=== PATIENT | male | born 1945 | race Caucasian/White ===

== ENCOUNTER → 2018-03-16 07:22 | Outpatient (CLI) | payer OTHER, MEDICAID, SELFPAY ==
--- NOTE | 2018-03-16 07:39 | PCM.CR.ITP ---
General Information - General Information Admitting Diagnosis: CABG - Education/Goals Barriers to Learning: None Individual Counseling: Initial Assessment: Nicotine/Smoking, Abnormal Cholesterol Levels Cardiac Rehabilitation Goals: 1. Maintain the individual as the primary focus of care. 2. To improve the patient's quality of life. 3. Identification of cardiac risk factors and provide cardiac risk factor management. 4. Enhance the psychosocial status of the patient. 5. Reconditioning enough to allow the patient to resume customary activities. 6. Control symptoms of cardiac disease Scale for measuring improvement of personal goals: Enter appropriate number in Comments. 2 = Unchanged. 3 = Slightly Better. 4 = Moderate Improvement. 5 = Met my Goal Personal Goals: Initial Assessment: Quit smoking (participate in smoking cessation, Improve management of stress and emotions, Improve energy level, Participate in home exercise program, Get back to work, or to resume activities faster, Improve knowledge of cardiac disease, Improve muscle strength and endurance, Improve diet and eating habits (eat healthier), Control risk factors (learn risk factor modification), Other goal: - Improve social standards in professions. Exercise - Initial Assessment - Visit Date of Eval: 03/16/18 - Stages of Change Stages of Change:: Action - Exercise Prescription Mode:: Treadmill, Biodyne, Rower, Airdyne, NuStep - Intervention Home Exercise/Activity Goal:: Moderate Exercise 30 min/day x 5 days/wk - Education Goals:: Warm-up, RPE MARIA C Scale, S/S, Safe Exercise, Self-Monitoring - Exercise Program Goals Exercise Program Goals: Aerobic Activity >30 min Nutrition - Initial Assessment - Program Goals Nutrition Program Goals: LDL <70. Total Cholesterol <200. HDL >45. Triglycerides <150. HgbA1C <7%. BMI <25 - Visit Date of Assessment:: 03/16/18 - Stages of Change Stages of Change:: Action - Lipids Total Cholesterol (mg/dL) Goal = less than 200 mg/dL: 163 HDL Cholesterol (mg/dL) Goal = less than 45 mg/dL: 40 LDL Cholesterol (mg/dL) Goal = less than 70 mg/dL: 111 Triglycerides (mg/dL) Goal = less than 150 mg/dL: 61 Lipid Medication: yes - Diabetes Diabetes:: No - Weight Management Height: 1.91 m Weight:: 72.575 kg - Intervention Referral to dietitian:: No Referral to Diabetic Clinic:: No Will attend diet classes:: Yes - Education Gave educational materials for:: Healthy eating Tobacco - Initial Assessment - Program Goals Tobacco Program Goals: Complete smoking cessation. Attend education classes. Improve Knowledge Test score - Stage of Change Stages of Change:: Action - Learning Barriers Learning Barriers: Ready to Learn Total Score:: 12 - Family Support Do you have family support?: Yes - friend - Tobacco Use Tobacco Use: Cigarettes - states I don't inhale anymore - Intervention Smoking Cessation Referral:: Yes Individual Education/Counseling:: Yes Education Schedule Given:: Yes - Education Gave educational material for:: Tobacco triggers, Coronary artery disease, Risk factors, Sexuality, Medical compliance, Cardiac A&P, Angina signs & symptoms Psychosocial - Initial Assess - Target Goals Target Goals: Assess presence or absence of depression. Using a valid screening tool, maximizes coping skills. Positive support system - Stages of Change Stages of Change:: Action - Psychosocial Test Tool Used:: HANDS Depression Questionnaire Self-Efficacy Score:: 9 - Intervention PS - Interventions: Yes Attend Stress Management Classes, Yes Uses Stress Management Skills, No Referral to Mental Health, No Referral to [facility] Case Management, No Referral to Physician - Education Gave educational materials for:: Coping techniques, Signs & symptoms of depression, Stress management, Relaxation techniques - Patient/Program Goal Preventative Medication(s):: Aspirin, JOSE ELIAS inhibitor, Clopidogrel, Beta ian, Statin/lipid - Assistive Devices Assistive Devices:: None Fall Risk Assessed:: Yes Patient Health Questionnaire Initial Assessment 1. Little interest or pleasure in doing things: Not at all 2. Feeling down, depressed, or hopeless: Not at all 3. Trouble falling or staying asleep, or sleeping too much: Not at all 4. Feeling tired or having little energy: Not at all 5. Poor appetite or overeating: Not at all 6. Feeling bad about yourself -- or that you are a failure or have let yourself or your family down: Not at all 7. Trouble concentrating on things, such as reading the newspaper or watching television: Not at all 8. Moving or speaking so slowly that other people could have noticed. Or the opposite - being so fidgety or restless that you have been moving around a lot more than usual: Not at all 9. Thoughts that you would be better off , or of hurting yourself in some way: Not at all How difficult have these problems made it for you to do your work, take care of things at home, or get along with other people?: Somewhat difficult Total Score: 0 KYM-Q SV Test - Statements CAD is a disease of the arteries in the heart: True Examples of risk factors for heart disease: True Angina is chest pain or discomfort: I Don't Know The benefits of resistance training include: True Eating more meat and dairy products: True Anti-platelet medications such as aspirin are important: True The only effective way to manage stress: True An exercise warm-up slowly increases heart rate: True Prepared, processed foods usually have high sodium: True Depression is common after a heart attack: True The statin medications lower cholesterol: True To control blood pressure, lower the amount of sodium: True If someone gets chest discomfort during walking: True Transfats are partially hydrogenated vegetable oils: True Sleep apnea that is not treated increases the risk: True To control cholesterol, one should become a vegetarian: True Someone knows if he/she is exercising at the right level: True Diabetes cannot be prevented with exercise & health eating: True Stress is a large risk for heart attack: True A diet that can help lower blood pressure is rich in: True - Total Score Total Correct Responses: 12 Self-Efficacy Initial Assessment We would like to know how confident you are in doing certain activities. Please select your confidence level for:: Select your confidence level for the following using the scale 1-10 where 1 is not at all confident and 10 is totally confident. Your score is the average of all 6 responses. Fatigue: How confident are you that you can keep the fatigue caused by your disease from interfering with the things you want to do? Select Number: 9 Physical Discomfort or Pain: How confident are you that you can keep the physical discomfort or pain of your disease from interfering with the things you want to do? Select Number: 10 Emotional Distress: How confident are you that you can keep the emotional distress caused by your disease from interfering with the things you want to do? Select Number: 9 Other Symptoms or Health Problems: How confident are you that you can keep other symptoms or health problems from interfering with the things you want to do? Select Number: 9 Different Tasks and Activities: How confident are you that you can do the different tasks and activities needed to manage your health condition so as to reduce your need to see a doctor? Select Number: 9 Medication: How confident are you that you can do things other than just taking medication to reduce how much your illness affects your everyday life? Select Number: 9 Total Score:: 9 Nutrition Survey - Nutrition Survey Instructions Scoring Instructions: Scoring is as follows: Yes = 1 points. No = 0 point. Patient score that is >/=12 is considered to be at potential nutritional risk and could benefit from a referral to a registered dietitian. - Nutrition Survey Initial Have you lost >10 lbs over the past 2 months without trying?: No Are you following a special diet at home for diabetes, low fat, or low salt?: Yes Are you interested in meeting with a dietitian for help understanding your diet?: Yes Do you eat less than 3 meals a day?: Yes Do you eat fatty meats ([place], sausage, ribs, etc), fried foods, desserts, large amounts of salad dressings, margarine, butter, or cheese most days?: No Do you have food allergies? [Enter types in comment field]: No Do you eat in restaurants more than 3 times a week?: No Do you season food with salt, seasoning salt, or garlic salt?: No Do you used canned, boxed, frozen meals, or soups, seasoning packets?: Yes Total Score:: 4
--- NOTE | 2018-03-16 07:39 | PCM.CR.HP2 ---
CR - History & Physical - General Arrival date:: 03/16/18 Arrival time:: 07:40 Date of Referral:: 03/16/18 Date of CR Evaluation:: 03/16/18 Referring Physician: Dr. 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 Interventions with present event:: Intubation, CABG, DEBBIE Were there any complications?: Respiratory failure - Medications Home Medications: Ambulatory Orders Medication Instructions Recorded Acetaminophen [Arthritis Pain 650 mg PO Q6H PRN PRN 03/16/18 Relief] Amiodarone HCl [Cordarone] 200 mg PO DAILY 03/16/18 Aspirin E.C. [Ecotrin] 81 mg PO DAILY@0800 03/16/18 Atorvastatin Calcium [Lipitor] 10 mg PO QHS 03/16/18 Budesonide/Formoterol 160/4.5 2 puff INHALATION BID 03/16/18 [Symbicort 160/4.5 Mcg Inhaler (SP)] Carvedilol [Coreg] 3.125 mg PO BID 03/16/18 Docusate Sodium [Stool Softener] 100 mg PO DAILY 03/16/18 Esomeprazole Mag Trihydrate 40 mg PO DAILY 03/16/18 [Nexium] Ferrous Sulfate [Iron] 325 mg PO TIDCM 03/16/18 Folic Acid 1 mg PO DAILY@0800 03/16/18 Losartan Potassium [Cozaar] 25 mg PO DAILY 03/16/18 Multivitamin [Multiple Vitamins] 1 each PO DAILY 03/16/18 Spironolactone [Aldactone] 25 mg PO DAILY 03/16/18 Thiamine HCl [B-1] 100 mg PO DAILY 03/16/18 Tiotropium [place] [Spiriva] 18 mcg IH DAILY 03/16/18 - Allergies Allergies/Adverse Reactions: Allergies No Known Allergies Allergy (Verified 03/16/18 07:42) - Sleep Disorder Evaluation Hx of Sleep Apnea: No Do you snore loudly (louder than talking or can be heard through closed doors)?: Yes Do you often feel tired/ fatigued/ sleepy during daytime?: Yes Has anyone observed you stop breathing during sleep?: No History of Hypertension (for STOP score): No STOP Results: Positive Advanced Directives - Advanced Directives Power of Design Project Manager: Yes Living Will: Yes Advance Directives Information Provided: Yes Advance Directives on File: No DNR Order?:: No - MOLST See MOLST form: No Past Medical History - Past Medical Illness Medical History: Past Medical History (Last Updated 03/16/18 @ 08:30 by Tejas Griffith RN) COPD (chronic obstructive pulmonary disease) J44.9 Ischemic cardiomyopathy I25.5 - Past Surgical History Surgical History: no surgical history Social History - Smoking History Smoking Status: Current every day smoker Years Smokin - since a teenager Packs Smoked per Day: 1 - States I don't inhale now Hx Tobacco Use: Yes Hx Smoking Exposure: Yes - Alcohol Use Alcohol Usage: Yes - some table wine occas on weekends - Substance Abuse Hx Substance Use: No - Occupation Occupation (List type of work in comments):: Unemployed - states I would like to play piano - Hobbies, Recreation, Social Activities Hobbies: Other - piano playing, plays Recreational Activities: I am able to engage in all my recreational activities Social Environment - Status Marital Status: Single - Current Living Arrangements Living Environment:: Alone - Children How many children do you have?: 0 Do any of your children live nearby?: No - Safety Do you feel safe in your surroundings?: Yes - Assistance Do you need any assistance at home?: no Review of Systems - Review of Systems Hints: Right click = Denies (Slash). Left click = Reports ([place]) Review of Present Symptoms: Reports: Shortness of Breath with Exertion, Operative Discomfort - Occas strains chest incision area., Dizziness/Lightheadedness - not much, Fatigue, Appetite - Normal, Appetite - Special Diet - Cardiac, Sleep - Normal. Denies: Shortness of Breath at Rest, PVD, Angina, Wound Healing, Heart Arrhythmia/Irregularities, Sexual Changes - Pain Is Patient Pain Free?: Yes Risk Factor Assessment - Vital Signs Respiratory Rate: 20 Pulse Ox: 98 - Pulse Pulse Rate: 74 Pulse Rhythm: Regular - Hypertension Blood Pressure Sitting - Right Arm: 120/68 Blood Pressure Sitting - Left Arm: 128/70 - Blood Cholesterol/Lipids Total Cholesterol (mg/dL) Goal = less than 200 mg/dL: 163 HDL Cholesterol (mg/dL) Goal = less than 40 mg/dL: 40 LDL Cholesterol (mg/dL) Goal = less than 70 mg/dL: 111 Triglycerides (mg/dL) Goal = less than 150 mg/dL: 61 - Obesity Height: 1.91 m Weight:: 72.575 kg Weight in Pounds: 160.0 lbs Weight Source: Standing Scale Body Mass Index (BMI): 20.0 Nutritional Referral for Obesity: No - Physical Inactivity Physical Inactivity: Reg Exercise 30 min/day - Risk Stratification Risk Guidelines: Lowest Risk: Risk Factor for Dyslipidemia, Risk Factor for Diabetes, Risk Factor for Obesity, Risk Factor for Hypertension, Risk Factor for Sedentary Lifestyle, Risk Factor for Depression, Highest Risk: Risk Factor for Smoking - For Smoking Smoking Risk Guidelines: Smoking Low Risk: None or quit greater than 6 months ago. Smoking Moderate Risk: Smoker or quit 6 months or less ago. Smoking High Risk: Smoker - For Dyslipidemia Dyslipidemia Risk Guidelines: Low Risk: Moderate Risk: High Risk: 15-25% fat 25.1-29% fat >/= 30% fat. <7% sat fat 7-9% sat fat >9% sat fat. <150 mg chol 150-299 mg chol >/= 300 mg chol. LDL <100 LDL 100-129 LDL >/= 130. Chol/HDL ratio <5.0 Chol/HDL ratio 5.0-6.0 Chol/HDL ratio >6.0. Triglycerides <100 Triglycerides 100-149 Triglycerides >/= 150 - For Diabetes Mellitus Diabetes Risk Guidelines: Diabetes Low Risk: HgA1c <6.5% and/or FBG <120. Diabetes Moderate Risk: HgA1c 6.6-7.9% and/or FBG 120-180. Diabetes High Risk: HgA1c >/= 8% and/or FBG >180 - For Obesity/Overweight Obesity/Overweight Risk Guidelines: Obesity Low Risk: BMI <25.0. Obesity Moderate Risk: BMI 25-29.9. Obesity High Risk: BMI >/= 30.0 - For Hypertension Hypertension Risk Guidelines: Hypertension Low Risk: Systolic <120 and Diastolic <80. Hypertension Moderate Risk: Systolic 120-139 and Diastolic 80-89. Hypertension High Risk: Systolic >/= 140 and Diastolic >/= 90 - For Sedentary Lifestyle Sedentary Lifestyle Risk Guidelines: Sedentary Lifestyle Low Risk: >/= 1,500 kcal/week. Sedentary Lifestyle Moderate Risk: 700-1,499 kcal/week. Sedentary Lifestyle High Risk: < 700 kcal/week - For Depression Depression Risk Guidelines: Depression Low Risk: Not clinically depressed. Depression Moderate Risk: Mildly depressed. Depression High Risk: Clinically depressed Motivation - Motivation to Participate On a scale of 1 to 10, how prepared are you to commit to attending program?: 10 What do you see as barriers to successfully being able to complete the program?: no What do you see as the benefits of succesfully completing the program? In other words, what do you hope to get out of participating in the program?: none Are there issues you are dealing with that will interfere with completing the program?: no Do you have a spouse or signficant other, family or friends who will help support you to complete the program?: yes
--- NOTE | 2018-03-16 07:52 | CR.HP_ITS ---
CR - History & Physical - General Arrival date:: 03/16/18 Arrival time:: 07:40 Date of Referral:: 03/16/18 Date of CR Evaluation:: 03/16/18 Referring Physician: Dr. 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 Interventions with present event:: Intubation, CABG, DEBBIE Were there any complications?: Respiratory failure - Medications Home Medications: Ambulatory Orders Medication Instructions Recorded Acetaminophen [Arthritis Pain 650 mg PO Q6H PRN PRN 03/16/18 Relief] Amiodarone HCl [Cordarone] 200 mg PO DAILY 03/16/18 Aspirin E.C. [Ecotrin] 81 mg PO DAILY@0800 03/16/18 Atorvastatin Calcium [Lipitor] 10 mg PO QHS 03/16/18 Budesonide/Formoterol 160/4.5 2 puff INHALATION BID 03/16/18 [Symbicort 160/4.5 Mcg Inhaler (SP)] Carvedilol [Coreg] 3.125 mg PO BID 03/16/18 Docusate Sodium [Stool Softener] 100 mg PO DAILY 03/16/18 Esomeprazole Mag Trihydrate 40 mg PO DAILY 03/16/18 [Nexium] Ferrous Sulfate [Iron] 325 mg PO TIDCM 03/16/18 Folic Acid 1 mg PO DAILY@0800 03/16/18 Losartan Potassium [Cozaar] 25 mg PO DAILY 03/16/18 Multivitamin [Multiple Vitamins] 1 each PO DAILY 03/16/18 Spironolactone [Aldactone] 25 mg PO DAILY 03/16/18 Thiamine HCl [B-1] 100 mg PO DAILY 03/16/18 Tiotropium [place] [Spiriva] 18 mcg IH DAILY 03/16/18 - Allergies Allergies/Adverse Reactions: Allergies No Known Allergies Allergy (Verified 03/16/18 07:42) - Sleep Disorder Evaluation Hx of Sleep Apnea: No Do you snore loudly (louder than talking or can be heard through closed doors)? : Yes Do you often feel tired/ fatigued/ sleepy during daytime?: Yes Has anyone observed you stop breathing during sleep?: No History of Hypertension (for STOP score): No STOP Results: Positive Advanced Directives - Advanced Directives Power of Buffing Machine Operator: Yes Living Will: Yes Advance Directives Information Provided: Yes Advance Directives on File: No DNR Order?:: No - MOLST See MOLST form: No Past Medical History - Past Medical Illness Medical History: Past Medical History (Last Updated 03/16/18 @ 08:30 by Tejas Griffith RN) COPD (chronic obstructive pulmonary disease) J44.9 Ischemic cardiomyopathy I25.5 - Past Surgical History Surgical History: no surgical history Social History - Smoking History Smoking Status: Current every day smoker Years Smokin - since a teenager Packs Smoked per Day: 1 - States I don't inhale now Hx Tobacco Use: Yes Hx Smoking Exposure: Yes - Alcohol Use Alcohol Usage: Yes - some table wine occas on weekends - Substance Abuse Hx Substance Use: No - Occupation Occupation (List type of work in comments):: Unemployed - states I would like to play piano - Hobbies, Recreation, Social Activities Hobbies: Other - piano playing, plays Recreational Activities: I am able to engage in all my recreational activities Social Environment - Status Marital Status: Single - Current Living Arrangements Living Environment:: Alone - Children How many children do you have?: 0 Do any of your children live nearby?: No - Safety Do you feel safe in your surroundings?: Yes - Assistance Do you need any assistance at home?: no Review of Systems - Review of Systems Hints: Right click = Denies (Slash). Left click = Reports ([place]) Review of Present Symptoms: Reports: Shortness of Breath with Exertion, Operative Discomfort - Occas strains chest incision area., Dizziness/ Lightheadedness - not much, Fatigue, Appetite - Normal, Appetite - Special Diet - Cardiac, Sleep - Normal. Denies: Shortness of Breath at Rest, PVD, Angina, Wound Healing, Heart Arrhythmia/Irregularities, Sexual Changes - Pain Is Patient Pain Free?: Yes Risk Factor Assessment - Vital Signs Respiratory Rate: 20 Pulse Ox: 98 - Pulse Pulse Rate: 74 Pulse Rhythm: Regular - Hypertension Blood Pressure Sitting - Right Arm: 120/68 Blood Pressure Sitting - Left Arm: 128/70 - Blood Cholesterol/Lipids Total Cholesterol (mg/dL) Goal = less than 200 mg/dL: 163 HDL Cholesterol (mg/dL) Goal = less than 40 mg/dL: 40 LDL Cholesterol (mg/dL) Goal = less than 70 mg/dL: 111 Triglycerides (mg/dL) Goal = less than 150 mg/dL: 61 - Obesity Height: 1.91 m Weight:: 72.575 kg Weight in Pounds: 160.0 lbs Weight Source: Standing Scale Body Mass Index (BMI): 20.0 Nutritional Referral for Obesity: No - Physical Inactivity Physical Inactivity: Reg Exercise 30 min/day - Risk Stratification Risk Guidelines: Lowest Risk: Risk Factor for Dyslipidemia, Risk Factor for Diabetes, Risk Factor for Obesity, Risk Factor for Hypertension, Risk Factor for Sedentary Lifestyle, Risk Factor for Depression, Highest Risk: Risk Factor for Smoking - For Smoking Smoking Risk Guidelines: Smoking Low Risk: None or quit greater than 6 months ago. Smoking Moderate Risk: Smoker or quit 6 months or less ago. Smoking High Risk: Smoker - For Dyslipidemia Dyslipidemia Risk Guidelines: Low Risk: Moderate Risk: High Risk: 15-25% fat 25.1-29% fat >/= 30% fat. <7% sat fat 7-9% sat fat >9% sat fat. <150 mg chol 150-299 mg chol >/= 300 mg chol. LDL <100 LDL 100-129 LDL >/= 130. Chol/HDL ratio <5.0 Chol/HDL ratio 5.0-6.0 Chol/HDL ratio >6.0. Triglycerides <100 Triglycerides 100-149 Triglycerides >/= 150 - For Diabetes Mellitus Diabetes Risk Guidelines: Diabetes Low Risk: HgA1c <6.5% and/or FBG <120. Diabetes Moderate Risk: HgA1c 6.6-7.9% and/or FBG 120-180. Diabetes High Risk: HgA1c >/= 8% and/or FBG >180 - For Obesity/Overweight Obesity/Overweight Risk Guidelines: Obesity Low Risk: BMI <25.0. Obesity Moderate Risk: BMI 25-29.9. Obesity High Risk: BMI >/= 30.0 - For Hypertension Hypertension Risk Guidelines: Hypertension Low Risk: Systolic <120 and Diastolic <80. Hypertension Moderate Risk: Systolic 120-139 and Diastolic 80-89. Hypertension High Risk: Systolic >/= 140 and Diastolic >/= 90 - For Sedentary Lifestyle Sedentary Lifestyle Risk Guidelines: Sedentary Lifestyle Low Risk: >/= 1 ,500 kcal/week. Sedentary Lifestyle Moderate Risk: 700-1,499 kcal/week. Sedentary Lifestyle High Risk: < 700 kcal/week - For Depression Depression Risk Guidelines: Depression Low Risk: Not clinically depressed. Depression Moderate Risk: Mildly depressed. Depression High Risk: Clinically depressed Motivation - Motivation to Participate On a scale of 1 to 10, how prepared are you to commit to attending program?: 10 What do you see as barriers to successfully being able to complete the program? : no What do you see as the benefits of succesfully completing the program? In other words, what do you hope to get out of participating in the program?: none Are there issues you are dealing with that will interfere with completing the program?: no Do you have a spouse or signficant other, family or friends who will help support you to complete the program?: yes
[2018-03-16 09:21] VITALS: BP 120/68; BP 128/70; PULSE 74; RESP 20; O2SAT 98
== END ==
PROVIDERS: Family Provider Internal Medicine Cardiovascular Disease
DX: I25.2 Old myocardial infarction (principal); J44.9 Chronic obstructive pulmonary disease, unspecified; I25.5 Ischemic cardiomyopathy; Z95.1 Presence of aortocoronary bypass graft; Z79.82 Long term (current) use of aspirin; Z79.899 Other long term (current) drug therapy; F17.200 Nicotine dependence, unspecified, uncomplicated

== ENCOUNTER 2018-03-29 13:00 | Outpatient (RCR) | payer MEDICARE, MEDICAID, SELFPAY ==
[2018-03-22 11:54] VITALS: BP 108/48; BP 122/64
--- NOTE | 2018-03-22 11:56 | CR.ITP_ITS ---
General Information - General Information Admitting Diagnosis: CABG - Education/Goals Barriers to Learning: None Individual Counselin-Day Assessment: Nicotine/Smoking, Abnormal Cholesterol Levels Cardiac Rehabilitation Goals: 1. Maintain the individual as the primary focus of care. 2. To improve the patient's quality of life. 3. Identification of cardiac risk factors and provide cardiac risk factor management. 4. Enhance the psychosocial status of the patient. 5. Reconditioning enough to allow the patient to resume customary activities. 6. Control symptoms of cardiac disease Scale for measuring improvement of personal goals: Enter appropriate number in Comments. 2 = Unchanged. 3 = Slightly Better. 4 = Moderate Improvement. 5 = Met my Goal Personal Goals: 30-day Re-assessment: Quit smoking (participate in smoking cessation, Improve management of stress and emotions, Improve energy level, Participate in home exercise program, Get back to work, or to resume activities faster, Improve knowledge of cardiac disease, Control risk factors (learn risk factor modification) Exercise - 30-day Assessment - Visit Date of Eval: 03/22/18 Session #:: 1 - Stages of Change Stages of Change:: Contemplate - Exercise Prescription Mode:: Treadmill, Airdyne, NuStep Frequency (x/week): 3 Duration:: 30 METs - Progression: 0.5-1 MET as tolerated: 2.5 Target Heart Rate:: 100-120 - Hypertension Resting Blood Pressure:: 108/48 Peak Exercise Blood Pressure:: 122/64 Medication Changes:: No - Intervention Home Exercise/Activity Goal:: Sitting Time <3 hrs/day - Education Goals:: Warm-up, RPE MARIA C Scale, S/S, Safe Exercise, Self-Monitoring - Exercise Program Goals Exercise Program Goals: Aerobic Activity >30 min, B/P <130/80 Nutrition - 30-Day Assessment - Program Goals Nutrition Program Goals: LDL <70. Total Cholesterol <200. HDL >45. Triglycerides <150. HgbA1C <7%. BMI <25 - Visit Date of Eval: 03/22/18 - Stages of Change Stages of Change:: Contemplate - Lipids Has the patient seen the dietitian?: No - Diabetes Diabetes:: No - Weight Management Weight:: 72.575 kg - Intervention Referral to dietitian:: No Referral to Diabetic Clinic:: No Will attend diet classes:: Yes - Education Attended class for:: Signs & symptoms of hypoglycemia, Signs & symptoms of hyperglycemia, Relate diabetes to coronary artery disease, Healthy eating Tobacco - Initial Assessment - Program Goals Tobacco Program Goals: Complete smoking cessation. Attend education classes. Improve Knowledge Test score - Learning Barriers Learning Barriers: Ready to Learn Tobacco - 30-Day Assessment - Program Goals Tobacco Program Goals: Complete smoking cessation. Attend education classes. Improve Knowledge Test score - Stage of Change Stages of Change:: Contemplate - Learning Barriers Learning Barriers: Participates in education, Declined education, Change in behavior - Family Support Do you have family support?: Yes - Tobacco Use Tobacco Use: Cigarettes - Intervention Smoking Cessation Referral:: Yes Individual Education/Counseling:: Yes Education Schedule Given:: Yes - Education Attended class for:: Tobacco triggers, Coronary artery disease, Risk factors, Sexuality, Medical compliance, Cardiac A&P, Angina signs & symptoms Psychosocial - Initial Assess - Target Goals Target Goals: Assess presence or absence of depression. Using a valid screening tool, maximizes coping skills. Positive support system - Psychosocial Test Tool Used:: HANDS Depression Questionnaire - Assistive Devices Fall Risk Assessed:: Yes Psychosocial - 30-Day Assess - Target Goals Target Goals: Assess presence or absence of depression. Using a valid screening tool, maximizes coping skills. Positive support system - Stages of Change Stages of Change:: Contemplate - Psychosocial Test Tool Used:: HANDS Depression Questionnaire - Intervention PS - Interventions: Yes Attend Stress Management Classes, Yes Uses Stress Management Skills, No Referral to Mental Health, No Referral to [facility] Case Management, No Referral to Physician - Education Attended classes for:: Coping techniques, Signs & symptoms of depression, Stress management, Relaxation techniques - Assistive Devices Assistive Devices:: None Fall Risk Assessed:: Yes Patient Health Questionnaire 30-Day Re-eval Assessment 1. Little interest or pleasure in doing things: Not at all 2. Feeling down, depressed, or hopeless: Not at all 3. Trouble falling or staying asleep, or sleeping too much: Not at all 4. Feeling tired or having little energy: Not at all 5. Poor appetite or overeating: Not at all 6. Feeling bad about yourself -- or that you are a failure or have let yourself or your family down: Not at all 7. Trouble concentrating on things, such as reading the newspaper or watching television: Not at all 8. Moving or speaking so slowly that other people could have noticed. Or the opposite - being so fidgety or restless that you have been moving around a lot more than usual: Not at all 9. Thoughts that you would be better off , or of hurting yourself in some way: Not at all How difficult have these problems made it for you to do your work, take care of things at home, or get along with other people?: Not difficult at all Total Score: 0 Self-Efficacy 30-Day Re-eval Assessment We would like to know how confident you are in doing certain activities. Please select your confidence level for:: Select your confidence level for the following using the scale 1-10 where 1 is not at all confident and 10 is totally confident. Your score is the average of all 6 responses. Fatigue: How confident are you that you can keep the fatigue caused by your disease from interfering with the things you want to do? Select Number: 9 Physical Discomfort or Pain: How confident are you that you can keep the physical discomfort or pain of your disease from interfering with the things you want to do? Select Number: 10 Emotional Distress: How confident are you that you can keep the emotional distress caused by your disease from interfering with the things you want to do? Select Number: 9 Other Symptoms or Health Problems: How confident are you that you can keep other symptoms or health problems from interfering with the things you want to do? Select Number: 9 Different Tasks and Activities: How confident are you that you can do the different tasks and activities needed to manage your health condition so as to reduce your need to see a doctor? Select Number: 9 Medication: How confident are you that you can do things other than just taking medication to reduce how much your illness affects your everyday life? Select Number: 9 Total Score:: 9
== END 2018-03-30 23:59 ==
LOC: CR 13:00
PROVIDERS: Family Provider Internal Medicine Cardiovascular Disease
DX: Z95.1 Presence of aortocoronary bypass graft (principal)
CPT/HCPCS: 93798

== ENCOUNTER 2018-04-28 13:00 | Outpatient (RCR) | payer MEDICARE, MEDICAID, SELFPAY ==
[2018-03-31 01:15] VITALS: BP 108/48; BP 122/64
--- NOTE | 2018-04-21 11:43 | PCM.CR.ITP ---
General Information - General Information Admitting Diagnosis: CABG - Education/Goals Individual Counselin-Day Assessment: Nicotine/Smoking, Abnormal Cholesterol Levels Cardiac Rehabilitation Goals: 1. Maintain the individual as the primary focus of care. 2. To improve the patient's quality of life. 3. Identification of cardiac risk factors and provide cardiac risk factor management. 4. Enhance the psychosocial status of the patient. 5. Reconditioning enough to allow the patient to resume customary activities. 6. Control symptoms of cardiac disease Scale for measuring improvement of personal goals: Enter appropriate number in Comments. 2 = Unchanged. 3 = Slightly Better. 4 = Moderate Improvement. 5 = Met my Goal Personal Goals: 60-day Re-assessment: Quit smoking (participate in smoking cessation, Improve management of stress and emotions, Improve energy level, Improve knowledge of cardiac disease, Control risk factors (learn risk factor modification) Exercise - 60-Day Assessment - Visit Date of Eval: 04/21/18 Session #:: 10 - 83.33 % compliance - Stages of Change Stages of Change:: Action - Exercise Prescription Mode:: Treadmill, Airdyne, NuStep Frequency (x/week): 3 Duration:: 30 METs: 4.5 80% increase Target Heart Rate:: 112-118 max 116 - Hypertension Resting Blood Pressure:: 160/58 Peak Exercise Blood Pressure:: 166/84 Medication Changes:: No - Intervention Home Exercise/Activity Goal:: Sitting Time <3 hrs/day - Education Goals:: Warm-up, RPE MARIA C Scale, S/S, Safe Exercise, Self-Monitoring - Exercise Program Goals Exercise Program Goals: Aerobic Activity >30 min, B/P <130/80 Nutrition - 60-Day Assessment - Program Goals Nutrition Program Goals: LDL <70. Total Cholesterol <200. HDL >45. Triglycerides <150. HgbA1C <7%. BMI <25 - Visit Date of Eval: 04/21/18 - Stages of Change Stages of Change:: Action - Lipids Has the patient seen the dietitian?: No - Diabetes Diabetes:: No - Intervention Referral to dietitian:: No Referral to Diabetic Clinic:: No Will attend diet classes:: Yes - Education Attended class for:: Signs & symptoms of hypoglycemia, Signs & symptoms of hyperglycemia, Relate diabetes to coronary artery disease, Healthy eating Tobacco - Initial Assessment - Program Goals Tobacco Program Goals: Complete smoking cessation. Attend education classes. Improve Knowledge Test score - Learning Barriers Learning Barriers: Ready to Learn Tobacco - 60-Day Assessment - Program Goals Tobacco Program Goals: Complete smoking cessation. Attend education classes. Improve Knowledge Test score - Stage of Change Stages of Change:: Action - Learning Barriers Learning Barriers: Participates in education - Family Support Do you have family support?: Yes - Tobacco Use Tobacco Use: Cigarettes Do you use smokeless tobacco?: No - Intervention Education Schedule Given:: Yes - Education Attended class for:: Tobacco triggers, Coronary artery disease, Risk factors, Sexuality, Medical compliance, Cardiac A&P, Angina signs & symptoms Psychosocial - 60-Day Assess - Target Goals Target Goals: Assess presence or absence of depression. Using a valid screening tool, maximizes coping skills. Positive support system - Stages of Change Stages of Change:: Action - Psychosocial Test Tool Used:: HANDS Depression Questionnaire - Intervention PS - Interventions: Yes Attend Stress Management Classes, Yes Uses Stress Management Skills, No Referral to Mental Health, No Referral to [facility] Case Management, No Referral to Physician - Education Attended classes for:: Coping techniques, Signs & symptoms of depression, Stress management - Assistive Devices Assistive Devices:: None Fall Risk Assessed:: Yes Patient Health Questionnaire 60-Day Re-eval Assessment 1. Little interest or pleasure in doing things: Not at all 2. Feeling down, depressed, or hopeless: Not at all 3. Trouble falling or staying asleep, or sleeping too much: Not at all 4. Feeling tired or having little energy: Not at all 5. Poor appetite or overeating: Not at all 6. Feeling bad about yourself -- or that you are a failure or have let yourself or your family down: Not at all 7. Trouble concentrating on things, such as reading the newspaper or watching television: Not at all 8. Moving or speaking so slowly that other people could have noticed. Or the opposite - being so fidgety or restless that you have been moving around a lot more than usual: Not at all 9. Thoughts that you would be better off , or of hurting yourself in some way: Not at all How difficult have these problems made it for you to do your work, take care of things at home, or get along with other people?: Not difficult at all Total Score: 0 Self-Efficacy 60-Day Re-eval Assessment We would like to know how confident you are in doing certain activities. Please select your confidence level for:: Select your confidence level for the following using the scale 1-10 where 1 is not at all confident and 10 is totally confident. Your score is the average of all 6 responses. Fatigue: How confident are you that you can keep the fatigue caused by your disease from interfering with the things you want to do? Select Number: 10 Physical Discomfort or Pain: How confident are you that you can keep the physical discomfort or pain of your disease from interfering with the things you want to do? Select Number: 9 Emotional Distress: How confident are you that you can keep the emotional distress caused by your disease from interfering with the things you want to do? Select Number: 9 Other Symptoms or Health Problems: How confident are you that you can keep other symptoms or health problems from interfering with the things you want to do? Select Number: 9 Different Tasks and Activities: How confident are you that you can do the different tasks and activities needed to manage your health condition so as to reduce your need to see a doctor? Select Number: 9 Medication: How confident are you that you can do things other than just taking medication to reduce how much your illness affects your everyday life? Select Number: 9 Total Score:: 9
[2018-04-21 11:48] VITALS: BP 160/58; BP 166/84
== END 2018-04-29 23:59 ==
LOC: CR 13:00
PROVIDERS: Family Provider Internal Medicine Cardiovascular Disease
DX: Z95.1 Presence of aortocoronary bypass graft (principal)
CPT/HCPCS: 93798

== ENCOUNTER 2018-05-29 13:00 | Outpatient (RCR) | payer MEDICARE, MEDICAID, SELFPAY ==
[2018-04-30 01:01] VITALS: BP 160/58; BP 166/84
--- NOTE | 2018-05-24 09:31 | PCM.CR.ITP ---
General Information - General Information Admitting Diagnosis: CABG - Education/Goals Barriers to Learning: None Individual Counseling: Discharge Assessment: Nicotine/Smoking, Abnormal Cholesterol Levels Cardiac Rehabilitation Goals: 1. Maintain the individual as the primary focus of care. 2. To improve the patient's quality of life. 3. Identification of cardiac risk factors and provide cardiac risk factor management. 4. Enhance the psychosocial status of the patient. 5. Reconditioning enough to allow the patient to resume customary activities. 6. Control symptoms of cardiac disease Scale for measuring improvement of personal goals: Enter appropriate number in Comments. 2 = Unchanged. 3 = Slightly Better. 4 = Moderate Improvement. 5 = Met my Goal Personal Goals: Discharge Reassessment: Quit smoking (participate in smoking cessation, Improve management of stress and emotions, Improve energy level, Improve knowledge of cardiac disease, Control risk factors (learn risk factor modification) Exercise - 90-Day Assessment - Visit Date of Eval: 05/24/18 Session #:: 23 - Stages of Change Stages of Change:: Action - Exercise Prescription Mode:: Treadmill, Airdyne, NuStep Frequency (x/week): 3 Duration:: 30 METs: 6.5 Target Heart Rate:: 118-126 Max HR 114 - Hypertension Resting Blood Pressure:: 100/48 Peak Exercise Blood Pressure:: 128/60 Medication Changes:: No - Intervention Home Exercise/Activity Goal:: Sitting Time <3 hrs/day - Education Goals:: Warm-up, RPE MARIA C Scale, S/S, Safe Exercise, Self-Monitoring - Exercise Program Goals Exercise Program Goals: Aerobic Activity >30 min, B/P <130/80 Nutrition - 90-Day Assessment - Program Goals Nutrition Program Goals: LDL <70. Total Cholesterol <200. HDL >45. Triglycerides <150. HgbA1C <7%. BMI <25 - Visit Date of Eval: 05/24/18 - Stages of Change Stages of Change:: Action - Lipids Has the patient seen the dietitian?: No - Weight Management Weight:: 75.75 kg - Intervention Referral to dietitian:: No Referral to Diabetic Clinic:: No Will attend diet classes:: Yes - Education Attended class for:: Signs & symptoms of hypoglycemia, Signs & symptoms of hyperglycemia, Relate diabetes to coronary artery disease, Healthy eating Tobacco - Initial Assessment - Program Goals Tobacco Program Goals: Complete smoking cessation. Attend education classes. Improve Knowledge Test score - Learning Barriers Learning Barriers: Ready to Learn Tobacco - 90-Day Assessment - Program Goals Tobacco Program Goals: Complete smoking cessation. Attend education classes. Improve Knowledge Test score - Stage of Change Stages of Change:: Action - Learning Barriers Learning Barriers: Participates in education - Family Support Do you have family support?: Yes - Tobacco Use Tobacco Use: Cigarettes Do you use smokeless tobacco?: No - Intervention Smoking Cessation Referral:: Yes Education Schedule Given:: Yes - Education Attended class for:: Tobacco triggers, Coronary artery disease, Risk factors, Sexuality, Medical compliance, Cardiac A&P, Angina signs & symptoms Psychosocial - Initial Assess - Target Goals Target Goals: Assess presence or absence of depression. Using a valid screening tool, maximizes coping skills. Positive support system - Psychosocial Test Tool Used:: HANDS Depression Questionnaire - Assistive Devices Fall Risk Assessed:: Yes Psychosocial - 90-Day Assess - Target Goals Target Goals: Assess presence or absence of depression. Using a valid screening tool, maximizes coping skills. Positive support system - Stages of Change Stages of Change:: Action - Psychosocial Test Tool Used:: HANDS Depression Questionnaire - Intervention PS - Interventions: Yes Attend Stress Management Classes, Yes Uses Stress Management Skills, No Referral to Mental Health, No Referral to [facility] Case Management, No Referral to Physician - Education Attended classes for:: Coping techniques, Signs & symptoms of depression, Stress management, Relaxation techniques - Assistive Devices Assistive Devices:: None Fall Risk Assessed:: Yes Patient Health Questionnaire 90-Day Re-eval Assessment 1. Little interest or pleasure in doing things: Not at all 2. Feeling down, depressed, or hopeless: Not at all 3. Trouble falling or staying asleep, or sleeping too much: Not at all 4. Feeling tired or having little energy: Not at all 5. Poor appetite or overeating: Not at all 6. Feeling bad about yourself -- or that you are a failure or have let yourself or your family down: Not at all 7. Trouble concentrating on things, such as reading the newspaper or watching television: Not at all 8. Moving or speaking so slowly that other people could have noticed. Or the opposite - being so fidgety or restless that you have been moving around a lot more than usual: Not at all 9. Thoughts that you would be better off , or of hurting yourself in some way: Not at all How difficult have these problems made it for you to do your work, take care of things at home, or get along with other people?: Not difficult at all Total Score: 0 Self-Efficacy 90-Day Re-eval Assessment We would like to know how confident you are in doing certain activities. Please select your confidence level for:: Select your confidence level for the following using the scale 1-10 where 1 is not at all confident and 10 is totally confident. Your score is the average of all 6 responses. Fatigue: How confident are you that you can keep the fatigue caused by your disease from interfering with the things you want to do? Select Number: 10 Physical Discomfort or Pain: How confident are you that you can keep the physical discomfort or pain of your disease from interfering with the things you want to do? Select Number: 9 Emotional Distress: How confident are you that you can keep the emotional distress caused by your disease from interfering with the things you want to do? Select Number: 9 Other Symptoms or Health Problems: How confident are you that you can keep other symptoms or health problems from interfering with the things you want to do? Select Number: 9 Different Tasks and Activities: How confident are you that you can do the different tasks and activities needed to manage your health condition so as to reduce your need to see a doctor? Select Number: 9 Medication: How confident are you that you can do things other than just taking medication to reduce how much your illness affects your everyday life? Select Number: 9 Total Score:: 9
[2018-05-24 09:39] VITALS: BP 100/48; BP 128/60
== END 2018-05-30 23:59 ==
LOC: CR 13:00
PROVIDERS: Family Provider Internal Medicine Cardiovascular Disease
DX: Z95.1 Presence of aortocoronary bypass graft (principal)
CPT/HCPCS: 93798

== ENCOUNTER 2018-06-16 13:00 | Outpatient (RCR) | payer MEDICARE, MEDICAID, SELFPAY ==
[2018-05-31 00:58] VITALS: BP 100/48; BP 128/60
[2018-06-23 15:20] VITALS: BP 100/60; BP 120/72
--- NOTE | 2018-06-23 15:21 | CR.ITP_ITS ---
Exercise - Final/Discharge - Visit Date of Eval: 06/23/18 - graduated 06/16/2018 - Stages of Change Stages of Change:: Action - Exercise Prescription Mode:: Treadmill, Rower, Airdyne, NuStep Frequency (x/week): 3 Duration:: 35 METs: 6.5 Target Heart Rate:: 118-126 - Hypertension Do any of the following apply?: Yes Resting Blood Pressure:: 100/60 Peak Exercise Blood Pressure:: 120/72 - Intervention Home Exercise/Activity Goal:: Moderate Exercise 30 min/day x 5 days/wk - Education Goal Progress: Goal Met - Exercise Program Goals Exercise Program Goals: Aerobic Activity >30 min Nutrition - Final Assessment - Program Goals Nutrition Program Goals: LDL <70. Total Cholesterol <200. HDL >45. Triglycerides <150. HgbA1C <7%. BMI <25 - Visit Date of Eval: 06/23/18 - Stages of Change Stages of Change:: Action - Diabetes Diabetes:: No Insulin: No Non-Insulin Dependent?: No - Weight Management Height: 6 ft 1 in Weight:: 170 lb 8 oz Body Fat %:: 20 - Intervention Referral to dietitian:: No Referral to Diabetic Clinic:: No Will attend diet classes:: Yes - Education Education Goal Reached?: Yes Tobacco - Initial Assessment - Program Goals Tobacco Program Goals: Complete smoking cessation. Attend education classes. Improve Knowledge Test score - Learning Barriers Learning Barriers: Ready to Learn Tobacco - Final Assessment - Program Goals Tobacco Program Goals: Complete smoking cessation. Attend education classes. Improve Knowledge Test score - Stage of Change Stages of Change:: Action - Learning Barriers Cardiac Knowledge Test Score:: 17 - Family Support Do you have family support?: Yes - Tobacco Use Tobacco Use: Cigarettes How many cigarettes do you smoke per day?: 10 Do you use smokeless tobacco?: No - Intervention Education Schedule Given:: Yes - Education Education Goal Reached?: Yes Psychosocial - Final Assessmen - Target Goals Target Goals: Assess presence or absence of depression. Using a valid screening tool, maximizes coping skills. Positive support system - Stages of Change Stages of Change:: Action - Psychosocial Test Tool Used:: HANDS Depression Questionnaire - Intervention PS - Interventions: Yes Attend Stress Management Classes, Yes Uses Stress Management Skills, No Referral to Mental Health, No Referral to [facility] Case Management, No Referral to Physician - Education Education Goal Reached?: Yes - Patient/Program Goal Preventative Medication(s):: Aspirin, Clopidogrel, Beta ian, Statin/lipid - Assistive Devices Assistive Devices:: None Fall Risk Assessed:: Yes Patient Health Questionnaire Discharge Assessment 1. Little interest or pleasure in doing things: Several days 2. Feeling down, depressed, or hopeless: Not at all 3. Trouble falling or staying asleep, or sleeping too much: Several days 4. Feeling tired or having little energy: More than half the days 5. Poor appetite or overeating: Several days 6. Feeling bad about yourself -- or that you are a failure or have let yourself or your family down: Not at all 7. Trouble concentrating on things, such as reading the newspaper or watching television: Several days 8. Moving or speaking so slowly that other people could have noticed. Or the opposite - being so fidgety or restless that you have been moving around a lot more than usual: Not at all 9. Thoughts that you would be better off , or of hurting yourself in some way: Not at all How difficult have these problems made it for you to do your work, take care of things at home, or get along with other people?: Somewhat difficult Total Score: 6 KYM-Q SV Test - Statements CAD is a disease of the arteries in the heart: False Examples of risk factors for heart disease: True Angina is chest pain or discomfort: True The benefits of resistance training include: True Eating more meat and dairy products: False Anti-platelet medications such as aspirin are important: True The only effective way to manage stress: False An exercise warm-up slowly increases heart rate: True Prepared, processed foods usually have high sodium: True Depression is common after a heart attack: True The statin medications lower cholesterol: True To control blood pressure, lower the amount of sodium: True If someone gets chest discomfort during walking: True Transfats are partially hydrogenated vegetable oils: False Sleep apnea that is not treated increases the risk: True To control cholesterol, one should become a vegetarian: False Someone knows if he/she is exercising at the right level: True Diabetes cannot be prevented with exercise & health eating: False Stress is a large risk for heart attack: True A diet that can help lower blood pressure is rich in: True - Total Score Total Correct Responses: 17 Self-Efficacy Discharge Assessment We would like to know how confident you are in doing certain activities. Please select your confidence level for:: Select your confidence level for the following using the scale 1-10 where 1 is not at all confident and 10 is totally confident. Your score is the average of all 6 responses. Fatigue: How confident are you that you can keep the fatigue caused by your disease from interfering with the things you want to do? Select Number: 8 Physical Discomfort or Pain: How confident are you that you can keep the physical discomfort or pain of your disease from interfering with the things you want to do? Select Number: 8 Emotional Distress: How confident are you that you can keep the emotional distress caused by your disease from interfering with the things you want to do? Select Number: 9 Other Symptoms or Health Problems: How confident are you that you can keep other symptoms or health problems from interfering with the things you want to do? Select Number: 8 Different Tasks and Activities: How confident are you that you can do the different tasks and activities needed to manage your health condition so as to reduce your need to see a doctor? Select Number: 10 Medication: How confident are you that you can do things other than just taking medication to reduce how much your illness affects your everyday life? Select Number: 9 Total Score:: 8 Nutrition Survey - Nutrition Survey Instructions Scoring Instructions: Scoring is as follows: Yes = 1 points. No = 0 point. Patient score that is >/=12 is considered to be at potential nutritional risk and could benefit from a referral to a registered dietitian. - Nutrition Survey Discharge Have you lost >10 lbs over the past 2 months without trying?: No Are you following a special diet at home for diabetes, low fat, or low salt?: Yes Are you interested in meeting with a dietitian for help understanding your diet? : No Do you eat less than 3 meals a day?: No Do you eat fatty meats ([place], sausage, ribs, etc), fried foods, desserts, large amounts of salad dressings, margarine, butter, or cheese most days?: Yes Do you have food allergies? [Enter types in comment field]: No Do you eat in restaurants more than 3 times a week?: No Do you season food with salt, seasoning salt, or garlic salt?: No Do you used canned, boxed, frozen meals, or soups, seasoning packets?: Yes Total Score:: 3
== END 2018-06-16 13:05 | disposition home or self-care (01) ==
LOC: CR 13:00
PROVIDERS: Family Provider Internal Medicine Cardiovascular Disease
DX: Z95.1 Presence of aortocoronary bypass graft (principal)
CPT/HCPCS: 93798

== ENCOUNTER 2021-08-20 20:17 | Emergency (ER) | payer OTHER, MEDICARE, MEDICAID, SELFPAY ==
[2021-08-20 20:18] VITALS: BP 168/92; PULSE 83; RESP 18; TEMP 36.7; O2SAT 99; BMI 20.9
--- NOTE | 2021-08-20 20:36 | ED.VIS.CHEST ---
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 It is gone now. No associated symptoms or radiation. No arm discomfort. He states he wanted to make sure this was not anything dangerous because it kind of felt like something similar to when he needed his heart operation although he cannot tell us any details about that. Cannot remember if it was a bypass, valve issue or something different but he has a history of ischemic cardiomyopathy in his medical record, and he was at cardiac rehab 3 days ago after he had this done. He continues to smoke about 1/2 pack/day. Prior Similar Symptoms: Yes PFSH PFSH Medical History COPD (chronic obstructive pulmonary disease) Ischemic cardiomyopathy Home Medications carvedilol [Coreg] 3.125 mg PO BID 03/16/18 [History Last Taken Unknown] Allergy/AdvReac Type Severity Reaction Status Date / Time No Known Allergies Allergy Verified 03/16/18 07:42 Social History Smoking Status: Current every day smoker tobacco type: cigarettes ROS ROS ED Constitutional Constitutional ED: Denies chills or fever(s) Eyes Eyes: Denies change in vision or diplopia ENT ENT ED: Denies rhinorrhea or sore throat Cardiovascular Cardiovascular: Reports as per HPI and chest pain; Denies palpitations Respiratory/Chest Respiratory/Chest: Denies cough or dyspnea Gastrointestinal Gastrointestinal: Denies abdominal pain, diarrhea, nausea or vomiting Genitourinary Genitourinary ED: Denies dysuria or hematuria Musculoskeletal Musculoskeletal: Denies back pain or neck pain Integumentary Denies abscess or rash Neurologic Neurologic: Denies headache(s), paresthesias or weakness Psychiatric Psychiatric: Denies anxiety or suicidal thoughts EXAM Physical Exam Const Vital Signs: 08/20/21 20:18 08/20/21 20:41 08/20/21 22:23 Temperature 98.1 F Temperature Source Temporal Pulse Rate 83 73 Respiratory Rate 18 14 Respiratory Effort Normal Non-Labored Blood Pressure 168/92 H 157/88 H Blood Pressure Mean 117 111 Pulse Ox 99 98 Oxygen Delivery Method Room Air Room Air Positive well nourished and well developed General Appearance ED: well developed and NAD HEENT Reports moist mucous membranes normocephalic and atraumatic Eyes PERRL and EOMs intact bilaterally Neck full ROM and supple Resp normal respiratory effort and clear to auscultation bilaterally Cardio regular rate, regular rhythm and no murmurs GI non-tender and non-distended Auscultation: normoactive bowel sounds Palpation: soft Back/Spine no CVA tenderness General Back: other FROM Extremity normal to inspection General Extremety ED: Negative for edema, pulses abnormal or tenderness General Extremity: Negative for edema or pulses abnormal Neuro oriented x3, CN's II-XII intact bilaterally and no sensory deficits noted Sensorium / Orientation: awake and alert Motor Exam: strength 5/5 throughout Skin no rashes or lesions noted and no wounds Heart Score History: Slightly/Non-Suspicious ECG: Nonspecific Repolarization Age: >/= 65 years Risk Factors: >/= 3 Risk Factors or History of CAD Troponin: </= Normal Limit Score: 5 MDM MDM MDM Narrative Medical decision making narrative: Patient had no further episodes of chest discomfort here. His initial troponin came back within normal limits of 41. A 2-hour troponin is indicated, he was amenable to that. It returned slightly higher but less than 7, patient wants to go home, he was advised to follow-up closely or return if he has recurrent symptoms. Lab Data Attestation: I reviewed the patient's lab results. Labs: Laboratory Results - last 24 hr 08/20/21 08/20/21 08/20/21 20:20 20:20 23:15 WBC 9.7 RBC 4.40 L Hgb 15.1 Hct 45.6 MCV 103.6 H MCH 34.3 H MCHC 33.1 RDW Std Deviation 54.8 H RDW Coeff of Paul 14.1 Plt Count 265 MPV 9.2 Immature Gran % (Auto) 0.300 Neut % (Auto) 67.6 Lymph % (Auto) 22.3 [place] % (Auto) 6.8 Eos % (Auto) 2.0 Baso % (Auto) 1.0 Absolute Neuts (auto) 6.6 Absolute Lymphs (auto) 2.17 Nucleated RBC % 0 Sodium 138 Potassium 3.9 Chloride 105 Carbon Dioxide 28.0 Anion Gap 5 BUN 15 Creatinine 1.01 Estim Creat Clear Calc 67.84 Est GFR (MDRD) Af Amer 92 Est GFR (MDRD) Non-Af 76 BUN/Creatinine Ratio 14.9 Glucose 81 Calcium 8.9 Troponin I High Sens 41 45 Radiography Chest X-Ray - ED: 1 View, Read by ED Physician, Read by Radiologist and No Infiltrates Diagnostic Testing: Clinical Impression(s) from Imaging Studies Chest X-Ray 08/20/21 20:40 IMPRESSION: Emphysema. No acute findings. Electronically Signed: Eyad Soliz MD at 21:15 EDT Tel , Service support , EKG Initial EKG: Attestation: I personally reviewed and interpreted this EKG as follows: Interpretation: Sinus Rhythm, No Acute Injury Pattern and Inverted T-Waves (laterally) Prior: No Prior Discharge Plan Triage Chief Complaint: Chest Pain ED Provider: Shaan Beavers Dx/Rx/DC Orders Clinical Impression: Chest pain, unspecified Instructions: ED Chest Pain, Uncertain Cause Prescriptions: No Action carvedilol [Coreg] 3.125 MG tablet 3.125 mg PO BID RF: 0 Primary Care Provider: [facility] Referrals: [facility] [Primary Care Provider] - Doctor,Your [STAFF PHYSICIAN] - As soon as possible Activity Restrictions/Additional Instructions: take daily aspirin 81mg and try to stop smoking. Disposition Disposition: Home, Self Care
--- NOTE | 2021-08-20 20:40 | RAD_ITS ---
EXAM: XR Chest, 1 View CLINICAL INDICATION: 75 years old, Male; chest pain TECHNIQUE: Frontal view of the chest. This report was created using [employer] report generation technology. COMPARISON: None. FINDINGS: Lungs and pleural spaces: Emphysema. Atelectasis in the lung bases. No pneumothorax. No effusion. Heart: Coronary artery bypass graft (CABG). Mediastinum: Calcified left hilar lymph nodes consistent with old granulomatous disease. Bones/joints: Sternotomy. Soft tissues: Unremarkable. RAD/Chest 1 View (Portable) IMPRESSION: Emphysema. No acute findings. Electronically Signed: Eyad Soliz MD at 21:15 EDT Tel , Service support ,
[2021-08-20 20:44] LABS: Absolute Lymphocyte Count 2.17 X10^3/uL (0.83-4.51); Absolute Neutrophil Count 6.6 X10^3/uL (2.0-7.7); Eosinophil# 0.19 X10^3/uL; Hematocrit 45.6 % (40-54); Hemoglobin 15.1 g/dL (13.0-16.5); Lymphocyte # 2.17 X10^3/ul (0.83-4.51); Lymphocyte % 22.3 % (19-41); Mean Corp Hgb Conc 33.1 g/dL (32-36); Mean Corpuscular Hgb 34.3 pg (27.0-32.0); Mean Corpuscular Volume 103.6 fL (80-94); Mean Platelet Vol. 9.2 fl (6.2-12.0); Monocyte# 0.66 X10^3/uL; Monocyte% 6.8 % (0-10); NRBC Flagged by Analyzer 0 % (0-5); Neutrophil # 6.59 X10^3/uL (2.7-7.7); Neutrophil % 67.6 % (47-70); Platelet Count 265 K/mm3 (150-450); RBC Distribution Width CV 14.1 % (11.6-14.6); RBC Distribution Width SD 54.8 fl (35.1-43.9); White Blood Count 9.7 K/mm3 (4.4-11.0)
[2021-08-20 20:55] LABS: Anion Gap 5 (5-15); BUN 15 mg/dL (7-18); BUN/Creat Ratio 14.9 RATIO (10-20); Calcium,Total 8.9 mg/dL (8.5-10.1); Chloride 105 mmol/L (98-107); Creatinine, Serum 1.01 mg/dL (0.70-1.30); EST Glomerular Filtration Rate 76 mL/min (>60); Est Glom Filt Rate - Afr Amer 92 mL/min (>60); Estimated Creatinine Clearance 67.84 ml/min; Glucose 81 mg/dL (74-106); Potassium 3.9 mmol/L (3.5-5.1); Sodium Level 138 mmol/L (136-145); Troponin-I HS 41 pg/mL (3.0-78.0)
--- NOTE | 2021-08-20 21:26 | EKG12_ITS ---
Test Reason : CP Blood Pressure : / mmHG Vent. Rate : 081 BPM Atrial Rate : 081 BPM P-R Int : 142 ms QRS Dur : 124 ms QT Int : 400 ms P-R-T Axes : 080 -07 083 degrees QTc Int : 464 ms Normal sinus rhythm Left atrial enlargement Lateral infarct , age undetermined Inferior infarct , age undetermined Abnormal ECG Confirmed by ANTONIETTA SHEN, BRENT ([id number]), technical writer and editor EDOUARD GOLDSMITH ([id number]) on 08/25/2021 8:39:56 AM Referred By: TL Confirmed By:BRENT MANE MD
[2021-08-20 22:23] VITALS: BP 157/88; PULSE 73; RESP 14; O2SAT 98
[2021-08-20 23:42] LABS: Troponin-I HS 45 pg/mL (3.0-78.0)
[2021-08-21 00:04] VITALS: BP 157/88; PULSE 74; RESP 16; O2SAT 97
--- NOTE | 2021-09-11 14:11 | ED.RN ---
THIS NURSE CONTACTED PT SISTER TO HAVE HER TRY TO CONTACT HIM HE HAS CLOTHING HERE
== END 2021-08-21 00:04 | disposition home or self-care (01) ==
PROVIDERS: Emergency Provider Emergency Medicine
DX: R07.89 Other chest pain (principal); I25.5 Ischemic cardiomyopathy; J44.9 Chronic obstructive pulmonary disease, unspecified; Z79.899 Other long term (current) drug therapy; F17.210 Nicotine dependence, cigarettes, uncomplicated
CPT/HCPCS: 36415; 71045; 80048; 84484; 85025; 93005; 99284; A4216

== ENCOUNTER 2022-03-13 09:40 | Observation (INO) | payer OTHER, SELFPAY ==
[2022-03-13] VITALS (12 sets, daily range): BP systolic 130–169; BP diastolic 82–94; PULSE 71–98; RESP 12–24; TEMP 36.4–36.8; O2SAT 95–98; BMI 19.8; BMI 17.7
--- NOTE | 2022-03-13 09:58 | RAD_ITS ---
STUDY: X-RAY CHEST REASON FOR EXAM: Male, 76 years old. chest pain TECHNIQUE: AP view of the chest COMPARISON: None. FINDINGS: There are increased interstitial markings in the right upper and right lower lung. The lungs are otherwise clear and expanded. There is no demonstrated pleural abnormality. Normal size heart. Normal mediastinum and ayan. Normal visualized pulmonary arteries. Normal visualized aortic arch and descending thoracic aorta. Normal visualized thoracic spine. Normal visualized ribs, clavicles, and shoulders. There is no demonstrated abnormality of the visualized soft tissue structures of the upper abdomen. RAD/Chest 1 View (Portable) IMPRESSION: Prominent right lung interstitial markings. CT Chest may be helpful for further characterization. Electronically Signed: Terrance France MD at 10:32 EDT ,
--- NOTE | 2022-03-13 09:58 | EKG12_ITS ---
Test Reason : CP Blood Pressure : / mmHG Vent. Rate : 084 BPM Atrial Rate : 084 BPM P-R Int : 136 ms QRS Dur : 132 ms QT Int : 410 ms P-R-T Axes : 072 -01 090 degrees QTc Int : 484 ms Sinus rhythm with occasional Premature ventricular complexes Left atrial enlargement Non-specific intra-ventricular conduction block Inferior infarct , age undetermined Abnormal ECG Confirmed by ANTONIETTA SHEN, BRENT ([id number]), loan expeditor EDOUARD GOLDSMITH ([id number]) on 03/15/2022 1:54:59 PM Referred By: SALO Confirmed By:BRENT MANE MD
--- NOTE | 2022-03-13 10:00 | EDS_ITS ---
HPI <IVANNA Westfall - Last Filed: 03/13/22 13:40> History of Present Illness Chief Complaint: Chest Pain Narrative Narrative: 76-year-old male presents with a brief episode of chest pain that occurred this morning after he woke up around 8:30 AM. He had midsternal chest discomfort for about 15 minutes. He also felt short of breath. No pain in his arm or jaw, no nausea vomiting or diaphoresis. It has completely resolved now. He states he does not get chest pain often and he walks long distances to the bank and to shop and is asymptomatic. He has a history of a heart surgery in 2018 but cannot remember if it was a bypass or valve issue. 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 He says he has prescription medications but it is unclear if he is taking them as he is a poor historian. He smokes about 5 to 10 cigarettes a day but claims he does not inhale. [facility] <IVANNA Westfall - Last Filed: 03/13/22 13:40> [facility] Medical History (Updated 03/13/22 @ 09:47 by Yennifer Patterson) COPD (chronic obstructive pulmonary disease) Ischemic cardiomyopathy Past heart attack Home Medications NK 03/13/22 [History Last Taken Unknown] Allergy/AdvReac Type Severity Reaction Status Date / Time No Known Allergies Allergy Verified 03/13/22 09:41 Social History Smoking Status: Current every day smoker tobacco type: cigarettes ROS <IVANNA Westfall - Last Filed: 03/13/22 13:40> ROS ED ROS Narrative Constitutional: Negative for fever, chills, malaise. Eyes: Negative for visual change. ENT: Negative for sore throat, ear pain, rhinorrhea. CVS: Positive for chest pain. Negative for palpitations, syncope. Respiratory: Positive for shortness of breath. Negative for cough, orthopnea. GI: Negative for abdominal pain, nausea, vomiting, diarrhea, constipation, melena, hematochezia. : Negative for dysuria, hematuria or frequency. Neuro: Negative for headache, motor/sensory dysfunction. Skin: Negative for rash, abscess, or wound. Musc: Negative for joint pain, swelling, trauma. Heme: Negative for easy bruising, bleeding, lymphadenopathy. EXAM <IVANNA Westfall - Last Filed: 03/13/22 13:40> Physical Exam Narrative Exam Narrative: CONST: Patient sitting in no acute distress. EYES: Normal inspection. NECK: Normal inspection. RESP: No respiratory distress, CTAB. CVS: Regular rate and rhythm, no murmur, no gallop. ABD: Soft and nontender, no guarding or rebound, nondistended, no pulsatile mass. Back: Normal inspection, no CVA tenderness. SKIN: Color normal, no rash, warm, dry, intact. EXTREMITIES: Normal appearance, no pedal edema, no calf tenderness. NEURO: Oriented x4. PSYCH: Normal affect. Const Vital Signs: 03/13/22 09:41 03/13/22 09:52 03/13/22 10:05 Temperature 97.6 F L Temperature Source Temporal Pulse Rate 86 Respiratory Rate 22 H Respiratory Pattern Tachypnea Blood Pressure 155/94 H Blood Pressure Mean 114 Pulse Ox 98 97 Oxygen Delivery Method Room Air Room Air 03/13/22 10:40 03/13/22 11:00 03/13/22 11:38 Temperature Temperature Source Pulse Rate 90 78 82 Respiratory Rate 22 H 24 H 18 Respiratory Pattern Blood Pressure 169/91 H 157/86 H Blood Pressure Mean 117 109 Pulse Ox 96 98 95 Oxygen Delivery Method Room Air Room Air Room Air <Dr. Lan Machado MD - Last Filed: 03/13/22 11:24> Physical Exam Const Vital Signs: 03/13/22 09:41 03/13/22 09:52 03/13/22 10:05 Temperature 97.6 F L Temperature Source Temporal Pulse Rate 86 Respiratory Rate 22 H Respiratory Pattern Tachypnea Blood Pressure 155/94 H Blood Pressure Mean 114 Pulse Ox 98 97 Oxygen Delivery Method Room Air Room Air 03/13/22 10:40 03/13/22 11:00 03/13/22 11:38 Temperature Temperature Source Pulse Rate 90 78 82 Respiratory Rate 22 H 24 H 18 Respiratory Pattern Blood Pressure 169/91 H 157/86 H Blood Pressure Mean 117 109 Pulse Ox 96 98 95 Oxygen Delivery Method Room Air Room Air Room Air <IVANNA Westfall - Last Filed: 03/13/22 13:40> Heart Score History: Slightly/Non-Suspicious Age: >/= 65 years Risk Factors: >/= 3 Risk Factors or History of CAD Score: 4 MDM <IVANNA Westfall - Last Filed: 03/13/22 13:40> [facility] Narrative Medical decision making narrative: Patient presents with an episode of chest pain lasting approximately 15 minutes that has resolved upon arrival. He appears well and nontoxic. BP 155/94, otherwise unremarkable vital signs. Heart is regular. Lungs clear. Abdomen soft and nontender with no distention or pulsatile mass. 2+ upper and lower distal pulses. EKG is sinus rhythm with PVCs with no acute ischemia. It appears unchanged from August 20, 2021. EKG is 80, delta pending. This is higher than previously in the 40s. Basic labs unremarkable. Chest x-ray shows elevation of right hemidiaphragm and prominent right lung markings. A CTA will be obtained to further evaluate. CTA shows no PE, groundglass/emphysematous changes likely from his chronic smoking, and incidental AAA. Patient has no abdominal pain and there is no dissection. With him being a poor historian and troponins being higher than previous I feel he needs brought in for chest pain observation and rule out. Patient agreeable to stay. Case will be discussed with the hospitalist. 1. Chest pain 2. Elevated troponin 3. Incidental AAA Lab Data Labs: Laboratory Results - last 24 hr 03/13/22 03/13/22 10:05 10:05 WBC 8.8 RBC 4.25 L Hgb 14.2 Hct 43.8 MCV 103.1 H MCH 33.4 H MCHC 32.4 RDW Std Deviation 56.8 H RDW Coeff of Paul 14.8 H Plt Count 243 MPV 9.1 Immature Gran % (Auto) 0.300 Neut % (Auto) 66.8 Lymph % (Auto) 22.8 Forest % (Auto) 6.2 Eos % (Auto) 2.5 Baso % (Auto) 1.4 H Absolute Neuts (auto) 5.9 Absolute Lymphs (auto) 2.01 Nucleated RBC % 0 Sodium 137 Potassium 4.3 Chloride 105 Carbon Dioxide 27.0 Anion Gap 5 BUN 14 Creatinine 0.88 Estim Creat Clear Calc 72.42 Est GFR (MDRD) Af Amer 108 Est GFR (MDRD) Non-Af 89 BUN/Creatinine Ratio 15.8 Glucose 99 Calcium 9.1 Troponin I High Sens 80 H Radiography Chest X-Ray - ED: 1 View, Read by ED Physician, Read by Radiologist, Normal, Heart and Mediastinum Diagnostic Testing: Clinical Impression(s) from Imaging Studies Chest X-Ray 03/13/22 09:58 IMPRESSION: Prominent right lung interstitial markings. CT Chest may be helpful for further characterization. Electronically Signed: Terrance France MD at 10:32 EDT Reading Location ID and State: [facility] / [place] Tel , Service support , Chest CTA 03/13/22 10:55 IMPRESSION: No evidence for pulmonary embolism. Abdominal aortic aneurysm. Clinical correlation recommended. Groundglass opacity in the lungs as described. Mild bronchiectasis. Emphysematous change. Electronically Signed: Terrance France MD at 11:35 EDT Reading Location ID and State: [facility] / [place] Tel , Service support , ED attending interpretation of 1 view chest x-ray shows normal heart size, elevation of right hemidiaphragm and increased lung markings in the right lower lobe. <Dr. Lan Machado MD - Last Filed: 03/13/22 11:24> [facility] MDM Narrative Medical decision making narrative: I have personally performed a face to face assessment of the patient and have reviewed the ADALBERTO Note. I performed a substantive portion of the visit including all aspects of the following. My rosas findings include: History is [76-year-old male smoker today had an episode of shortness of breath and chest discomfort which was atypical. Skin no history of cardiac disease but had some type of cardiac surgery that may have been secondary to old valve. He has never had a DVT or PE. He denies any recent fever or significant cough. No hemoptysis. No travel or surgery. No calf pain or swelling.] Exam is [patient being evaluated with our physician assistant teacher. Vital signs are stable afebrile. H EENT exam unremarkable. Neck nontender. Lungs coarse breath sounds bilaterally. Equal symmetrical. Heart regular rate and rhythm rate about 80. Chest wall nontender. Abdomen soft nontender. Moving all 4 extremities. Calves are nontender without edema or cords.] Medical Decision Making [76-year-old with atypical chest discomfort. Will undergo cardiac work-up. Due to prominent right lower lobe x-ray questionable for infiltrate versus other etiologies a CTA is being obtained. Also begin a DuoNeb aerosol.] Other additions or changes: [None] Lab Data Labs: Laboratory Results - last 24 hr 03/13/22 03/13/22 10:05 10:05 WBC 8.8 RBC 4.25 L Hgb 14.2 Hct 43.8 MCV 103.1 H MCH 33.4 H MCHC 32.4 RDW Std Deviation 56.8 H RDW Coeff of Paul 14.8 H Plt Count 243 MPV 9.1 Immature Gran % (Auto) 0.300 Neut % (Auto) 66.8 Lymph % (Auto) 22.8 Forest % (Auto) 6.2 Eos % (Auto) 2.5 Baso % (Auto) 1.4 H Absolute Neuts (auto) 5.9 Absolute Lymphs (auto) 2.01 Nucleated RBC % 0 Sodium 137 Potassium 4.3 Chloride 105 Carbon Dioxide 27.0 Anion Gap 5 BUN 14 Creatinine 0.88 Estim Creat Clear Calc 72.42 Est GFR (MDRD) Af Amer 108 Est GFR (MDRD) Non-Af 89 BUN/Creatinine Ratio 15.8 Glucose 99 Calcium 9.1 Troponin I High Sens 80 H Radiography Chest X-Ray - ED: 1 View, Read by ED Physician, Read by Radiologist, Mediastinum, Bony Structures, No Acute Disease and Chronic Changes Diagnostic Testing: Clinical Impression(s) from Imaging Studies Chest X-Ray 03/13/22 09:58 IMPRESSION: Prominent right lung interstitial markings. CT Chest may be helpful for further characterization. Electronically Signed: Terrance France MD at 10:32 EDT Reading Location ID and State: [facility] / [place] Tel , Service support , Chest CTA 03/13/22 10:55 IMPRESSION: No evidence for pulmonary embolism. Abdominal aortic aneurysm. Clinical correlation recommended. Groundglass opacity in the lungs as described. Mild bronchiectasis. Emphysematous change. Electronically Signed: Terrance France MD at 11:35 EDT Reading Location ID and State: [facility] / [place] Tel , Service support , Chest x-ray, portable, single view interpreted by myself and radiologist shows a prominent right lower lobe most likely chronic changes possibly but unlikely to be an infiltrate. CTA being obtained. Discharge Plan Disposition Disposition: Acute Care Hospital [facility] Discharge Date/Time: 03/13/22 13:38
[2022-03-13] MEDS: Aspirin 81 MG TAB.CHEW 324 MG PO (10:16)
[2022-03-13 10:24] LABS: Absolute Lymphocyte Count 2.01 X10^3/uL (0.83-4.51); Absolute Neutrophil Count 5.9 X10^3/uL (2.0-7.7); Basophil# 0.12 X10^3/uL; Basophil% 1.4 % (0-1); Eosinophil# 0.22 X10^3/uL; Eosinophils% 2.5 % (0-5); Hematocrit 43.8 % (40-54); Hemoglobin 14.2 g/dL (13.0-16.5); Lymphocyte # 2.01 X10^3/ul (0.83-4.51); Lymphocyte % 22.8 % (19-41); Mean Corp Hgb Conc 32.4 g/dL (32-36); Mean Corpuscular Hgb 33.4 pg (27.0-32.0); Mean Corpuscular Volume 103.1 fL (80-94); Mean Platelet Vol. 9.1 fl (6.2-12.0); Monocyte# 0.55 X10^3/uL; Monocyte% 6.2 % (0-10); NRBC Flagged by Analyzer 0 % (0-5); Neutrophil # 5.88 X10^3/uL (2.7-7.7); Neutrophil % 66.8 % (47-70); Platelet Count 243 K/mm3 (150-450); RBC Distribution Width CV 14.8 % (11.6-14.6); RBC Distribution Width SD 56.8 fl (35.1-43.9); Red Blood Count 4.25 M/mm3 (4.6-6.2); White Blood Count 8.8 K/mm3 (4.4-11.0)
[2022-03-13 10:37] LABS: Anion Gap 5 (5-15); BUN 14 mg/dL (7-18); BUN/Creat Ratio 15.8 RATIO (10-20); Calcium,Total 9.1 mg/dL (8.5-10.1); Chloride 105 mmol/L (98-107); Creatinine, Serum 0.88 mg/dL (0.70-1.30); EST Glomerular Filtration Rate 89 mL/min (>60); Est Glom Filt Rate - Afr Amer 108 mL/min (>60); Estimated Creatinine Clearance 72.42 ml/min; Glucose 99 mg/dL (74-106); Potassium 4.3 mmol/L (3.5-5.1); Sodium Level 137 mmol/L (136-145); Troponin-I HS (w/2H Reflex) 80 pg/mL (3.0-78.0)
--- NOTE | 2022-03-13 10:55 | CT_ITS ---
We are attempting to reach an attending provider to discuss findings. An addendum with communication details will be sent when the communication is complete. STUDY: CTA CHEST REASON FOR EXAM: Male, 76 years old. dyspnea. right lower lobe prominence. RADIATION DOSAGE (If Supplied By Facility): CTDIvol = ( 6.76 ) mGy, DLP = ( 258.46 ) mGycm TECHNIQUE: The examination was performed with the intravenous administration of IV 75mL Isovue-370. Post-processing of the angiographic images was performed, with multiplanar reformation and 3D reconstruction. Individualized dose optimization techniques were used for this CT. COMPARISON: None. FINDINGS: Normal enhancement of the main pulmonary artery and right and left pulmonary arteries. Normal enhancement of the bilateral peripheral pulmonary arteries. There is no demonstrated pulmonary embolism. Normal thoracic aorta and visualized great vessels. There is no demonstrated aortic dissection. Normal heart and pericardium. Normal mediastinum. Normal hilar regions. Normal visualized trachea and bronchi. The lungs are well expanded. There is patchy groundglass opacity noted in the lung apices and upper and lower lobes posteriorly. There is mild diffuse bronchiectasis. There is emphysematous change in the right lung apex. Normal pleura. Normal chest wall structures. Normal osseous structures. There is aneurysmal dilatation in a tortuous abdominal aorta measuring up to 5 cm. There is a 4 cm right renal cyst. CT/CTA Chest W/WO Contrast IMPRESSION: No evidence for pulmonary embolism. Abdominal aortic aneurysm. Clinical correlation recommended. Groundglass opacity in the lungs as described. Mild bronchiectasis. Emphysematous change. Electronically Signed: Terrance France MD at 11:35 EDT ,
[2022-03-13] MEDS: Ipratropium/Albuterol Sulfate 3 ML AMPUL.NEB INHALATION (11:38)
--- NOTE | 2022-03-13 12:29 | ED.RN ---
[facility] AWARE PT IS BEING ADMITTED
--- NOTE | 2022-03-13 12:42 | NURSING ---
THIS CORE CUTTER [facility]
--- NOTE | 2022-03-13 14:13 | HP.PCM.HOS_ITS ---
Documented by User: Eyad GONCALVES 03/13/22 14:33 HPI - General General Date of Admission: 03/13/22 Date of Service: 03/13/22 Chief Complaint: Chest pain HPI Narrative GLADYS DUNCAN is a 76-year-old male who presents to the ED at [facility] on 03/13/2022 with a chief complaint of chest pain. Patient reports that he awoke this morning around 8 AM and started experiencing midsternal chest pain, that he would rated at about a 5 out of 10. Patient denies any radiation or shortness of breath. Patient reports that he feels the chest pain while at rest, but does not notice it when he is exerting himself. Patient does have a prior history of heart surgery, does not remember specific procedure though. 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 Patient denies any history of high blood pressure or diabetes, but does report that he smokes about half pack per day for the past 50 years. Patient is appropriately alert and oriented, but speech is tangential. Patient reports that his chest pain has improved and would currently rated at about a 3. Vital signs are stable, patient is afebrile and patient is maintaining oxygen saturations on room air. CBC and BMP are unremarkable and noncontributory. Initial high-sensitivity troponin was 80. Chest CT?A was obtained, no evidence of PE, although a abdominal aortic aneurysm of unclear significance was appreciated. Chest x-ray does demonstrate some anna ateral interstitial markings, but no acute cardiopulmonary process appreciated. Was given aspirin and albuterol in the ED. [facility] Medical History (Updated 03/13/22 @ 14:27 by Eyad GONCALVES) COPD (chronic obstructive pulmonary disease) Ischemic cardiomyopathy Past heart attack Home Medications NK 03/13/22 [History Last Taken Unknown] Allergy/AdvReac Type Severity Reaction Status Date / Time No Known Allergies Allergy Verified 03/13/22 09:41 Family History (Updated 03/13/22 @ 14:23 by Eyad GONCALVES) Father Heart disease Mother Cancer Surgical History (Updated 03/13/22 @ 14:24 by Eyad GONCALVES) H/O heart surgery Social History (Updated 03/13/22 @ 14:24 by Eyad GONCALVES) Smoking Status: Current every day smoker tobacco type: cigarettes alcohol intake: current alcohol intake frequency: a few times a week Alcohol type: beer, wine and hard liquor substance use type: does not use ROS Constitutional Constitutional: Reports weakness; Denies anorexia, change in weight, chills, fatigue, fever(s), malaise, night sweats or other Eyes Eyes: Denies blurry vision, change in eye color, change in vision, discharge from eye(s), double vision, erythema, eye pain, loss of vision or other ENT HEENT: Denies abnormal hearing, dysphagia, ear pain, epistaxis, headache(s), hearing loss, nasal congestion, nasal discharge, post nasal drip, sinus pressure, sore throat or other Cardiovascular Cardiovascular: Reports chest pain; Denies claudication, dyspnea on exertion, edema, lightheadedness, orthopnea, palpitations, paroxysmal nocturnal dyspnea, rapid heart rate, syncope or other Respiratory/Chest Respiratory/Chest: Denies cough, dyspnea, excessive phlegm production, hemoptysis, productive cough, shortness of breath at rest, shortness of breath with exertion, wheezing or other Gastrointestinal Gastrointestinal: Denies abdominal pain, coffee ground emesis, constipation, diarrhea, dyspepsia, hematemesis, hematochezia, loose stools, melena, nausea, vomiting or other Genitourinary Genitourinary: Denies burning urination, difficulty urinating, dysuria, hematuria, nocturia, urinary frequency, urinary hesitancy, urinary incontinence, urinary urgency or other Musculoskeletal Musculoskeletal: Denies arthralgias, back pain, joint pain, joint stiffness, joint swelling, myalgias, neck pain or other Neurologic Neurologic: Denies abnormal gait, abnormal speech, confusion, disequilibrium, dizziness, focal weakness, headache(s), numbness, paresthesias, seizure-like activity, seizures, syncope, tingling, tremor(s) or other Psychiatric Psychiatric: Denies anxiety, depression, homicidal ideation, suicidal ideation or other Endocrine Endocrinology: Denies change in body appearance, cold intolerance, excessive sweating, heat intolerance, polydipsia, polyuria or other Hematologic/Lymphatic Hematologic/Lymphatic: Denies anemia, easy bleeding, easy bruising, lymphadenopathy or other Allergic/Immunologic Allergic/Immunologic: Denies rhinitis, hives, eczemia, asthma or other Vital Signs Vital Signs Vital Signs: 03/13/22 09:41 03/13/22 09:52 03/13/22 10:05 Temperature 97.6 F L Temperature Source Temporal Pulse Rate 86 Respiratory Rate 22 H Respiratory Pattern Tachypnea Blood Pressure 155/94 H Blood Pressure Mean 114 Blood Pressure Source Blood Pressure Position Blood Pressure Location Pulse Ox 98 97 Oxygen Delivery Method Room Air Room Air 03/13/22 10:40 03/13/22 11:00 03/13/22 11:38 Temperature Temperature Source Pulse Rate 90 78 82 Respiratory Rate 22 H 24 H 18 Respiratory Pattern Blood Pressure 169/91 H 157/86 H Blood Pressure Mean 117 109 Blood Pressure Source Blood Pressure Position Blood Pressure Location Pulse Ox 96 98 95 Oxygen Delivery Method Room Air Room Air Room Air 03/13/22 12:02 03/13/22 14:11 Temperature 97.8 F 98.2 F Temperature Source Temporal Oral Pulse Rate 78 98 Respiratory Rate 21 H 18 Respiratory Pattern Blood Pressure 154/89 H 151/82 H Blood Pressure Mean 110 105 Blood Pressure Source Monitor Blood Pressure Position Semi-Fowlers Blood Pressure Location Right Arm Pulse Ox 96 95 Oxygen Delivery Method Room Air Room Air Weight Weight: 142 lb 3.17 oz Body Mass Index (BMI) 17.7 Physical Exam Const alert and oriented x3 General Appearance: cooperative HEENT normocephalic, head/scalp atraumatic and hearing grossly normal bilaterally Eyes PERRL, EOMs intact bilaterally and conjunctivae normal Neck no lymphadenopathy, supple and no JVD Resp normal respiratory effort, no retractions and no use of accessory muscles Cardio regular rate, regular rhythm and no JVD GI normal to inspection, nondistended, normoactive bowel sounds and soft to palpation Extremity normal to inspection and full ROM Skin no rashes or lesions noted, no wounds and skin turgor normal Neuro CN's II-XII intact bilaterally Psych affect normal Results Lab / Micro Data Result Diagrams: 03/13/22 10:05 03/13/22 10:05 Labs: Laboratory Results - last 24 hr 03/13/22 10:05: WBC 8.8, RBC 4.25 L, Hgb 14.2, Hct 43.8, MCV 103.1 H, MCH 33.4 H , MCHC 32.4, RDW Std Deviation 56.8 H, RDW Coeff of Paul 14.8 H, Plt Count 243, MPV 9.1, Immature Gran % (Auto) 0.300, Neut % (Auto) 66.8, Lymph % (Auto) 22.8, Hall % (Auto) 6.2, Eos % (Auto) 2.5, Baso % (Auto) 1.4 H, Absolute Neuts (auto) 5.9, Absolute Lymphs (auto) 2.01, Nucleated RBC % 0 03/13/22 10:05: Sodium 137, Potassium 4.3, Chloride 105, Carbon Dioxide 27.0, Anion Gap 5, BUN 14, Creatinine 0.88, Estim Creat Clear Calc 72.42, Est GFR (MDRD) Af Amer 108, Est GFR (MDRD) Non-Af 89, BUN/Creatinine Ratio 15.8, Glucose 99, Calcium 9.1, Troponin I High Sens 80 H Radiology Impression Chest X-Ray 03/13/22 09:58 IMPRESSION: Prominent right lung interstitial markings. CT Chest may be helpful for further characterization. Electronically Signed: Terrance France MD at 10:32 EDT Reading Location ID and State: [facility] / MD Tel , Service support , Chest CTA 03/13/22 10:55 IMPRESSION: No evidence for pulmonary embolism. Abdominal aortic aneurysm. Clinical correlation recommended. Groundglass opacity in the lungs as described. Mild bronchiectasis. Emphysematous change. Electronically Signed: Terrance France MD at 11:35 EDT Reading Location ID and State: [facility] / [place] Tel , Service support , ADDENDUM: 03/13/22 1411 IMPRESSION: No evidence for pulmonary embolism. Abdominal aortic aneurysm. Clinical correlation recommended. Groundglass opacity in the lungs as described. Mild bronchiectasis. Emphysematous change. N.B. : Nneka Malone RN, confirmed on 03/13/2022 14:04:53 (ET) that the referring physician received the results and does not require a verbal communication. Electronically Signed: Terrance France MD at 11:35 EDT Reading Location ID and State: [facility] / [place] Tel , Service support , Assessment & Plan Assessment/Plan (1) Chest pain: PLAN: Patient is a 76-year-old male who presents to the ED at [facility] on 03/13/2022 with a chief complaint of chest pain. 1) chest pain/ACS rule out. Patient reports a 4-hour history of midsternal chest pain that he rates about a 5 out of 10. Patient does report prior history of heart surgery and mini heart attack, but is unclear about specifics. Patient denies any history of hypertension or diabetes mellitus. Patient is a current smoker. Patient does have a heart score of 4 given history, age and presence of 2 risk factors. Initial high-sensitivity troponin elevated at 80. Plan; admit to PCU, continue to cycle troponins, CBC, CMP and FLP in a.m., stress test in a.m, cardiology consult ordered, initiate aspirin, continue Coreg. 2) CAD Patient does report prior heart surgery and mini heart attack, but is unsure about specifics. Patient does report previously being on Coreg, but is not rosi magalie. Continue aspirin and beta-ian. 3) tobacco abuse Patient reports smoking about half a pack per day for the last 50 years. Cessation encouraged. Nicotine patch ordered. DVT prophylaxis - Heparin Patient seen by Eyad Price PA-C, under the supervision of Dr. Montiel. Time spent on patient care: 25 minutes. Documented by User: Dr. Kerry Montiel MD 03/13/22 14:44 HPI - General General Date of Admission: 03/13/22 [facility] Medical History (Updated 03/13/22 @ 14:27 by Eyad GONCALVES) COPD (chronic obstructive pulmonary disease) Ischemic cardiomyopathy Past heart attack Home Medications NK 03/13/22 [History Last Taken Unknown] Allergy/AdvReac Type Severity Reaction Status Date / Time No Known Allergies Allergy Verified 03/13/22 09:41 Family History (Updated 03/13/22 @ 14:23 by Eyad GONCALVES) Father Heart disease Mother Cancer Surgical History (Updated 03/13/22 @ 14:24 by Eyad GONCALVES) H/O heart surgery Social History (Updated 03/13/22 @ 14:24 by Eyad GONCALVES) Smoking Status: Current every day smoker tobacco type: cigarettes alcohol intake: current alcohol intake frequency: a few times a week Alcohol type: beer, wine and hard liquor substance use type: does not use Results Lab / Micro Data Result Diagrams: 03/13/22 10:05 03/13/22 10:05 Charges/Coding Addendum Addendum: This patient was seen in conjunction with IVANNA Hernandez. I have independently interviewed and examined the patient and reviewed pertinent historical, laboratory, and other data. Please refer to IVANNA Hernandez's note for his patient's presentation, findings, and recommendations. I have reviewed and his note and concur with his documentation 76-year-old male, poor historian, history of CAD/ischemic cardiomyopathy who comes in with complaints of chest discomfort. Patient complains of chest pain that happened at rest. It was substernal, nonradiating. Chest pain was time of being brought in. Denied diaphoresis. Vitals in the ED were stable. Admitting blood work was unremarkable. EKG showed normal sinus rhythm, no acute ST-T changes. Physical Exam: Gen: Comfortable, not pale, not jaundiced CVS:HS I +II, regular, no murmurs RESP: Diminished at lung bases GI: BS present and normal, soft, nontender, no palpable organs EXT:No edema ASSESSMENT: 1. Acute chest pain 2. Abdominal aortic aneurysm, 5 cm 3. COPD, not in acute exacerbation 4. Nicotine dependence Plan: Admit to PCU, trend cardiac enzymes Cardiology consult, stress test Lipid profile in a.m. Aspirin,coreg Time spent coordinating all aspects of patient's care, reviewing patient's data, discussing with nursing, discussing with cardiology, ED physician: 55 minutes Visit Charges OBSV E&M: 82248 Initial observation care L3
--- NOTE | 2022-03-13 14:22 | EKG12_ITS ---
Test Reason : ADMISSION CP Blood Pressure : / mmHG Vent. Rate : 068 BPM Atrial Rate : 068 BPM P-R Int : 140 ms QRS Dur : 134 ms QT Int : 462 ms P-R-T Axes : 072 007 100 degrees QTc Int : 491 ms Normal sinus rhythm Left atrial enlargement Left ventricular hypertrophy with QRS widening and repolarization abnormality Inferior infarct , age undetermined Abnormal ECG When compared with ECG of 13-MAR-2022 09:45, MANUAL COMPARISON REQUIRED, DATA IS UNCONFIRMED Confirmed by ANTONIETTA SHEN, BRENT ([id number]), editor farm journal EDOUARD GOLDSMITH ([id number]) on 03/16/2022 7:33:22 AM Referred By: HALIMA Confirmed By:BRENT MANE MD
[2022-03-13 14:35] LABS: Troponin-I HS 68 pg/mL (3.0-78.0)
[2022-03-13 16:29] LABS: Troponin-I HS 66 pg/mL (3.0-78.0)
[2022-03-13] MEDS: Carvedilol 3.125 MG TABLET PO (21:06)
[2022-03-13] MEDS: Heparin Injection (Vial) 5,000 UNIT/ML VIAL 5000 UNIT SC (21:07)
[2022-03-14 03:00] VITALS: BP 128/77; PULSE 66; PULSE 77; RESP 16; TEMP 36.8; O2SAT 96
[2022-03-14 06:57] LABS: Absolute Neutrophil Count 5.5 X10^3/uL (2.0-7.7); Basophil# 0.11 X10^3/uL; Basophil% 1.3 % (0-1); Eosinophil# 0.37 X10^3/uL; Eosinophils% 4.3 % (0-5); Hematocrit 38.3 % (40-54); Hemoglobin 12.6 g/dL (13.0-16.5); Mean Corp Hgb Conc 32.9 g/dL (32-36); Mean Corpuscular Hgb 33.7 pg (27.0-32.0); Mean Corpuscular Volume 102.4 fL (80-94); Mean Platelet Vol. 9.3 fl (6.2-12.0); Monocyte# 0.75 X10^3/uL; Monocyte% 8.7 % (0-10); NRBC Flagged by Analyzer 0 % (0-5); Neutrophil # 5.52 X10^3/uL (2.7-7.7); Neutrophil % 64.4 % (47-70); Platelet Count 209 K/mm3 (150-450); RBC Distribution Width CV 14.6 % (11.6-14.6); RBC Distribution Width SD 55.7 fl (35.1-43.9); Red Blood Count 3.74 M/mm3 (4.6-6.2); White Blood Count 8.6 K/mm3 (4.4-11.0)
[2022-03-14 07:34] LABS: ALB/GLOB Ratio 0.9 RATIO (0.9-2.4); AST(SGOT) 33 U/L (15-37); Alanine Aminotransfer ALT/SGPT 29 U/L (16-61); Albumin, Serum 3.1 g/dL (3.2-5.0); Alkaline Phosphatase 65 U/L (45-117); Anion Gap 5 (5-15); BUN 17 mg/dL (7-18); BUN/Creat Ratio 17.5 RATIO (10-20); Calcium,Total 8.7 mg/dL (8.5-10.1); Chloride 107 mmol/L (98-107); Cholesterol 197 mg/dL (200); Creatinine, Serum 0.97 mg/dL (0.70-1.30); EST Glomerular Filtration Rate 80 mL/min (>60); Est Glom Filt Rate - Afr Amer 96 mL/min (>60); Estimated Creatinine Clearance 59.11 ml/min; Globulin 3.4 g/dL (2.2-4.2); Glucose 97 mg/dL (74-106); High Density Lipoprotein 38 mg/dL; Protein, Total 6.5 g/dL (6.4-8.2); Sodium Level 140 mmol/L (136-145); Triglycerides 77 mg/dL; Very Low Density Lipoprotein 15 mg/dL (5-40)
[2022-03-14 07:45] VITALS: PULSE 67
[2022-03-14 08:14] VITALS: BP 132/84; PULSE 70; RESP 16; TEMP 36.7; O2SAT 98
[2022-03-14] MEDS: Carvedilol 3.125 MG TABLET PO (08:18)
[2022-03-14] MEDS: Aspirin 81 MG TAB.CHEW PO (08:18)
[2022-03-14] MEDS: Heparin Injection (Vial) 5,000 UNIT/ML VIAL 5000 UNIT SC (08:18)
--- NOTE | 2022-03-14 09:59 | DCINST_ITS ---
Discharge Instructions Diet Discharge Diet: No restrictions Activity Discharge Activity: Return to Normal Activity Weight Bearing Status: Weight bearing as tolerated Dressing / Incision Call your doctor if you observe: Fever of 101 or Higher, Numbness or Tingling, Shortness of breath, Dizziness, Chest pain, Increased palpitations (irregular heartbeat) and Calf discomfort Follow Up Care Please Follow Up With: Primary care provider When: Within the next two weeks. Test Results: Test results from this visit will be discussed in further detail at your follow-up appointment, if applicable. Discharge Plan Admission Admit Date/Time: 03/13/22 11:50 Primary Reason for Your Visit: Chest pain Attending Provider: Kerry Montiel Primary Care Provider: [facility],[place] Discharge Orders/Prescriptions Prescriptions: New carvedilol 3.125 mg Tablet 3.125 mg PO BID Qty: 60 RF: 0 aspirin 81 mg Tablet,Chewable 81 mg PO BREAKFAST Qty: 30 RF: 0 atorvastatin 40 mg tablet 40 mg PO QHS Qty: 30 RF: 0 Referrals / Follow Up: Harley Andersen MD [STAFF PHYSICIAN] - Within 2 Weeks [facility],[place] [Primary Care Provider] - Within 2 Weeks Disposition Disposition (needs filled in before D/C Order can be placed): Home, Self Care
[2022-03-14] MEDS: Atorvastatin Calcium 40 MG Tablet PO (10:11)
--- NOTE | 2022-03-14 12:21 | DS.PCM_ITS ---
Documented by User: Eyad GONCALVES 03/14/22 12:29 Providers Date of Admission: 03/13/22 Date of Discharge: 03/14/22 Primary Care Physician: [facility] Reason For Visit: CHEST PAIN Diagnosis Discharge Diagnosis (1) Chest pain: Status: Acute Code(s): R07.9 - Chest pain, unspecified Medications at Discharge Home Medications aspirin 81 mg PO BREAKFAST #30 tab 03/14/22 atorvastatin 40 mg PO QHS #30 tab 03/14/22 carvedilol 3.125 mg PO BID #60 tab 03/14/22 Hospital Course Summary of Care Provided Minutes Spent on Discharge: 20 Hospital Course: Patient is a 76-year-old male who was admitted to [facility] on 03/13/2022 for evaluation management of chest pain. Upon admission, hand stapler (Dr. Stearns) was consulted verbally on this case and advised that given patient's presentation and history, that if troponins trended down patient would not need a stress test acutely and could be evaluated as an outpatient. Troponins were cycled overnight and were 80, 68 and 66 respectively. Patient's chest pain had resolved shortly after admission, and made no reemergence overnight. Chest x-ray and chest CTA were also obtained and did not demonstrate any acute cardiopulmonary process. Cardiology was reconsulted on day of discharge and advised that patient could be discharged with outpatient cardiology follow-up, as well as initiating aspirin, statin and beta-ian therapy given patient's prior heart disease history. Above meds were provided, patient was referred to cardiology for outpatient stress test and patient was advised to follow-up with his primary care provider within the next 2 weeks. Patient understood and acknowledged all information provided. Patient seen by Eyad Price PA-C, under the supervision of Dr. Montiel. Time spent on patient care: 20 minutes. Physical Exam Narrative Patient is a 76-year-old male comfortably resting in bed, alert and orient x3. Patient reports that his chest pain has resolved from admission. Denies any palpitations or shortness of breath. Does not appear in acute distress. Const alert, oriented x3 and no apparent distress HEENT normocephalic, head/scalp atraumatic and hearing grossly normal bilaterally Eyes PERRL, EOMs intact bilaterally and conjunctivae normal Neck no lymphadenopathy, supple and no JVD Resp normal respiratory effort, no retractions and no use of accessory muscles Cardio regular rate, regular rhythm and no JVD GI normal to inspection, nondistended, normoactive bowel sounds and soft to palpation Extremity normal to inspection, full ROM and no clubbing, cyanosis or edema Skin no rashes or lesions noted, no wounds and skin turgor normal Neuro CN's II-XII intact bilaterally Psych affect normal Weight / BMI Weight Weight: 142 lb 3.17 oz Body Mass Index (BMI) 17.7 ABG / Lab / Microbiology Data Result Diagrams: 03/14/22 06:18 03/14/22 06:18 Laboratory: Laboratory Results - last 24 hr 03/13/22 14:07: Troponin I High Sens 68 03/13/22 16:03: Troponin I High Sens 66 03/14/22 06:18: Sodium 140, Potassium 4.0, Chloride 107, Carbon Dioxide 28.0, Anion Gap 5, BUN 17, Creatinine 0.97, Estim Creat Clear Calc 59.11, Est GFR (MDRD) Af Amer 96, Est GFR (MDRD) Non-Af 80, BUN/Creatinine Ratio 17.5, Glucose 97, Calcium 8.7, Total Bilirubin 0.80, AST 33, ALT 29, Alkaline Phosphatase 65, Total Protein 6.5, Albumin 3.1 L, Globulin 3.4, Albumin/Globulin Ratio 0.9, Triglycerides 77, Cholesterol 197, LDL Cholesterol 144 H, VLDL Cholesterol 15, HDL Cholesterol 38 L 03/14/22 06:18: WBC 8.6, RBC 3.74 L, Hgb 12.6 L, Hct 38.3 L, MCV 102.4 H, MCH 33.7 H, MCHC 32.9, RDW Std Deviation 55.7 H, RDW Coeff of Paul 14.6, Plt Count 209, MPV 9.3, Immature Gran % (Auto) 0.300, Neut % (Auto) 64.4, Lymph % (Auto) 21.0, [place] % (Auto) 8.7, Eos % (Auto) 4.3, Baso % (Auto) 1.3 H, Absolute Neuts (auto) 5.5, Absolute Lymphs (auto) 1.80, Nucleated RBC % 0 Radiography Diagnostic Testing: Radiology Impression Chest CTA 03/13/22 10:55 IMPRESSION: No evidence for pulmonary embolism. Abdominal aortic aneurysm. Clinical correlation recommended. Groundglass opacity in the lungs as described. Mild bronchiectasis. Emphysematous change. Electronically Signed: Terrance France MD at 11:35 EDT Reading Location ID and State: [address] [place] [address] Tel , Service support , ADDENDUM: 03/13/22 1411 IMPRESSION: No evidence for pulmonary embolism. Abdominal aortic aneurysm. Clinical correlation recommended. Groundglass opacity in the lungs as described. Mild bronchiectasis. Emphysematous change. N.B. : Nneka Malone RN, confirmed on 03/13/2022 14:04:53 (ET) that the referring physician received the results and does not require a verbal communication. Electronically Signed: Terrance France MD at 11:35 EDT Reading Location ID and State: [facility] / [place] Tel , Service support , D/C Instructions Discharge Diet: No restrictions Weight Bearing Status: Weight bearing as tolerated Call your doctor if you observe: Fever of 101 or Higher, Numbness or Tingling, Shortness of breath, Dizziness, Chest pain, Increased palpitations (irregular heartbeat) and Calf discomfort Please Follow Up With: Primary care provider When: Within the next two weeks. Meaningful Use Info Meaningful Use Diagnoses (Choose all that apply): None applicable Discharge Plan Admission Admit Date/Time: 03/13/22 11:50 Primary Reason for Your Visit: Chest pain Attending Provider: Kerry Montiel Primary Care Provider: [facility],[place] Discharge Orders/Prescriptions Prescriptions: New carvedilol 3.125 mg Tablet 3.125 mg PO BID Qty: 60 RF: 0 aspirin 81 mg Tablet,Chewable 81 mg PO BREAKFAST Qty: 30 RF: 0 atorvastatin 40 mg tablet 40 mg PO QHS Qty: 30 RF: 0 Referrals / Follow Up: Harley Andersen MD [STAFF PHYSICIAN] - Within 2 Weeks [facility],[place] [Primary Care Provider] - Within 2 Weeks Disposition Disposition (needs filled in before D/C Order can be placed): Home, Self Care Documented by User: Dr. Kerry Montiel MD 03/14/22 14:03 Providers Date of Admission: 03/13/22 Reason For Visit: CHEST PAIN Medications at Discharge Home Medications aspirin 81 mg PO BREAKFAST #30 tab 03/14/22 atorvastatin 40 mg PO QHS #30 tab 03/14/22 carvedilol 3.125 mg PO BID #60 tab 03/14/22 ABG / Lab / Microbiology Data Result Diagrams: 03/14/22 06:18 03/14/22 06:18 Discharge Plan Admission Admit Date/Time: 03/13/22 11:50 Primary Reason for Your Visit: Chest pain Attending Provider: Kerry Montiel Primary Care Provider: [facility],[place] Discharge Orders/Prescriptions Prescriptions: New carvedilol 3.125 mg Tablet 3.125 mg PO BID Qty: 60 RF: 0 aspirin 81 mg Tablet,Chewable 81 mg PO BREAKFAST Qty: 30 RF: 0 atorvastatin 40 mg tablet 40 mg PO QHS Qty: 30 RF: 0 Referrals / Follow Up: Harley Andersen MD [STAFF PHYSICIAN] - Within 2 Weeks [facility] [Primary Care Provider] - Within 2 Weeks Disposition Disposition (needs filled in before D/C Order can be placed): Home, Self Care Charges/Coding Addendum Addendum: This patient was seen in conjunction with IVANNA Hernandez. I have independently interviewed and examined the patient and reviewed pertinent historical, laboratory, and other data. Please refer to IVANNA Hernandez's note for his patient's presentation, findings, and recommendations. I have reviewed and his note and concur with his documentation. 76-year-old male, poor historian, history of CAD/ischemic cardiomyopathy who comes in with complaints of chest discomfort. This is happened at rest, substernal, nonradiating. EKG showed no acute ST-T changes. Vitals in the ED were stable. Admitting blood work was unremarkable. His troponin was 80. Patient was admitted to PCU and monitored on telemetry with no acute findings. Patient remained asymptomatic. His troponins trended down to 66. Discussed with cardiology, patient will be followed up in the outpatient for outpatient stress test Physical Exam: Gen: Comfortable, not pale, not jaundiced CVS:HS I +II, regular, no murmurs RESP: Diminished at lung bases GI: BS present and normal, soft, nontender, no palpable organs EXT:No edema Time spent coordinating all aspects of patient's care, reviewing patient's data, discussing with nursing, discussing with cardiology, ED physician: 30 minutes Visit Charges Inpatient E&M: [id number] Disch Hosp
--- NOTE | 2022-03-14 13:04 | NURSING ---
This RN was assisting pt with how pt was going to be able to get home. Pt states he walks most places and lives by [address], occasionally pt states he catches a bus down by the [place] and this RN educated the pt on [employer] being closed on Sundays - the pt was adamant about walking down to see if it comes and if not walking home.
== END 2022-03-14 10:04 | disposition home or self-care (01) ==
LOC: ED 10:59 → PCU 12:17
PROVIDERS: Physician Assistant; Admitting Provider Internal Medicine; Emergency Provider Emergency Medicine; Visit Provider Internal Medicine
DX: R07.89 Other chest pain (principal); J44.9 Chronic obstructive pulmonary disease, unspecified; I71.4 Abdominal aortic aneurysm, without rupture; J47.9 Bronchiectasis, uncomplicated; I25.10 Atherosclerotic heart disease of native coronary artery without angina pectoris; I49.3 Ventricular premature depolarization; F17.210 Nicotine dependence, cigarettes, uncomplicated; I25.5 Ischemic cardiomyopathy; I25.2 Old myocardial infarction
CPT/HCPCS: 36415; 71045; 71275; 80048; 80053; 80061; 84484; 85025; 93005; 94640; 96372; 99218; 99285; 99406; Q9967; A4216; G0378

== ENCOUNTER 2022-05-31 09:17 | Inpatient (IN) | payer MEDICARE, MEDICAID, SELFPAY ==
[2022-05-31] VITALS (9 sets, daily range): BP systolic 125–146; BP diastolic 87–92; PULSE 75–146; RESP 12–38; TEMP 36.3; O2SAT 87–100; BMI 20.6
--- NOTE | 2022-05-31 09:32 | EKG12_ITS ---
Test Reason : cp Blood Pressure : / mmHG Vent. Rate : 091 BPM Atrial Rate : 091 BPM P-R Int : 148 ms QRS Dur : 122 ms QT Int : 402 ms P-R-T Axes : 077 005 103 degrees QTc Int : 494 ms Normal sinus rhythm Possible Left atrial enlargement Confirmed by ANTONIETTA SHEN, BRENT ([id number]), medical transcription editor EDOUARD GOLDSMITH ([id number]) on 06/01/2022 1:09:02 PM Referred By: Confirmed By:BRENT MANE MD
--- NOTE | 2022-05-31 09:32 | RAD_ITS ---
STUDY: X-RAY CHEST REASON FOR EXAM: Male, 76 years old. SOB - ONSET TODAY. HX CABG, MT AND SINGLE CARDIAC STENT INSERTION TECHNIQUE: Single AP portable view of the chest. COMPARISON: MARCH 13, 2022 FINDINGS: No visualized consolidation. Streaky interstitial edema is present bilaterally, likely due to chronic CHF versus pneumonitis. There is hyperinflation of the lungs consistent with chronic obstructive lung disease (COPD). There is no demonstrated pleural abnormality. Sternal cerclage wires and vascular clips are present from a prior sternotomy and coronary artery bypass graft procedure (CABG). Normal mediastinum and ayan. Normal visualized pulmonary arteries. There is atherosclerotic calcification of the aortic arch with tortuosity. There is demineralization of the osseous structures. Normal visualized ribs, clavicles, and shoulders. There is no demonstrated abnormality of the visualized soft tissue structures of the upper abdomen. RAD/Chest 1 View (Portable) IMPRESSION: 1. No visualized consolidation. Streaky interstitial edema is present bilaterally, likely due to chronic CHF versus pneumonitis. Electronically Signed: Chuck Sanchez MD at 10:36 EDT ,
--- NOTE | 2022-05-31 09:32 | ED.VIS.DYS ---
HPI <Dr. Harley Melgar MD - Last Filed: 05/31/22 14:53> History of Present Illness Chief Complaint: Shortness of Breath Narrative Narrative: Patient presents with some dyspnea that started this morning. He walked about 2 miles to breakfast and his dyspnea improved. He also has some mild chest discomfort which is also gone. He has no cough or congestion, he has no fevers or chills or myalgias. The EMR says that he has a history of COPD however he denies this. No wheezing. He does smoke. No recent weight loss, no history of anemia. No edema or orthopnea. 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 The fact that he perseverated made me want to investigate further, he is fixed on this 1 person that apparently is about to ruin his life, he at one point started swatting him away as if he was in the room. [facility] <Dr. Harley Melgar MD - Last Filed: 05/31/22 14:53> [facility] Medical History COPD (chronic obstructive pulmonary disease) Ischemic cardiomyopathy Past heart attack Home Medications aspirin 81 mg chewable tablet 81 mg PO BREAKFAST #30 tabs 03/14/22 [Rx Last Taken Unknown] atorvastatin 40 mg tablet 40 mg PO QHS #30 tabs 03/14/22 [Rx Last Taken Unknown] carvedilol 3.125 mg tablet 3.125 mg PO BID #60 tabs 03/14/22 [Rx Last Taken Unknown] Allergy/AdvReac Type Severity Reaction Status Date / Time No Known Allergies Allergy Verified 05/31/22 09:20 Family History Father Heart disease Mother Cancer Surgical History H/O heart surgery Social History Smoking Status: Current every day smoker tobacco type: cigarettes alcohol intake: current alcohol intake frequency: a few times a week Alcohol type: beer, wine and hard liquor substance use type: does not use ROS <Dr. Harley Melgar MD - Last Filed: 05/31/22 14:53> ROS ED ROS Narrative Past medical history: Reviewed at the bedside and EMR. Includes cardiomyopathy, COPD Medications: Reviewed Social history: Noncontributory Review of systems: All systems negative except as indicated General: No fever Eyes: No visual changes ENT: No upper airway congestion, normal voice Neck: No neck pain Cardiovascular: No chest pain Respiratory: Dyspnea as in HPI Gastrointestinal: No abdominal pain, nausea vomiting or diarrhea Genitourinary: No dysuria Musculoskeletal: Denies myalgias no difficulty with ambulation Skin: No rash Neurological: No memory loss, confusion or any focal weakness Psych: No recent behavioral changes Hematologic: No easy bleeding or easy bruising EXAM <Dr. Harley Melgar MD - Last Filed: 05/31/22 14:53> Physical Exam Narrative Exam Narrative: Physical exam General: Well nourished, Well developed, No Acute Distress Head: Normocephalic, Atraumatic Eyes: Conjunctiva not pale ENT: Moist mucous membranes Neck: Supple, Nontender, No lymphadenopathy Cardiovascular: Slightly irregular rhythm it corresponds with multiple PVCs on the monitor. Normal S1 and S2, I cannot appreciate any S3 or S4. No JVD. Respiratory: No distress, CTA bilaterally, I cannot appreciate any wheezing. He is breathing comfortably without any respiratory distress he is speaking in full sentences. Abdomen: Soft, Nontender, Nondistended Back: Nontender, Normal Inspection. Negative for: CVA tenderness Extremities: Nontender, No edema Skin: Normal color, No rash, no pallor. Neurological: Alert, Normal Strength, Normal Sensation Psychological: Normal affect Const Vital Signs: 05/31/22 09:18 05/31/22 09:44 05/31/22 11:30 Temperature 97.4 F L Temperature Source Temporal Pulse Rate 86 81 Respiratory Rate 14 16 Respiratory Effort Normal Respiratory Depth Normal Respiratory Pattern Normal Blood Pressure 146/87 H 125/89 H Blood Pressure Mean 106 101 Pulse Ox 100 97 Oxygen Delivery Method Room Air Room Air Room Air Oxygen Flow Rate (L/min) 05/31/22 13:16 05/31/22 20:00 05/31/22 21:02 Temperature Temperature Source Pulse Rate 75 105 H 112 H Respiratory Rate 16 19 H 24 H Respiratory Effort Respiratory Depth Respiratory Pattern Tachypnea Blood Pressure 130/87 H Blood Pressure Mean 101 Pulse Ox 99 97 Oxygen Delivery Method Room Air Room Air Oxygen Flow Rate (L/min) 05/31/22 21:02 05/31/22 22:12 Temperature Temperature Source Pulse Rate 146 H Respiratory Rate 26 H 29 H Respiratory Effort Short of Breath Respiratory Depth Shallow Respiratory Pattern Tachypnea Blood Pressure Blood Pressure Mean Pulse Ox 96 87 Oxygen Delivery Method Nasal Cannula Room Air Oxygen Flow Rate (L/min) 3 <Dr. Asael Mcclain DO - Last Filed: 05/31/22 23:00> Physical Exam Const Vital Signs: 05/31/22 09:18 05/31/22 09:44 05/31/22 11:30 Temperature 97.4 F L Temperature Source Temporal Pulse Rate 86 81 Respiratory Rate 14 16 Respiratory Effort Normal Respiratory Depth Normal Respiratory Pattern Normal Blood Pressure 146/87 H 125/89 H Blood Pressure Mean 106 101 Pulse Ox 100 97 Oxygen Delivery Method Room Air Room Air Room Air Oxygen Flow Rate (L/min) 05/31/22 13:16 05/31/22 20:00 05/31/22 21:02 Temperature Temperature Source Pulse Rate 75 105 H 112 H Respiratory Rate 16 19 H 24 H Respiratory Effort Respiratory Depth Respiratory Pattern Tachypnea Blood Pressure 130/87 H Blood Pressure Mean 101 Pulse Ox 99 97 Oxygen Delivery Method Room Air Room Air Oxygen Flow Rate (L/min) 05/31/22 21:02 05/31/22 22:12 Temperature Temperature Source Pulse Rate 146 H Respiratory Rate 26 H 29 H Respiratory Effort Short of Breath Respiratory Depth Shallow Respiratory Pattern Tachypnea Blood Pressure Blood Pressure Mean Pulse Ox 96 87 Oxygen Delivery Method Nasal Cannula Room Air Oxygen Flow Rate (L/min) 3 MDM <Dr. Harley Melgar MD - Last Filed: 05/31/22 14:53> MDM MDM Narrative Medical decision making narrative: Patient has a normal work-up however he still has some delusions he lives by himself I question the safety of him being discharged. I called the demi chef we are trying to get him admitted to the [facility]. Lab Data Labs: Laboratory Results - last 24 hr 05/31/22 05/31/22 05/31/22 09:40 09:40 09:50 WBC 9.2 RBC 3.73 L Hgb 12.7 L Hct 38.5 L MCV 103.2 H MCH 34.0 H MCHC 33.0 RDW Std Deviation 55.6 H RDW Coeff of Paul 14.8 H Plt Count 182 MPV 9.1 Immature Gran % (Auto) 0.300 Neut % (Auto) 77.3 H Lymph % (Auto) 12.5 L Routt % (Auto) 8.1 Eos % (Auto) 1.1 Baso % (Auto) 0.7 Absolute Neuts (auto) 7.1 Absolute Lymphs (auto) 1.15 Nucleated RBC % 0 Sodium 133 L Potassium 3.9 Chloride 104 Carbon Dioxide 25.0 Anion Gap 4 L BUN 13 Creatinine 0.89 Estim Creat Clear Calc 74.75 Est GFR (MDRD) Af Amer 107 Est GFR (MDRD) Non-Af 88 BUN/Creatinine Ratio 14.6 Glucose 171 H Calcium 8.5 Total Bilirubin 0.90 AST 59 H ALT 53 Alkaline Phosphatase 85 Troponin I High Sens 52 Total Protein 7.0 Albumin 3.2 Globulin 3.8 Albumin/Globulin Ratio 0.8 L Urine Color Urine Clarity Urine pH Ur Specific Hendricks Urine Protein Urine Glucose (UA) Urine Ketones Urine Occult Blood Urine Nitrite Urine Bilirubin Urine Urobilinogen Ur Leukocyte Esterase Urine RBC Urine WBC Ur Squamous Epith Cells Urine Bacteria Urine Mucus Urine Opiates Screen Urine Methadone Screen Ur Barbiturates Screen Ur Phencyclidine Scrn Ur Amphetamines Screen MDMA (Ecstasy) Screen U Benzodiazepines Scrn Urine Cocaine Screen U Cannabinoids Screen Ur Drug Screen Comment Ethyl Alcohol < 3.0 05/31/22 05/31/22 05/31/22 10:48 10:48 11:24 WBC RBC Hgb Hct MCV MCH MCHC RDW Std Deviation RDW Coeff of Paul Plt Count MPV Immature Gran % (Auto) Neut % (Auto) Lymph % (Auto) Routt % (Auto) Eos % (Auto) Baso % (Auto) Absolute Neuts (auto) Absolute Lymphs (auto) Nucleated RBC % Sodium Potassium Chloride Carbon Dioxide Anion Gap BUN Creatinine Estim Creat Clear Calc Est GFR (MDRD) Af Amer Est GFR (MDRD) Non-Af BUN/Creatinine Ratio Glucose Calcium Total Bilirubin AST ALT Alkaline Phosphatase Troponin I High Sens 54 Total Protein Albumin Globulin Albumin/Globulin Ratio Urine Color Yellow Urine Clarity Clear Urine pH 6.0 Ur Specific Hendricks 1.010 Urine Protein 30 H Urine Glucose (UA) Normal Urine Ketones Negative Urine Occult Blood 25 H Urine Nitrite Negative Urine Bilirubin Negative Urine Urobilinogen 1 H Ur Leukocyte Esterase Negative Urine RBC 0 SEEN Urine WBC 0 SEEN Ur Squamous Epith Cells 0 SEEN Urine Bacteria 0 SEEN Urine Mucus 0 SEEN Urine Opiates Screen NEGATIVE Urine Methadone Screen NEGATIVE Ur Barbiturates Screen NEGATIVE Ur Phencyclidine Scrn NEGATIVE Ur Amphetamines Screen NEGATIVE MDMA (Ecstasy) Screen NEGATIVE U Benzodiazepines Scrn NEGATIVE Urine Cocaine Screen NEGATIVE U Cannabinoids Screen NEGATIVE Ur Drug Screen Comment Ethyl Alcohol ABG Data ABG results: ABG 05/31/22 21:59 Specimen Type ART Sample Site L Radial pH 7.27 L Bicarbonate Actual 20.2 L Total CO2 22 Base Excess -7 L O2 Saturation 92 L ABG pCO2 44.1 ABG pO2 72 L Juan Test Positive O2 Delivery Device Cannula Liter Flow 4.0 Radiography Diagnostic Testing: Clinical Impression(s) from Imaging Studies Chest X-Ray 05/31/22 09:32 IMPRESSION: 1. No visualized consolidation. Streaky interstitial edema is present bilaterally, likely due to chronic CHF versus pneumonitis. Electronically Signed: Chuck Sanchez MD at 10:36 EDT , Brain CT 05/31/22 12:00 IMPRESSION: Chronic involutional changes of the brain. Small vessel ischemia. Focus of encephalomalacia within the right parietal lobe, may be secondary to a prior infarct. Atherosclerosis. Electronically Signed: Nata Hood MD at 13:35 EDT , Chest x-ray 1 view interpreted by me shows chronic changes, no new acute pneumonia. No change prior x-ray done in February of this year. EKG Initial EKG: Comments: Sinus rhythm with a rate of 91. Normal UT interval. QTC is 494. LVH is present, widespread ST changes throughout however they are not changed from March 13, 2022. Interpreted by emergency DrJacqueline <Dr. Asael Mcclain, DO - Last Filed: 05/31/22 23:00> [facility] Narrative Medical decision making narrative: Patient has a normal work-up however he still has some delusions he lives by himself I question the safety of him being discharged. I called the demi chef we are trying to get him admitted to the [facility]. Dr. Linn dictating: Patient was signed out to me for monitoring until he admitted to the [facility]. Patient has been here currently for just over 13 hours. He started to become more short of breath and on exam he was wheezing. He was given breathing treatments and Solu-Medrol. This did not appear to improve them. It was noted that his heart rate was fast and I did obtain an EKG and on my interpretation this is atrial flutter at a rate of 139 bpm. Patient cannot tell me if he has a history of this. He does appear to be anticoagulated. He is not complaining of chest pain. We did try oxygen via nasal cannula which is not improving his hypoxia. He dropped to 87%. When he was placed on high flow oxygen he still maintaining sats of 85%. At this point I placed him on BiPAP. He will need to be admitted for further treatment. Impression: 1. Hypoxic respiratory failure 2. Atrial flutter 3. COPD exacerbation Lab Data Attestation: I reviewed the patient's lab results. Labs: Laboratory Results - last 24 hr 05/31/22 05/31/22 05/31/22 09:40 09:40 09:50 WBC 9.2 RBC 3.73 L Hgb 12.7 L Hct 38.5 L MCV 103.2 H MCH 34.0 H MCHC 33.0 RDW Std Deviation 55.6 H RDW Coeff of Paul 14.8 H Plt Count 182 MPV 9.1 Immature Gran % (Auto) 0.300 Neut % (Auto) 77.3 H Lymph % (Auto) 12.5 L Routt % (Auto) 8.1 Eos % (Auto) 1.1 Baso % (Auto) 0.7 Absolute Neuts (auto) 7.1 Absolute Lymphs (auto) 1.15 Nucleated RBC % 0 Sodium 133 L Potassium 3.9 Chloride 104 Carbon Dioxide 25.0 Anion Gap 4 L BUN 13 Creatinine 0.89 Estim Creat Clear Calc 74.75 Est GFR (MDRD) Af Amer 107 Est GFR (MDRD) Non-Af 88 BUN/Creatinine Ratio 14.6 Glucose 171 H Calcium 8.5 Total Bilirubin 0.90 AST 59 H ALT 53 Alkaline Phosphatase 85 Troponin I High Sens 52 Total Protein 7.0 Albumin 3.2 Globulin 3.8 Albumin/Globulin Ratio 0.8 L Urine Color Urine Clarity Urine pH Ur Specific Hendricks Urine Protein Urine Glucose (UA) Urine Ketones Urine Occult Blood Urine Nitrite Urine Bilirubin Urine Urobilinogen Ur Leukocyte Esterase Urine RBC Urine WBC Ur Squamous Epith Cells Urine Bacteria Urine Mucus Urine Opiates Screen Urine Methadone Screen Ur Barbiturates Screen Ur Phencyclidine Scrn Ur Amphetamines Screen MDMA (Ecstasy) Screen U Benzodiazepines Scrn Urine Cocaine Screen U Cannabinoids Screen Ur Drug Screen Comment Ethyl Alcohol < 3.0 05/31/22 05/31/22 05/31/22 10:48 10:48 11:24 WBC RBC Hgb Hct MCV MCH MCHC RDW Std Deviation RDW Coeff of Paul Plt Count MPV Immature Gran % (Auto) Neut % (Auto) Lymph % (Auto) Routt % (Auto) Eos % (Auto) Baso % (Auto) Absolute Neuts (auto) Absolute Lymphs (auto) Nucleated RBC % Sodium Potassium Chloride Carbon Dioxide Anion Gap BUN Creatinine Estim Creat Clear Calc Est GFR (MDRD) Af Amer Est GFR (MDRD) Non-Af BUN/Creatinine Ratio Glucose Calcium Total Bilirubin AST ALT Alkaline Phosphatase Troponin I High Sens 54 Total Protein Albumin Globulin Albumin/Globulin Ratio Urine Color Yellow Urine Clarity Clear Urine pH 6.0 Ur Specific Hendricks 1.010 Urine Protein 30 H Urine Glucose (UA) Normal Urine Ketones Negative Urine Occult Blood 25 H Urine Nitrite Negative Urine Bilirubin Negative Urine Urobilinogen 1 H Ur Leukocyte Esterase Negative Urine RBC 0 SEEN Urine WBC 0 SEEN Ur Squamous Epith Cells 0 SEEN Urine Bacteria 0 SEEN Urine Mucus 0 SEEN Urine Opiates Screen NEGATIVE Urine Methadone Screen NEGATIVE Ur Barbiturates Screen NEGATIVE Ur Phencyclidine Scrn NEGATIVE Ur Amphetamines Screen NEGATIVE MDMA (Ecstasy) Screen NEGATIVE U Benzodiazepines Scrn NEGATIVE Urine Cocaine Screen NEGATIVE U Cannabinoids Screen NEGATIVE Ur Drug Screen Comment Ethyl Alcohol ABG Data ABG results: ABG 05/31/22 21:59 Specimen Type ART Sample Site L Radial pH 7.27 L Bicarbonate Actual 20.2 L Total CO2 22 Base Excess -7 L O2 Saturation 92 L ABG pCO2 44.1 ABG pO2 72 L Juan Test Positive O2 Delivery Device Cannula Liter Flow 4.0 Radiography Diagnostic Testing: Clinical Impression(s) from Imaging Studies Chest X-Ray 05/31/22 09:32 IMPRESSION: 1. No visualized consolidation. Streaky interstitial edema is present bilaterally, likely due to chronic CHF versus pneumonitis. Electronically Signed: Chuck Sanchez MD at 10:36 EDT , Brain CT 05/31/22 12:00 IMPRESSION: Chronic involutional changes of the brain. Small vessel ischemia. Focus of encephalomalacia within the right parietal lobe, may be secondary to a prior infarct. Atherosclerosis. Electronically Signed: Nata Hood MD at 13:35 EDT , Discharge Plan Triage Chief Complaint: Shortness of Breath ED Provider: Asael Mcclain Dx/Rx/DC Orders Clinical Impression: Acute dyspnea, Dementia with behavioral disturbance Prescriptions: No Action carvedilol 3.125 mg Tablet 3.125 mg PO BID Qty: 60 0RF aspirin 81 mg Tablet,Chewable 81 mg PO BREAKFAST Qty: 30 0RF atorvastatin 40 mg tablet 40 mg PO QHS Qty: 30 0RF Primary Care Provider: Care Physician,No Primary [facility] - 2 Days Disposition Disposition: DC/Tx to Another Type of HCF
[2022-05-31 09:48] LABS: Absolute Lymphocyte Count 1.15 X10^3/uL (0.83-4.51); Absolute Neutrophil Count 7.1 X10^3/uL (2.0-7.7); Basophil# 0.06 X10^3/uL; Basophil% 0.7 % (0-1); Eosinophils% 1.1 % (0-5); Hematocrit 38.5 % (40-54); Hemoglobin 12.7 g/dL (13.0-16.5); Lymphocyte # 1.15 X10^3/ul (0.83-4.51); Lymphocyte % 12.5 % (19-41); Mean Corpuscular Volume 103.2 fL (80-94); Mean Platelet Vol. 9.1 fl (6.2-12.0); Monocyte# 0.75 X10^3/uL; Monocyte% 8.1 % (0-10); NRBC Flagged by Analyzer 0 % (0-5); Neutrophil # 7.12 X10^3/uL (2.7-7.7); Neutrophil % 77.3 % (47-70); Platelet Count 182 K/mm3 (150-450); RBC Distribution Width CV 14.8 % (11.6-14.6); RBC Distribution Width SD 55.6 fl (35.1-43.9); Red Blood Count 3.73 M/mm3 (4.6-6.2); White Blood Count 9.2 K/mm3 (4.4-11.0)
--- NOTE | 2022-05-31 09:53 | ED.RN ---
pt swatting arms when setting up for blood work. asked pt why her states that genet i have been telling you about he is always trying to taint my blood. 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 going on about [place] and try. pt believes there is a man that is out to thwart the truth of theater and family and hi has been following him around stealing his work. everyone that goes into his room be addresses as an antagonist we are all antagonists to him. he visually seeing the genet, there is no one visually present in room
[2022-05-31 10:04] LABS: ALB/GLOB Ratio 0.8 RATIO (0.9-2.4); AST(SGOT) 59 U/L (15-37); Alanine Aminotransfer ALT/SGPT 53 U/L (16-61); Albumin, Serum 3.2 g/dL (3.2-5.0); Alkaline Phosphatase 85 U/L (45-117); Anion Gap 4 (5-15); BUN 13 mg/dL (7-18); BUN/Creat Ratio 14.6 RATIO (10-20); Calcium,Total 8.5 mg/dL (8.5-10.1); Chloride 104 mmol/L (98-107); Creatinine, Serum 0.89 mg/dL (0.70-1.30); EST Glomerular Filtration Rate 88 mL/min (>60); Est Glom Filt Rate - Afr Amer 107 mL/min (>60); Estimated Creatinine Clearance 74.75 ml/min; Globulin 3.8 g/dL (2.2-4.2); Glucose 171 mg/dL (74-106); Potassium 3.9 mmol/L (3.5-5.1); Sodium Level 133 mmol/L (136-145); Troponin-I HS 52 pg/mL (3.0-78.0)
[2022-05-31 10:26] LABS: Alcohol, Blood (Medical)-Serum < 3.0 mg/dL
[2022-05-31 10:55] LABS: Bacteria 0 SEEN /hpf (None Seen); Mucous, Urine 0 SEEN /hpf (<or=2+); Red Blood Cells-Urine 0 SEEN /hpf (0-5); Squamous Epithelial Cells - UA 0 SEEN /hpf (0-5); White Blood Cells 0 SEEN /hpf (0-5)
[2022-05-31 11:02] LABS: Color, Urine Yellow (Yellow); Glucose, Dipstick Normal (Normal); Ketone-Dipstick Negative (Negative); Leukocyte Esterase-Dipstick Negative /ul (Negative); Nitrite-Dipstick Negative (Negative); Occult Blood-Urine 25 /ul (Negative); Protein-Dipstick 30 mg/dl (Negative); Urine Bilirubin Dipstick Negative (Negative); Urine Clarity Clear (Clear); Urine Urobilinogen 1 mg/dl (Normal)
[2022-05-31 11:07] LABS: Amphetamine Urine VISTA NEGATIVE (<1000 ng/mL); Barbiturate Urine VISTA NEGATIVE (< 200 ng/mL); Benzodiazepine Urine VISTA NEGATIVE (< 200 ng/mL); Cocaine Urine VISTA NEGATIVE (< 300 ng/mL); Ecstacy Urine VISTA NEGATIVE (< 500 ng/mL); Methadone Urine VISTA NEGATIVE (< 300 ng/mL); PCP Urine VISTA NEGATIVE (< 25 ng/mL); THC Urine VISTA NEGATIVE (< 50 ng/mL); Vista UDS pH Range 5
[2022-05-31 11:48] LABS: Troponin-I HS 54 pg/mL (3.0-78.0)
--- NOTE | 2022-05-31 12:00 | CT_ITS ---
STUDY: CT BRAIN WITHOUT CONTRAST REASON FOR EXAM: Male, 76 years old. Confusion RADIATION DOSAGE (If Supplied By Facility): CTDIvol = ( 44.99 ) mGy, DLP = ( 812.98 ) mGycm TECHNIQUE: Transaxial CT imaging of the brain was performed without administration of intravenous contrast material. Individualized dose optimization techniques were used for this CT. COMPARISON: No relevant priors. FINDINGS: Normal soft tissue structures. Normal calvarium. There is mild cerebral atrophy with widening of the extra-axial spaces and ventricular dilatation. There are areas of decreased attenuation within the white matter tracts of the supratentorial brain, consistent with microvascular disease changes. There is a focus of septal malacia within the right parietal lobe. Normal basal ganglia and thalami. Normal brainstem. There is mild cerebellar atrophy. There are peripheral calcifications of the visualized internal carotid arteries. There is no intracranial hemorrhage. There are no findings of an acute ischemic infarction. Normal visualized paranasal sinuses. CT/Brain/Head without Contrast IMPRESSION: Chronic involutional changes of the brain. Small vessel ischemia. Focus of encephalomalacia within the right parietal lobe, may be secondary to a prior infarct. Atherosclerosis. Electronically Signed: Nata Hood MD at 13:35 EDT ,
--- NOTE | 2022-05-31 15:00 | ED.RN ---
attempted to call [facility]. left message on secure line. awaiting return call
--- NOTE | 2022-05-31 16:45 | NURSING ---
[facility] TO GIVE THEM A REPORT ON THE PATIENT TO DECIDE IF THEY WILL TAKE THE PATIENT. THE NURSE TREVON QUEZADA TRIED TWICE AND LEFT TWO MESSAGES. I CALLED MYSELF AND LEFT A MESSAGE AND WE HAVE NOT HEARD FROM THEM. I TOLD [facility] THEY ARE GOING TO HAVE TO CONTINUE TO REACH THEM.
--- NOTE | 2022-05-31 16:50 | NURSING ---
attempted to call [facility]. left second message. waiting on return call
--- NOTE | 2022-05-31 19:06 | NURSING ---
[facility] CALLED AND STATED PATIENT DOES NOT HAVE [facility]. I ASKED REGISTRATION TO DOUBLE CHECK THE INSURANCE AND THEY STATED HE HAS MEDICARE. I FAXED A NEW DEMO WITH CORRECT INSURANCE TO [facility].
--- NOTE | 2022-05-31 20:21 | ED.RN ---
Spoke with Virginie at [facility] regarding this patient, will consult [facility] and doctor for admission.
--- NOTE | 2022-05-31 20:58 | ED.RN ---
[facility] called and advised patient is accepted at [facility], nurse to call report to [phone]
[2022-05-31] MEDS: Ipratropium/Albuterol Sulfate 3 ML AMPUL.NEB INHALATION (21:02)
[2022-05-31 22:05] LABS: Allen Test Positive; Base Excess -7 mmol/L (-2 to +2); Bicarbonate 20.2 mmol/L (22-26); Blood Gas Specimen Type ART; O2 Delivery Device Cannula; PO2 72 mmHG (75-100); SITE L Radial; SO2 92 % (95-99); Total Carbon Dioxide 22 mmol/L; pCO2 44.1 mmHg (35-45); pH 7.27 (7.35-7.45)
--- NOTE | 2022-05-31 22:10 | EKG12_ITS ---
Test Reason : DYSRHYTHMIA Blood Pressure : / mmHG Vent. Rate : 139 BPM Atrial Rate : 278 BPM P-R Int : 000 ms QRS Dur : 122 ms QT Int : 312 ms P-R-T Axes : 081 077 055 degrees QTc Int : 474 ms Atrial flutter Inferior infarct , age undetermined Abnormal ECG Confirmed by ANTONIETTA SHEN, BRENT ([id number]), editorial clerk EDOUARD GOLDSMITH ([id number]) on 06/01/2022 1:12:15 PM Referred By: VALENTÍN Confirmed By:BRENT MANE MD
[2022-05-31] MEDS: MethylPREDNISolone 125 MG/2 ML Vial IV (22:37)
[2022-05-31] MEDS: dilTIAZem 25 MG/5 ML Vial IV BOLUS (22:37)
--- NOTE | 2022-05-31 22:53 | NURSING ---
CALLED [facility] AND SPOKE WITH JOANNE AND INFORMED HER THE PATIENT WILL BE ADMITTED HERE AT THE HOSPITAL. ALSO INFORMED POLLO AT [facility]
--- NOTE | 2022-05-31 23:04 | PCM.HP.STD ---
HPI - General General Date of Admission: 05/31/22 Date of Service: 05/31/22 Chief Complaint: Shortness of breath HPI Narrative GLADYS DUNCAN, is a 76 M who presents to the emergency room with shortness of breath. The patient had been in the emergency room for several hours and had been stable yet diagnosed with concerns for psychosis and was going to be evaluated for [facility] psychiatry placement however after 13 hours of observation in the emergency room the patient suddenly became dyspneic. His heart rate converted to atrial flutter with a rate of 146 and his oxygen saturation decreased with expiratory wheezing. ABG was done confirmed hypoxia and patient was started on Cardizem and rate was controlled however remained in flutter. Patient was started on BiPAP therapy after giving a breathing treatment in the emergency room and IV Solu-Medrol. He currently denies any chest pain and feels he is more comfortable with the BiPAP on. He will be admitted to the progressive care unit for acute respiratory failure and atrial flutter with rapid ventricular response. [facility] Medical History COPD (chronic obstructive pulmonary disease) Ischemic cardiomyopathy Past heart attack Home Medications aspirin 81 mg chewable tablet 81 mg PO BREAKFAST #30 tabs 03/14/22 [Rx Last Taken Unknown] atorvastatin 40 mg tablet 40 mg PO QHS #30 tabs 03/14/22 [Rx Last Taken Unknown] carvedilol 3.125 mg tablet 3.125 mg PO BID #60 tabs 03/14/22 [Rx Last Taken Unknown] Allergy/AdvReac Type Severity Reaction Status Date / Time No Known Allergies Allergy Verified 05/31/22 09:20 Family History Father Heart disease Mother Cancer Surgical History H/O heart surgery Social History Smoking Status: Current every day smoker tobacco type: cigarettes alcohol intake: current alcohol intake frequency: a few times a week Alcohol type: beer, wine and hard liquor substance use type: does not use ROS Constitutional Constitutional: Denies chills or fever(s) Eyes Eyes: Denies change in vision Cardiovascular Cardiovascular: Denies chest pain Respiratory/Chest Respiratory/Chest: Reports shortness of breath at rest and wheezing Gastrointestinal Gastrointestinal: Denies abdominal pain Genitourinary Genitourinary: Denies dysuria Musculoskeletal Musculoskeletal: Reports back pain Integumentary Integumentary: Denies dry skin Neurologic Neurologic: Denies abnormal gait Psychiatric Psychiatric: Reports anxiety Vital Signs Vital Signs Vital Signs: 05/31/22 09:18 05/31/22 09:44 05/31/22 11:30 Temperature 97.4 F L Temperature Source Temporal Pulse Rate 86 81 Respiratory Rate 14 16 Respiratory Effort Normal Respiratory Depth Normal Respiratory Pattern Normal Blood Pressure 146/87 H 125/89 H Blood Pressure Mean 106 101 Pulse Ox 100 97 Oxygen Delivery Method Room Air Room Air Room Air Oxygen Flow Rate (L/min) Fraction of Inspired Oxygen (FIO2) 05/31/22 13:16 05/31/22 20:00 05/31/22 21:02 Temperature Temperature Source Pulse Rate 75 105 H 112 H Respiratory Rate 16 19 H 24 H Respiratory Effort Respiratory Depth Respiratory Pattern Tachypnea Blood Pressure 130/87 H Blood Pressure Mean 101 Pulse Ox 99 97 Oxygen Delivery Method Room Air Room Air Oxygen Flow Rate (L/min) Fraction of Inspired Oxygen (FIO2) 05/31/22 21:02 05/31/22 22:12 05/31/22 22:53 Temperature Temperature Source Pulse Rate 146 H 107 H Respiratory Rate 26 H 29 H 38 H Respiratory Effort Short of Breath Respiratory Depth Shallow Respiratory Pattern Tachypnea Tachypnea Blood Pressure Blood Pressure Mean Pulse Ox 96 87 93 Oxygen Delivery Method Nasal Cannula Room Air Oxygen Flow Rate (L/min) 3 Fraction of Inspired Oxygen (FIO2) 50 Weight Weight: 165 lb Body Mass Index (BMI) 20.6 Physical Exam Const alert General Appearance: cooperative and well developed HEENT normocephalic and head/scalp atraumatic Eyes PERRL Lymph Lymphatic: no lymphadenopathy noted Resp Effort and Inspection: tachypneic and respiratory distress Auscultation: wheezes expiratory wheezes; Negative for rhonchi GI normal to inspection, nondistended, normoactive bowel sounds Extremity normal capillary refill Skin General Skin Exam: no breakdown Neuro no focal motor deficits and no sensory deficits noted Psych cooperative Mood & Affect: anxious Results Lab / Micro Data Result Diagrams: 05/31/22 09:40 05/31/22 09:40 Labs: Laboratory Results - last 24 hr 05/31/22 09:40: WBC 9.2, RBC 3.73 L, Hgb 12.7 L, Hct 38.5 L, MCV 103.2 H, MCH 34.0 H, MCHC 33.0, RDW Std Deviation 55.6 H, RDW Coeff of Paul 14.8 H, Plt Count 182, MPV 9.1, Immature Gran % (Auto) 0.300, Neut % (Auto) 77.3 H, Lymph % (Auto) 12.5 L, Bullock % (Auto) 8.1, Eos % (Auto) 1.1, Baso % (Auto) 0.7, Absolute Neuts (auto) 7.1, Absolute Lymphs (auto) 1.15, Nucleated RBC % 0 05/31/22 09:40: Sodium 133 L, Potassium 3.9, Chloride 104, Carbon Dioxide 25.0, Anion Gap 4 L, BUN 13, Creatinine 0.89, Estim Creat Clear Calc 74.75, Est GFR (MDRD) Af Amer 107, Est GFR (MDRD) Non-Af 88, BUN/Creatinine Ratio 14.6, Glucose 171 H, Calcium 8.5, Total Bilirubin 0.90, AST 59 H, ALT 53, Alkaline Phosphatase 85, Troponin I High Sens 52, Total Protein 7.0, Albumin 3.2, Globulin 3.8, Albumin/Globulin Ratio 0.8 L 05/31/22 09:50: Ethyl Alcohol < 3.0 05/31/22 10:48: Urine Opiates Screen NEGATIVE, Urine Methadone Screen NEGATIVE, Ur Barbiturates Screen NEGATIVE, Ur Phencyclidine Scrn NEGATIVE, Ur Amphetamines Screen NEGATIVE, MDMA (Ecstasy) Screen NEGATIVE, U Benzodiazepines Scrn NEGATIVE, Urine Cocaine Screen NEGATIVE, U Cannabinoids Screen NEGATIVE, Ur Drug Screen Comment 05/31/22 10:48: Urine Color Yellow, Urine Clarity Clear, Urine pH 6.0, Ur Specific [place] 1.010, Urine Protein 30 H, Urine Glucose (UA) Normal, Urine Ketones Negative, Urine Occult Blood 25 H, Urine Nitrite Negative, Urine Bilirubin Negative, Urine Urobilinogen 1 H, Ur Leukocyte Esterase Negative, Urine RBC 0 SEEN, Urine WBC 0 SEEN, Ur Squamous Epith Cells 0 SEEN, Urine Bacteria 0 SEEN, Urine Mucus 0 SEEN 05/31/22 11:24: Troponin I High Sens 54 Micro: Microbiology 05/31/22 09:40 Nasal Secretion SARS-CoV-2 Antigen (Rapid) - Final ABG Data ABG results: ABG 05/31/22 21:59 Specimen Type ART Sample Site L Radial pH 7.27 L Bicarbonate Actual 20.2 L Total CO2 22 Base Excess -7 L O2 Saturation 92 L ABG pCO2 44.1 ABG pO2 72 L Juan Test Positive O2 Delivery Device Cannula Liter Flow 4.0 Radiology Impression Chest X-Ray 05/31/22 09:32 IMPRESSION: 1. No visualized consolidation. Streaky interstitial edema is present bilaterally, likely due to chronic CHF versus pneumonitis. Electronically Signed: Chuck Sanchez MD at 10:36 EDT , Brain CT 05/31/22 12:00 IMPRESSION: Chronic involutional changes of the brain. Small vessel ischemia. Focus of encephalomalacia within the right parietal lobe, may be secondary to a prior infarct. Atherosclerosis. Electronically Signed: Nata Hood MD at 13:35 EDT , Assessment & Plan Assessment/Plan (1) Acute dyspnea: (2) Dementia with behavioral disturbance: (3) Atrial flutter with rapid ventricular response: (4) Acute respiratory failure: PLAN: Plan 1 acute respiratory failure?admit patient to progressive care unit, continue BiPAP treatment, continue IV Solu-Medrol 40 mg IV every 8 hours, DuoNeb INH every 4 hours as needed shortness of breath, repeat chest x-ray in the morning 2. Atrial flutter with rapid ventricular response?continue Cardizem for rate control and monitor for conversion to normal sinus rhythm. We will cycle troponin, repeat CBC BMP in the morning 3. Dementia with behavioral disturbance?patient had been evaluated and was pending for surgery [facility] psych placement we will have case management involved for discharge planning 4. DVT prophylaxis?we will anticoagulate the patient due to atrial flutter and also prevent DVT Charges/Coding Visit Charges Inpatient E&M: 18913 Init Hosp L3
[2022-05-31 23:10] LABS: Troponin-I HS 78 pg/mL (3.0-78.0)
[2022-06-01] VITALS (26 sets, daily range): BP systolic 110–144; BP diastolic 61–80; PULSE 54–88; RESP 12–28; TEMP 36.1–37.1; O2SAT 90–100; BMI 18.6
[2022-06-01] MEDS: APIXABAN 5 MG TABLET PO ×2 (00:33→09:42)
--- NOTE | 2022-06-01 00:41 | EKG12_ITS ---
Test Reason : a flutter conversion Blood Pressure : / mmHG Vent. Rate : 074 BPM Atrial Rate : 074 BPM P-R Int : 142 ms QRS Dur : 134 ms QT Int : 442 ms P-R-T Axes : 073 039 137 degrees QTc Int : 490 ms Normal sinus rhythm with sinus arrhythmia Possible Left atrial enlargement Left ventricular hypertrophy with QRS widening and repolarization abnormality ( [place] product ) Possible Inferior infarct , age undetermined Abnormal ECG Confirmed by ANTONIO SHEN, DIANA ([id number]), editorial cartoonist EDOUARD GOLDSMITH ([id number]) on 06/02/2022 9:13:49 AM Referred By: Confirmed By:DIANA ALVAREZ MD
[2022-06-01 01:00] LABS: Troponin-I HS 126 pg/mL (3.0-78.0)
[2022-06-01 03:02] LABS: Troponin-I HS 206 pg/mL (3.0-78.0)
--- NOTE | 2022-06-01 05:55 | RAD_ITS ---
INDICATION: respiratory failure EXAMINATION/TECHNIQUE: X-RAY - XR Chest 2 Views COMPARISON: 05/31/2022.. FINDINGS: LINES/DEVICES: Sternal wires are seen in position. LUNGS: Peribronchial cuffing bilateral hilar prominence is seen. Prominence of the bronchovascular interstitial lung markings is visualized bilaterally but more prominent in the mid lung gomez bilaterally. No evidence of focal consolidations or infiltrate is seen. Scattered areas of subtle patchy airspace opacification are seen that demonstrate no significant change. The costophrenic angles are clear with no evidence of fluid levels, no evidence of pleural effusion. No evidence of pneumothorax or parenchymal lung masses seen. Biapical prominence and biapical pleural reaction is seen. MEDIASTINUM AND CARDIOVASCULAR STRUCTURES: Mild prominence of the cardiomediastinal silhouette is seen. BONES AND SOFT TISSUES: Degenerative bone changes seen.. RAD/Chest PA and Lateral IMPRESSION: COPD changes, prominence of the bronchovascular and interstitial lung markings demonstrates no significant change in comparison to the prior study. Electronically Signed: Gab Villanueva MD at 9:02 EDT ,
[2022-06-01] MEDS: 0.9% Saline Lock 10 ML Syringe IV (06:06)
[2022-06-01 06:30] LABS: Absolute Lymphocyte Count 0.38 X10^3/uL (0.83-4.51); Absolute Neutrophil Count 8.1 X10^3/uL (2.0-7.7); Basophil# 0.01 X10^3/uL; Basophil% 0.1 % (0-1); Hematocrit 37.7 % (40-54); Hemoglobin 12.4 g/dL (13.0-16.5); Lymphocyte # 0.38 X10^3/ul (0.83-4.51); Lymphocyte % 4.4 % (19-41); Mean Corp Hgb Conc 32.9 g/dL (32-36); Mean Corpuscular Hgb 34.1 pg (27.0-32.0); Mean Corpuscular Volume 103.6 fL (80-94); Mean Platelet Vol. 9.1 fl (6.2-12.0); Monocyte# 0.12 X10^3/uL; Monocyte% 1.4 % (0-10); NRBC Flagged by Analyzer 0 % (0-5); Neutrophil # 8.12 X10^3/uL (2.7-7.7); Neutrophil % 93.6 % (47-70); POSITIVE DIFFERENTIAL YES; Platelet Count 173 K/mm3 (150-450); RBC Distribution Width CV 14.7 % (11.6-14.6); RBC Distribution Width SD 55.4 fl (35.1-43.9); Red Blood Count 3.64 M/mm3 (4.6-6.2); White Blood Count 8.7 K/mm3 (4.4-11.0)
[2022-06-01 06:39] LABS: Differential Indicated SCAN CRITERIA MET
--- NOTE | 2022-06-01 06:43 | ECHOD_ITS ---
Reason For Study: AFIB/FLUTTER Procedure This was a 2D Doppler, Color Flow transthoracic echocardiogram. Exam performed portable in patient room. Left Ventricle Severely dilated left ventricle. Moderate concentric left ventricular hypertrophy. Severe segmental systolic dysfunction (see wall motion). The estimated ejection fraction is 25 %. Stage 3 diastolic dysfunction. Mid-Inferior: Akinetic. Infero-Basal: Akinetic. Basal inferoseptal: Akinetic. Posterior-Basal: Akinetic. Mid-Posterior: Akinetic. The rest of the wall segments are hypokinetic. Right Ventricle Normal RV size. Normal systolic function. Atria The left atrium is mildly enlarged. The right atrium is mildly enlarged. Mitral Valve There is mild mitral annular calcification. Bileaflet diffuse mitral valve thickening. Mild (1+) eccentric mitral valve insufficiency. Tricuspid Valve Normal tricuspid valve. Aortic Valve Normal aortic valve. Trisinus/trileaflet aortic valve. Pulmonic Valve Normal pulmonic valve. Great Vessels Normal aortic root. The pulmonary artery is normal size. The inferior vena cava is dilated. and partially collapses. Pericardium/Pleural No pericardial effusion. MMode/2D Measurements & Calculations LVIDd: 6.6 cm IVSd: 1.4 cm Ao root diam: 3.3 cm LVIDs: 5.7 cm LVPWd: 1.4 cm FS: 12.9 % LAV(MOD-bp): 91.6 ml LA A4 area: 22.8 cm2 LA dimension(2D): 4.7 cm LAV(MOD-bp) Indexed: 48.5 ml/m2 LAV(MOD-sp2): 90.5 ml LAV(MOD-sp4): 77.1 ml RA A4 area: 21.5 cm2 Time Measurements MV dec time: 0.27 sec Doppler Measurements & Calculations MV E max veto: 65.3 cm/sec Lat Peak E' Veto: 4.5 cm/sec Med Peak E' Veto: 4.4 cm/sec MV A max veto: 39.3 cm/sec E/E' lat: 14.5 E/E' med: 15.0 MV E/A: 1.7 MV dec slope: 256.5 cm/sec2 Ao V2 max: 100.4 cm/sec LV V1 max: 69.3 cm/sec Ao max P.0 mmHg LV V1 max P.9 mmHg Ao V2 mean: 70.7 cm/sec LV V1 mean P.89 mmHg Ao mean P.3 mmHg LV V1 mean: 42.8 cm/sec Ao V2 VTI: 23.1 cm LV V1 VTI: 13.9 cm MR max veto: 392.5 cm/sec PA V2 max: 64.4 cm/sec MR max P.6 mmHg ECHO/Echo Complete Interpretation Summary Severely dilated left ventricle. Moderate concentric left ventricular hypertrophy. The left atrium is mildly enlarged. The right atrium is mildly enlarged. Severe segmental systolic dysfunction (see wall motion). The estimated ejection fraction is 25 %. Stage 3 diastolic dysfunction. Ordering Physician: Francisco Clark Referring Physician: IMELDA PCP Performed By: Latasha Burgos RDCS, RVT
--- NOTE | 2022-06-01 06:45 | CON.PCM.CA_ITS ---
Assessment & Plan Assessment/Plan (1) Acute dyspnea: PLAN: The patient presented with acute dyspnea following going into atrial flutter with a rapid ventricular response rate. I suspect this is due to congestive heart failure. He is doing better at this particular time. My recommendation will be to obtain an echocardiogram to assess his ventricular function. His natruretic peptide level is elevated. We will start him on low-dose beta-ian with carvedilol 3.125 twice a day Lasix 40 mg a day (2) Atrial flutter with rapid ventricular response: PLAN: This appears to be new onset atrial flutter and he has converted back to sinus rhythm. Would like us to obtain an echocardiogram for an assessment of t he above. We will start him on Eliquis 5 mg twice a day. Evaluate his left heart function with an echocardiogram. (3) NSTEMI, initial episode of care: PLAN: He has an elevated troponin level which is likely secondary to the atrial flutter with a rapid ventricular response rate. However based on his age coronary disease will need to be excluded. The echocardiogram will be performed to assess his ventricular function. It is unclear to me at this time whether he still needs cardiac clearance for his presumed psych problems. If this is the case we may need to definitively exclude obstructive coronary disease Recommendation as to whether stress test versus left heart catheterization would be made after further discussion with the hospitalist to evaluate his level of c ognitive ability. HPI Consult Data Date of Consult: 06/01/22 HPI Narrative HPI Narrative: GLADYS DUNCAN, is a 76 M who presents to the emergency room with shortness of breath.? The patient had been in the emergency room for several hours and had been stable yet diagnosed with concerns for psychosis and was going to be evaluated for psychiatry placement however after 13 hours of observation in the emergency room the patient suddenly became dyspneic.? His heart rate converted to atrial flutter with a rate of 146 and his oxygen saturation decreased with expiratory wheezing.? ABG was done confirmed hypoxia and patient was started on Cardizem and rate was controlled however remained in flutter.? Patient was started on BiPAP therapy after giving a breathing treatment in the emergency room and IV Solu-Medrol.? He currently denies any chest pain and feels he is more comfortable with the BiPAP on.? He was admitted to the progressive care unit for acute respiratory failure and atrial flutter with rapid ventricular response. He was placed on intravenous Cardizem and converted back to sinus rhythm this morning. At this particular time he is doing quite well he denies any chest pain or shortness of breath or pedal edema. He appears to be m entating quite well. [facility] Medical History COPD (chronic obstructive pulmonary disease) Ischemic cardiomyopathy Past heart attack Home Medications aspirin 81 mg chewable tablet 81 mg PO BREAKFAST #30 tabs 03/14/22 [Rx Last T aken Unknown] atorvastatin 40 mg tablet 40 mg PO QHS #30 tabs 03/14/22 [Rx Last Taken Unknown] carvedilol 3.125 mg tablet 3.125 mg PO BID #60 tabs 03/14/22 [Rx Last Taken Unknown] Allergy/AdvReac Type Severity Reaction Status Date / Time No Known Allergies Allergy Verified 05/31/22 09:20 Family History Father Heart disease Mother Cancer Surgical History H/O heart surgery Social History household members: none current occupational status: retired Smoking Status: Current every day smoker tobacco type: cigarettes alcohol intake: current alcohol intake frequency: a few times a week Alcohol type: beer, wine and hard liquor substance use type: does not use ROS Constitutional Constitutional: Denies fever(s) or weight loss Eyes Eyes: Reports systems reviewed and no addt'l complaints, except as documented ENT HEENT: Reports systems reviewed and no addt'l complaints, except as documented Cardiovascular Cardiovascular: Reports dyspnea at rest, palpitations and paroxysmal nocturnal dyspnea; Denies chest pain at rest, chest pain with activity, dyspnea on exertion or edema Respiratory/Chest Respiratory/Chest: Reports dyspnea on exertion and shortness of breath at rest; Denies productive cough or shortness of breath with exertion Gastrointestinal Gastrointestinal: Denies change in bowel habits, nausea, vomiting or weight changes Genitourinary Genitourinary: Denies difficulty urinating Musculoskeletal Musculoskeletal: Denies joint stiffness or muscle weakness Integumentary Integumentary: Denies lesions Neurologic Neurologic: Denies dizziness or syncope Psychiatric Psychiatric: Denies anxiety Endocrine Endocrinology: Denies excessive sweating or fatigue Hematologic/Lymphatic Hematologic/Lymphatic: Denies anemia Allergic/Immunologic Allergic/Immunologic: Denies seasonal rhinorrhea Physical Exam Const alert General Appearance: cooperative and well developed HEENT normocephalic and head/scalp atraumatic Eyes PERRL Lymph Lymphatic: no lymphadenopathy noted Resp Effort and Inspection: tachypneic and respiratory distress Auscultation: wheezes expiratory wheezes; Negative for rhonchi Cardio regular rate GI normal to inspection, nondistended, normoactive bowel sounds Extremity normal capillary refill Skin General Skin Exam: no breakdown Neuro no focal motor deficits and no sensory deficits noted Psych cooperative Mood & Affect: anxious Risk Stratification Risk Stratification Applicable: No Objective Data Vital Signs: Vital Signs Temp Pulse Resp BP Pulse Ox O2 Del Method O2 Flow Rate 97.0 F L 56 L 22 H 116/68 97 Nasal Cannula 2 06/01/22 06:00 06/01/22 06:00 06/01/22 06:00 06/01/22 06:00 06/01/22 06:00 06/01/22 06:00 06/01/22 06:00 FiO2 21 06/01/22 05:31 Oxygen Flow Rate (L/min) 2 Oxygen Delivery Method Nasal Cannula Weight: 144 lb 9.972 oz Body Mass Index (BMI) 18.6 Intake & Output: Intake and Output for Last 24 Hours 05/30/22 05/31/22 06/01/22 23:59 23:59 23:59 Intake Total 225.08 / 225.08 Output Total 150 / 150 Balance 75.08 / 75.08 Lab / Micro Data Result Diagrams: 06/01/22 06:08 05/31/22 09:40 Labs: Laboratory Results - last 24 hr 05/31/22 09:40: WBC 9.2, RBC 3.73 L, Hgb 12.7 L, Hct 38.5 L, MCV 103.2 H, MCH 34.0 H, MCHC 33.0, RDW Std Deviation 55.6 H, RDW Coeff of Paul 14.8 H, Plt Count 182, MPV 9.1, Immature Gran % (Auto) 0.300, Neut % (Auto) 77.3 H, Lymph % (Auto) 12.5 L, Dent % (Auto) 8.1, Eos % (Auto) 1.1, Baso % (Auto) 0.7, Absolute Neuts (auto) 7.1, Absolute Lymphs (auto) 1.15, Nucleated RBC % 0 05/31/22 09:40: Sodium 133 L, Potassium 3.9, Chloride 104, Carbon Dioxide 25.0, Anion Gap 4 L, BUN 13, Creatinine 0.89, Estim Creat Clear Calc 74.75, Est GFR (MDRD) Af Amer 107, Est GFR (MDRD) Non-Af 88, BUN/Creatinine Ratio 14.6, Glucose 171 H, Calcium 8.5, Total Bilirubin 0.90, AST 59 H, ALT 53, Alkaline Phosphatase 85, Troponin I High Sens 52, Total Protein 7.0, Albumin 3.2, Globulin 3.8, Albumin/Globulin Ratio 0.8 L 05/31/22 09:50: Ethyl Alcohol < 3.0 05/31/22 10:48: Urine Opiates Screen NEGATIVE, Urine Methadone Screen NEGATIVE, Ur Barbiturates Screen NEGATIVE, Ur Phencyclidine Scrn NEGATIVE, Ur Amphetamines Screen NEGATIVE, MDMA (Ecstasy) Screen NEGATIVE, U Benzodiazepines Scrn NEGATIVE, Urine Cocaine Screen NEGATIVE, U Cannabinoids Screen NEGATIVE, Ur Drug Screen Comment 05/31/22 10:48: Urine Color Yellow, Urine Clarity Clear, Urine pH 6.0, Ur Specific [place] 1.010, Urine Protein 30 H, Urine Glucose (UA) Normal, Urine Ketones Negative, Urine Occult Blood 25 H, Urine Nitrite Negative, Urine Bilirubin Negative, Urine Urobilinogen 1 H, Ur Leukocyte Esterase Negative, Urine RBC 0 SEEN, Urine WBC 0 SEEN, Ur Squamous Epith Cells 0 SEEN, Urine Bacteria 0 SEEN, Urine Mucus 0 SEEN 05/31/22 11:24: Troponin I High Sens 54 05/31/22 22:40: Troponin I High Sens 78 06/01/22 00:25: Troponin I High Sens 126 H* 06/01/22 02:20: Troponin I High Sens 206 H* 06/01/22 06:08: WBC 8.7, RBC 3.64 L, Hgb 12.4 L, Hct 37.7 L, MCV 103.6 H, MCH 34.1 H, MCHC 32.9, RDW Std Deviation 55.4 H, RDW Coeff of Paul 14.7 H, Plt Count 173, MPV 9.1, Immature Gran % (Auto) 0.500, Neut % (Auto) 93.6 H, Lymph % (Auto) 4.4 L, [place] % (Auto) 1.4, Eos % (Auto) 0.0, Baso % (Auto) 0.1, Absolute Neuts (auto) 8.1 H, Absolute Lymphs (auto) 0.38 L, Nucleated RBC % 0 Micro: Microbiology 05/31/22 09:40 Nasal Secretion SARS-CoV-2 Antigen (Rapid) - Final ABG Data ABG results: ABG 05/31/22 21:59 Specimen Type ART Sample Site L Radial pH 7.27 L Bicarbonate Actual 20.2 L Total CO2 22 Base Excess -7 L O2 Saturation 92 L ABG pCO2 44.1 ABG pO2 72 L Juan Test Positive O2 Delivery Device Cannula Liter Flow 4.0 Cardiology Labs/Tests 05/31/22 09:40: WBC 9.2, RBC 3.73 L, Hgb 12.7 L, Hct 38.5 L, MCV 103.2 H, MCH 34.0 H, MCHC 33.0, Plt Count 182, MPV 9.1, Immature Gran % (Auto) 0.300, Neut % (Auto) 77.3 H, Lymph % (Auto) 12.5 L, [place] % (Auto) 8.1, Eos % (Auto) 1.1, Baso % (Auto) 0.7, Absolute Neuts (auto) 7.1, Nucleated RBC % 0 05/31/22 09:40: Sodium 133 L, Potassium 3.9, Chloride 104, Carbon Dioxide 25.0, Anion Gap 4 L, BUN 13, Creatinine 0.89, Est GFR (MDRD) Af Amer 107, Est GFR (MDRD) Non-Af 88, BUN/Creatinine Ratio 14.6, Glucose 171 H, Calcium 8.5, Total Bilirubin 0.90 05/31/22 10:48: Urine Color Yellow, Urine Clarity Clear, Urine pH 6.0, Ur Specific [place] 1.010, Urine Protein 30 H, Urine Glucose (UA) Normal, Urine Ketones Negative, Urine Occult Blood 25 H, Urine Nitrite Negative, Urine Bilirubin Negative, Urine Urobilinogen 1 H, Ur Leukocyte Esterase Negative, Urine RBC 0 SEEN, Urine WBC 0 SEEN 05/31/22 21:59: pH 7.27 L, Bicarbonate Actual 20.2 L, Base Excess -7 L, O2 Satu ration 92 L, ABG pCO2 44.1, ABG pO2 72 L, Juan Test Positive 06/01/22 06:08: WBC 8.7, RBC 3.64 L, Hgb 12.4 L, Hct 37.7 L, MCV 103.6 H, MCH 34.1 H, MCHC 32.9, Plt Count 173, MPV 9.1, Immature Gran % (Auto) 0.500, Neut % (Auto) 93.6 H, Lymph % (Auto) 4.4 L, Dent % (Auto) 1.4, Eos % (Auto) 0.0, Baso % (Auto) 0.1, Absolute Neuts (auto) 8.1 H, Nucleated RBC % 0 Rhythm: EKG: ECHO: Stress Test: Cardiac Cath: PCI: CT Surgery: Holter monitor: EPS: PPM: CXR: Chest CT Scan: Radiography Diagnostic Testing: Radiology Impression Chest X-Ray 05/31/22 09:32 IMPRESSION: 1. No visualized consolidation. Streaky interstitial edema is present bilaterally, likely due to chronic CHF versus pneumonitis. Electronically Signed: Chuck Sanchez MD at 10:36 EDT , Brain CT 05/31/22 12:00 IMPRESSION: Chronic involutional changes of the brain. Small vessel ischemia. Focus of encephalomalacia within the right parietal lobe, may be secondary to a prior infarct. Atherosclerosis. Electronically Signed: Nata Hood MD at 13:35 EDT ,
[2022-06-01 06:54] LABS: Differential Comment SCANNED
[2022-06-01 07:02] LABS: Anion Gap 8 (5-15); BUN 18 mg/dL (7-18); BUN/Creat Ratio 21.2 RATIO (10-20); Calcium,Total 8.6 mg/dL (8.5-10.1); Chloride 102 mmol/L (98-107); Creatinine, Serum 0.85 mg/dL (0.70-1.30); EST Glomerular Filtration Rate 93 mL/min (>60); Est Glom Filt Rate - Afr Amer 113 mL/min (>60); Glucose 152 mg/dL (74-106); Potassium 4.5 mmol/L (3.5-5.1); Sodium Level 133 mmol/L (136-145); Troponin-I HS 219 pg/mL (3.0-78.0)
[2022-06-01] MEDS: Ipratropium/Albuterol Sulfate 3 ML AMPUL.NEB INHALATION ×2 (07:21→20:05)
[2022-06-01] MEDS: Carvedilol 3.125 MG TABLET PO ×2 (09:42→21:45)
[2022-06-01] MEDS: Furosemide 40 MG Tablet PO (09:42)
--- NOTE | 2022-06-01 11:01 | CASEMGMT ---
Addendum entered by Tram Hummel 06/01/22 11:07: JAYLEN received a call from Yessenia at [facility] stating their acceptance is good for 48-72 hours. Yessenia states that the [employer] is dated 05/31/2022 so that is what they are going off of. JAYLEN informed Yessenia that pt is getting test done tomorrow, but if they come back good, JAYLEN asked if pt could admit tomorrow and Yessenia states pt could. Puja provided direct number [phone]. JAYLEN informed Yessenia that this worker will keep her updated. Original Note: Social Work Note SW reviewed chart. Pt admitted through [facility] ED and was supposed to discharge to [facility] for inpatient psych however, had to be admitted to [facility]. Pt to get stress test and ECHO. JAYLEN placed a call to [facility] to inquire about how long they will hold a bed for pt, [employer] Meter Installer Helper from [facility] to call this worker back. SW to continue to follow. Tram Hummel [employer]ING[employer], CLOTHING MAN
--- NOTE | 2022-06-01 11:55 | CASEMGMT ---
VENANCIO CAREY in to complete assessment with patient. Patient is alert, pleasant, and confused. 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 Patient is difficult to reorient. Patient was able to answer some questions. Patient mentions that he goes to the [facility]. Patient mentioned that his parents has and he lives alone. Patient states he has to go upstairs to sleep in bedroom. Patient states he walks to gas station down the hill to get coffee and cigarettes. VENANCIO CAREY updated hospitalist PILOT FUEL ENGINEER regarding conversation. Per notes, patient to be evaluated by crisis.
--- NOTE | 2022-06-01 13:38 | PN.HOSP_ITS ---
Documented by User: Ivanna Pascual NP, WELL LOGGING MUD ANALYSIS CAPTAIN-C 06/01/22 14:02 Subjective Subjective Patient seen and examined. Denies chest pain, shortness of breath. Patient difficult to redirect and persistently talking about music in conversation. He appears comfortable. Objective Data Objective Data Vital Signs: Vital Signs Temp Pulse Resp BP Pulse Ox O2 Del Method O2 Flow Rate 98.8 F 71 17 114/61 98 Room Air 3 06/01/22 09:38 06/01/22 12:32 06/01/22 09:38 06/01/22 09:38 06/01/22 09:38 06/01/22 09:38 06/01/22 07:21 FiO2 21 06/01/22 05:31 Oxygen Flow Rate (L/min) 3 Oxygen Delivery Method Room Air Weight: 144 lb 9.972 oz Body Mass Index (BMI) 18.6 Intake & Output: Intake and Output for Last 24 Hours 05/30/22 05/31/22 06/01/22 23:59 23:59 23:59 Intake Total 225.08 / 225.08 Output Total 150 / 150 Balance 75.08 / 75.08 Lab / Micro Data Result Diagrams: 06/01/22 06:08 06/01/22 06:08 Labs: Laboratory Results - last 24 hr 05/31/22 22:40: Troponin I High Sens 78 06/01/22 00:25: Troponin I High Sens 126 H* 06/01/22 02:20: Troponin I High Sens 206 H* 06/01/22 06:08: WBC 8.7, RBC 3.64 L, Hgb 12.4 L, Hct 37.7 L, MCV 103.6 H, MCH 34.1 H, MCHC 32.9, RDW Std Deviation 55.4 H, RDW Coeff of Paul 14.7 H, Plt Count 173, MPV 9.1, Immature Gran % (Auto) 0.500, Neut % (Auto) 93.6 H, Lymph % (Auto) 4.4 L, Smyth % (Auto) 1.4, Eos % (Auto) 0.0, Baso % (Auto) 0.1, Absolute Neuts (auto) 8.1 H, Absolute Lymphs (auto) 0.38 L, Nucleated RBC % 0, Differential Comment SCANNED 06/01/22 06:08: Sodium 133 L, Potassium 4.5, Chloride 102, Carbon Dioxide 23.0, Anion Gap 8, BUN 18, Creatinine 0.85, Estim Creat Clear Calc 68.60, Est GFR (MDRD) Af Amer 113, Est GFR (MDRD) Non-Af 93, BUN/Creatinine Ratio 21.2 H, Glucose 152 H, Calcium 8.6, Troponin I High Sens 219 H* Micro: Microbiology 05/31/22 09:40 Nasal Secretion SARS-CoV-2 Antigen (Rapid) - Final ABG Data ABG results: ABG 05/31/22 21:59 Specimen Type ART Sample Site L Radial pH 7.27 L Bicarbonate Actual 20.2 L Total CO2 22 Base Excess -7 L O2 Saturation 92 L ABG pCO2 44.1 ABG pO2 72 L Juan Test Positive O2 Delivery Device Cannula Liter Flow 4.0 Radiography Diagnostic Testing: Radiology Impression Chest X-Ray 06/01/22 05:55 IMPRESSION: COPD changes, prominence of the bronchovascular and interstitial lung markings demonstrates no significant change in comparison to the prior study. Electronically Signed: Gab Villanueva MD at 9:02 EDT , Echocardiogram 06/01/22 06:43 Interpretation Summary Severely dilated left ventricle. Moderate concentric left ventricular hypertrophy. The left atrium is mildly enlarged. The right atrium is mildly enlarged. Severe segmental systolic dysfunction (see wall motion). The estimated ejection fraction is 25 %. Stage 3 diastolic dysfunction. Ordering Physician: Francisco Clark Referring Physician: IMELDA PCP Performed By: Latasha Burgos, LORICS, RVT Physical Exam Const alert Constitutional Narrative: Talking fast. Difficult to redirect. HEENT normocephalic and moist oral mucous membranes Eyes PERRL, EOMs intact bilaterally and conjunctivae normal Neck no lymphadenopathy Resp normal respiratory effort and clear to auscultation bilaterally Cardio regular rate, regular rhythm and no murmurs Peripheral Pulses: pulses 2+ throughout GI normal to inspection, nondistended, normoactive bowel sounds, non-tender and non-distended Extremity normal to inspection Skin no rashes or lesions noted Lesions: no lesions Rashes: no rashes Trauma: no lacerations or abrasions Neuro CN's II-XII intact bilaterally, no focal motor deficits, no sensory deficits noted and deep tendon reflexes 2+ bilaterally Psych Activity / Motor Behavior: hyperactive Speech: excessive Assessment & Plan Assessment/Plan (1) NSTEMI, initial episode of care: (2) Atrial flutter with rapid ventricular response: PLAN: Plan 1. Acute hypoxic respiratory failure secondary to acute heart failure with reduced ejection fraction and exacerbation of COPD-initially placed on BiPAP. Oxygen now stable on room air. Treatment per below. 2. Acute heart failure with reduced ejection fraction-continue Lasix. Strict I&O. Daily weight. Echocardiogram with EF 25%, stage III diastolic dysfunction. Chest x-ray with interstitial edema, repeat exam improved. 3. COPD with exacerbation-continue aerosol treatments. Transition from IV Solu-Medrol to oral prednisone. 4. NSTEMI-cardiology following. Plan for heart cath in a.m. Continue aspirin, statin, carvedilol. 5. Atrial flutter with RVR-currently sinus rhythm. IV Cardizem discontinued. Eliquis discontinued given plans for heart cath. Will need anticoagulation at discharge. 6. Hypertension-continue carvedilol. 7. Hyperlipidemia-continue statin. 8. Dementia with behavioral disturbance-unclear psychiatric history. [facility] placement pending medically stable. 9. Tobacco dependence-encouraged cessation. DVT prophylaxis- Lovenox sc This patient was seen by ALEX Salgado under the supervision of Dr. Reynoso. Time spent examining patient, reviewing data and subsequent management of care: 17 minutes Documented by User: Dr. Kentrell Reynoso MD 06/01/22 15:11 Subjective Subjective Patient seen and examined. Denies chest pain, shortness of breath. Patient difficult to redirect and persistently talking about music in conversation. He appears comfortable. Seen and examined. Patient does not have chest pain shortness of breath dizziness. Patient has difficulty to focus on the subject, tangential pattern of thinking. No combative or agitated or depressed mood. Patient had history of CABG in the past. Objective Data Lab / Micro Data Result Diagrams: 06/01/22 06:08 06/01/22 06:08 Labs: Laboratory Results - last 24 hr 05/31/22 22:40: Troponin I High Sens 78 06/01/22 00:25: Troponin I High Sens 126 H* 06/01/22 02:20: Troponin I High Sens 206 H* 06/01/22 06:08: WBC 8.7, RBC 3.64 L, Hgb 12.4 L, Hct 37.7 L, MCV 103.6 H, MCH 34.1 H, MCHC 32.9, RDW Std Deviation 55.4 H, RDW Coeff of Paul 14.7 H, Plt Count 173, MPV 9.1, Immature Gran % (Auto) 0.500, Neut % (Auto) 93.6 H, Lymph % (Auto) 4.4 L, Smyth % (Auto) 1.4, Eos % (Auto) 0.0, Baso % (Auto) 0.1, Absolute Neuts (auto) 8.1 H, Absolute Lymphs (auto) 0.38 L, Nucleated RBC % 0, Differential Comment SCANNED 06/01/22 06:08: Sodium 133 L, Potassium 4.5, Chloride 102, Carbon Dioxide 23.0, Anion Gap 8, BUN 18, Creatinine 0.85, Estim Creat Clear Calc 68.60, Est GFR (MDRD) Af Amer 113, Est GFR (MDRD) Non-Af 93, BUN/Creatinine Ratio 21.2 H, Glucose 152 H, Calcium 8.6, Troponin I High Sens 219 H* Physical Exam Narrative Seen and examined. On gambling monitor patient sinus rhythm. Was on a flutter converted to sinus rhythm on 05/31. General: Alert, Oriented x3, Cooperative HEENT: Atraumatic, PERRLA, EOMI, Normocephalic Oral: No Gingival or Mucosal Lesions/ Ulcerations Neck: Supple, No JVD, Negative Carotid Bruits Lungs: Air entry diminished in bilateral lung bases. No crepitation/rhonchi Cardiovascular: Regular rate, Regular Rhythm, Normal S1, Normal S2, holosystolic grade 3/6 murmur at cardiac apex. CABG scar Abdomen: Bowel Sounds Present, Soft, Non Tender, Non-Distended : No renal angle tenderness. No suprapubic tenderness. Extremities: No edema, Capillary Refill Less than 3 Seconds Skin: No rashes, No breakdown Musculoskeletal: No Tenderness to Palpation of Joints or Extremities Neurological: Cranial nerves II-XII grossly intact, DTR 2+/4 and Symmetrical, N euro grossly intact Psych/Mental Status: Patient talkative, tangential pattern of thinking. Persona lity disorder. Assessment & Plan Assessment/Plan (1) NSTEMI, initial episode of care: (2) Atrial flutter with rapid ventricular response: PLAN: Plan 1. Acute hypoxic respiratory failure secondary to acute heart failure with reduced ejection fraction and exacerbation of COPD-initially placed on BiPAP. Oxygen now stable on room air. Treatment per below. 2. Acute heart failure with reduced ejection fraction-continue Lasix. Strict I&O. Daily weight. Echocardiogram with EF 25%, stage III diastolic dysfunction. Chest x-ray with interstitial edema, repeat exam improved. 3. COPD with exacerbation-continue aerosol treatments. Transition from IV Solu-Medrol to oral prednisone. 4. NSTEMI-cardiology following. Plan for heart cath in a.m. Continue aspirin, statin, carvedilol. 5. Atrial flutter with RVR-currently sinus rhythm. IV Cardizem discontinued. Eliquis discontinued given plans for heart cath. Will need anticoagulation at discharge. 6. Hypertension-continue carvedilol. 7. Hyperlipidemia-continue statin. 8. Dementia with behavioral disturbance-unclear psychiatric history. [facility] psych placement pending medically stable. 9. Tobacco dependence-encouraged cessation. DVT prophylaxis- Lovenox sc This patient was seen by BRITTA SalgadoC under the supervision of Dr. Reynoso. Time spent examining patient, reviewing data and subsequent management of care: 17 minutes This patient was seen in conjunction with Ivanna ZAVALA. I have independently interviewed and examined the patient and reviewed pertinent history, examination findings, laboratory and plan of management. I have reviewed the note and agree with the documented findings with the few additional points. In brief, patient is 76-year-old male came to ED for concern of psychotic symptoms. Patient was in ED for 13 hours, pending transfer and evaluation for [facility] but in the meantime developed shortness of breath/dyspnea, atrial flutter with RVR 146/min, hypoxia and expiratory wheezing. ABG was done. 7.2 on 4 L of oxygen. Chest x-ray initially reviewed shows bilateral inters titial markings and interstitial edema suggestive of chronic COPD changes and CHF. His assessment evaluation, diagnosis and management as follows 1. Patient has acute hypoxic respiratory failure probably due to CHF and COPD exacerbation. Patient shortness of breath is with resolved. Denies chest pain. Keep pulse ox more than 90%. 2. Acute on chronic systolic heart failure: Discussed with embroidery supervisor Dr. Clark. Echo shows EF 25%, stage III diastolic dysfunction. Overall it seems patient not adherent to cardiac medications. Troponins increased from normal to 219. BNP high. Plan for stress test tomorrow AM. Overall seeing the patient with history of nonadherence and psychiatric history probably medical management will be better for patient 3. Acute COPD exacerbation: Secondary to mild wheezing. Controlled. IV Solu- Medrol changed to prednisone as Solu-Medrol, potentially steroid can exacerbate psychotic symptoms. 4. Atrial flutter with RVR: Patient was on IV Cardizem discontinued. Eliquis also discontinued for plan of stress test and possible heart cath. Currently patient in sinus rhythm heart rate in 70s per minute 5. 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 Other chronic comorbidities include hypertension, dementia, dyslipidemia and tobacco dependence, chronic smoker I have discussed my assessment with Ivanan ZAVALA and orders have been reviewed. Total time of the visit including total time spent in counseling or coordination of care, (more than 50% of the total time, spent in obtaining medical information from nurses and other ancillary care providers,explaining to the patient about labs, imaging, diagnosis and management), discussion with cyber security consultant, review of labs and imaging is 47 minutes. I spent 30 minutes, SALLY Goncalves spent 17 minutes Microbiology Past 72 Hours 05/31/22 09:40 Nasal Secretion SARS-CoV-2 Antigen (Rapid) - Final Laboratory Results 05/31/22 21:59: Specimen Type ART, Sample Site L Radial, pH 7.27 L, Bicarbonate Actual 20.2 L, Total CO2 22, Base Excess -7 L, O2 Saturation 92 L, ABG pCO2 44.1, ABG pO2 72 L, Juan Test Positive, O2 Delivery Device Cannula, Liter Flow 4.0 05/31/22 22:40: Troponin I High Sens 78 06/01/22 00:25: Troponin I High Sens 126 H* 06/01/22 02:20: Troponin I High Sens 206 H* 06/01/22 06:08: WBC 8.7, RBC 3.64 L, Hgb 12.4 L, Hct 37.7 L, MCV 103.6 H, MCH 34.1 H, MCHC 32.9, RDW Std Deviation 55.4 H, RDW Coeff of Paul 14.7 H, Plt Count 173, MPV 9.1, Immature Gran % (Auto) 0.500, Neut % (Auto) 93.6 H, Lymph % (Auto) 4.4 L, Smyth % (Auto) 1.4, Eos % (Auto) 0.0, Baso % (Auto) 0.1, Absolute Neuts (auto) 8.1 H, Absolute Lymphs (auto) 0.38 L, Nucleated RBC % 0, Differential Comment SCANNED 06/01/22 06:08: Sodium 133 L, Potassium 4.5, Chloride 102, Carbon Dioxide 23.0, Anion Gap 8, BUN 18, Creatinine 0.85, Estim Creat Clear Calc 68.60, Est GFR (MDRD) Af Amer 113, Est GFR (MDRD) Non-Af 93, BUN/Creatinine Ratio 21.2 H, Glucose 152 H, Calcium 8.6, Troponin I High Sens 219 H* 06/01/22 06:08: B-Natriuretic Peptide 1961.9 H Charges/Coding Visit Charges Inpatient E&M: 69987 Subs Hosp L3
[2022-06-01 14:20] LABS: BNP,B-Type NATRIURETIC PEPTIDE 1961.9 pg/mL (0-100)
[2022-06-01] MEDS: Enoxaparin 80 MG/0.8 ML Syringe 65 MG SC (17:47)
[2022-06-01] MEDS: Atorvastatin Calcium 40 MG Tablet PO (21:45)
[2022-06-02] VITALS (17 sets, daily range): BP systolic 104–146; BP diastolic 69–105; PULSE 71–96; RESP 12–24; TEMP 36.4–37.1; O2SAT 93–97
[2022-06-02 05:40] LABS: Absolute Lymphocyte Count 0.88 X10^3/uL (0.83-4.51); Absolute Neutrophil Count 9.6 X10^3/uL (2.0-7.7); Basophil# 0.01 X10^3/uL; Basophil% 0.1 % (0-1); Eosinophil# 0.01 X10^3/uL; Eosinophils% 0.1 % (0-5); Hematocrit 34.5 % (40-54); Hemoglobin 11.7 g/dL (13.0-16.5); Lymphocyte # 0.88 X10^3/ul (0.83-4.51); Lymphocyte % 7.6 % (19-41); Mean Corp Hgb Conc 33.9 g/dL (32-36); Mean Corpuscular Hgb 34.7 pg (27.0-32.0); Mean Corpuscular Volume 102.4 fL (80-94); Mean Platelet Vol. 9.2 fl (6.2-12.0); Monocyte# 0.96 X10^3/uL; Monocyte% 8.3 % (0-10); NRBC Flagged by Analyzer 0 % (0-5); Neutrophil # 9.64 X10^3/uL (2.7-7.7); Neutrophil % 83.2 % (47-70); Platelet Count 171 K/mm3 (150-450); RBC Distribution Width CV 14.7 % (11.6-14.6); RBC Distribution Width SD 55.5 fl (35.1-43.9); Red Blood Count 3.37 M/mm3 (4.6-6.2); White Blood Count 11.6 K/mm3 (4.4-11.0)
[2022-06-02 05:53] LABS: International Normalized Ratio 1.3; Prothrombin Time (Protime)PT. 15.4 SECONDS (11.7-14.9)
--- NOTE | 2022-06-02 05:55 | EKG12_ITS ---
Test Reason : AM EKG Blood Pressure : / mmHG Vent. Rate : 082 BPM Atrial Rate : 082 BPM P-R Int : 144 ms QRS Dur : 134 ms QT Int : 422 ms P-R-T Axes : 074 002 123 degrees QTc Int : 493 ms Sinus rhythm with occasional Premature ventricular complexes Possible Left atrial enlargement Left ventricular hypertrophy with QRS widening and repolarization abnormality ( Portia product ) Abnormal ECG When compared with ECG of 01-JUN-2022 00:50, MANUAL COMPARISON REQUIRED, DATA IS UNCONFIRMED Confirmed by ANTONIETTA SHEN, BRENT ([id number]), order editor EDOUARD GOLDSMITH ([id number]) on 06/02/2022 12:49:16 PM Referred By: Confirmed By:BRENT MANE MD
[2022-06-02 06:06] LABS: Anion Gap 6 (5-15); BUN 36 mg/dL (7-18); BUN/Creat Ratio 34.3 RATIO (10-20); Calcium,Total 8.2 mg/dL (8.5-10.1); Chloride 102 mmol/L (98-107); Creatinine, Serum 1.05 mg/dL (0.70-1.30); EST Glomerular Filtration Rate 73 mL/min (>60); Est Glom Filt Rate - Afr Amer 88 mL/min (>60); Estimated Creatinine Clearance 55.53 ml/min; Glucose 111 mg/dL (74-106); Potassium 4.7 mmol/L (3.5-5.1); Sodium Level 133 mmol/L (136-145)
[2022-06-02] MEDS: Aspirin E.C. 81 MG Tablet PO (06:18)
[2022-06-02] MEDS: Ipratropium/Albuterol Sulfate 3 ML AMPUL.NEB INHALATION ×4 (06:58→19:49)
--- NOTE | 2022-06-02 10:37 | CASEMGMT ---
Addendum entered by Tram Hummel 06/02/22 12:37: SW received call from Puja at [facility] stating they are requesting updated clinicals for pt. JAYLEN faxed updated clinicals to [facility]. Addendum entered by Tram Hummel 06/02/22 11:41: Pt is medically cleared for discharge to inpatient psych today. JAYLEN placed a call to Puja and updated her. Puja states she will update and someone will then reach out this worker. Original Note: Social Work Note SW updated that pt is to get stress test today and if negative, pt could discharge to inpatient psych today. JAYLEN placed a call to Puja at [facility] and updated her. Puja states she will keep pt on the radar and to let he know for sure if pt will be discharged. SW to continue to follow. Tram Hummel SIGNAL MAINTAINER, ACCOUNT PROCESSOR
--- NOTE | 2022-06-02 10:45 | STRESSREP ---
Stress Test Report Pharmacologic myocardial perfusion stress test. 76-year-old man with a history of coronary artery disease. Stress protocol: Resting EKG demonstrates sinus rhythm with a rate of 81 bpm normal intervals are noted resting blood pressure is 148/100 mmHg. 0.4 mg of regadenoson was infused per usual protocol followed by rapid intravenous saline flush injection continuous EKG monitoring was performed. The maximum heart rate was 98 bpm which was 68% of max impacted heart rate the maximum workload was 1 metabolic equivalent. At rest there were no ST or T wave changes noted to suggest abnormal flow reserve and at peak infusion nonspecific ST changes were noted with did not meet the criteria for ischemia. Myocardial perfusion protocol. 11.3 mCi of technetium 99m sestamibi was injected at rest. 0.4 mg of regadenoson was infused per usual protocol. At peak infusion 33.8 mCi of technetium 99m sestamibi was injected stress images were obtained stress and rest images were reconstructed in comparing the short axis vertical long and horizontal long axis. Gated images were also obtained to Perfusion SPECT analysis: Review of the stress images demonstrated dilated cardiac silhouette size. There is normal perfusion noted in the anterior wall and septum. The lateral wall also has normal perfusion except for the basal inferior lateral wall. The entire inferior wall has reduced perfusion except for the inferior apical segment. The resting images demonstrate a similar pattern with minimal improvement suggesting a minimal amount of arben-infarct ischemia around the previously infarcted inferior wall. Gated SPECT analysis. The gated ejection fraction is less than 25%. Conclusion: Ischemic cardiomyopathy. Myocardial perfusion stress test with evidence of previous inferior infarct. Minimal arben-infarct ischemia is present. No significant ischemia is noted.
--- NOTE | 2022-06-02 10:48 | PN.CARD_ITS ---
Subjective Subjective Patient seen and evaluated. Underwent testing today. Objective Data Vital Signs: Vital Signs Temp Pulse Resp BP Pulse Ox O2 Del Method O2 Flow Rate 98.2 F 87 16 132/96 H 97 Room Air 3 06/02/22 10:31 06/02/22 10:31 06/02/22 10:31 06/02/22 10:31 06/02/22 10:31 06/02/22 10:31 06/01/22 07:21 FiO2 21 06/01/22 05:31 Oxygen Flow Rate (L/min) 3 Oxygen Delivery Method Room Air Weight: 144 lb 9.972 oz Body Mass Index (BMI) 18.6 Intake & Output: Intake and Output for Last 24 Hours 05/31/22 06/01/22 06/02/22 23:59 23:59 23:59 Intake Total 225.08 / 425.08 220 / 220 Output Total 150 / 150 Balance 75.08 / 275.08 220 / 220 Lab / Micro Data Result Diagrams: 06/02/22 05:33 06/02/22 05:33 Labs: Laboratory Results - last 24 hr 06/01/22 06:08: B-Natriuretic Peptide 1961.9 H 06/02/22 05:33: WBC 11.6 H, RBC 3.37 L, Hgb 11.7 L, Hct 34.5 L, MCV 102.4 H, MCH 34.7 H, MCHC 33.9, RDW Std Deviation 55.5 H, RDW Coeff of Paul 14.7 H, Plt Count 171, MPV 9.2, Immature Gran % (Auto) 0.700, Neut % (Auto) 83.2 H, Lymph % (Auto) 7.6 L, [place] % (Auto) 8.3, Eos % (Auto) 0.1, Baso % (Auto) 0.1, Absolute Neuts (auto) 9.6 H, Absolute Lymphs (auto) 0.88, Nucleated RBC % 0 06/02/22 05:33: PT 15.4 H, INR 1.3 06/02/22 05:33: Sodium 133 L, Potassium 4.7, Chloride 102, Carbon Dioxide 25.0, Anion Gap 6, BUN 36 H, Creatinine 1.05, Estim Creat Clear Calc 55.53, Est GFR (MDRD) Af Amer 88, Est GFR (MDRD) Non-Af 73, BUN/Creatinine Ratio 34.3 H, Glucose 111 H, Calcium 8.2 L Cardiology Labs/Tests 06/01/22 06:08: B-Natriuretic Peptide 1961.9 H 06/02/22 05:33: WBC 11.6 H, RBC 3.37 L, Hgb 11.7 L, Hct 34.5 L, MCV 102.4 H, MCH 34.7 H, MCHC 33.9, Plt Count 171, MPV 9.2, Immature Gran % (Auto) 0.700, Neut % (Auto) 83.2 H, Lymph % (Auto) 7.6 L, [place] % (Auto) 8.3, Eos % (Auto) 0.1, Baso % (Auto) 0.1, Absolute Neuts (auto) 9.6 H, Nucleated RBC % 0 06/02/22 05:33: PT 15.4 H, INR 1.3 06/02/22 05:33: Sodium 133 L, Potassium 4.7, Chloride 102, Carbon Dioxide 25.0, Anion Gap 6, BUN 36 H, Creatinine 1.05, Est GFR (MDRD) Af Amer 88, Est GFR (MDRD) Non-Af 73, BUN/Creatinine Ratio 34.3 H, Glucose 111 H, Calcium 8.2 L Rhythm: EKG: ECHO: Stress Test: Cardiac Cath: PCI: CT Surgery: Holter monitor: EPS: PPM: CXR: Chest CT Scan: Radiography Diagnostic Testing: Radiology Impression Echocardiogram 06/01/22 06:43 Interpretation Summary Severely dilated left ventricle. Moderate concentric left ventricular hypertrophy. The left atrium is mildly enlarged. The right atrium is mildly enlarged. Severe segmental systolic dysfunction (see wall motion). The estimated ejection fraction is 25 %. Stage 3 diastolic dysfunction. Ordering Physician: Francisco Clark Referring Physician: IMELDA PCP Performed By: Latasha Burgos, RDCS, RVT Physical Exam Const alert General Appearance: cooperative and well developed HEENT normocephalic and head/scalp atraumatic Eyes PERRL Lymph Lymphatic: no lymphadenopathy noted Resp Effort and Inspection: tachypneic and respiratory distress Auscultation: wheezes expiratory wheezes; Negative for rhonchi Cardio regular rate GI normal to inspection, nondistended, normoactive bowel sounds Extremity normal capillary refill Skin General Skin Exam: no breakdown Neuro no focal motor deficits and no sensory deficits noted Psych cooperative Mood & Affect: anxious Assessment & Plan Assessment/Plan (1) Acute dyspnea: PLAN: The patient presented with acute dyspnea following going into atrial flutter with a rapid ventricular response rate. He had a reduced left ventricular systolic function and thus with atrial fibrillation he went into congestive heart failure. Recommendation will be to continue him on the beta-ian with carvedilol as well as to start on JOSE ELIAS inhibitor and diuretic. (2) Atrial flutter with rapid ventricular response: PLAN: This appears to be new onset atrial flutter and he has converted back to sinus rhythm. We will start him on Eliquis 5 mg twice a day. (3) NSTEMI, initial episode of care: PLAN: He has an elevated troponin level which is likely secondary to the atrial flutter with a rapid ventricular response rate. However based on his age coronary disease will need to be excluded. He underwent a pharmacologic myocardial perfusion stress test which demonstrated evidence of a dilated cardiomyopathy with previous inferior infarct and minimal arben-infarct ischemia. On the basis of the above I would recommend aggressive medical therapy. I spoke to his sister who is his next of kin and her feeling is for us to pursue conservative therapy. He is incapable of making major decisions by himself. (4) H/O heart surgery: PLAN: He is status post coronary bypass surgery in 2018. His exact bypass grafts locations are not known but it appears that this was carried out in [place]. He does not have any significant ischemia. At the time of his cardiac catheterization his ejection fraction was estimated to be 25% plus minus. His right coronary artery was totally occluded and his circumflex artery was also subtotally occluded. (5) Ischemic cardiomyopathy: PLAN: He does have evidence of ischemic cardiomyopathy with an estimated ejection fraction of 20 to 25%. I would recommend continuing carvedilol and titrating it Continue JOSE ELIAS inhibitor Continue Lasix 40 mg a day We will start Farxiga 10 mg a day I do not think that he is not a candidate for an implantable defibrillator. We will consider continue with medical therapy.
[2022-06-02] MEDS: guaiFENesin 10 ML UDC (200MG/10ML) PO ×2 (10:50→14:51)
[2022-06-02] MEDS: Furosemide 40 MG Tablet PO (10:50)
[2022-06-02] MEDS: Carvedilol 3.125 MG TABLET PO (10:50)
[2022-06-02] MEDS: predniSONE 20 MG Tablet 40 MG PO (10:50)
--- NOTE | 2022-06-02 11:23 | DCINST_ITS ---
Discharge Instructions Diet Discharge Diet: Low fat / Low cholesterol Follow Up Care Test Results: Test results from this visit will be discussed in further detail at your follow- up appointment, if applicable. Discharge Plan Admission Admit Date/Time: 05/31/22 23:11 Attending Provider: Kentrell Reynoso Primary Care Provider: Care Physician,No Primary Consulting Providers: Francisco Clark ; [employer] Discharge Orders/Prescriptions Prescriptions: No Action carvedilol 3.125 mg Tablet 3.125 mg PO BID Qty: 60 0RF aspirin 81 mg Tablet,Chewable 81 mg PO BREAKFAST Qty: 30 0RF atorvastatin 40 mg tablet 40 mg PO QHS Qty: 30 0RF Referrals / Follow Up: [facility] [[facility]FF [facility]] - 2 Days Care Physician,No Primary [Primary Care Provider] -
--- NOTE | 2022-06-02 11:29 | DS.PCM_ITS ---
Documented by User: Ivanna Pascual NP, OB NURSE-C 06/02/22 11:50 Providers Date of Admission: 05/31/22 Date of Discharge: 06/02/22 Primary Care Physician: Nithya Primary Care Phys Consultations 06/01/22 05:06 Consult: Cardiology Routine Consulting Provider: Francisco Clark Reason for Consult: a flutter , elevated trop EMERGENT Consult: Yes MD Notified: Yes Date Notified: 06/01/22 Time Notified: 05:06 Method of Notification: Text Reason For Visit: ACUTE RESPIRATORY FAILURE, ATRIAL FLUTTER WITH RVR Diagnosis Discharge Diagnosis (1) Acute dyspnea: Status: Acute Code(s): R06.00 - Dyspnea, unspecified (2) Atrial flutter with rapid ventricular response: Status: Acute Code(s): I48.92 - Unspecified atrial flutter (3) NSTEMI, initial episode of care: Status: Acute Code(s): I21.4 - Non-ST elevation (NSTEMI) myocardial infarction (4) H/O heart surgery: Status: Acute Code(s): Z98.890 - Other specified postprocedural states (5) Ischemic cardiomyopathy: Status: Acute Code(s): I25.5 - Ischemic cardiomyopathy Medications at Discharge Home Medications aspirin 81 mg chewable tablet 81 mg PO BREAKFAST #30 tabs 03/14/22 atorvastatin 40 mg tablet 40 mg PO QHS #30 tabs 03/14/22 apixaban 5 mg tablet (Eliquis) 5 mg PO BID #0 tabs 06/02/22 carvedilol 6.25 mg tablet 6.25 mg PO BID #0 tabs 06/02/22 empagliflozin 10 mg tablet (Jardiance) 10 mg PO DAILY #0 tabs 06/02/22 furosemide 40 mg tablet 40 mg PO DAILY #0 tabs 06/02/22 lisinopril 5 mg tablet 5 mg PO DAILY #0 tabs 06/02/22 prednisone 20 mg tablet 40 mg PO BREAKFAST 5 days #10 tabs 06/02/22 Hospital Course Operations None Procedures 2-D Echocardiogram and Stress test Summary of Care Provided Hospital Course: Patient is a 76-year-old male admitted 05/31/2022 due to shortness of breath. 1. Acute hypoxic respiratory failure secondary to acute heart failure with reduced ejection fraction and exacerbation of COPD-initially placed on BiPAP.? Oxygen now stable on room air. Ambulatory pulse ox completed prior to discharge and patient did not require further supplemental oxygen. 2.? Acute heart failure with reduced ejection fraction-BNP 1900. Echocardiogram with EF 25%, stage III diastolic dysfunction.? Chest x-ray with interstitial edema, repeat exam improved. Continue Lasix 40 mg daily. Continue JOSE ELIAS inhibitor, beta-ian and Jardiance. 3.? COPD with exacerbation-prednisone taper at ma. As needed albuterol inhaler. 4. NSTEMI-cardiology consulted during admission.underwent stress test which demonstrated previous inferior infarct, minimal arben-infarct ischemia. Continue aspirin, statin, carvedilol, lisinopril. 5. Atrial flutter with RVR-currently sinus rhythm.? IV Cardizem discontinued.? Continue Eliquis 5 mg twice daily. 6. Hypertension-continue carvedilol, lisinopril. 7. Hyperlipidemia-continue statin. 8. Dementia with behavioral disturbance-unclear psychiatric history.? [facility] psych placement at discharge. 9. Tobacco dependence-encouraged cessation. Physical Exam Const alert Constitutional Narrative: Talking fast.? Difficult to redirect. HEENT normocephalic and moist oral mucous membranes Eyes PERRL, EOMs intact bilaterally and conjunctivae normal Neck no lymphadenopathy Resp normal respiratory effort and clear to auscultation bilaterally Cardio regular rate, regular rhythm and no murmurs Peripheral Pulses: pulses 2+ throughout GI normal to inspection, nondistended, normoactive bowel sounds, non-tender and non-distended Extremity normal to inspection Skin no rashes or lesions noted Lesions: no lesions Rashes: no rashes Trauma: no lacerations or abrasions Neuro CN's II-XII intact bilaterally, no focal motor deficits, no sensory deficits noted and deep tendon reflexes 2+ bilaterally Psych Activity / Motor Behavior: hyperactive Speech: excessive Patient seen and examined prior to discharge. Physical assessment as noted mariana concepcion. This patient was seen by ALEX Salgado under the supervision of Dr. Reynoso. Time spent examining patient, reviewing data and subsequent management of care: 26 minutes Weight / BMI Weight Weight: 144 lb 9.972 oz Body Mass Index (BMI) 18.6 ABG / Lab / Microbiology Data Result Diagrams: 06/02/22 05:33 06/02/22 05:33 Laboratory: Laboratory Results - last 24 hr 06/01/22 06:08: B-Natriuretic Peptide 1961.9 H 06/02/22 05:33: WBC 11.6 H, RBC 3.37 L, Hgb 11.7 L, Hct 34.5 L, MCV 102.4 H, MCH 34.7 H, MCHC 33.9, RDW Std Deviation 55.5 H, RDW Coeff of Paul 14.7 H, Plt Count 171, MPV 9.2, Immature Gran % (Auto) 0.700, Neut % (Auto) 83.2 H, Lymph % (Auto) 7.6 L, [place] % (Auto) 8.3, Eos % (Auto) 0.1, Baso % (Auto) 0.1, Absolute Neuts (auto) 9.6 H, Absolute Lymphs (auto) 0.88, Nucleated RBC % 0 06/02/22 05:33: PT 15.4 H, INR 1.3 06/02/22 05:33: Sodium 133 L, Potassium 4.7, Chloride 102, Carbon Dioxide 25.0, Anion Gap 6, BUN 36 H, Creatinine 1.05, Estim Creat Clear Calc 55.53, Est GFR (MDRD) Af Amer 88, Est GFR (MDRD) Non-Af 73, BUN/Creatinine Ratio 34.3 H, Glucose 111 H, Calcium 8.2 L Microbiology: Microbiology 05/31/22 09:40 Nasal Secretion SARS-CoV-2 Antigen (Rapid) - Final Radiography Diagnostic Testing: Radiology Impression Echocardiogram 06/01/22 06:43 Interpretation Summary Severely dilated left ventricle. Moderate concentric left ventricular hypertrophy. The left atrium is mildly enlarged. The right atrium is mildly enlarged. Severe segmental systolic dysfunction (see wall motion). The estimated ejection fraction is 25 %. Stage 3 diastolic dysfunction. Ordering Physician: Francisco Clark Referring Physician: NO PCP Performed By: Latasha Burgos RDCS, RVT Meaningful Use Info Meaningful Use Diagnoses (Choose all that apply): CHF CHF JOSE ELIAS/ARB ordered at discharge?: Yes Documented LVEF (%): 25 Discharge Plan Admission Admit Date/Time: 05/31/22 23:11 Attending Provider: Kentrell Reynoso Primary Care Provider: Care Physician,Nithya Primary Consulting Providers: Francisco Clark ; Harley Stephenson Instructions Additional Instructions / Restrictions: Follow up with [facility] in two weeks. Discharge Orders/Prescriptions Prescriptions: New carvedilol 6.25 mg Tablet 6.25 mg PO BID Qty: 0 0RF Eliquis 5 mg Tablet 5 mg PO BID Qty: 0 0RF Jardiance 10 mg Tablet 10 mg PO DAILY Qty: 0 0RF furosemide 40 mg Tablet 40 mg PO DAILY Qty: 0 0RF prednisone 20 mg Tablet 40 mg PO BREAKFAST 5 Days Qty: 10 0RF lisinopril 5 mg Tablet 5 mg PO DAILY Qty: 0 0RF Continued aspirin 81 mg Tablet,Chewable 81 mg PO BREAKFAST Qty: 30 0RF atorvastatin 40 mg tablet 40 mg PO QHS Qty: 30 0RF Discontinued carvedilol 3.125 mg Tablet 3.125 mg PO BID Qty: 60 0RF Referrals / Follow Up: Care Physician,No Primary [Primary Care Provider] - In 1 Week [facility] [STAFF PHYSICIAN] - Within 1 Week Disposition Disposition (needs filled in before D/C Order can be placed): Psychiatric Hospital or Unit Documented by User: Dr. Kentrell Reynoso MD 06/03/22 17:12 Providers Date of Admission: 05/31/22 Reason For Visit: ACUTE RESPIRATORY FAILURE, ATRIAL FLUTTER WITH RVR Diagnosis Discharge Diagnosis (1) Acute dyspnea: Status: Acute Code(s): R06.00 - Dyspnea, unspecified (2) Atrial flutter with rapid ventricular response: Status: Acute Code(s): I48.92 - Unspecified atrial flutter (3) NSTEMI, initial episode of care: Status: Acute Code(s): I21.4 - Non-ST elevation (NSTEMI) myocardial infarction (4) H/O heart surgery: Status: Acute Code(s): Z98.890 - Other specified postprocedural states (5) Ischemic cardiomyopathy: Status: Acute Code(s): I25.5 - Ischemic cardiomyopathy Medications at Discharge Home Medications aspirin 81 mg chewable tablet 81 mg PO BREAKFAST #30 tabs 03/14/22 atorvastatin 40 mg tablet 40 mg PO QHS #30 tabs 03/14/22 apixaban 5 mg tablet (Eliquis) 5 mg PO BID #0 tabs 06/02/22 carvedilol 6.25 mg tablet 6.25 mg PO BID #0 tabs 06/02/22 empagliflozin 10 mg tablet (Jardiance) 10 mg PO DAILY #0 tabs 06/02/22 furosemide 40 mg tablet 40 mg PO DAILY #0 tabs 06/02/22 lisinopril 5 mg tablet 5 mg PO DAILY #0 tabs 06/02/22 prednisone 20 mg tablet 40 mg PO BREAKFAST 5 days #10 tabs 06/02/22 Hospital Course Summary of Care Provided Hospital Course: Patient is a 76-year-old male admitted 05/31/2022 due to shortness of breath. 1. Acute hypoxic respiratory failure secondary to acute heart failure with reduced ejection fraction and exacerbation of COPD-initially placed on BiPAP.? Oxygen now stable on room air. Ambulatory pulse ox completed prior to discharge and patient did not require further supplemental oxygen. 2.? Acute heart failure with reduced ejection fraction-BNP 1900. Echocardiogram with EF 25%, stage III diastolic dysfunction.? Chest x-ray with interstitial edema, repeat exam improved. Continue Lasix 40 mg daily. Continue JOSE ELIAS inhibitor, beta-ian and Jardiance. 3.? COPD with exacerbation-prednisone taper at ma. As needed albuterol inhaler. 4. NSTEMI-cardiology consulted during admission.underwent stress test which demonstrated previous inferior infarct, minimal arben-infarct ischemia. Continue aspirin, statin, carvedilol, lisinopril. 5. Atrial flutter with RVR-currently sinus rhythm.? IV Cardizem discontinued.? Continue Eliquis 5 mg twice daily. 6. Hypertension-continue carvedilol, lisinopril. 7. Hyperlipidemia-continue statin. 8. Dementia with behavioral disturbance-unclear psychiatric history.? [facility] psych placement at discharge. 9. Tobacco dependence-encouraged cessation. Patient was not discharged. Please cancel this documentation. Progress note was done at the same date. Physical Exam Const alert Constitutional Narrative: Talking fast.? Difficult to redirect. HEENT normocephalic and moist oral mucous membranes Eyes PERRL, EOMs intact bilaterally and conjunctivae normal Neck no lymphadenopathy Resp normal respiratory effort and clear to auscultation bilaterally Cardio regular rate, regular rhythm and no murmurs Peripheral Pulses: pulses 2+ throughout GI normal to inspection, nondistended, normoactive bowel sounds, non-tender and non-distended Extremity normal to inspection Skin no rashes or lesions noted Lesions: no lesions Rashes: no rashes Trauma: no lacerations or abrasions Neuro CN's II-XII intact bilaterally, no focal motor deficits, no sensory deficits noted and deep tendon reflexes 2+ bilaterally Psych Activity / Motor Behavior: hyperactive Speech: excessive Patient seen and examined prior to discharge. Physical assessment as noted above. This patient was seen by ALEX Salgdao under the supervision of Dr. Reynoso. Time spent examining patient, reviewing data and subsequent management of care: 26 minutes Physical Exam Narrative Seen and examined Patient does not have chest pain or shortness of breath. He is scheduled for stress test today. On electrocardiographic technician patient sinus rhythm. Was on a flutter converted to sinus rhythm on 05/31. General: Alert, Oriented x3, Cooperative HEENT: Atraumatic, PERRLA, EOMI, Normocephalic Oral: No Gingival or Mucosal Lesions/ Ulcerations Neck: Supple, No JVD, Negative Carotid Bruits Lungs: Air entry diminished in bilateral lung bases. No crepitation/rhonchi Cardiovascular: Regular rate, Regular Rhythm, Normal S1, Normal S2, holosystolic grade 3/6 murmur at cardiac apex. CABG scar Abdomen: Bowel Sounds Present, Soft, Non Tender, Non-Distended : No renal angle tenderness. No suprapubic tenderness. Extremities: No edema, Capillary Refill Less than 3 Seconds Skin: No rashes, No breakdown Musculoskeletal: No Tenderness to Palpation of Joints or Extremities Neurological: Cranial nerves II-XII grossly intact, DTR 2+/4 and Symmetrical, Neuro grossly intact Psych/Mental Status: Patient talkative, tangential pattern of thinking. Personality disorder. ABG / Lab / Microbiology Data Result Diagrams: 06/02/22 05:33 06/02/22 05:33 Discharge Plan Admission Admit Date/Time: 05/31/22 23:11 Attending Provider: eKntrell Reynoso Primary Care Provider: Care Physician,Nithya Primary Consulting Providers: Francisco Clark ; Harley Stephenson Instructions Additional Instructions / Restrictions: Follow up with [place] [facility] in two weeks. Discharge Orders/Prescriptions Prescriptions: New carvedilol 6.25 mg Tablet 6.25 mg PO BID Qty: 0 0RF Eliquis 5 mg Tablet 5 mg PO BID Qty: 0 0RF Jardiance 10 mg Tablet 10 mg PO DAILY Qty: 0 0RF furosemide 40 mg Tablet 40 mg PO DAILY Qty: 0 0RF prednisone 20 mg Tablet 40 mg PO BREAKFAST 5 Days Qty: 10 0RF lisinopril 5 mg Tablet 5 mg PO DAILY Qty: 0 0RF Continued aspirin 81 mg Tablet,Chewable 81 mg PO BREAKFAST Qty: 30 0RF atorvastatin 40 mg tablet 40 mg PO QHS Qty: 30 0RF Discontinued carvedilol 3.125 mg Tablet 3.125 mg PO BID Qty: 60 0RF Referrals / Follow Up: Care Physician,No Primary [Primary Care Provider] - In 1 Week [facility] [STAFF PHYSICIAN] - Within 1 Week Disposition Disposition (needs filled in before D/C Order can be placed): Psychiatric Hospital or Unit
--- NOTE | 2022-06-02 14:20 | PHA.DC.MR ---
Pharmacy Service has performed discharge medication reconciliation for this patient. The patient's discharge medication list was reviewed for discrepancies and discrepancies were resolved. Home Medications aspirin 81 mg chewable tablet 81 mg PO BREAKFAST #30 tabs 03/14/22 atorvastatin 40 mg tablet 40 mg PO QHS #30 tabs 03/14/22 apixaban 5 mg tablet (Eliquis) 5 mg PO BID #0 tabs 06/02/22 carvedilol 6.25 mg tablet 6.25 mg PO BID #0 tabs 06/02/22 empagliflozin 10 mg tablet (Jardiance) 10 mg PO DAILY #0 tabs 06/02/22 furosemide 40 mg tablet 40 mg PO DAILY #0 tabs 06/02/22 lisinopril 5 mg tablet 5 mg PO DAILY #0 tabs 06/02/22 prednisone 20 mg tablet 40 mg PO BREAKFAST 5 days #10 tabs 06/02/22
--- NOTE | 2022-06-02 14:42 | CASEMGMT ---
Addendum entered by Tram Hummel 06/02/22 15:07: JAYLEN faxed clinicals to [facility]. Original Note: Social Work Note SW received call from Obey at [facility]. Obey with questions. JAYLEN asked RN to speak with [facility]. RN did so. JAYLEN then received another call from Obey at [facility] stating due to pt's cardiac issues they are no longer able to accept. Obey states they are recommending pt go to a psych facility that is attached to [facility]. JAYLEN placed a call to Tram at [facility] and updated her. AJYLEN asked Tram at [facility] to send out additional referrals. Tram states she can do that, request chart be faxed to her. SW to fax clinicals records to [facility]. Tram Hummel [employer], [employer]
--- NOTE | 2022-06-02 15:14 | PCM.PN.HOSP ---
Documented by User: Ivanna Pascual NP, CURRICULUM DEVELOPMENT COORDINATOR-C 06/02/22 15:17 Subjective Subjective Patient seen and examined. Denies chest pain, shortness of breath. Irritable however noncombative and able to redirect. Objective Data Objective Data Vital Signs: Vital Signs Temp Pulse Resp BP Pulse Ox O2 Del Method O2 Flow Rate 97.5 F L 81 12 122/69 H 96 Room Air 0 06/02/22 14:42 06/02/22 14:42 06/02/22 14:42 06/02/22 14:42 06/02/22 14:42 06/02/22 14:42 06/02/22 11:44 FiO2 21 06/01/22 05:31 Oxygen Flow Rate (L/min) [ 0 AMBULATING on Room Air] Oxygen Flow Rate (L/min) [At 0 REST on Room Air] Oxygen Flow Rate (L/min) 3 Oxygen Delivery Method Room Air Weight: 144 lb 9.972 oz Body Mass Index (BMI) 18.6 Intake & Output: Intake and Output for Last 24 Hours 05/31/22 06/01/22 06/02/22 23:59 23:59 23:59 Intake Total 225.08 / 425.08 700 / 700 Output Total 150 / 150 Balance 75.08 / 275.08 700 / 700 Lab / Micro Data Result Diagrams: 06/02/22 05:33 06/02/22 05:33 Labs: Laboratory Results - last 24 hr 06/02/22 05:33: WBC 11.6 H, RBC 3.37 L, Hgb 11.7 L, Hct 34.5 L, MCV 102.4 H, MCH 34.7 H, MCHC 33.9, RDW Std Deviation 55.5 H, RDW Coeff of Paul 14.7 H, Plt Count 171, MPV 9.2, Immature Gran % (Auto) 0.700, Neut % (Auto) 83.2 H, Lymph % (Auto) 7.6 L, [place] % (Auto) 8.3, Eos % (Auto) 0.1, Baso % (Auto) 0.1, Absolute Neuts (auto) 9.6 H, Absolute Lymphs (auto) 0.88, Nucleated RBC % 0 06/02/22 05:33: PT 15.4 H, INR 1.3 06/02/22 05:33: Sodium 133 L, Potassium 4.7, Chloride 102, Carbon Dioxide 25.0, Anion Gap 6, BUN 36 H, Creatinine 1.05, Estim Creat Clear Calc 55.53, Est GFR (MDRD) Af Amer 88, Est GFR (MDRD) Non-Af 73, BUN/Creatinine Ratio 34.3 H, Glucose 111 H, Calcium 8.2 L Micro: Microbiology 06/02/22 12:51 Interface Orders Group A Streptococcus Rapid Screen - Preliminary 05/31/22 09:40 Nasal Secretion SARS-CoV-2 Antigen (Rapid) - Final Physical Exam Const alert HEENT normocephalic and moist oral mucous membranes Eyes PERRL, EOMs intact bilaterally and conjunctivae normal Neck no lymphadenopathy Resp normal respiratory effort and clear to auscultation bilaterally Cardio regular rate, regular rhythm and no murmurs Peripheral Pulses: pulses 2+ throughout GI normal to inspection, nondistended, normoactive bowel sounds, non-tender and non-distended Extremity normal to inspection Skin no rashes or lesions noted Lesions: no lesions Rashes: no rashes Trauma: no lacerations or abrasions Neuro CN's II-XII intact bilaterally, no focal motor deficits, no sensory deficits noted and deep tendon reflexes 2+ bilaterally Psych Mood & Affect: irritable Assessment & Plan Assessment/Plan (1) NSTEMI, initial episode of care: PLAN: Plan 1. Acute hypoxic respiratory failure secondary to acute heart failure with reduced ejection fraction and exacerbation of COPD-initially placed on BiPAP.? Oxygen now stable on room air.? Ambulatory pulse ox completed and patient did not require further supplemental oxygen. 2.? Acute heart failure with reduced ejection fraction-BNP 1900. Echocardiogram with EF 25%, stage III diastolic dysfunction.? Chest x-ray with interstitial edema, repeat exam improved.? Continue Lasix 40 mg daily.? Continue JOSE ELIAS inhibitor, beta-ian and Jardiance. 3.? COPD with exacerbation-prednisone taper at id. As needed albuterol inhaler. 4. NSTEMI-cardiology consulted during admission.underwent stress test which demonstrated previous inferior infarct, minimal arben-infarct ischemia.? Continue aspirin, statin, carvedilol, lisinopril. 5. Atrial flutter with RVR-currently sinus rhythm.? IV Cardizem discontinued.? Continue Eliquis 5 mg twice daily. 6. Hypertension-continue carvedilol, lisinopril. 7. Hyperlipidemia-continue statin. 8. Dementia with behavioral disturbance-unclear psychiatric history.??[facility] placement pending facility acceptance. 9. Tobacco dependence-encouraged cessation. his patient was seen by ALEX Salgado under the supervision of Dr. Reynoso. Time spent examining patient, reviewing data and subsequent management of care: 14 minutes Documented by User: Dr. Kentrell Reynoso MD 06/02/22 18:46 Subjective Subjective Patient seen and examined. Denies chest pain, shortness of breath. Irritable however noncombative and able to redirect. Seen and examined. Patient does not have chest or shortness of breath. Stress test was done today. Objective Data Lab / Micro Data Result Diagrams: 06/02/22 05:33 06/02/22 05:33 Physical Exam Narrative Seen and examined A-flutter converted to sinus rhythm on 05/31. On front desk monitor patient sinus rhythm. General: Alert, Oriented x3, Cooperative HEENT: Atraumatic, PERRLA, EOMI, Normocephalic Oral: No Gingival or Mucosal Lesions/ Ulcerations Neck: Supple, No JVD, Negative Carotid Bruits Lungs: Air entry diminished in bilateral lung bases. No crepitation/rhonchi Cardiovascular: Regular rate, Regular Rhythm, Normal S1, Normal S2, holosystolic grade 3/6 murmur at cardiac apex. CABG scar Abdomen: Bowel Sounds Present, Soft, Non Tender, Non-Distended : No renal angle tenderness. No suprapubic tenderness. Extremities: No edema, Capillary Refill Less than 3 Seconds Skin: No rashes, No breakdown Musculoskeletal: No Tenderness to Palpation of Joints or Extremities Neurological: Cranial nerves II-XII grossly intact, DTR 2+/4 and Symmetrical, Neuro grossly intact Psych/Mental Status: Personality disorder. Assessment & Plan Assessment/Plan (1) NSTEMI, initial episode of care: PLAN: Plan 1. Acute hypoxic respiratory failure secondary to acute heart failure with reduced ejection fraction and exacerbation of COPD-initially placed on BiPAP.? Oxygen now stable on room air.? Ambulatory pulse ox completed and patient did not require further supplemental oxygen. 2.? Acute heart failure with reduced ejection fraction-BNP 1900. Echocardiogram with EF 25%, stage III diastolic dysfunction.? Chest x-ray with interstitial edema, repeat exam improved.? Continue Lasix 40 mg daily.? Continue JOSE ELIAS inhibitor, beta-ian and Jardiance. 3.? COPD with exacerbation-prednisone taper at dc. As needed albuterol inhaler. 4. NSTEMI-cardiology consulted during admission.underwent stress test which demonstrated previous inferior infarct, minimal arben-infarct ischemia.? Continue aspirin, statin, carvedilol, lisinopril. 5. Atrial flutter with RVR-currently sinus rhythm.? IV Cardizem discontinued.? Continue Eliquis 5 mg twice daily. 6. Hypertension-continue carvedilol, lisinopril. 7. Hyperlipidemia-continue statin. 8. Dementia with behavioral disturbance-unclear psychiatric history.??[facility] placement pending facility acceptance. 9. Tobacco dependence-encouraged cessation. his patient was seen by BRITTA SalgadoC under the supervision of Dr. Reynoso. Time spent examining patient, reviewing data and subsequent management of care: 15 minutes This patient was seen in conjunction with CURRICULUM DEVELOPMENT COORDINATOR, Ivanna.? I have independently interviewed and examined the patient and reviewed pertinent history, examination findings, laboratory and plan of management.? I have? reviewed the note and agree with the documented findings with the few? additional points. In brief, patient is 76-year-old male came to ED for concern of psychotic symptoms.? Patient was in ED for 13 hours, pending transfer and evaluation for [facility] but in the meantime developed shortness of breath/dyspnea, atrial flutter with RVR 146/min, hypoxia and expiratory wheezing.? ABG was done.? 7.2 on 4 L of oxygen.? Chest x-ray initially reviewed shows bilateral interstitial markings and interstitial edema suggestive of chronic COPD changes and CHF. His assessment evaluation, diagnosis and management as follows 1.? Patient has acute hypoxic respiratory failure probably due to CHF and COPD exacerbation.? Patient shortness of breath is with resolved.? Denies chest pain.? Keep pulse ox more than 90%. 2.? Acute on chronic systolic heart failure: Discussed with selling underwriter Dr. Clark.? Echo shows EF 25%, stage III diastolic dysfunction.? Overall it seems patient not adherent to cardiac medications.? Troponins increased from normal to 219.? BNP high.? Pharmacological myocardial perfusion stress test showed evidence of dilated cardiomyopathy with previous inferior infarct and minimal arben-infarct ischemia. ? Overall seeing the patient with history of nonadherence and psychiatric history therefore aggressive medical therapy recommended. Cardiology also talked to patient's sister next of kin who agrees with conservative treatment. Patient was started on carvedilol with up titration as needed in outpatient setting. Lasix 40 mg daily, empagliflozin 10 mg a day, lisinopril 5 mg daily. 3.? Acute COPD exacerbation: Secondary to mild wheezing.? Controlled.? IV Solu-Medrol changed to prednisone as? Solu-Medrol, potentially steroid can exacerbate psychotic symptoms. Shortness of breath is better. 4.? Atrial flutter with RVR: Patient was on IV Cardizem discontinued.?Currently patient in sinus rhythm. Eliquis 5 mg p.o. twice daily started. 5.? 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 Other chronic comorbidities include hypertension, dementia, dyslipidemia and tobacco dependence, chronic smoker I have discussed my assessment with Ivanna ZAVALA and orders have been reviewed. Total time of the visit including total time spent in counseling or coordination of care, (more than 50% of the total time, spent in obtaining medical information from nurses and other ancillary care providers,explaining to the patient about labs, imaging, diagnosis and management), discussion with [employer] w[employer] consultant, review of labs and imaging is? 45 minutes.? I spent 30 minutes, SALLY Goncalves spent 15 minutes Charges/Coding Visit Charges Inpatient E&M: 21775 Subs Hosp L3
[2022-06-02] MEDS: Carvedilol 6.25 MG Tablet PO (21:50)
[2022-06-02] MEDS: APIXABAN 5 MG TABLET PO (21:50)
[2022-06-02] MEDS: Atorvastatin Calcium 40 MG Tablet PO (21:51)
[2022-06-03] VITALS (14 sets, daily range): BP systolic 105–127; BP diastolic 69–84; PULSE 75–88; RESP 16–20; TEMP 36.4–36.9; O2SAT 94–97
[2022-06-03] MEDS: guaiFENesin 10 ML UDC (200MG/10ML) PO ×3 (06:18→15:07)
[2022-06-03] MEDS: Ipratropium/Albuterol Sulfate 3 ML AMPUL.NEB INHALATION ×4 (07:25→20:19)
[2022-06-03] MEDS: Furosemide 40 MG Tablet PO (08:21)
[2022-06-03] MEDS: Aspirin E.C. 81 MG Tablet PO (08:21)
[2022-06-03] MEDS: APIXABAN 5 MG TABLET PO ×2 (08:21→20:58)
[2022-06-03] MEDS: Empagliflozin 10 MG Tablet PO (08:21)
[2022-06-03] MEDS: Lisinopril 5 MG Tablet PO (08:21)
[2022-06-03] MEDS: Carvedilol 6.25 MG Tablet PO ×2 (08:22→20:57)
[2022-06-03] MEDS: predniSONE 20 MG Tablet 40 MG PO (08:22)
[2022-06-03] MEDS: Acetaminophen 325 MG Tablet 650 MG PO ×2 (08:34→15:07)
[2022-06-03] MEDS: QUEtiapine 25 MG Tablet PO ×2 (10:36→20:57)
[2022-06-03] MEDS: BENZOCAINE/MENTHOL 1 LOZENGE MUCOUS MEM ×3 (10:36→18:06)
--- NOTE | 2022-06-03 10:40 | CASEMGMT ---
Social Work Note JAYLEN placed a call to [facility] and spoke with Shamika in Crisis. Shamika states that [facility] is working on pt's psych placement and will have [facility] call this worker back. JAYLEN then received call from [facility]. Yoly states that she called [facility] at around 10:00am and left message and is waiting for call back. Yoly states she will keep this worker updated. Tram Hummle PLASTIC CABLEMAKING MACHINE OPERATOR, ELECTRIC ORGAN ASSEMBLER AND CHECKER
--- NOTE | 2022-06-03 14:45 | CASEMGMT ---
Social Work Note JAYLEN received a call from Shamika at Crisis stating she has a referral sent out to [facility] as they have a hospital attached [facility] their psych hospital. Shamkia states that a lot of places are denying pt as they do not want to take the risk with pt's medical. JAYLEN informed Shamika that pt has been cleared medically and the food stylist has cleared pt for discharge. Shamika states she understands, but states again that a lot of places are denying pt to due to his medical and the risks. Shamika states that she can also reach out to [facility] to see if they will consider pt as initially they told them that they had no beds available. Shamika states that she is not sure what to do. JAYLEN spoke with Shamika about options. JAYLEN spoke with Shamika about SNF but states pt will not get his psych needs that he needs currently and that they will likely need to reevaluate pt and clear him to be discharged. Shamika states they could come and reevaluate pt. Shamika states she will continue to try places and keep [facility] updated. Tram Hummel SAMPLE GRADER, METAL BONDING CRIB ATTENDANT
--- NOTE | 2022-06-03 15:28 | PN.HOSP_ITS ---
Subjective Subjective Follow-up for non-STEMI Patient feels short of breath but is not hypoxic. He does not look dyspneic. 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 Objective Data Objective Data Vital Signs: Vital Signs Temp Pulse Resp BP Pulse Ox O2 Del Method O2 Flow Rate 97.6 F L 88 20 H 105/69 96 Room Air 0 06/03/22 13:44 06/03/22 14:35 06/03/22 14:35 06/03/22 13:44 06/03/22 13:44 06/03/22 13:51 06/02/22 11:44 FiO2 21 06/01/22 05:31 Oxygen Flow Rate (L/min) [ 0 AMBULATING on Room Air] Oxygen Flow Rate (L/min) [At 0 REST on Room Air] Oxygen Flow Rate (L/min) 3 Oxygen Delivery Method Room Air Weight: 144 lb 9.972 oz Body Mass Index (BMI) 18.6 Intake & Output: Intake and Output for Last 24 Hours 06/01/22 06/02/22 06/03/22 23:59 23:59 23:59 Intake Total 225.08 / 425.08 1180 / 1660 960 / 960 Output Total 150 / 150 Balance 75.08 / 275.08 1180 / 1660 960 / 960 Lab / Micro Data Result Diagrams: 06/02/22 05:33 06/02/22 05:33 Micro: Microbiology 06/02/22 12:51 Interface Orders Group A Streptococcus Rapid Screen - Prelim inary 05/31/22 09:40 Nasal Secretion SARS-CoV-2 Antigen (Rapid) - Final Physical Exam Narrative Seen and examined A-flutter converted to sinus rhythm on 05/31. On environmental monitoring technician patient sinus rhythm with PVCs. Physical exam General: Alert, Oriented x3, Cooperative HEENT: Atraumatic, PERRLA, EOMI, Normocephalic Oral: No Gingival or Mucosal Lesions/ Ulcerations Neck: Supple, No JVD, Negative Carotid Bruits Lungs: Air entry diminished in bilateral lung bases. No crepitation/rhonchi. No tachypnea or hypoxia Cardiovascular: Regular rate, Regular Rhythm, Normal S1, Normal S2, holosystolic grade 3/6 murmur at cardiac apex. CABG scar Abdomen: Bowel Sounds Present, Soft, Non Tender, Non-Distended : No renal angle tenderness. No suprapubic tenderness. Extremities: No edema, Capillary Refill Less than 3 Seconds Skin: No rashes, No breakdown Musculoskeletal: No Tenderness to Palpation of Joints or Extremities Neurological: Cranial nerves II-XII grossly intact, DTR 2+/4 and Symmetrical, Neuro grossly intact Psych/Mental Status: Personality disorder. Assessment & Plan Assessment/Plan (1) Acute dyspnea: (2) Atrial flutter with rapid ventricular response: (3) NSTEMI, initial episode of care: (4) H/O heart surgery: (5) Ischemic cardiomyopathy: PLAN: Plan The patient is 76-year-old male came to ED for concern of psychotic symptoms.? Patient was in ED for 13 hours, pending transfer and evaluation for [facility] but in the meantime developed shortness of breath/dyspnea, atrial flutter with RVR 146/min, hypoxia and expiratory wheezing.? ABG was done.? 7.2 on 4 L of oxygen.? Chest x-ray initially reviewed shows bilateral interstitial markings and interstitial edema suggestive of chronic COPD changes and CHF. 1. Acute hypoxic respiratory failure secondary to CHF and COPD exacerbation:-in itially placed on BiPAP.? Oxygen now stable on room air.? Ambulatory pulse ox completed and patient did not require further supplemental oxygen. No objective finding of dyspnea. 2.? Acute on chronic systolic heart failure-BNP 1900. Echocardiogram with EF 25%, stage III diastolic dysfunction.? Chest x-ray with interstitial edema, most recent, lungs are clear. 3.? COPD with exacerbation-prednisone taper at dc. As needed albuterol inhaler. 4. NSTEMI-cardiology consulted during admission. Pharmacological myocardial perfusion stress test showed evidence of dilated cardiomyopathy with previous i nferior infarct and minimal arben-infarct ischemia. With patient's history of nonadherence and psychiatric history therefore aggressive medical therapy recommended.? Cardiology also talked to patient's sister next of kin who agrees with conservative treatment. Patient was started on carvedilol with up titration as needed in outpatient setting.? Lasix 40 mg daily, empagliflozin 10 mg a day, lisinopril 5 mg daily. 5. Atrial flutter with RVR-currently sinus rhythm.? IV Cardizem discontinued.? Continue Eliquis 5 mg twice daily. 6. Hypertension-continue carvedilol, lisinopril. 7. Hyperlipidemia-continue statin. 8. 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 Tobacco dependence-encouraged cessation. Total time of the visit including total time spent in counseling or coordination of care, (more than 50% of the total time, spent in obtaining medical information from nurses and other ancillary care providers,explaining to the patient about labs, imaging, diagnosis and management), , review of labs and imaging is 30 minutes. Charges/Coding Visit Charges Inpatient E&M: 99882 Subs Hosp L2
--- NOTE | 2022-06-03 19:33 | CASEMGMT ---
Social Work Note JAYLEN updated that [facility] is willing to accept if pt signs a voluntary. [facility] is stating that since another hospitals name is on the [place], they cannot accept the pink slip. JAYLEN discussed with Jero EUCEDA. JAYLEN encouraged to ask [facility] if SW can just do a slash and add their name to the top or in the place of observation setting, add that physician is stating pt still needs inpatient psych at [facility]. Pt has not been deemed incompetent and the best care of pt at this time is inpatient psychiatric care. JAYLEN placed a call to [facility] and spoke with Wilda. JAYLEN asked Wilda about different options with the [place]. [facility] states that their psychiatrist will only accept pt if he signs voluntary, they cannot accept the [place] with the slash and their name at the top or with the doctor now stating pt needs continued inpatient psych hospitalization. [facility] states that if pt signs voluntary then they can accept pt and they have one bed open. JAYLEN reviewed documents. On fax coversheet that was sent to [facility], it states that two licensed staff members have to witness pt sign voluntary slip. JAYLEN and RN in to speak with pt. JAYLEN tried to explain pt that he needs to go to [facility] for continued care. Pt with constant flight of ideas and fixation on bands and [employer]. JAYLEN tried multiple times to explain to pt that he needs different care than what [facility] can provide and that if he wants to eventually return home, he needs to go to this next hospital to get the care that he needs. Pt states that he has his own people and higher authority and does not want to argue about it. Pt refused to sign voluntary. JAYLEN placed a call to [facility] and updated staff that pt refused to sign voluntary. [facility] states that they cannot accept pt then. JAYLEN updated desktop publishing associate. Plan: TBSrinivasa Hummel TEMPER MILL ROLLER, SKIRT CLIPPER
[2022-06-03] MEDS: Atorvastatin Calcium 40 MG Tablet PO (20:57)
[2022-06-04] VITALS (13 sets, daily range): BP systolic 135–154; BP diastolic 82–93; PULSE 61–92; RESP 16–20; TEMP 36.4–37.2; O2SAT 94–98
[2022-06-04] MEDS: Ipratropium/Albuterol Sulfate 3 ML AMPUL.NEB INHALATION ×3 (06:46→19:10)
[2022-06-04] MEDS: Furosemide 40 MG Tablet PO (09:18)
[2022-06-04] MEDS: Lisinopril 5 MG Tablet PO (09:18)
[2022-06-04] MEDS: APIXABAN 5 MG TABLET PO ×2 (09:18→20:49)
[2022-06-04] MEDS: Aspirin E.C. 81 MG Tablet PO (09:18)
[2022-06-04] MEDS: predniSONE 20 MG Tablet 40 MG PO (09:18)
[2022-06-04] MEDS: Empagliflozin 10 MG Tablet PO (09:18)
[2022-06-04] MEDS: Carvedilol 6.25 MG Tablet PO ×2 (09:18→20:49)
[2022-06-04] MEDS: QUEtiapine 25 MG Tablet PO ×2 (09:18→20:49)
--- NOTE | 2022-06-04 09:38 | CASEMGMT ---
Social Work Telephone call to crisis to inquire about status of referral. Chuy Robison DIRECTOR OF ACADEMIC SUPPORT, KINSEY
--- NOTE | 2022-06-04 10:32 | PN.HOSP_ITS ---
Subjective Subjective Follow-up for non-STEMI. Pending pre-CERT for discharge Objective Data Objective Data Vital Signs: Vital Signs Temp Pulse Resp BP Pulse Ox O2 Del Method O2 Flow Rate 97.5 F L 92 18 139/93 H 94 Room Air 0 06/04/22 09:13 06/04/22 10:15 06/04/22 09:13 06/04/22 09:13 06/04/22 09:13 06/04/22 09:13 06/02/22 11:44 FiO2 21 06/01/22 05:31 Oxygen Flow Rate (L/min) [ 0 AMBULATING on Room Air] Oxygen Flow Rate (L/min) [At 0 REST on Room Air] Oxygen Flow Rate (L/min) 3 Oxygen Delivery Method Room Air Weight: 144 lb 9.972 oz Body Mass Index (BMI) 18.6 Intake & Output: Intake and Output for Last 24 Hours 06/02/22 06/03/22 06/04/22 23:59 23:59 23:59 Intake Total 1180 / 1660 1880 / 1880 120 / 120 Balance 1180 / 1660 1880 / 1880 120 / 120 Lab / Micro Data Result Diagrams: 06/02/22 05:33 06/04/22 10:47 Micro: Microbiology 06/02/22 12:51 Interface Orders Group A Streptococcus Rapid Screen - Final 05/31/22 09:40 Nasal Secretion SARS-CoV-2 Antigen (Rapid) - Final Physical Exam Narrative Seen and examined A-flutter converted to sinus rhythm on 05/31. traffic monitor specialist shows sinus rhythm with PVCs. Patient had 6 beats of NSVT. No acute symptoms. No shortness of breath or chest pain Physical exam General: Alert, Oriented x3, Cooperative HEENT: Atraumatic, PERRLA, EOMI, Normocephalic Oral: No Gingival or Mucosal Lesions/ Ulcerations Neck: Supple, No JVD, Negative Carotid Bruits Lungs: Air entry diminished in bilateral lung bases. No crepitation/rhonchi. No tachypnea or hypoxia Cardiovascular: Regular rate, Regular Rhythm, Normal S1, Normal S2, holosystolic grade 3/6 murmur at cardiac apex. CABG scar Abdomen: Bowel Sounds Present, Soft, Non Tender, Non-Distended : No renal angle tenderness. No suprapubic tenderness. Extremities: No edema, Capillary Refill Less than 3 Seconds Skin: No rashes, No breakdown Musculoskeletal: No Tenderness to Palpation of Joints or Extremities Neurological: Cranial nerves II-XII grossly intact, DTR 2+/4 and Symmetrical, Neuro grossly intact Psych/Mental Status: Personality disorder. Tangential pattern of thinking. Assessment & Plan Assessment/Plan (1) Acute dyspnea: (2) Atrial flutter with rapid ventricular response: (3) NSTEMI, initial episode of care: (4) H/O heart surgery: (5) Ischemic cardiomyopathy: PLAN: Plan The patient is 76-year-old male came to ED for concern of psychotic symptoms.? Patient was in ED for 13 hours, pending transfer and evaluation for [facility] but in the meantime developed shortness of breath/dyspnea, atrial flutter with RVR 146/min, hypoxia and expiratory wheezing.? ABG was done.? 7.2 on 4 L of oxygen.? Chest x-ray initially reviewed shows bilateral interstitial markings and interstitial edema suggestive of chronic COPD changes and CHF. 1. Acute hypoxic respiratory failure secondary to CHF and COPD exacerbation:-initially placed on BiPAP.? Oxygen now stable on room air.? Ambulatory pulse ox completed and patient did not require further supplemental oxygen. No objective finding of dyspnea. 06/04: Acute hypoxic respiratory failure resolved. Patient pulse ox 94% on room air. No tachypnea. 2.? Acute on chronic systolic heart failure-BNP 1900. Echocardiogram with EF 25%, stage III diastolic dysfunction.? Chest x-ray with interstitial edema, most recent, lungs are clear. 3.? COPD with exacerbation-prednisone taper at ar. As needed albuterol inhaler. Patient on prednisone 40 mg daily for 5 days, burst therapy. End date on 06/06/2022 4. NSTEMI-cardiology consulted during admission. Pharmacological myocardial p erfusion stress test showed evidence of dilated cardiomyopathy with previous inferior infarct and minimal arben-infarct ischemia. With patient's history of nonadherence and psychiatric history therefore aggressive medical therapy recommended.? Cardiology also talked to patient's sister next of kin who agrees with conservative treatment. Patient was started on carvedilol with up titration as needed in outpatient setting.? Lasix 40 mg daily, empagliflozin 10 mg a day, lisinopril 5 mg daily. 5. Atrial flutter with RVR-currently sinus rhythm.? IV Cardizem discontinued.? Continue Eliquis 5 mg twice daily. F/5 on director of cardiac cath lab patient in sinus rhythm. Had 6 beats of NSVT. Magnesium 2.2, phosphorus 3.7. Potassium 4.2. Sodium 136. No acute electrolyte abnormality. Continue Coreg 6.25 mg at the present dose, heart rate in 70s to 80s per minute 6. Hypertension-continue carvedilol, lisinopril. 7. Hyperlipidemia-continue statin. 8. 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 Tobacco dependence-encouraged cessation. Total time of the visit including total time spent in counseling or coordination of care, (more than 50% of the total time, spent in obtaining medical information from nurses and other ancillary care providers,explaining to the patient about labs, imaging, diagnosis and management), , review of labs and imaging is 30 minutes. Microbiology Past 72 Hours 06/02/22 12:51 Interface Orders Group A Streptococcus Rapid Screen - Final Laboratory Results 06/04/22 10:47: Sodium 136, Potassium 4.2, Chloride 101, Carbon Dioxide 30.0, Anion Gap 5, BUN 25 H, Creatinine 0.97, Estim Creat Clear Calc 60.11, Est GFR (MDRD) Af Amer 97, Est GFR (MDRD) Non-Af 80, BUN/Creatinine Ratio 25.8 H, Glucose 110 H, Calcium 8.4 L, Phosphorus 3.7, Magnesium 2.2 Charges/Coding Visit Charges Inpatient E&M: 12953 Subs Hosp L2
--- NOTE | 2022-06-04 10:42 | DCINST_ITS ---
Discharge Instructions Diet Discharge Diet: 2000 mg Sodium Diet Activity Discharge Activity: May Not Drive Dressing / Incision Call your doctor if you observe: Fever of 101 or Higher, Coldness, Increased Pain, Numbness or Tingling, Change in Color, Inability to urinate, Inability to have a bowel movement, Shortness of breath, Dizziness, Fainting spells, Swelling in the ankles, Chest pain, Prolonged hiccupping, Increased palpitations (irregular heartbeat), Calf discomfort and Uncontrolled pain Follow Up Care Test Results: Test results from this visit will be discussed in further detail at your follow- up appointment, if applicable. Discharge Plan Admission Admit Date/Time: 05/31/22 23:11 Primary Reason for Your Visit: Personality disorder, non-STEMI Attending Provider: Kentrell Reynoso Primary Care Provider: Care Physician,Nithya Primary Consulting Providers: Francisco Clark ; Harley Stephenson Instructions Additional Instructions / Restrictions: Follow up with [facility]ology in two weeks. Discharge Orders/Prescriptions Prescriptions: New carvedilol 6.25 mg Tablet 6.25 mg PO BID Qty: 0 0RF Eliquis 5 mg Tablet 5 mg PO BID Qty: 0 0RF Jardiance 10 mg Tablet 10 mg PO DAILY Qty: 0 0RF furosemide 40 mg Tablet 40 mg PO DAILY Qty: 0 0RF lisinopril 5 mg Tablet 5 mg PO DAILY Qty: 0 0RF prednisone 20 mg Tablet 40 mg PO BREAKFAST Qty: 0 0RF Continued aspirin 81 mg Tablet,Chewable 81 mg PO BREAKFAST Qty: 30 0RF atorvastatin 40 mg tablet 40 mg PO QHS Qty: 30 0RF Discontinued carvedilol 3.125 mg Tablet 3.125 mg PO BID Qty: 60 0RF Referrals / Follow Up: Francisco Clark MD [Med Staff - Active Staff] - Within 1 Month (for NSTEMI) Care Physician,No Primary [Primary Care Provider] - In 1 Week [facility] [STAFF PHYSICIAN] - Within 1 Week Disposition Disposition (needs filled in before D/C Order can be placed): Psychiatric Hospital or Unit
[2022-06-04 11:30] LABS: Anion Gap 5 (5-15); BUN 25 mg/dL (7-18); BUN/Creat Ratio 25.8 RATIO (10-20); Calcium,Total 8.4 mg/dL (8.5-10.1); Chloride 101 mmol/L (98-107); Creatinine, Serum 0.97 mg/dL (0.70-1.30); EST Glomerular Filtration Rate 80 mL/min (>60); Est Glom Filt Rate - Afr Amer 97 mL/min (>60); Estimated Creatinine Clearance 60.11 ml/min; Glucose 110 mg/dL (74-106); Magnesium 2.2 mg/dL (1.6-2.6); Phosphorus 3.7 mg/dL (2.5-4.9); Potassium 4.2 mmol/L (3.5-5.1); Sodium Level 136 mmol/L (136-145)
--- NOTE | 2022-06-04 12:54 | CASEMGMT ---
Social Work Telephone call from Ruma vergara. Ruma reports that [facility], [place], [facility], [facility], [facility], [facility] and [facility] declined patient due to not being medically cleared from psychiatric services stand point. This licensed master social worker communicating that medical team is clearing patient, including a ob/gyn. This licensed master social worker updated medical team. Chuy VERDUZCO, KINSEY
--- NOTE | 2022-06-04 14:05 | CM.ED ---
JAYLEN Note JAYLEN faxed patient's vitals and MD's notes (which indicated patient was medically stable) to Shamika at [facility]. JAYLEN called and updated Shamika at Crisis. JAYLEN remains available if further needs arise. Amira BARAHONA
--- NOTE | 2022-06-04 16:31 | CASEMGMT ---
Social Work Telephone call from Blanca vergara. Blanca reports that patient is on a waiting list at [facility]. This social media strategist provided Blanca with main contact number for PCU in the event that patient is approved for admission. This social media strategist updated charge nurse. Chuy VERDUZCO, FARHEEN-S
--- NOTE | 2022-06-04 19:25 | CM.ED ---
Addendum entered by Amira Junior 06/04/22 19:34: Radha [place] covering said that patient was being discharged and would be discharged home today except patient needed john psych. JAYLEN reviewed chart and noted that [facility]. JAYLEN spoke to registration and was advised by [facility] Registration staff Jocelyne that patient has VA insurance. JAYLEN called [facility] and spoke to Tram and asked if VA was explored. Tram said that their business office stated that patient has no medical benefit only VA pension. JAYLEN spoke to Mandi. Mandi said that Registration shows that patient has VA benefits but there is a note from Letha, Registration supervisor ticket sales that states that patient has only VA pension but no VA benefits. Original Note: JAYLEN Note Tram from [facility] called and advised that patient was accepted at [place] on Tuesday. JAYLEN called Tram at [facility]. She said that they referred to [facility] and [facility] today. JAYLEN asked about [facility]. Tram said that [facility] had declined in the past. JAYLEN advised that patient was medically clear. Tram said that they were pursuing psych hospitals that were attached to medical hospitals due to patient's medical issues. Tram said we referred to [facility] medical hospitals due to patient's medical issues. JAYLEN advised that patient is medically clear and per covering social media assistant patient would be discharged home today if not needing psych. SW will check to see if some john facilities were available. JAYLEN called [facility]. They do not take john psych patient's. JAYLEN called [facility]. They are not taking outside referrals. JAYLEN texted Venita at [facility]. They have john psych beds. JAYLEN called [facility]. They will review patient's chart. JAYLEN called Tram at [facility] and asked them fax referral to [facility] and [facility]. JAYLEN was advised that [facility] declined to do the medical acuity but would relook at patient after the 7th due to Prednisone taper. JAYLEN called [facility] and reviewed case with intake. They will look at patient. JAYLEN called Margaert at [facility]. [facility] declined patient in the past and had no beds at [place] but beds in [place]. However, as patient is medically clear patient will be reevaluated. JAYLEN called Tram at [facility] and asked that referrals be sent to [facility] and [facility] for review. JAYLEN went to patient's room to check on patient. Patient was laying in bed. He stated that this lead technical writer was the high priestess and then talked about Alex. Patient displayed continuation of flight of ideas and darron symptoms. However, patient was laying in bed and shook this lead technical writer's hand. SW called Tram at Crisis. No answer Amira BARAHONA
[2022-06-04] MEDS: Atorvastatin Calcium 40 MG Tablet PO (20:49)
--- NOTE | 2022-06-04 22:16 | EKG12_ITS ---
Test Reason : Blood Pressure : / mmHG Vent. Rate : 075 BPM Atrial Rate : 075 BPM P-R Int : 144 ms QRS Dur : 128 ms QT Int : 450 ms P-R-T Axes : 076 025 109 degrees QTc Int : 502 ms Sinus rhythm with occasional Premature ventricular complexes Possible Left atrial enlargement Left ventricular hypertrophy with QRS widening and repolarization abnormality ( Doe product ) Inferior infarct , age undetermined Abnormal ECG When compared with ECG of 02-JUN-2022 05:56, Inferior infarct is now Present Confirmed by ANTONIETTA SHEN, BRENT ([id number]), mapping editor EMEKA GOMEZ ([id number]) on 06/08/2022 9:49:30 AM Referred By: TODD Confirmed By:BRENT MANE MD
[2022-06-04 22:48] LABS: Absolute Lymphocyte Count 0.71 X10^3/uL (0.83-4.51); Absolute Neutrophil Count 6.5 X10^3/uL (2.0-7.7); Basophil# 0.01 X10^3/uL; Basophil% 0.1 % (0-1); Eosinophil# 0.01 X10^3/uL; Eosinophils% 0.1 % (0-5); Hematocrit 40.8 % (40-54); Hemoglobin 13.5 g/dL (13.0-16.5); Lymphocyte # 0.71 X10^3/ul (0.83-4.51); Lymphocyte % 9.1 % (19-41); Mean Corp Hgb Conc 33.1 g/dL (32-36); Mean Corpuscular Hgb 34.4 pg (27.0-32.0); Mean Corpuscular Volume 104.1 fL (80-94); Mean Platelet Vol. 9.5 fl (6.2-12.0); Monocyte# 0.52 X10^3/uL; Monocyte% 6.6 % (0-10); NRBC Flagged by Analyzer 0 % (0-5); Neutrophil # 6.54 X10^3/uL (2.7-7.7); Neutrophil % 83.5 % (47-70); Platelet Count 251 K/mm3 (150-450); RBC Distribution Width CV 14.6 % (11.6-14.6); RBC Distribution Width SD 55.8 fl (35.1-43.9); Red Blood Count 3.92 M/mm3 (4.6-6.2); White Blood Count 7.8 K/mm3 (4.4-11.0)
[2022-06-05 01:59] VITALS: BP 146/93; PULSE 68; RESP 16; TEMP 36.4; O2SAT 93
[2022-06-05 03:00] VITALS: PULSE 82
--- NOTE | 2022-06-05 03:22 | ED.RN ---
[facility] called and has declined patient due to medical acuity at this time. pcu made aware at this time
[2022-06-05 03:41] VITALS: BP 139/98; PULSE 76; RESP 16; TEMP 36.6; O2SAT 93
[2022-06-05 06:01] VITALS: BP 148/86; PULSE 66; RESP 16; TEMP 36.7; O2SAT 95
--- NOTE | 2022-06-05 07:37 | PCM.DC.SUM ---
Providers Date of Admission: 05/31/22 Date of Discharge: 06/05/22 Primary Care Physician: Nithya Primary Care Phys Consultations 06/01/22 05:06 Consult: Cardiology Routine Consulting Provider: Francisco Clark Reason for Consult: a flutter , elevated trop EMERGENT Consult: Yes MD Notified: Yes Date Notified: 06/01/22 Time Notified: 05:06 Method of Notification: Text Reason For Visit: ACUTE RESPIRATORY FAILURE, ATRIAL FLUTTER WITH RVR Diagnosis Discharge Diagnosis (1) Acute dyspnea: Status: Acute Code(s): R06.00 - Dyspnea, unspecified (2) Atrial flutter with rapid ventricular response: Status: Acute Code(s): I48.92 - Unspecified atrial flutter (3) NSTEMI, initial episode of care: Status: Acute Code(s): I21.4 - Non-ST elevation (NSTEMI) myocardial infarction (4) H/O heart surgery: Status: Acute Code(s): Z98.890 - Other specified postprocedural states (5) Ischemic cardiomyopathy: Status: Acute Code(s): I25.5 - Ischemic cardiomyopathy Medications at Discharge Home Medications aspirin 81 mg chewable tablet 81 mg PO BREAKFAST #30 tabs 03/14/22 atorvastatin 40 mg tablet 40 mg PO QHS #30 tabs 03/14/22 apixaban 5 mg tablet (Eliquis) 5 mg PO BID #0 tabs 06/02/22 carvedilol 6.25 mg tablet 6.25 mg PO BID #0 tabs 06/02/22 empagliflozin 10 mg tablet (Jardiance) 10 mg PO DAILY #0 tabs 06/02/22 furosemide 40 mg tablet 40 mg PO DAILY #0 tabs 06/02/22 lisinopril 5 mg tablet 5 mg PO DAILY #0 tabs 06/02/22 prednisone 20 mg tablet 40 mg PO BREAKFAST #0 tabs 06/04/22 Hospital Course Summary of Care Provided Hospital Course: The patient is 76-year-old male came to ED for concern of psychotic symptoms.? Patient was in ED for 13 hours, pending transfer and evaluation for [facility] but in the meantime developed shortness of breath/dyspnea, atrial flutter with RVR 146/min, hypoxia and expiratory wheezing.? ABG was done.? 7.2 on 4 L of oxygen.? Chest x-ray initially reviewed shows bilateral interstitial markings and interstitial edema suggestive of chronic COPD changes and CHF. 1. Acute hypoxic respiratory failure secondary to CHF and COPD exacerbation:-initially placed on BiPAP.? Oxygen now stable on room air.? Ambulatory pulse ox completed and patient did not require further supplemental oxygen.? No objective finding of dyspnea. 06/04: Acute hypoxic respiratory failure resolved.? Patient pulse ox 94% on room air.? No tachypnea. 2.? Acute on chronic systolic heart failure-BNP 1900. Echocardiogram with EF 25%, stage III diastolic dysfunction.? Chest x-ray with interstitial edema, most recent, lungs are clear. Acute part resolved. 3.? COPD with exacerbation-prednisone taper at pr. As needed albuterol inhaler. Patient on prednisone 40 mg daily for 5 days, burst therapy.? End date on 06/06/2022. 06/05: COPD exacerbation improved. 2 more days of prednisone burst therapy 4. NSTEMI-cardiology consulted during admission. Pharmacological myocardial perfusion stress test showed evidence of dilated cardiomyopathy with previous inferior infarct and minimal arbne-infarct ischemia.? With patient's history of nonadherence and psychiatric history therefore aggressive medical therapy recommended.? Cardiology also talked to patient's sister next of kin who agrees with conservative treatment. Patient was started on carvedilol with up titration as needed in outpatient setting.? Lasix 40 mg daily, empagliflozin 10 mg a day, lisinopril 5 mg daily. 06/05: Patient did not had chest pain or shortness of breath. Continue cardiac medications as in discharge instruction. 5. Atrial flutter with RVR-currently sinus rhythm.? IV Cardizem discontinued.? Continue Eliquis 5 mg twice daily. on security monitor patient in sinus rhythm.? Had 6 beats of NSVT.? Magnesium 2.2, phosphorus 3.7.? Potassium 4.2.? Sodium 136.? No acute electrolyte abnormality.? Continue Coreg 6.25 mg at the present dose, heart rate in 70s to 80s per minute 6. Hypertension-continue carvedilol, lisinopril. 7. Hyperlipidemia-continue statin. 8. Dementia with behavioral disturbance-personality disorder.? First [place] paper was signed by ED physician, Dr. Mcclain. This on 06/05 and was signed. Patient was accepted to inpatient psych facility and got transferred. 9. Tobacco dependence-encouraged cessation. Discharge medication reconciliation done. Discharge follow-up instructions completed. Discharge process discussed with the patient and all questions were answered to patient's satisfaction. Total time spent, exact 35 minutes on discharge meds reconciliation, examination, coordination of care with nurses and ancillary staff, review of imaging and blood test and discussion with the patient on follow-up instructions. Physical Exam Narrative Seen and examined A-flutter was converted to sinus rhythm on 05/31. environmental monitoring technician shows sinus rhythm with PVCs. No acute symptoms. No shortness of breath or chest pain. [place] slip expires on 06/04 and was signed. Physical exam General: Alert, Oriented x3, Cooperative HEENT: Atraumatic, PERRLA, EOMI, Normocephalic Oral: No Gingival or Mucosal Lesions/ Ulcerations Neck: Supple, No JVD, Negative Carotid Bruits Lungs: Air entry equal in bilateral lung bases. No crepitation/rhonchi. No tachypnea or hypoxia Cardiovascular: Regular rate, Regular Rhythm, Normal S1, Normal S2, holosystolic grade 3/6 murmur at cardiac apex. CABG scar Abdomen: Bowel Sounds Present, Soft, Non Tender, Non-Distended : No renal angle tenderness. No suprapubic tenderness. Extremities: No edema, Capillary Refill Less than 3 Seconds Skin: No rashes, No breakdown Musculoskeletal: No Tenderness to Palpation of Joints or Extremities Neurological: Cranial nerves II-XII grossly intact, DTR 2+/4 and Symmetrical, Neuro grossly intact Psych/Mental Status: Personality disorder. Tangential pattern of thinking. Weight / BMI Weight Weight: 144 lb 9.972 oz Body Mass Index (BMI) 18.6 ABG / Lab / Microbiology Data Result Diagrams: 06/04/22 22:20 06/04/22 10:47 Laboratory: Laboratory Results - last 24 hr 06/04/22 10:47: Sodium 136, Potassium 4.2, Chloride 101, Carbon Dioxide 30.0, Anion Gap 5, BUN 25 H, Creatinine 0.97, Estim Creat Clear Calc 60.11, Est GFR (MDRD) Af Amer 97, Est GFR (MDRD) Non-Af 80, BUN/Creatinine Ratio 25.8 H, Glucose 110 H, Calcium 8.4 L, Phosphorus 3.7, Magnesium 2.2 06/04/22 22:20: WBC 7.8, RBC 3.92 L, Hgb 13.5, Hct 40.8, MCV 104.1 H, MCH 34.4 H, MCHC 33.1, RDW Std Deviation 55.8 H, RDW Coeff of Paul 14.6, Plt Count 251, MPV 9.5, Immature Gran % (Auto) 0.600, Neut % (Auto) 83.5 H, Lymph % (Auto) 9.1 L, Shelby % (Auto) 6.6, Eos % (Auto) 0.1, Baso % (Auto) 0.1, Absolute Neuts (auto) 6.5, Absolute Lymphs (auto) 0.71 L, Nucleated RBC % 0 Microbiology: Microbiology 06/02/22 12:51 Interface Orders Group A Streptococcus Rapid Screen - Final 05/31/22 09:40 Nasal Secretion SARS-CoV-2 Antigen (Rapid) - Final D/C Instructions Discharge Diet: 2000 mg Sodium Diet Call your doctor if you observe: Fever of 101 or Higher, Coldness, Increased Pain, Numbness or Tingling, Change in Color, Inability to urinate, Inability to have a bowel movement, Shortness of breath, Dizziness, Fainting spells, Swelling in the ankles, Chest pain, Prolonged hiccupping, Increased palpitations (irregular heartbeat), Calf discomfort and Uncontrolled pain Meaningful Use Info Meaningful Use Diagnoses (Choose all that apply): None applicable Discharge Plan Admission Admit Date/Time: 05/31/22 23:11 Primary Reason for Your Visit: Personality disorder, non-STEMI Attending Provider: Kentrell Reynoso Primary Care Provider: Care Physician,No Primary Consulting Providers: Francisco Clark ; Harley Stephenson Instructions Additional Instructions / Restrictions: Follow up with [facility] cardiology in two weeks. Discharge Orders/Prescriptions Prescriptions: New carvedilol 6.25 mg Tablet 6.25 mg PO BID Qty: 0 0RF Eliquis 5 mg Tablet 5 mg PO BID Qty: 0 0RF Jardiance 10 mg Tablet 10 mg PO DAILY Qty: 0 0RF furosemide 40 mg Tablet 40 mg PO DAILY Qty: 0 0RF lisinopril 5 mg Tablet 5 mg PO DAILY Qty: 0 0RF prednisone 20 mg Tablet 40 mg PO BREAKFAST Qty: 0 0RF Continued aspirin 81 mg Tablet,Chewable 81 mg PO BREAKFAST Qty: 30 0RF atorvastatin 40 mg tablet 40 mg PO QHS Qty: 30 0RF Discontinued carvedilol 3.125 mg Tablet 3.125 mg PO BID Qty: 60 0RF Referrals / Follow Up: Francisco Clark MD [Med Staff - Active Staff] - Within 1 Month (for NSTEMI) Care Physician,No Primary [Primary Care Provider] - [facility] Week [facility] [[facility]] - Within 1 Week Disposition Disposition (needs filled in before D/C Order can be placed): Psychiatric Hospital or Unit Charges/Coding Visit Charges Inpatient E&M: 03114 Disch Hosp
== END 2022-06-05 06:45 | DRG 280 ==
LOC: ED 23:01 → PCU 23:25
PROVIDERS: Emergency Medicine; Internal Medicine; Nurse Practitioner Family; Admitting Provider Family Medicine; Emergency Provider Student in an Organized Health Care Education/Training Program; Visit Provider Internal Medicine
DX: I11.0 Hypertensive heart disease with heart failure (principal); I21.A1 Myocardial infarction type 2; J96.01 Acute respiratory failure with hypoxia; I50.23 Acute on chronic systolic (congestive) heart failure; I48.92 Unspecified atrial flutter; F03.91 Unspecified dementia, unspecified severity, with behavioral disturbance; J44.1 Chronic obstructive pulmonary disease with (acute) exacerbation; F17.210 Nicotine dependence, cigarettes, uncomplicated; I25.2 Old myocardial infarction; I25.5 Ischemic cardiomyopathy; Z79.82 Long term (current) use of aspirin; Z79.899 Other long term (current) drug therapy; I49.3 Ventricular premature depolarization; Z95.1 Presence of aortocoronary bypass graft
CPT/HCPCS: 36415; 36600; 70450; 71045; 71046; 78452; 80048; 80053; 80307; 81001; 82077; 82803; 83735; 83880; 84100; 84484; 85025; 85610; 87811; 87880; 93005; 93017; 93306; 94002; 94003; 94640; 97802; 97803; 99251; 99285; 99406; A9500; Q9957; A4216; G0463; J2785

== ENCOUNTER 2022-07-08 12:28 | Emergency (ER) | payer OTHER, SELFPAY ==
[2022-07-08] VITALS (10 sets, daily range): BP systolic 137–159; BP diastolic 76–103; PULSE 65–83; RESP 16–21; TEMP 37; O2SAT 97–99; BMI 20.2
--- NOTE | 2022-07-08 12:33 | EKG12_ITS ---
Test Reason : CHEST PRESSURE Blood Pressure : / mmHG Vent. Rate : 077 BPM Atrial Rate : 077 BPM P-R Int : 146 ms QRS Dur : 124 ms QT Int : 400 ms P-R-T Axes : 078 -13 118 degrees QTc Int : 452 ms Normal sinus rhythm Inferior infarct , age undetermined Abnormal ECG Confirmed by ANTONIETTA SHEN, BRENT ([id number]), primer expeditor and drier EDOUARD GOLDSMITH ([id number]) on 07/12/2022 10:53:58 AM Referred By: NEELA Confirmed By:BRENT MANE MD
--- NOTE | 2022-07-08 12:36 | EDS_ITS ---
HPI History of Present Illness Chief Complaint: Chest Pain Informant: patient Onset/Context/Timing Onset: Days Current Severity: Mild Maximum Severity: Mild Narrative Narrative: Patient presents secondary to chest pain. Patient has a history of dementia and is a very poor historian. Best I can tell he is complaining of left-sided chest pressure has been ongoing for the past couple of days. He states he is in the process of buying a new car and is walking around town. He does have some shortness of breath. I am unable to validate whether this is accurate. Patient does have a midline surgical incision from prior heart surgery. He is unable to tell me any details of this. On review of records patient was admitted to the hospital in May with a flutter RVR and CHF. [facility] Medical History COPD (chronic obstructive pulmonary disease) Dementia with behavioral disturbance Ischemic cardiomyopathy NSTEMI, initial episode of care Past heart attack Home Medications aspirin 81 mg chewable tablet 81 mg PO BREAKFAST #30 tabs 03/14/22 [Rx Last Taken Unknown] atorvastatin 40 mg tablet 40 mg PO QHS #30 tabs 03/14/22 [Rx Last Taken Unknown] apixaban 5 mg tablet (Eliquis) 5 mg PO BID #0 tabs 06/02/22 [Rx Last Taken Unknown] carvedilol 6.25 mg tablet 6.25 mg PO BID #0 tabs 06/02/22 [Rx Last Taken Unknown] empagliflozin 10 mg tablet (Jardiance) 10 mg PO DAILY #0 tabs 06/02/22 [Rx Last Taken Unknown] furosemide 40 mg tablet 40 mg PO DAILY #0 tabs 06/02/22 [Rx Last Taken Unknown] lisinopril 5 mg tablet 5 mg PO DAILY #0 tabs 06/02/22 [Rx Last Taken Unknown] prednisone 20 mg tablet 40 mg PO BREAKFAST #0 tabs 06/04/22 [Rx Last Taken Unknown] Allergy/AdvReac Type Severity Reaction Status Date / Time No Known Allergies Allergy Verified 07/08/22 12:32 Family History Father Heart disease Mother Cancer Surgical History H/O heart surgery Social History household members: none current occupational status: retired Smoking Status: Current every day smoker tobacco type: cigarettes alcohol intake: current alcohol intake frequency: a few times a week Alcohol type: beer, wine and hard liquor substance use type: does not use ROS ROS ED Constitutional Constitutional ED: Denies chills or fever(s) Eyes Eyes: Denies change in vision or discharge from eye(s) ENT ENT ED: Denies discharge from eye(s), rhinorrhea or sore throat Cardiovascular Cardiovascular: Reports chest pain; Denies palpitations Respiratory/Chest Respiratory/Chest: Reports dyspnea; Denies cough Gastrointestinal Gastrointestinal: Denies abdominal pain, diarrhea, nausea or vomiting Genitourinary Genitourinary ED: Denies dysuria Musculoskeletal Musculoskeletal: Denies back pain or extremity pain Integumentary Denies Abrasions or rash Neurologic Neurologic: Denies headache(s) or weakness Allergic/Immunologic Allergic/Immunologic ED: Denies lip swelling or urticaria EXAM Physical Exam Const Vital Signs: 07/08/22 12:29 07/08/22 12:43 07/08/22 12:43 Temperature 98.6 F Temperature Source Temporal Pulse Rate 83 76 Respiratory Rate 16 18 Respiratory Effort Blood Pressure 156/103 H Blood Pressure Mean 120 Pulse Ox 99 99 Oxygen Delivery Method Room Air Room Air Room Air 07/08/22 12:45 07/08/22 14:00 07/08/22 13:34 Temperature Temperature Source Pulse Rate 72 83 Respiratory Rate 17 21 H Respiratory Effort Normal Blood Pressure 154/92 H 148/93 H Blood Pressure Mean 112 111 Pulse Ox 99 98 Oxygen Delivery Method Room Air Positive well nourished and well developed General Appearance ED: well developed HEENT Reports normocephalic and head/scalp atraumatic Eyes PERRL and EOMs intact bilaterally Neck supple Chest Wall inspection of chest normal and palpation of chest normal Resp normal respiratory effort and clear to auscultation bilaterally Cardio regular rate and regular rhythm GI normal to inspection, nondistended, normoactive bowel sounds Palpation: soft Back/Spine no CVA tenderness Extremity normal to inspection Neuro no sensory deficits noted Sensorium / Orientation: alert Motor Exam: strength 5/5 throughout Psych Psych Narrative: Pressured speech and rambling. Skin no rashes or lesions noted MDM MDM MDM Narrative Medical decision making narrative: Patient given aspirin on arrival and cardiac work-up is initiated. I did review his recent records which includes a stress test in May that revealed no significant ischemia. Lab Data Attestation: I reviewed the patient's lab results. Labs: Laboratory Results - last 24 hr 07/08/22 07/08/22 12:40 12:40 WBC 8.2 RBC 3.80 L Hgb 12.7 L Hct 38.9 L MCV 102.4 H MCH 33.4 H MCHC 32.6 RDW Std Deviation 57.0 H RDW Coeff of Paul 15.4 H Plt Count 262 MPV 8.2 Immature Gran % (Auto) 0.600 Neut % (Auto) 71.8 H Lymph % (Auto) 18.2 L Webster % (Auto) 6.7 Eos % (Auto) 1.7 Baso % (Auto) 1.0 Absolute Neuts (auto) 5.9 Absolute Lymphs (auto) 1.50 Nucleated RBC % 0 Sodium 139 Potassium 4.4 Chloride 104 Carbon Dioxide 28.0 Anion Gap 7 BUN 15 Creatinine 0.91 Estim Creat Clear Calc 69.74 Est GFR (MDRD) Af Amer 104 Est GFR (MDRD) Non-Af 86 BUN/Creatinine Ratio 16.5 Glucose 92 Calcium 9.6 Troponin I High Sens 52 Radiography Chest X-Ray - ED: 1 View, Read by ED Physician and Chronic Changes Diagnostic Testing: Clinical Impression(s) from Imaging Studies Chest X-Ray 07/08/22 12:55 IMPRESSION: Mild degree of increased interstitial markings. Mild CHF should be ruled out. Electronically Signed: Narinder Ferrell MD at 13:22 EDT , EKG Initial EKG: Attestation: I personally reviewed and interpreted this EKG as follows: Interpretation: Sinus Rhythm (Sinus at 77 with no acute ischemia.) Treatment and Re-Evaluation Narrative: Patient resting comfortably no acute distress. No cardiac arrhythmias noted on monitor. Cardiac work-up is unremarkable at this time with a troponin normal at 52. Chest x-ray reveals chronic changes with no acute infiltrate. I did ask social work to see the patient as he has very pressured speech with flight of ideas. They do agree patient will need psychiatric placement. This be signed out to oncoming physician pending placement. Discharge Plan Triage Chief Complaint: Chest Pain Other Complaint: Shortness of Breath ED Provider: Leeann Mojica Dx/Rx/DC Orders Clinical Impression: Chest pain, Dementia, Agitation Prescriptions: No Action aspirin 81 mg Tablet,Chewable 81 mg PO BREAKFAST Qty: 30 0RF atorvastatin 40 mg tablet 40 mg PO QHS Qty: 30 0RF carvedilol 6.25 mg Tablet 6.25 mg PO BID Qty: 0 0RF Eliquis 5 mg Tablet 5 mg PO BID Qty: 0 0RF Jardiance 10 mg Tablet 10 mg PO DAILY Qty: 0 0RF furosemide 40 mg Tablet 40 mg PO DAILY Qty: 0 0RF lisinopril 5 mg Tablet 5 mg PO DAILY Qty: 0 0RF prednisone 20 mg Tablet 40 mg PO BREAKFAST Qty: 0 0RF Primary Care Provider: Care Physician,No Primary Referrals: Care Physician,No Primary [Primary Care Provider] - Disposition Disposition: Psychiatric Hospital or Unit
[2022-07-08 12:48] LABS: Absolute Neutrophil Count 5.9 X10^3/uL (2.0-7.7); Basophil# 0.08 X10^3/uL; Eosinophil# 0.14 X10^3/uL; Eosinophils% 1.7 % (0-5); Hematocrit 38.9 % (40-54); Hemoglobin 12.7 g/dL (13.0-16.5); Lymphocyte % 18.2 % (19-41); Mean Corp Hgb Conc 32.6 g/dL (32-36); Mean Corpuscular Hgb 33.4 pg (27.0-32.0); Mean Corpuscular Volume 102.4 fL (80-94); Mean Platelet Vol. 8.2 fl (6.2-12.0); Monocyte# 0.55 X10^3/uL; Monocyte% 6.7 % (0-10); NRBC Flagged by Analyzer 0 % (0-5); Neutrophil # 5.92 X10^3/uL (2.7-7.7); Neutrophil % 71.8 % (47-70); Platelet Count 262 K/mm3 (150-450); RBC Distribution Width CV 15.4 % (11.6-14.6); White Blood Count 8.2 K/mm3 (4.4-11.0)
--- NOTE | 2022-07-08 12:55 | RAD_ITS ---
STUDY: X-RAY CHEST REASON FOR EXAM: Male, 76 years old. Chest pain TECHNIQUE: Single AP portable view of the chest. COMPARISON: Comparison is made with prior examination 06/01/2022 FINDINGS: EKG lead projects are seen. Hyperinflation. Stable mild increased interstitial markings. Findings suggestive of mild degree of CHF. There is no demonstrated pleural abnormality. Sternal cerclage wires and vascular clips are present from a prior sternotomy and coronary artery bypass graft procedure (CABG). Normal mediastinum and ayan. Normal visualized pulmonary arteries. There is atherosclerotic calcification of the aortic arch with tortuosity. There are degenerative changes of the visualized thoracic spine. Normal visualized ribs, clavicles, and shoulders. There is no demonstrated abnormality of the visualized soft tissue structures of the upper abdomen. RAD/Chest 1 View (Portable) IMPRESSION: Mild degree of increased interstitial markings. Mild CHF should be ruled out. Electronically Signed: Narinder Ferrell MD at 13:22 EDT ,
[2022-07-08] MEDS: Aspirin 81 MG TAB.CHEW 324 MG PO (13:01)
[2022-07-08 13:07] LABS: Anion Gap 7 (5-15); BUN 15 mg/dL (7-18); BUN/Creat Ratio 16.5 RATIO (10-20); Calcium,Total 9.6 mg/dL (8.5-10.1); Chloride 104 mmol/L (98-107); Creatinine, Serum 0.91 mg/dL (0.70-1.30); EST Glomerular Filtration Rate 86 mL/min (>60); Est Glom Filt Rate - Afr Amer 104 mL/min (>60); Estimated Creatinine Clearance 69.74 ml/min; Glucose 92 mg/dL (74-106); Potassium 4.4 mmol/L (3.5-5.1); Sodium Level 139 mmol/L (136-145); Troponin-I HS (w/2H Reflex) 52 pg/mL (3.0-78.0)
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
[2022-07-08 14:44] LABS: Reflex Troponin-HS? (from REC) Y
[2022-07-08 15:37] LABS: Troponin-I HS 51 pg/mL (3.0-78.0)
[2022-07-08 15:54] LABS: Amphetamine Urine VISTA NEGATIVE (<1000 ng/mL); Barbiturate Urine VISTA NEGATIVE (< 200 ng/mL); Benzodiazepine Urine VISTA NEGATIVE (< 200 ng/mL); Cocaine Urine VISTA NEGATIVE (< 300 ng/mL); Ecstacy Urine VISTA NEGATIVE (< 500 ng/mL); Methadone Urine VISTA NEGATIVE (< 300 ng/mL); PCP Urine VISTA NEGATIVE (< 25 ng/mL); THC Urine VISTA NEGATIVE (< 50 ng/mL); Vista UDS pH Range 8
[2022-07-08 16:17] LABS: Alcohol, Blood (Medical)-Serum < 3.0 mg/dL
--- NOTE | 2022-07-08 16:34 | CM.ED ---
JAYLEN spoke with Brianna in Registration. She said that patient voiced he has VA but was unsure they will pay. Brianna said she was unable to get patient's insurance to verify for the VA and Letha will review it at 6pm. JAYLEN faxed referral to [facility] and [facility]. punch out crew member updated. Amira BARAHONA
--- NOTE | 2022-07-08 18:07 | CM.ED ---
JAYLEN called [facility]. They need to get VA clearance before acceptance. JAYLEN advised this caption writer had faxed referral to the [facility]. JAYLEN called [facility]. JAYLEN spoke to staff who inquired about patient's troponin levels. JAYLEN faxed troponin levels results to [facility]. At 6:07 pm this caption writer called the [facility] transfer Center and left message regarding patient needing psych placement. Amira BARAHONA
--- NOTE | 2022-07-08 18:17 | CM.ED ---
JAYLEN called [facility] transfer line and left voice mail message regarding patient needing psych bed. Amira BARAHONA
--- NOTE | 2022-07-08 20:15 | CM.ED ---
JAYLEN called [facility] and spoke to Luis. Patient was declined as the [facility] staff felt that patient needed to go to a [facility] hospital connected to a hospital such as [facility]. JAYLEN called [facility] and advised of handoff at 8:30 and gave the numbers for crisis and ED nurses station on [facility] voice mail. JAYLEN called Delphine at Crisis and gave her handoff information. JAYLEN will fax assessment information to Delphine at Crisis.
[2022-07-09] VITALS (8 sets, daily range): BP systolic 124–151; BP diastolic 60–98; PULSE 66–79; RESP 16–18; O2SAT 97–98
--- NOTE | 2022-07-09 06:04 | NURSING ---
FAXED [facility] AL[facility]OL AND EKG.
--- NOTE | 2022-07-09 10:15 | CM.ED ---
Addendum entered by Amira Junior 07/09/22 10:41: accepted by Dr. Angela. [facility]. RN to RN [phone] and room 308A. Amira BARAHONA Original Note: Marielena was advised by staff that patient was accepted at [facility]. MARIELENA called Nata at Crisis and updated her about patient and him being accepted at [facility]. Amira BARAHONA
== END 2022-07-09 10:56 ==
PROVIDERS: Emergency Provider Emergency Medicine; Visit Provider Emergency Medicine
DX: R07.9 Chest pain, unspecified (principal); F03.91 Unspecified dementia, unspecified severity, with behavioral disturbance; J44.9 Chronic obstructive pulmonary disease, unspecified; I25.2 Old myocardial infarction; I25.5 Ischemic cardiomyopathy; Z79.82 Long term (current) use of aspirin; Z79.899 Other long term (current) drug therapy; Z79.01 Long term (current) use of anticoagulants; F17.210 Nicotine dependence, cigarettes, uncomplicated
CPT/HCPCS: 71045; 80048; 80307; 82077; 84484; 85025; 87811; 93005; 99285; A4216

== ENCOUNTER 2022-07-28 19:23 | Inpatient (IN) | payer OTHER, SELFPAY ==
[2022-07-28 19:24] VITALS: BP 131/73; PULSE 83; RESP 18; TEMP 35.9; O2SAT 98; BMI 20.6
--- NOTE | 2022-07-28 19:53 | EKG12_ITS ---
Test Reason : gen. illness Blood Pressure : / mmHG Vent. Rate : 074 BPM Atrial Rate : 074 BPM P-R Int : 142 ms QRS Dur : 128 ms QT Int : 458 ms P-R-T Axes : 072 -05 143 degrees QTc Int : 508 ms Normal sinus rhythm Possible Left atrial enlargement Left ventricular hypertrophy with QRS widening and repolarization abnormality ( [place] product ) Inferior infarct , age undetermined Abnormal ECG Confirmed by FLAVIA SHEN, TRICIA ([id number]), marketing editor EDOUARD GOLDSMITH ([id number]) on 07/29/2022 12:59:07 P M Referred By: Woody Confirmed By:IESHA ALEJANDRO MD
--- NOTE | 2022-07-28 19:54 | EDS_ITS ---
HPI History of Present Illness Chief Complaint: General Illness Narrative Narrative: Patient presents with chief complaint of not feeling well for months. History and physical is limited secondary to dementia. He states that he was trying to buy a car and has to walk everywhere. He complains of fatigue. He has had intermittent chest pain. He denies any fevers or chills. No nausea or vomiting. No dysuria or hematuria. No shortness of breath. He does not follow-up with a primary care physician and states that he has been to the emergency department a few times in February, at least once a month. States he feels tired, and weak, and fatigued. No exacerbating or alleviating factors. [facility] Medical History COPD (chronic obstructive pulmonary disease) Dementia with behavioral disturbance Ischemic cardiomyopathy NSTEMI, initial episode of care Past heart attack Home Medications aspirin 81 mg chewable tablet 81 mg PO BREAKFAST #30 tabs 03/14/22 [Rx Last Taken Unknown] atorvastatin 40 mg tablet 40 mg PO QHS #30 tabs 03/14/22 [Rx Last Taken Unknown] apixaban 5 mg tablet (Eliquis) 5 mg PO BID #0 tabs 06/02/22 [Rx Last Taken Unknown] carvedilol 6.25 mg tablet 6.25 mg PO BID #0 tabs 06/02/22 [Rx Last Taken Unknown] empagliflozin 10 mg tablet (Jardiance) 10 mg PO DAILY #0 tabs 06/02/22 [Rx Last Taken Unknown] furosemide 40 mg tablet 40 mg PO DAILY #0 tabs 06/02/22 [Rx Last Taken Unknown] lisinopril 5 mg tablet 5 mg PO DAILY #0 tabs 06/02/22 [Rx Last Taken Unknown] prednisone 20 mg tablet 40 mg PO BREAKFAST #0 tabs 06/04/22 [Rx Last Taken Unknown] Allergy/AdvReac Type Severity Reaction Status Date / Time No Known Allergies Allergy Verified 07/28/22 19:27 Family History Father Heart disease Mother Cancer Surgical History H/O heart surgery Social History household members: none current occupational status: retired Smoking Status: Light Smoker (<10/day) alcohol intake: current alcohol intake frequency: a few times a week Alcohol type: beer, wine and hard liquor substance use type: does not use ROS ROS ED ROS Narrative Constitutional: No fever, no chills. Generalized weakness, fatigue. HEENT: No sore throat. No neck pain. No loss of vision. No rhinorrhea. Cardiovascular: No chest pain. No palpitations. No pedal edema. Respiratory: No cough, no shortness of breath. Abdominal: No abdominal pain. No nausea. No vomiting. Genitourinary: No dysuria. No hematuria. Musculoskeletal: No myalgias. No arthralgias. Neurologic: No headaches. No dizziness. No lightheadedness. Skin: No rash. No change in color. Psychiatric: No depression. No anxiety. EXAM Physical Exam Narrative Exam Narrative: Afebrile. Vital signs noted. HEENT: Normocephalic. Atraumatic. PERRL, EOMI. Neck soft and supple. No point tenderness or step off. Cardiovascular: Regular rate and rhythm. No murmurs, rubs, or gallops appreciated. Respiratory: No tachypnea. Lungs clear to auscultation bilaterally. Gastrointestinal: Abdomen soft, nontender, with normoactive bowel sounds. No rebound or guarding. Neurological: Awake. Alert. Oriented to person, place, and current events. Nonfocal, nonlateralizing. Skin: No rash. Normal color. No pallor. Musculoskeletal: No pedal edema. Full range of motion extremities. Const Vital Signs: 07/28/22 19:24 07/28/22 19:52 07/28/22 21:40 Temperature 96.6 F L Temperature Source Temporal Pulse Rate 83 68 Respiratory Rate 18 18 Respiratory Effort Normal Non-Labored Respiratory Pattern Normal Blood Pressure 131/73 H 117/72 Blood Pressure Mean 92 87 Pulse Ox 98 97 Oxygen Delivery Method Room Air Room Air MDM MDM MDM Narrative Medical decision making narrative: In review of his EMR, one of his problems is listed as dementia. Comprehensive work-up was pursued in the 76-year-old male. Additionally, he was admitted for NSTEMI. He was diagnosed with ischemic cardiomyopathy. Cardiology had spoken with his estranged sister who had stated that he had CABG performed in the past remotely. Was reported that he had an ejection fraction of 20-25 last month. Upon further questioning, the patient states that he recently got out of rehabilitation yesterday from somewhere in [place], but he cannot remember where. Given his history of dementia I am unsure if this is true information. Additionally, he states he has been out of his medication and has not been taking any of his Eliquis or his carvedilol. Reportedly he was placed on Eliquis for atrial fibrillation/flutter and is supposed to be rate controlled with carvedilol. EKG was obtained which demonstrates normal sinus rhythm at 74 bpm without ectopy or acute ST changes. No STEMI. He has a slightly elevated white count of 11.4 with hemoglobin normal at 14.1, platelet count normal at 216. CMP shows BUN elevated at 28 with a normal creatinine of 1.1 which may be mild dehydration. Glucose appropriately elevated at 124 with a normal anion gap of 7. Urinalysis shows 0-5 WBCs, negative for infection. Chest x-ray interpreted by myself shows no acute process, no infiltrate or pneumothorax. Troponin, high-sensitivity is elevated at 99. In review of his EMR, he has history of NSTEMI, and his troponins were elevated in the 200s. I do feel that this may be more from his ischemic cardiomyopathy. I discussed patient with Dr. Clark on for cardiology who suggested at least a delta troponin, but does not recommend anticoagulation or heart catheterization. It was felt that the elevated high-sensitivity troponin may be secondary to his ischemic cardiomyopathy. He will be given an aspirin here. I am unsure whether or not the patient has been taking his medication as previously directed. It was felt that he needs to be back on his Eliquis and carvedilol by cardiology along with his other medications for hypertension. I then discussed the patient with Dr. Rojo who would like the patient admitted to the PCU. The RN did have concerns regarding the patient not taking care of himself and not taking his medications with his history of dementia. Social work will be consulted. Disposition is admit in stable condition. Lab Data Attestation: I reviewed the patient's lab results. Labs: Laboratory Results - last 24 hr 07/28/22 07/28/22 07/28/22 19:33 20:00 20:00 WBC 11.4 H RBC 4.16 L Hgb 14.1 Hct 42.1 MCV 101.2 H MCH 33.9 H MCHC 33.5 RDW Std Deviation 55.9 H RDW Coeff of Paul 14.9 H Plt Count 216 MPV 8.8 Immature Gran % (Auto) 0.600 Neut % (Auto) 80.1 H Lymph % (Auto) 11.9 L [place] % (Auto) 6.5 Eos % (Auto) 0.7 Baso % (Auto) 0.2 Absolute Neuts (auto) 9.1 H Absolute Lymphs (auto) 1.35 Nucleated RBC % 0 Sodium 138 Potassium 3.9 Chloride 100 Carbon Dioxide 31.0 Anion Gap 7 BUN 28 H Creatinine 1.16 Estim Creat Clear Calc 57.35 Est GFR (MDRD) Af Amer 79 Est GFR (MDRD) Non-Af 65 BUN/Creatinine Ratio 24.1 H Glucose 124 H Calcium 8.6 Total Bilirubin 0.80 AST 24 ALT 23 Alkaline Phosphatase 60 Troponin I High Sens 99 H Total Protein 6.7 Albumin 3.4 Globulin 3.3 Albumin/Globulin Ratio 1.0 Urine Color Yellow Urine Clarity Clear Urine pH 5.0 Ur Specific [place] 1.025 Urine Protein 30 H Urine Glucose (UA) 1000 H Urine Ketones 5 H Urine Occult Blood 25 H Urine Nitrite Negative Urine Bilirubin Negative Urine Urobilinogen 1 H Ur Leukocyte Esterase 25 H Urine RBC 0-5 SEEN Urine WBC 0-5 SEEN Ur Squamous Epith Cells 0-5 SEEN Urine Bacteria RARE Urine Mucus 0 SEEN Radiography Diagnostic Testing: Clinical Impression(s) from Imaging Studies Chest X-Ray 07/28/22 20:20 IMPRESSION: Mild hyperinflation and old granulomatous disease. No acute cardiopulmonary pathology Electronically Signed: Farhat Celaya MD at 20:58 EDT , Discharge Plan Dx/Rx/DC Orders Clinical Impression: Elevated troponin, Fatigue, History of ischemic cardiomyopathy, Dementia Disposition Disposition: Acute Care [facility]
[2022-07-28 20:04] LABS: Mucous, Urine 0 SEEN /hpf (<or=2+)
[2022-07-28 20:06] LABS: Color, Urine Yellow (Yellow); Glucose, Dipstick 1000 mg/dl (Normal); Ketone-Dipstick 5 mg/dl (Negative); Leukocyte Esterase-Dipstick 25 /ul (Negative); Nitrite-Dipstick Negative (Negative); Occult Blood-Urine 25 /ul (Negative); Protein-Dipstick 30 mg/dl (Negative); Specific Gravity, Urine 1.025 (1.002-1.030); Urine Bilirubin Dipstick Negative (Negative); Urine Clarity Clear (Clear); Urine Urobilinogen 1 mg/dl (Normal)
[2022-07-28 20:08] LABS: Absolute Lymphocyte Count 1.35 X10^3/uL (0.83-4.51); Absolute Neutrophil Count 9.1 X10^3/uL (2.0-7.7); Basophil# 0.02 X10^3/uL; Basophil% 0.2 % (0-1); Eosinophil# 0.08 X10^3/uL; Eosinophils% 0.7 % (0-5); Hematocrit 42.1 % (40-54); Hemoglobin 14.1 g/dL (13.0-16.5); Lymphocyte # 1.35 X10^3/ul (0.83-4.51); Lymphocyte % 11.9 % (19-41); Mean Corp Hgb Conc 33.5 g/dL (32-36); Mean Corpuscular Hgb 33.9 pg (27.0-32.0); Mean Corpuscular Volume 101.2 fL (80-94); Mean Platelet Vol. 8.8 fl (6.2-12.0); Monocyte# 0.74 X10^3/uL; Monocyte% 6.5 % (0-10); NRBC Flagged by Analyzer 0 % (0-5); Neutrophil # 9.12 X10^3/uL (2.7-7.7); Neutrophil % 80.1 % (47-70); Platelet Count 216 K/mm3 (150-450); RBC Distribution Width CV 14.9 % (11.6-14.6); RBC Distribution Width SD 55.9 fl (35.1-43.9); Red Blood Count 4.16 M/mm3 (4.6-6.2); White Blood Count 11.4 K/mm3 (4.4-11.0)
--- NOTE | 2022-07-28 20:20 | RAD_ITS ---
STUDY: X-RAY CHEST REASON FOR EXAM: Male, 76 years old. CAD TECHNIQUE: AP portable COMPARISON: 07/08/2022. FINDINGS: Lungs are hyperinflated but clear. Tiny calcified granuloma in left upper lobe. There is no demonstrated pleural abnormality. Postop change status post median sternotomy and CABG. Normal size heart. Normal mediastinum. Tiny calcified left hilar nodes Normal visualized pulmonary arteries. Normal visualized aortic arch and descending thoracic aorta. Normal visualized thoracic spine. Normal visualized ribs, clavicles, and shoulders. There is no demonstrated abnormality of the visualized soft tissue structures of the upper abdomen. RAD/Chest 1 View (Portable) IMPRESSION: Mild hyperinflation and old granulomatous disease. No acute cardiopulmonary pathology Electronically Signed: Farhat Celaya MD at 20:58 EDT ,
[2022-07-28] MEDS: 0.9% Normal Saline 1,000 ML 1000 ML IV (20:26)
[2022-07-28 20:58] LABS: AST(SGOT) 24 U/L (15-37); Alanine Aminotransfer ALT/SGPT 23 U/L (16-61); Albumin, Serum 3.4 g/dL (3.2-5.0); Alkaline Phosphatase 60 U/L (45-117); Anion Gap 7 (5-15); BUN 28 mg/dL (7-18); BUN/Creat Ratio 24.1 RATIO (10-20); Calcium,Total 8.6 mg/dL (8.5-10.1); Chloride 100 mmol/L (98-107); Creatinine, Serum 1.16 mg/dL (0.70-1.30); EST Glomerular Filtration Rate 65 mL/min (>60); Est Glom Filt Rate - Afr Amer 79 mL/min (>60); Estimated Creatinine Clearance 57.35 ml/min; Globulin 3.3 g/dL (2.2-4.2); Glucose 124 mg/dL (74-106); Potassium 3.9 mmol/L (3.5-5.1); Protein, Total 6.7 g/dL (6.4-8.2); Sodium Level 138 mmol/L (136-145); Troponin-I HS 99 pg/mL (3.0-78.0)
[2022-07-28 21:24] LABS: Bacteria RARE /hpf (None Seen); Red Blood Cells-Urine 0-5 SEEN /hpf (0-5); Squamous Epithelial Cells - UA 0-5 SEEN /hpf (0-5); White Blood Cells 0-5 SEEN /hpf (0-5)
[2022-07-28 21:40] VITALS: BP 117/72; PULSE 68; RESP 18; O2SAT 97
--- NOTE | 2022-07-28 22:28 | PCM.HP.STD ---
HPI - General General Date of Admission: 07/28/22 Date of Service: 07/28/22 Chief Complaint: Abdominal pain HPI Narrative GLADYS DUNCAN, is a 76 M with a significant history of tobacco abuse; dementia with behavioral disturbance; tobacco abuse; ischemic cardiomyopathy; NSTEMI; CAD status post CABG who presents emergency department with lower abdominal upset. Associated with symptom is nausea. Also patient complains of intermittent mild chest pain. He reports that he feels tired walking and trying to buy a car. Patient report that he was discharged from a rehabilitation a day before presentation. He report that he has not been taking his medication for a couple of days. Patient is unable to provide a detailed history secondary to dementia. Emergency Department doctor discussed the case with cardiology who recommended patient stays at the hospital and patient's home medication be resumed. PFSH Medical History COPD (chronic obstructive pulmonary disease) Dementia with behavioral disturbance Ischemic cardiomyopathy NSTEMI, initial episode of care Past heart attack Smoker Home Medications aspirin 81 mg chewable tablet 81 mg PO BREAKFAST #30 tabs 03/14/22 [Rx Last Taken Unknown] atorvastatin 40 mg tablet 40 mg PO QHS #30 tabs 03/14/22 [Rx Last Taken Unknown] apixaban 5 mg tablet (Eliquis) 5 mg PO BID #0 tabs 06/02/22 [Rx Last Taken Unknown] carvedilol 6.25 mg tablet 6.25 mg PO BID #0 tabs 06/02/22 [Rx Last Taken Unknown] empagliflozin 10 mg tablet (Jardiance) 10 mg PO DAILY #0 tabs 06/02/22 [Rx Last Taken Unknown] furosemide 40 mg tablet 40 mg PO DAILY #0 tabs 06/02/22 [Rx Last Taken Unknown] lisinopril 5 mg tablet 5 mg PO DAILY #0 tabs 06/02/22 [Rx Last Taken Unknown] prednisone 20 mg tablet 40 mg PO BREAKFAST #0 tabs 06/04/22 [Rx Last Taken Unknown] Allergy/AdvReac Type Severity Reaction Status Date / Time No Known Allergies Allergy Verified 07/28/22 19:27 Family History Father Heart disease Mother Cancer Surgical History H/O heart surgery Social History household members: none current occupational status: retired Smoking Status: Light Smoker (<10/day) alcohol intake: current alcohol intake frequency: a few times a week Alcohol type: beer, wine and hard liquor substance use type: does not use ROS Review of Systems ROS Unobtainable: due to mental condition Vital Signs Vital Signs Vital Signs: 07/28/22 19:24 07/28/22 19:52 07/28/22 21:40 Temperature 96.6 F L Temperature Source Temporal Pulse Rate 83 68 Respiratory Rate 18 18 Respiratory Effort Normal Non-Labored Respiratory Pattern Normal Blood Pressure 131/73 H 117/72 Blood Pressure Mean 92 87 Pulse Ox 98 97 Oxygen Delivery Method Room Air Room Air Weight Weight: 74.843 kg Body Mass Index (BMI) 20.6 Physical Exam Narrative Physical exam: General: Well-nourished, well-developed. Head: Normocephalic, atraumatic, no tenderness Eyes: Vision is grossly intact. EOMI ENT, no trauma, moist mucous membranes, no rhinorrhea Neck: Nontender, full range of motion, no spinal tenderness, deformities, step-off CVS: Regular rate and rhythm. S1-S2 present. No murmur, gallop or rub. Respiratory : clear to auscultation bilaterally, chest wall nontender, no wheezing Abdomen: Soft, nontender, nondistended, normal bowel sounds, no masses : Deferred Back: Nontender, no CVA tenderness, no midline spinal tenderness, deformities, step-offs Extremities: Nontender full range of motion, no trauma Skin: Normal color, no trauma, abrasions Neuro: Alert, forgetful, cranial nerves II through XII grossly intact. Psychiatry: Normal mood. Normal affect. Not depressed. Not anxious. Results Lab / Micro Data Result Diagrams: 07/28/22 20:00 07/28/22 20:00 Labs: Laboratory Results - last 24 hr 07/28/22 19:33: Urine Color Yellow, Urine Clarity Clear, Urine pH 5.0, Ur Specific [place] 1.025, Urine Protein 30 H, Urine Glucose (UA) 1000 H, Urine Ketones 5 H, Urine Occult Blood 25 H, Urine Nitrite Negative, Urine Bilirubin Negative, Urine Urobilinogen 1 H, Ur Leukocyte Esterase 25 H, Urine RBC 0-5 SEEN, Urine WBC 0-5 SEEN, Ur Squamous Epith Cells 0-5 SEEN, Urine Bacteria RARE, Urine Mucus 0 SEEN 07/28/22 20:00: WBC 11.4 H, RBC 4.16 L, Hgb 14.1, Hct 42.1, MCV 101.2 H, MCH 33.9 H, MCHC 33.5, RDW Std Deviation 55.9 H, RDW Coeff of Paul 14.9 H, Plt Count 216, MPV 8.8, Immature Gran % (Auto) 0.600, Neut % (Auto) 80.1 H, Lymph % (Auto) 11.9 L, [place] % (Auto) 6.5, Eos % (Auto) 0.7, Baso % (Auto) 0.2, Absolute Neuts (auto) 9.1 H, Absolute Lymphs (auto) 1.35, Nucleated RBC % 0 07/28/22 20:00: Sodium 138, Potassium 3.9, Chloride 100, Carbon Dioxide 31.0, Anion Gap 7, BUN 28 H, Creatinine 1.16, Estim Creat Clear Calc 57.35, Est GFR (MDRD) Af Amer 79, Est GFR (MDRD) Non-Af 65, BUN/Creatinine Ratio 24.1 H, Glucose 124 H, Calcium 8.6, Total Bilirubin 0.80, AST 24, ALT 23, Alkaline Phosphatase 60, Troponin I High Sens 99 H, Total Protein 6.7, Albumin 3.4, Globulin 3.3, Albumin/Globulin Ratio 1.0 Radiology Impression Chest X-Ray 07/28/22 20:20 IMPRESSION: Mild hyperinflation and old granulomatous disease. No acute cardiopulmonary pathology Electronically Signed: Farhat Celaya MD at 20:58 EDT , Assessment & Plan Assessment/Plan (1) Dementia: (2) Subsequent non-ST elevation (NSTEMI) myocardial infarction: (3) Abdominal pain: PLAN: Plan NSTEMI Place on a monitored bed at progressive care unit. High sensitivity troponin on presentation was 99. Trend troponin. High-sensitivity troponin on 06/01/2022 was 126 > 206> 219. High-sensitivity troponin 07/08/2022 was 51 and 22. Patient was evaluated by cardiology on 06/02/2022. Stress test at that time showed ischemic cardiomyopathy; evidence of previous inferior infarct and minimal arben-infarct ischemia. Aggressive medical management was recommended at that time. Recommendation was to continue titration of carvedilol; continuation of JOSE ELIAS inhibitor; continuation of Lasix; and starting SGLT 2 inhibitors. Actual CXR image was independently visualized. No acute cardiopulmonary process was noted. Mild hyperinflation and old granulomatous disease seen. I agree with radiologist interpretation Actual EKG tracing was independently visualized. EKG tracing showed left atrial enlargement; inferior infarct and left ventricular hypertrophy. Old EKG was reviewed. EKG remains unchanged Resume home aspirin, Eliquis; Lipitor; and lisinopril. Stat EKG as needed for chest pain Heart failure with reduced ejection fraction Stress test on 06/02/2022 showed EF of 25%. Echocardiogram on 06/01/2022 showed EF of 25% and stage III diastolic dysfunction. Stable. Carvedilol, lisinopril and Lasix continued Hypertension Blood pressure is not within goal Home blood pressure medication continued. Trend blood pressure and adjust blood pressure medications. Paroxysmal A. fib Patient in sinus rhythm. Carvedilol continued. Eliquis continued. Dyspepsia Mylanta ordered Adult failure to thrive/dementia with behavioral disturbances Patient likely will be able to get herself up. Likely he will not be able to take his medications as prescribed. Patient reports walking around looking for counseled by on his presentation and previous presentation. Case management consult for disposition DVT prophylaxis: Subcutaneous Lovenox ordered Charges/Coding Visit Charges Inpatient E&M: 30471 Init Hosp L3
[2022-07-28] MEDS: Aspirin 325 MG Tablet PO (22:34)
[2022-07-28 22:36] VITALS: BP 126/66; PULSE 68; RESP 19; TEMP 36.6
--- NOTE | 2022-07-28 23:07 | EKG12_ITS ---
Test Reason : CP ADMIT Blood Pressure : / mmHG Vent. Rate : 061 BPM Atrial Rate : 061 BPM P-R Int : 140 ms QRS Dur : 132 ms QT Int : 480 ms P-R-T Axes : 072 -24 134 degrees QTc Int : 483 ms Normal sinus rhythm Possible Left atrial enlargement Left ventricular hypertrophy with QRS widening and repolarization abnormality ( Doe product ) Inferior infarct , age undetermined Abnormal ECG When compared with ECG of 28-JUL-2022 20:09, MANUAL COMPARISON REQUIRED, DATA IS UNCONFIRMED Confirmed by FLAVIA SHEN, TRICIA ([id number]), map editor EDOUARD GOLDSMITH ([id number]) on 07/29/2022 1:01:46 PM Referred By: Confirmed By:IESHA ALEJANDRO MD
[2022-07-28 23:09] VITALS: BMI 18.6
[2022-07-28 23:11] VITALS: PULSE 67
[2022-07-28 23:17] VITALS: BP 162/78; PULSE 63; RESP 16; TEMP 36.3; O2SAT 99
[2022-07-28 23:45] VITALS: O2SAT 99
[2022-07-28 23:51] LABS: Troponin-I HS 126 pg/mL (3.0-78.0)
[2022-07-29] VITALS (10 sets, daily range): BP systolic 92–112; BP diastolic 47–64; PULSE 62–80; RESP 16–20; TEMP 36.2–37; O2SAT 96–98
[2022-07-29 02:27] LABS: Absolute Neutrophil Count 8.3 X10^3/uL (2.0-7.7); Basophil# 0.04 X10^3/uL; Basophil% 0.3 % (0-1); Eosinophil# 0.15 X10^3/uL; Eosinophils% 1.3 % (0-5); Hematocrit 38.6 % (40-54); Hemoglobin 12.9 g/dL (13.0-16.5); Mean Corp Hgb Conc 33.4 g/dL (32-36); Mean Corpuscular Hgb 33.2 pg (27.0-32.0); Mean Corpuscular Volume 99.5 fL (80-94); Mean Platelet Vol. 8.9 fl (6.2-12.0); Monocyte# 0.79 X10^3/uL; Monocyte% 6.6 % (0-10); NRBC Flagged by Analyzer 0 % (0-5); Neutrophil # 8.34 X10^3/uL (2.7-7.7); Neutrophil % 70.1 % (47-70); Platelet Count 198 K/mm3 (150-450); RBC Distribution Width CV 14.8 % (11.6-14.6); RBC Distribution Width SD 54.7 fl (35.1-43.9); Red Blood Count 3.88 M/mm3 (4.6-6.2); White Blood Count 11.9 K/mm3 (4.4-11.0)
[2022-07-29 03:22] LABS: Troponin-I HS 130 pg/mL (3.0-78.0)
[2022-07-29 03:30] LABS: Anion Gap 9 (5-15); BUN 22 mg/dL (7-18); Calcium,Total 8.2 mg/dL (8.5-10.1); Chloride 106 mmol/L (98-107); Creatinine, Serum 1.05 mg/dL (0.70-1.30); EST Glomerular Filtration Rate 73 mL/min (>60); Est Glom Filt Rate - Afr Amer 88 mL/min (>60); Estimated Creatinine Clearance 57.23 ml/min; Glucose 94 mg/dL (74-106); Potassium 3.9 mmol/L (3.5-5.1); Sodium Level 140 mmol/L (136-145)
[2022-07-29] MEDS: Lisinopril 5 MG Tablet PO (08:22)
[2022-07-29] MEDS: Empagliflozin 10 MG Tablet PO (08:22)
[2022-07-29] MEDS: Aspirin 81 MG TAB.CHEW PO (08:22)
[2022-07-29] MEDS: Carvedilol 6.25 MG Tablet PO ×2 (08:22→23:07)
[2022-07-29] MEDS: Furosemide 40 MG Tablet PO (08:22)
[2022-07-29] MEDS: FLU VACC QS2022-23(6MOS UP)/PF 60 MCG/0.5 ML SYRINGE IM (08:23)
--- NOTE | 2022-07-29 10:40 | CASEMGMT ---
VENANCIO CAREY Face to Face with patient for initial transition planning/care coordination assessment. RN AURELIO introduced self and role at [facility]. Patient lying in bed, alert and confused. Patient willing to participate in assessment and is able to answer some questions appropriately. Care providers, pharmacy, and demographics verified. Patient wishes to discharge home but is willing to go to SNF for rehab if needed. Patient states he has no further needs or concerns at this time. CM to follow for discharge planning needs that may arise. PCP: None, CM will provide patient with PCP list Specialists: none Preferred Pharmacy: [facility] Insurance: [place], [facility] Prescription Benefit: patient not sure Living Will/HPOA: none LNOK: Sister Janiya lives in [place] Living Arrangements: Patient lives alone in a 2 story home. Patient states he is independent and able to ambulate stairs. Patient states he goes to restaurants for meals Transportation: walks, neighbor DME/HHC: Patient states he thinks he has a cane and shower chair at home. No previous HHC or SNF. Patient states he smokes 1/2 PPD of cigarettes. Patient states he has a couple glasses of wine 2-3 times per week. Patient was discharged to [facility] facility last admission Disposition Plan: TBD anticipate SNF at discharge. Tram RUIZ, RN, CM
[2022-07-29] MEDS: APIXABAN 5 MG TABLET PO ×2 (11:05→23:07)
--- NOTE | 2022-07-29 11:50 | PCM.PN.HOSP ---
Subjective Subjective Doing well, no issues overnight. States that his palpitations/chest pain that brought him into the hospital have resolved. Troponin is minimally elevated and the last time he was here medical management was recommended and at that time and troponins were higher Objective Data Objective Data Vital Signs: Vital Signs Temp Pulse Resp BP Pulse Ox O2 Del Method 97.3 F L 64 18 112/60 97 Room Air 07/29/22 10:15 07/29/22 10:15 07/29/22 10:15 07/29/22 10:15 07/29/22 10:20 07/29/22 10:20 Oxygen Delivery Method Room Air Weight: 149 lb 0.52 oz Body Mass Index (BMI) 18.6 Intake & Output: Intake and Output for Last 24 Hours 07/28/22 07/29/22 07/30/22 03:59 03:59 03:59 Intake Total 1000 / 1000 Balance 1000 / 1000 Lab / Micro Data Result Diagrams: 07/29/22 02:18 07/29/22 02:18 Labs: Laboratory Results - last 24 hr 07/28/22 19:33: Urine Color Yellow, Urine Clarity Clear, Urine pH 5.0, Ur Specific [place] 1.025, Urine Protein 30 H, Urine Glucose (UA) 1000 H, Urine Ketones 5 H, Urine Occult Blood 25 H, Urine Nitrite Negative, Urine Bilirubin Negative, Urine Urobilinogen 1 H, Ur Leukocyte Esterase 25 H, Urine RBC 0-5 SEEN, Urine WBC 0-5 SEEN, Ur Squamous Epith Cells 0-5 SEEN, Urine Bacteria RARE, Urine Mucus 0 SEEN 07/28/22 20:00: WBC 11.4 H, RBC 4.16 L, Hgb 14.1, Hct 42.1, MCV 101.2 H, MCH 33.9 H, MCHC 33.5, RDW Std Deviation 55.9 H, RDW Coeff of Paul 14.9 H, Plt Count 216, MPV 8.8, Immature Gran % (Auto) 0.600, Neut % (Auto) 80.1 H, Lymph % (Auto) 11.9 L, [place] % (Auto) 6.5, Eos % (Auto) 0.7, Baso % (Auto) 0.2, Absolute Neuts (auto) 9.1 H, Absolute Lymphs (auto) 1.35, Nucleated RBC % 0 07/28/22 20:00: Sodium 138, Potassium 3.9, Chloride 100, Carbon Dioxide 31.0, Anion Gap 7, BUN 28 H, Creatinine 1.16, Estim Creat Clear Calc 57.35, Est GFR (MDRD) Af Amer 79, Est GFR (MDRD) Non-Af 65, BUN/Creatinine Ratio 24.1 H, Glucose 124 H, Calcium 8.6, Total Bilirubin 0.80, AST 24, ALT 23, Alkaline Phosphatase 60, Troponin I High Sens 99 H, Total Protein 6.7, Albumin 3.4, Globulin 3.3, Albumin/Globulin Ratio 1.0 07/28/22 23:17: Troponin I High Sens 126 H* 07/29/22 02:18: WBC 11.9 H, RBC 3.88 L, Hgb 12.9 L, Hct 38.6 L, MCV 99.5 H, MCH 33.2 H, MCHC 33.4, RDW Std Deviation 54.7 H, RDW Coeff of Paul 14.8 H, Plt Count 198, MPV 8.9, Immature Gran % (Auto) 0.700, Neut % (Auto) 70.1 H, Lymph % (Auto) 21.0, [place] % (Auto) 6.6, Eos % (Auto) 1.3, Baso % (Auto) 0.3, Absolute Neuts (auto) 8.3 H, Absolute Lymphs (auto) 2.50, Nucleated RBC % 0 07/29/22 02:18: Sodium 140, Potassium 3.9, Chloride 106, Carbon Dioxide 25.0, Anion Gap 9, BUN 22 H, Creatinine 1.05, Estim Creat Clear Calc 57.23, Est GFR (MDRD) Af Amer 88, Est GFR (MDRD) Non-Af 73, BUN/Creatinine Ratio 21.0 H, Glucose 94, Calcium 8.2 L 07/29/22 02:18: Troponin I High Sens 130 H* Radiography Diagnostic Testing: Radiology Impression Chest X-Ray 07/28/22 20:20 IMPRESSION: Mild hyperinflation and old granulomatous disease. No acute cardiopulmonary pathology Electronically Signed: Farhat Celaya MD at 20:58 EDT , Physical Exam Narrative General: Alert, Oriented x3, Cooperative, No apparent distress, mentation is slow HEENT: Atraumatic, PERRLA, EOMI, Normocephalic Oral: Moist Mucosa Neck: Supple, No JVD Lungs: Clear to auscultation, Normal air movement, No rhonchi, No wheeze, No rales Cardiovascular: Regular rate, Regular Rhythm, Normal S1, Normal S2, No murmurs Abdomen: Soft, Non Tender, Non-Distended, No Hepato-splenomegaly Extremities: No edema, Capillary Refill Less than 3 Seconds Skin: No rashes, No breakdown Musculoskeletal: No Tenderness to Palpation of Joints or Extremities Neurological: Cranial nerves II-XII grossly intact, Motor Exam 5/5 strength throughout, Sensory exam intact to light touch and pain Psych/Mental Status: Normal Affect, Appropriate Assessment & Plan Assessment/Plan (1) Dementia: (2) Subsequent non-ST elevation (NSTEMI) myocardial infarction: (3) Abdominal pain: PLAN: Plan 1. Non-STEMI/chronic systolic CHF/paroxysmal A. fib/HLD/HTN ? Given his dementia he is not likely to be a candidate for any significant intervention ? She was recently admitted for a non-STEMI and was medical management. ? At that time he did have a stress test which showed some ischemic cardiomyopathy with a previous inferior infarct ? We will continue with aggressive medical management and have him evaluated by PT/OT for placement ? Continue with Eliquis, aspirin, Lipitor, Coreg, Lasix, lisinopril ? Continue with Jardiance 2. 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 Would likely benefit from chronic placement ? We will have PT and OT evaluate him for short-term placement ? She has no home support and apparently lives alone DVT: Eliquis Charges/Coding Visit Charges Inpatient E&M: 73771 Subs Hosp L2
--- NOTE | 2022-07-29 14:23 | CHAPLAIN ---
Type of Pastoral Visit _x__ Initial Visit ___ Follow-up Visit ___ On-call Visit ___ General Patient Visit ___ Spiritual Assessment ___ Family Conference ___ Bereavement ___ Rapid Response ___ Code Blue ___ Other (describe below) Pastoral Care Referral From _x__ Patient ___ Family ___ Nurse ___ Physician ___ Change Release Manager ___ Team Driver ___ Other (describe below) Sacrament/Intervention _x__ Active listening ___ Anointing ___ Restoration ___ Bereavement ___ Communion ___ Carina exploration ___ _x__ Life review _x__ Prayer ___ Reconciliation ___ Sacrament of Sick _x__ Supportive presence ___ Wedding ___ Other (describe below) Pastoral Comments patient requested help to the bathroom; called RN for assistance; pt is back in bed and eating his lunch; pt gives some review of 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
--- NOTE | 2022-07-29 15:01 | CASEMGMT ---
JAYLEN called [facility] JAYLEN to see if they have anymore information on patient. [facility] said patient is a [facility] patient. Patient has not been seen at the [place] [facility] since August 2020. They have the same machine repair person as [facility] has on file. Patient is not service connected. His Hedis Nurse at the [facility] would be María Valles [phone] [id number]. Hermila ZHONG
[2022-07-29] MEDS: Atorvastatin Calcium 40 MG Tablet PO (23:07)
[2022-07-29] MEDS: 0.9% Saline Lock 10 ML Syringe IV (23:08)
[2022-07-30] VITALS (10 sets, daily range): BP systolic 100–105; BP diastolic 59–67; PULSE 66–100; RESP 16–18; TEMP 36.6–37; O2SAT 94–100
[2022-07-30] MEDS: Furosemide 40 MG Tablet PO (08:57)
[2022-07-30] MEDS: Aspirin 81 MG TAB.CHEW PO (08:57)
[2022-07-30] MEDS: Carvedilol 6.25 MG Tablet PO ×2 (08:57→21:44)
[2022-07-30] MEDS: Empagliflozin 10 MG Tablet PO (08:57)
[2022-07-30] MEDS: APIXABAN 5 MG TABLET PO ×2 (08:57→21:44)
[2022-07-30] MEDS: Lisinopril 5 MG Tablet PO (08:57)
--- NOTE | 2022-07-30 10:24 | CM.ED ---
JAYLEN Note JAYLEN received voice mail from Logan at [facility]. She requested call back. JAYLEN called Logan at [facility]. She is currently involved with patient due to concerns of patient not having a car, has not been filling his mediation, no family nearby to check on him and living alone. Logan was advised patient is on PCU currently. JAYLEN called Hermila [facility] JAYLEN and updated her that Logan from [facility] is involved. Amira BARAHONA
--- NOTE | 2022-07-30 10:58 | CASEMGMT ---
SW met with patient. Patient was reading the newspaper. SW introduced self and role at [facility]. Patient was telling SW about the articles he was reading in newspaper. 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 SW had to interrupt patient to talk. SW mentioned rehab at discharge. At first patient said he has had enough rehab. patient then got sidetracked and started talking about articles in the newspaper. SW got patient's attention again and told patient it sounds like he is not taking care of himself. For instance, he is not taking his medications and he doesn't have a primary care doctor. Patient said he knows some physicians and elaborated on this. However, SW could not quite make sense of what he said. Patient then said, I have to take better care of myself? SW told patient he does by going to the doctor and taking his medications. SW then asked where he would go for rehab. SW provided patient with a list of providers including quality and resource use data and consistent with patient?s preferred geographic region, medical needs, and insurance network were provided from the [employer] Guide. SW will check back with patient. Hermila ZHONG
--- NOTE | 2022-07-30 12:46 | PCM.PN.HOSP ---
Subjective Subjective Doing well, no chest pain or shortness of breath. No issues overnight Objective Data Objective Data Vital Signs: Vital Signs Temp Pulse Resp BP Pulse Ox O2 Del Method 97.8 F 71 16 100/60 96 Room Air 07/30/22 09:00 07/30/22 09:00 07/30/22 09:00 07/30/22 09:00 07/30/22 09:00 07/30/22 10:00 Oxygen Delivery Method Room Air Weight: 149 lb 0.52 oz Body Mass Index (BMI) 18.6 Intake & Output: Intake and Output for Last 24 Hours 07/29/22 07/30/22 07/31/22 03:59 03:59 03:59 Intake Total 1000 / 1000 950 / 950 500 / 500 Balance 1000 / 1000 950 / 950 500 / 500 Lab / Micro Data Result Diagrams: 07/29/22 02:18 07/29/22 02:18 Physical Exam Narrative General: Alert, Oriented x3, Cooperative, No apparent distress, mentation is slow HEENT: Atraumatic, PERRLA, EOMI, Normocephalic Oral: Moist Mucosa Neck: Supple, No JVD Lungs: Clear to auscultation, Normal air movement, No rhonchi, No wheeze, No rales Cardiovascular: Regular rate, Regular Rhythm, Normal S1, Normal S2, No murmurs Abdomen: Soft, Non Tender, Non-Distended, No Hepato-splenomegaly Extremities: No edema, Capillary Refill Less than 3 Seconds Skin: No rashes, No breakdown Musculoskeletal: No Tenderness to Palpation of Joints or Extremities Neurological: Cranial nerves II-XII grossly intact, Motor Exam 5/5 strength throughout, Sensory exam intact to light touch and pain Psych/Mental Status: Normal Affect, Appropriate, some tangential speech Assessment & Plan Assessment/Plan (1) Dementia: (2) Subsequent non-ST elevation (NSTEMI) myocardial infarction: (3) Abdominal pain: PLAN: Plan 1. Non-STEMI/chronic systolic CHF/paroxysmal A. fib/HLD/HTN ? Given his dementia he is not likely to be a candidate for any significant intervention ? She was recently admitted for a non-STEMI and was medical management. ? At that time he did have a stress test which showed some ischemic cardiomyopathy with a previous inferior infarct ? We will continue with aggressive medical management and have him evaluated by PT/OT for placement ? Continue with Eliquis, aspirin, Lipitor, Coreg, Lasix, lisinopril ? Continue with Jardiance 2. 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 Would likely benefit from chronic placement ? We will have PT and OT evaluate him for placement ?He has no home support and apparently lives alone ? 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 I am concerned that when he goes home he does not take his medications and discussing with him to try to get an idea about his past need to understand his health care has been difficult. Since he has been here and taking his medications appropriately we have not had any further issues with palpitations or chest pressure or even chest pain. DVT: Aaliyahqurudy Charges/Coding Visit Charges Inpatient E&M: 97886 Subs Hosp L2
--- NOTE | 2022-07-30 13:03 | CASEMGMT ---
JAYLEN had left a message for Logan at [facility]. Logan called JAYLEN back. Logan said she has met patient one time, but has not been able to reach him when she goes to his home. Logan said [facility] did not call her with a referral. JAYLEN explained to Logan that records are being requested from [facility]. JAYLEN is concerned that patient should have a guardian. Logan asked if the physician would do the Statement of Expert Evaluation. JAYLEN told her SW will have to ask. Logan told SW to keep her updated. JAYLNE met with patient. Introduced self as well as role at [facility]. Patient did not remember SW talking with him earlier today. SW asked patient if he knows where he is. Patient said he is at [facility]. SW asked patient if he knows why he is in the hospital. Patient said, Rehab. SW asked patient if he is doing rehab here and patient said, Yes. SW asked patient the date and he knew it was the end of July, but could not give the date or day. SW explained to patient that he has not been taking his medications. SW asked patient if he understands what could happen if he doesn't take his medications. Patient said, I could get deficiencies. Patient could not elaborate on this comment. SW asked patient if he has talked with his sister and he has not for awhile. SW asked if it would be okay if SW called his sister and patient said that would be fine. SW explained to patient SW is working on a safe plan for patient. Patient told JAYLEN, I feel fine and thank you for your concern. Hermila ZHONG
--- NOTE | 2022-07-30 13:57 | CASEMGMT ---
JAYLEN called patient's sister Janiya and left her a voice mail requesting a return call. JAYLEN called the other phone number listed for Janiya, but it did not have any identifying information on message so SW did not leave a message. Await return call. Hermila ZHONG
--- NOTE | 2022-07-30 14:29 | CASEMGMT ---
Per admission questions patient does not have a Healthcare Power of Stitch Cleaner or Healthcare Living Will. Patient declined information. Hermila Campos [facility]
--- NOTE | 2022-07-30 14:55 | CASEMGMT ---
SW called [facility] and inquired if patient had any follow up appointments scheduled with them. There was nothing on file for patient. Hermila ZHONG
--- NOTE | 2022-07-30 15:42 | CASEMGMT ---
JAYLEN received a return call from patient's sister Janiya. Janiya said patient has Schizophrenia and he has been off his meds for years. When their mother was living patient lived with her and went off his meds. Their mother told him to leave, but he came back. Patient was then ordered to go in for medication administration, however this went away. Patient also has a history of drug and alcohol abuse. Patient used to visit Janiya in [place], but she asked him to stop coming as it was too much. Patient has not talked with her since then. JAYLEN thanked her for the information. The records from [facility] arrived via fax. Patient does in [facility] have a diagnosis of Schizoprhenia. JAYLEN called Logan at [facility] and gave her the update. Physician agreed to complete the statement of Expert Evaluation. JAYLEN will follow up with Logan at [facility] on Tuesday. Hermila ZHONG
[2022-07-30] MEDS: RisperiDONE 1 MG Tablet 2 MG PO ×2 (16:17→21:43)
[2022-07-30] MEDS: Atorvastatin Calcium 40 MG Tablet PO (21:44)
[2022-07-31] VITALS (12 sets, daily range): BP systolic 94–119; BP diastolic 60–71; PULSE 54–98; RESP 14–18; TEMP 36.6–37.3; O2SAT 92–98
[2022-07-31 06:07] LABS: Absolute Lymphocyte Count 1.69 X10^3/uL (0.83-4.51); Basophil# 0.06 X10^3/uL; Basophil% 0.6 % (0-1); Eosinophil# 0.22 X10^3/uL; Eosinophils% 2.3 % (0-5); Hematocrit 35.7 % (40-54); Hemoglobin 11.9 g/dL (13.0-16.5); Lymphocyte # 1.69 X10^3/ul (0.83-4.51); Lymphocyte % 17.4 % (19-41); Mean Corp Hgb Conc 33.3 g/dL (32-36); Mean Corpuscular Hgb 33.4 pg (27.0-32.0); Mean Corpuscular Volume 100.3 fL (80-94); Mean Platelet Vol. 9.4 fl (6.2-12.0); Monocyte# 0.73 X10^3/uL; Monocyte% 7.5 % (0-10); NRBC Flagged by Analyzer 0 % (0-5); Neutrophil # 6.95 X10^3/uL (2.7-7.7); Neutrophil % 71.8 % (47-70); Platelet Count 177 K/mm3 (150-450); RBC Distribution Width CV 14.8 % (11.6-14.6); RBC Distribution Width SD 55.9 fl (35.1-43.9); Red Blood Count 3.56 M/mm3 (4.6-6.2); White Blood Count 9.7 K/mm3 (4.4-11.0)
[2022-07-31 06:35] LABS: Anion Gap 5 (5-15); BUN 18 mg/dL (7-18); BUN/Creat Ratio 16.7 RATIO (10-20); Calcium,Total 8.4 mg/dL (8.5-10.1); Chloride 103 mmol/L (98-107); Creatinine, Serum 1.08 mg/dL (0.70-1.30); EST Glomerular Filtration Rate 71 mL/min (>60); Est Glom Filt Rate - Afr Amer 85 mL/min (>60); Estimated Creatinine Clearance 55.64 ml/min; Glucose 88 mg/dL (74-106); Potassium 3.8 mmol/L (3.5-5.1); Sodium Level 138 mmol/L (136-145)
--- NOTE | 2022-07-31 08:50 | PCM.PN.HOSP ---
Subjective Subjective On review of his previous psych admission, he was admitted to mental health facility in May for several weeks and then he was readmitted to the same facility in July for several weeks. He was taken off of his Risperdal and placed on a 1 month injectable however he does not follow-up. In the notes it was mentioned that he lacks insight into his illness and understanding the risks and benefits of his disease. Because of this and the conversations that have had with him I do not feel like he is able to make appropriate decisions for his healthcare so we will pursue temporary guardianship. Objective Data Objective Data Vital Signs: Vital Signs Temp Pulse Resp BP Pulse Ox O2 Del Method 98.0 F 74 18 110/70 92 Room Air 07/31/22 04:00 07/31/22 07:05 07/31/22 04:00 07/31/22 04:00 07/31/22 07:20 07/31/22 08:45 Oxygen Delivery Method Room Air Weight: 149 lb 0.52 oz Body Mass Index (BMI) 18.6 Intake & Output: Intake and Output for Last 24 Hours 07/30/22 07/31/22 08/01/22 03:59 03:59 03:59 Intake Total 950 / 950 1080 / 1080 Balance 950 / 950 1080 / 1080 Lab / Micro Data Result Diagrams: 07/31/22 05:11 07/31/22 05:11 Labs: Laboratory Results - last 24 hr 07/31/22 05:11: WBC 9.7, RBC 3.56 L, Hgb 11.9 L, Hct 35.7 L, MCV 100.3 H, MCH 33.4 H, MCHC 33.3, RDW Std Deviation 55.9 H, RDW Coeff of Paul 14.8 H, Plt Count 177, MPV 9.4, Immature Gran % (Auto) 0.400, Neut % (Auto) 71.8 H, Lymph % (Auto) 17.4 L, [place] % (Auto) 7.5, Eos % (Auto) 2.3, Baso % (Auto) 0.6, Absolute Neuts (auto) 7.0, Absolute Lymphs (auto) 1.69, Nucleated RBC % 0 07/31/22 05:11: Sodium 138, Potassium 3.8, Chloride 103, Carbon Dioxide 30.0, Anion Gap 5, BUN 18, Creatinine 1.08, Estim Creat Clear Calc 55.64, Est GFR (MDRD) Af Amer 85, Est GFR (MDRD) Non-Af 71, BUN/Creatinine Ratio 16.7, Glucose 88, Calcium 8.4 L Physical Exam Narrative General: Alert, Oriented x3, Cooperative, No apparent distress, mentation is slow HEENT: Atraumatic, PERRLA, EOMI, Normocephalic Oral: Moist Mucosa Neck: Supple, No JVD Lungs: Clear to auscultation, Normal air movement, No rhonchi, No wheeze, No rales Cardiovascular: Regular rate, Regular Rhythm, Normal S1, Normal S2, No murmurs Abdomen: Soft, Non Tender, Non-Distended, No Hepato-splenomegaly Extremities: No edema, Capillary Refill Less than 3 Seconds Skin: No rashes, No breakdown Musculoskeletal: No Tenderness to Palpation of Joints or Extremities Neurological: Cranial nerves II-XII grossly intact, Motor Exam 5/5 strength throughout, Sensory exam intact to light touch and pain Psych/Mental Status: Normal Affect, Appropriate, some tangential speech and poor insight into his disease process. He does not understand why he needs to take the medications he needs to take Assessment & Plan Assessment/Plan (1) Dementia: (2) Subsequent non-ST elevation (NSTEMI) myocardial infarction: (3) Abdominal pain: PLAN: Plan 1. Non-STEMI/chronic systolic CHF/paroxysmal A. fib/HLD/HTN ? Given his dementia he is not likely to be a candidate for any significant intervention ? She was recently admitted for a non-STEMI and was medical management. ? At that time he did have a stress test which showed some ischemic cardiomyopathy with a previous inferior infarct ? We will continue with aggressive medical management and have him evaluated by PT/OT for placement ? Continue with Eliquis, aspirin, Lipitor, Coreg, Lasix, lisinopril ? Continue with Jardiance 2. Adult failure to thrive with dementia, medication noncompliance with paranoid schizophrenia ? Would likely benefit from chronic placement ? We will have PT and OT evaluate him for placement ?He has no home support and apparently lives alone ? 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 I am concerned that when he goes home he does not take his medications and discussing with him to try to get an idea about his past need to understand his health care has been difficult. Since he has been here and taking his medications appropriately we have not had any further issues with palpitations or chest pressure or even chest pain. ? We will restart him on his twice daily Risperdal, I will also fill out paperwork to pursue temporary guardianship ? 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
[2022-07-31] MEDS: Carvedilol 6.25 MG Tablet PO ×2 (09:31→22:15)
[2022-07-31] MEDS: Furosemide 40 MG Tablet PO (09:31)
[2022-07-31] MEDS: Empagliflozin 10 MG Tablet PO (09:31)
[2022-07-31] MEDS: APIXABAN 5 MG TABLET PO ×2 (09:32→22:15)
[2022-07-31] MEDS: Aspirin 81 MG TAB.CHEW PO (09:32)
[2022-07-31] MEDS: RisperiDONE 1 MG Tablet 2 MG PO ×2 (09:32→22:15)
[2022-07-31] MEDS: Atorvastatin Calcium 40 MG Tablet PO (22:15)
[2022-08-01] VITALS (11 sets, daily range): BP systolic 99–119; BP diastolic 51–78; PULSE 65–87; RESP 14–18; TEMP 36.5–37.1; O2SAT 95–99
[2022-08-01] MEDS: RisperiDONE 1 MG Tablet 2 MG PO ×2 (08:43→21:34)
[2022-08-01] MEDS: Furosemide 40 MG Tablet PO (08:44)
[2022-08-01] MEDS: APIXABAN 5 MG TABLET PO ×2 (08:44→21:25)
[2022-08-01] MEDS: Carvedilol 6.25 MG Tablet PO ×2 (08:44→21:25)
[2022-08-01] MEDS: Aspirin 81 MG TAB.CHEW PO (08:44)
[2022-08-01] MEDS: Empagliflozin 10 MG Tablet PO (08:44)
[2022-08-01] MEDS: Ensure Plus High Protein 120 ML LIQUID PO ×4 (10:46→21:25)
--- NOTE | 2022-08-01 12:13 | PN.HOSP_ITS ---
Subjective Subjective No issues overnight, doing well. Objective Data Objective Data Vital Signs: Vital Signs Temp Pulse Resp BP Pulse Ox O2 Del Method 98 F 87 14 105/51 L 97 Room Air 08/01/22 08:30 08/01/22 11:39 08/01/22 08:30 08/01/22 08:30 08/01/22 08:30 08/01/22 08:34 Oxygen Delivery Method Room Air Weight: 149 lb 0.52 oz Body Mass Index (BMI) 18.6 Intake & Output: Intake and Output for Last 24 Hours 07/31/22 08/01/22 08/02/22 03:59 03:59 03:59 Intake Total 1080 / 1080 1225 / 1225 650 / 650 Output Total 200 / 200 Balance 1080 / 1080 1025 / 1025 650 / 650 Lab / Micro Data Result Diagrams: 07/31/22 05:11 07/31/22 05:11 Physical Exam Narrative General: Alert, Oriented x3, Cooperative, No apparent distress, mentation is slow HEENT: Atraumatic, PERRLA, EOMI, Normocephalic Oral: Moist Mucosa Neck: Supple, No JVD Lungs: Clear to auscultation, Normal air movement, No rhonchi, No wheeze, No rales Cardiovascular: Regular rate, Regular Rhythm, Normal S1, Normal S2, No murmurs Abdomen: Soft, Non Tender, Non-Distended, No Hepato-splenomegaly Extremities: No edema, Capillary Refill Less than 3 Seconds Skin: No rashes, No breakdown Musculoskeletal: No Tenderness to Palpation of Joints or Extremities Neurological: Cranial nerves II-XII grossly intact, Motor Exam 5/5 strength throughout, Sensory exam intact to light touch and pain Psych/Mental Status: Normal Affect, Appropriate, some tangential speech and poor insight into his disease process. He does not understand why he needs to take the medications he needs to take Assessment & Plan Assessment/Plan (1) Dementia: (2) Subsequent non-ST elevation (NSTEMI) myocardial infarction: (3) Abdominal pain: PLAN: Plan 1. Non-STEMI/chronic systolic CHF/paroxysmal A. fib/HLD/HTN ? Given his dementia he is not likely to be a candidate for any significant intervention ? She was recently admitted for a non-STEMI and was medical management. ? At that time he did have a stress test which showed some ischemic cardiomyopathy with a previous inferior infarct ? We will continue with aggressive medical management and have him evaluated by PT/OT for placement ? Continue with Eliquis, aspirin, Lipitor, Coreg, Lasix, lisinopril ? Continue with Jardiance 2. Adult failure to thrive with dementia, medication noncompliance with paranoid schizophrenia ? Would likely benefit from chronic placement ? We will have PT and OT evaluate him for placement ?He has no home support and apparently lives alone ? 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 I am concerned that when he goes home he does not take his medications and discussing with him to try to get an idea about his past need to understand his health care has been difficult. Since he has been here and taking his medications appropriately we have not had any further issues with palpitations or chest pressure or even chest pain. ? We will restart him on his twice daily Risperdal, I will also fill out paperwork to pursue temporary guardianship ? 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
[2022-08-01] MEDS: Atorvastatin Calcium 40 MG Tablet PO (21:25)
[2022-08-01] MEDS: MELATONIN 3 MG TABLET PO (21:25)
[2022-08-02] VITALS (8 sets, daily range): BP systolic 93–108; BP diastolic 58–67; PULSE 54–78; RESP 16–18; TEMP 36.2–36.6; O2SAT 96–98
[2022-08-02 06:22] LABS: Absolute Neutrophil Count 10.6 X10^3/uL (2.0-7.7); Basophil# 0.05 X10^3/uL; Basophil% 0.4 % (0-1); Eosinophil# 0.24 X10^3/uL; Eosinophils% 1.8 % (0-5); Hematocrit 34.7 % (40-54); Hemoglobin 11.8 g/dL (13.0-16.5); Lymphocyte % 9.9 % (19-41); Mean Corpuscular Hgb 34.4 pg (27.0-32.0); Mean Corpuscular Volume 101.2 fL (80-94); Mean Platelet Vol. 9.1 fl (6.2-12.0); Monocyte# 0.92 X10^3/uL; NRBC Flagged by Analyzer 0 % (0-5); Neutrophil # 10.57 X10^3/uL (2.7-7.7); Neutrophil % 80.5 % (47-70); Platelet Count 173 K/mm3 (150-450); RBC Distribution Width CV 14.9 % (11.6-14.6); RBC Distribution Width SD 55.8 fl (35.1-43.9); Red Blood Count 3.43 M/mm3 (4.6-6.2); White Blood Count 13.1 K/mm3 (4.4-11.0)
[2022-08-02 06:43] LABS: Anion Gap 7 (5-15); BUN 22 mg/dL (7-18); BUN/Creat Ratio 21.8 RATIO (10-20); Calcium,Total 8.3 mg/dL (8.5-10.1); Chloride 100 mmol/L (98-107); Creatinine, Serum 1.01 mg/dL (0.70-1.30); EST Glomerular Filtration Rate 76 mL/min (>60); Est Glom Filt Rate - Afr Amer 92 mL/min (>60); Estimated Creatinine Clearance 59.49 ml/min; Glucose 112 mg/dL (74-106); Sodium Level 134 mmol/L (136-145)
--- NOTE | 2022-08-02 08:17 | PN.HOSP_ITS ---
Subjective Subjective Patient is a 76-year-old gentleman who presented with abdominal pain. An assessment of adult failure to thrive made admitted to monitored bed for subsequent management. Patient was also found to have elevated troponin on admission Objective Data Objective Data Vital Signs: Vital Signs Temp Pulse Resp BP Pulse Ox O2 Del Method 97.2 F L 54 L 16 97/62 96 Room Air 08/02/22 03:20 08/02/22 06:38 08/02/22 03:20 08/02/22 03:20 08/02/22 03:20 08/02/22 08:00 Oxygen Delivery Method Room Air Weight: 67.6 kg Body Mass Index (BMI) 18.6 Intake & Output: Intake and Output for Last 24 Hours 07/31/22 08/01/22 08/02/22 23:59 23:59 23:59 Intake Total 1225 / 1225 1300 / 1300 Output Total 200 / 200 Balance 1025 / 1025 1300 / 1300 Lab / Micro Data Result Diagrams: 08/02/22 03:34 08/02/22 03:34 Labs: Laboratory Results - last 24 hr 08/02/22 03:34: WBC 13.1 H, RBC 3.43 L, Hgb 11.8 L, Hct 34.7 L, MCV 101.2 H, MCH 34.4 H, MCHC 34.0, RDW Std Deviation 55.8 H, RDW Coeff of Paul 14.9 H, Plt Count 173, MPV 9.1, Immature Gran % (Auto) 0.400, Neut % (Auto) 80.5 H, Lymph % (Auto) 9.9 L, [place] % (Auto) 7.0, Eos % (Auto) 1.8, Baso % (Auto) 0.4, Absolute Neuts (auto) 10.6 H, Absolute Lymphs (auto) 1.30, Nucleated RBC % 0 08/02/22 03:34: Sodium 134 L, Potassium 4.0, Chloride 100, Carbon Dioxide 27.0, Anion Gap 7, BUN 22 H, Creatinine 1.01, Estim Creat Clear Calc 59.49, Est GFR (MDRD) Af Amer 92, Est GFR (MDRD) Non-Af 76, BUN/Creatinine Ratio 21.8 H, Glucose 112 H, Calcium 8.3 L Physical Exam Narrative GENERAL: cooperative HEENT: Atraumatic; normocephalic EYES; Anicteric, Normal Conjunctiva NECK; supple, normal thyroid, RESPIRATORY: Diminished to auscultation CARDIOVASCULAR: Regular S1 S2, GI: soft, normoactive bowel sounds, : No Renal angle tenderness; EXTREMITIES: No edema, no clubbing, MUSCULOSKELETAL: no muscle wasting NEURO: Awake; no lateralizing signs. SKIN: No Rash PSYCH; Flat affect Assessment & Plan Assessment/Plan (1) Dementia: (2) Subsequent non-ST elevation (NSTEMI) myocardial infarction: (3) Abdominal pain: PLAN: Plan Patient is a 76-year-old gentleman who presented with abdominal pain. An assessment of adult failure to thrive made admitted to monitored bed for subsequent management. Patient was also found to have elevated troponin on admission 1. Physical deconditioning ? Secondary to medication noncompliance as a result of underlying paranoid schizophrenia - Requested for PT OT eval and social services aide to assist with discharge planning 2. Acute on chronic congestive heart failure ? Echo obtained on 06/02/2022 demonstrated EF of 25%. Admitted to monitored bed for treatment of an CHF with diuretics, strict input and output, daily weights and fluid restriction patient on recommended medications including SGLT 2 inhibitors, JOSE ELIAS inhibitors 3. Acute non-STEMI ? Suspected type II non-STEMI from demand ischemia as a result of CHF 4. Paroxysmal A. fib Rate controlled on systemic anticoagulation with apixaban 5. Dyslipidemia -Patient is on statin therapy, continued at home dose 6. Hypertension - Blood pressure controlled, home medications continued with dose adjustment as needed 7. DVT prophylaxis ? On Eliquis Charges/Coding Visit Charges Inpatient E&M: 37927 Subs Hosp L2
[2022-08-02] MEDS: Aspirin 81 MG TAB.CHEW PO (09:27)
[2022-08-02] MEDS: Furosemide 40 MG Tablet PO (09:27)
[2022-08-02] MEDS: Lisinopril 5 MG Tablet PO (09:27)
[2022-08-02] MEDS: RisperiDONE 1 MG Tablet 2 MG PO ×2 (09:27→22:27)
[2022-08-02] MEDS: Carvedilol 6.25 MG Tablet PO (09:27)
[2022-08-02] MEDS: Empagliflozin 10 MG Tablet PO (09:27)
[2022-08-02] MEDS: APIXABAN 5 MG TABLET PO ×2 (09:27→22:21)
[2022-08-02] MEDS: Ensure Plus High Protein 120 ML LIQUID PO ×4 (09:32→22:20)
--- NOTE | 2022-08-02 12:07 | CASEMGMT ---
JAYLEN contacted [employer] in Patient Financial Services and patient has Medicaid QI. This covers Medicare premiums. In order to send patient to a senior care on Medicaid Intermediate level of care patient would need to apply for religious activities director Medicaid. JAYLEN called Logan and Nahed at [facility] and their phones must be down as the calls would not go through. JAYLEN called Logan's work cell phone and left her a voice mail requesting a return call. Hermila Campos DRILL BIT SHARPENER FARHEEN
--- NOTE | 2022-08-02 14:10 | CASEMGMT ---
JAYLEN received a call from Nahed with [facility]. Jesus is out seeing clients right now. JAYLEN told Nahed that JAYLEN has the Statement of Expert Evaluation completed by physician. Nahed asked JAYLEN to e-mail this to Jesus. Nahed also said that she is not sure the prosecutor will allow them to go for guardianship for patient as they have not had much interaction with patient. They will present it to their metal control worker and see what he/she says. JAYLEN e-mailed the Statement of Expert Evaluation to Jesus at [facility]. JAYLEN asked Nahed if she knows when they would have an answer and Nahed did not. JAYLEN then contacted [facility] Compliance/Computer Systems Security Analyst, Luisana at [facility] and left her a voice mail and an e-mail letting her know JAYLEN is working on guardianship for patient and will need some assistance. Hermila Campos SPECIAL ED ASSISTANT FARHEEN
--- NOTE | 2022-08-02 15:18 | CASEMGMT ---
SW went to patient's room. Re-introduced self and role at [facility]. Patient was lying in bed. SW asked patient if he would be willing to answer some questions and patient agreed. SW attempted to complete a Medicaid application with patient, but he could not remember how much his checks are a month. Patient gets a Social Security check and a check from [facility]. Patient guessed at how much money he has in the bank. He was able to tell SW what bills he has to pay. Patient was sleepy throughout conversation as he would briefly doze off, but then wake back up. JAYLEN told patient SW will stop back by tomorrow to see if he can remember how much he gets a month. JAYLEN explained SW is trying to complete a Medicaid application for patient. Hermila ZHONG
[2022-08-02] MEDS: MELATONIN 3 MG TABLET PO (22:20)
[2022-08-02] MEDS: Atorvastatin Calcium 40 MG Tablet PO (22:22)
[2022-08-03] VITALS (8 sets, daily range): BP systolic 98–153; BP diastolic 58–91; PULSE 61–91; RESP 16–20; TEMP 36.3–36.7; O2SAT 94–100
[2022-08-03 05:18] LABS: Absolute Lymphocyte Count 1.41 X10^3/uL (0.83-4.51); Basophil# 0.04 X10^3/uL; Basophil% 0.3 % (0-1); Eosinophil# 0.23 X10^3/uL; Hematocrit 34.4 % (40-54); Hemoglobin 11.7 g/dL (13.0-16.5); Lymphocyte # 1.41 X10^3/ul (0.83-4.51); Lymphocyte % 12.1 % (19-41); Mean Corpuscular Hgb 33.8 pg (27.0-32.0); Mean Corpuscular Volume 99.4 fL (80-94); Mean Platelet Vol. 9.1 fl (6.2-12.0); Monocyte# 0.99 X10^3/uL; Monocyte% 8.5 % (0-10); NRBC Flagged by Analyzer 0 % (0-5); Neutrophil # 8.96 X10^3/uL (2.7-7.7); Neutrophil % 76.8 % (47-70); Platelet Count 191 K/mm3 (150-450); RBC Distribution Width CV 14.9 % (11.6-14.6); Red Blood Count 3.46 M/mm3 (4.6-6.2); White Blood Count 11.7 K/mm3 (4.4-11.0)
[2022-08-03 05:42] LABS: Anion Gap 7 (5-15); BUN 20 mg/dL (7-18); BUN/Creat Ratio 20.1 RATIO (10-20); Calcium,Total 8.4 mg/dL (8.5-10.1); Chloride 103 mmol/L (98-107); EST Glomerular Filtration Rate 78 mL/min (>60); Est Glom Filt Rate - Afr Amer 94 mL/min (>60); Estimated Creatinine Clearance 60.09 ml/min; Glucose 99 mg/dL (74-106); Magnesium 2.4 mg/dL (1.6-2.6); Potassium 3.9 mmol/L (3.5-5.1); Sodium Level 138 mmol/L (136-145)
--- NOTE | 2022-08-03 08:07 | PCM.PN.HOSP ---
Subjective Subjective Patient seen had a relatively uneventful night. Guardianship pending. Pressure relatively low patient lisinopril held Objective Data Objective Data Vital Signs: Vital Signs Temp Pulse Resp BP Pulse Ox O2 Del Method 98.0 F 61 18 98/62 98 Room Air 08/03/22 03:41 08/03/22 07:00 08/03/22 03:41 08/03/22 03:41 08/03/22 03:41 08/03/22 03:41 Oxygen Delivery Method Room Air Weight: 67.6 kg Body Mass Index (BMI) 18.6 Intake & Output: Intake and Output for Last 24 Hours 08/01/22 08/02/22 08/03/22 23:59 23:59 23:59 Intake Total 1300 / 1300 800 / 800 Balance 1300 / 1300 800 / 800 Lab / Micro Data Result Diagrams: 08/03/22 04:45 08/03/22 04:45 Labs: Laboratory Results - last 24 hr 08/03/22 04:45: WBC 11.7 H, RBC 3.46 L, Hgb 11.7 L, Hct 34.4 L, MCV 99.4 H, MCH 33.8 H, MCHC 34.0, RDW Std Deviation 55.0 H, RDW Coeff of Paul 14.9 H, Plt Count 191, MPV 9.1, Immature Gran % (Auto) 0.300, Neut % (Auto) 76.8 H, Lymph % (Auto) 12.1 L, [place] % (Auto) 8.5, Eos % (Auto) 2.0, Baso % (Auto) 0.3, Absolute Neuts (auto) 9.0 H, Absolute Lymphs (auto) 1.41, Nucleated RBC % 0 08/03/22 04:45: Sodium 138, Potassium 3.9, Chloride 103, Carbon Dioxide 28.0, Anion Gap 7, BUN 20 H, Creatinine 1.00, Estim Creat Clear Calc 60.09, Est GFR (MDRD) Af Amer 94, Est GFR (MDRD) Non-Af 78, BUN/Creatinine Ratio 20.1 H, Glucose 99, Calcium 8.4 L, Magnesium 2.4 Physical Exam Narrative GENERAL: cooperative HEENT: Atraumatic; normocephalic EYES; Anicteric, Normal Conjunctiva NECK; supple, normal thyroid, RESPIRATORY: Diminished to auscultation CARDIOVASCULAR: Regular S1 S2, GI: soft, normoactive bowel sounds, : No Renal angle tenderness; EXTREMITIES: No edema, no clubbing, MUSCULOSKELETAL: no muscle wasting NEURO: Awake; no lateralizing signs. SKIN: No Rash PSYCH; Flat affect Assessment & Plan Assessment/Plan (1) Dementia: (2) Subsequent non-ST elevation (NSTEMI) myocardial infarction: (3) Abdominal pain: PLAN: Plan Patient is a 76-year-old gentleman who presented with abdominal pain. An assessment of adult failure to thrive made admitted to monitored bed for subsequent management. Patient was also found to have elevated troponin on admission 1. Physical deconditioning ? Secondary to medication noncompliance as a result of underlying paranoid schizophrenia - Requested for PT OT eval and director social welfare to assist with discharge planning 2. Acute on chronic HFrEF ? Echo obtained on 06/02/2022 demonstrated EF of 25%. Admitted to monitored bed for treatment of an CHF with diuretics, strict input and output, daily weights and fluid restriction patient on recommended medications including SGLT 2 inhibitors, JOSE ELIAS inhibitors 3. Acute non-STEMI ? Suspected type II non-STEMI from demand ischemia as a result of CHF 4. Paroxysmal A. fib Rate controlled on systemic anticoagulation with apixaban 5. Dyslipidemia -Patient is on statin therapy, continued at home dose 6. Hypertension - Blood pressure controlled, home medications continued with dose adjustment as needed 7. DVT prophylaxis ? On Eliquis Charges/Coding Visit Charges Inpatient E&M: 46524 Subs Hosp L2
[2022-08-03] MEDS: Ensure Plus High Protein 120 ML LIQUID PO ×4 (09:20→21:34)
[2022-08-03] MEDS: RisperiDONE 1 MG Tablet 2 MG PO ×2 (09:21→21:34)
[2022-08-03] MEDS: Carvedilol 6.25 MG Tablet PO ×2 (09:21→21:34)
[2022-08-03] MEDS: APIXABAN 5 MG TABLET PO ×2 (09:22→21:34)
[2022-08-03] MEDS: Aspirin 81 MG TAB.CHEW PO (09:22)
[2022-08-03] MEDS: Furosemide 40 MG Tablet PO (09:22)
[2022-08-03] MEDS: Empagliflozin 10 MG Tablet PO (09:22)
[2022-08-03] MEDS: Benzonatate 100 MG Capsule PO ×2 (11:17→21:50)
--- NOTE | 2022-08-03 11:17 | CASEMGMT ---
SW is awaiting a response from Adult Protective Services to see if they will be trying for guardianship. [facility] Women'S Swim Coach is waiting to hear back from an associate attorney to see if he/she is able to take on a new guardianship case. Hermila ZHONG
--- NOTE | 2022-08-03 13:47 | CASEMGMT ---
SW went to patient's room to see if he was able to recall his monthly income for the Medicaid application. JAYLEN sat down and talked with patient. 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 SW was not able to follow patient's story as it did not make much sense. SW asked patient if he remembered how much his monthly checks are and he was not sure. SW asked patient if he takes his meds at home. Patient said he sometimes does and other times not. SW asked patient if he feels he is taking good care of himself at home. Patient feels he is taking good care of himself. SW talked with patient about going to a facility where they can help care for him and get him his medications. Patient said he would just go home. JAYLEN thanked patient for talking with JAYLEN. Hermila ZHONG
[2022-08-03] MEDS: Atorvastatin Calcium 40 MG Tablet PO (21:34)
[2022-08-03] MEDS: 0.9% Saline Lock 10 ML Syringe IV (21:50)
[2022-08-03] MEDS: Albuterol 2.5 MG/3 ML VIAL.NEB. INHALATION (22:49)
[2022-08-03] MEDS: MELATONIN 3 MG TABLET PO (23:53)
[2022-08-04 05:30] VITALS: BP 115/65; PULSE 75; RESP 16; TEMP 36.6; O2SAT 98
[2022-08-04 06:08] LABS: Absolute Lymphocyte Count 1.79 X10^3/uL (0.83-4.51); Absolute Neutrophil Count 7.7 X10^3/uL (2.0-7.7); Basophil# 0.07 X10^3/uL; Basophil% 0.7 % (0-1); Eosinophil# 0.28 X10^3/uL; Eosinophils% 2.6 % (0-5); Hematocrit 36.3 % (40-54); Lymphocyte # 1.79 X10^3/ul (0.83-4.51); Lymphocyte % 16.9 % (19-41); Mean Corp Hgb Conc 33.1 g/dL (32-36); Mean Corpuscular Volume 99.7 fL (80-94); Mean Platelet Vol. 9.1 fl (6.2-12.0); Monocyte% 6.6 % (0-10); NRBC Flagged by Analyzer 0 % (0-5); Neutrophil # 7.69 X10^3/uL (2.7-7.7); Neutrophil % 72.6 % (47-70); Platelet Count 218 K/mm3 (150-450); RBC Distribution Width CV 14.5 % (11.6-14.6); Red Blood Count 3.64 M/mm3 (4.6-6.2); White Blood Count 10.6 K/mm3 (4.4-11.0)
[2022-08-04 06:34] LABS: Anion Gap 7 (5-15); BUN 24 mg/dL (7-18); BUN/Creat Ratio 24.8 RATIO (10-20); Chloride 103 mmol/L (98-107); Creatinine, Serum 0.97 mg/dL (0.70-1.30); EST Glomerular Filtration Rate 80 mL/min (>60); Est Glom Filt Rate - Afr Amer 97 mL/min (>60); Estimated Creatinine Clearance 61.95 ml/min; Glucose 98 mg/dL (74-106); Potassium 4.4 mmol/L (3.5-5.1); Sodium Level 137 mmol/L (136-145)
--- NOTE | 2022-08-04 07:38 | PN.HOSP_ITS ---
Subjective Subjective Patient seen having breakfast. Per nursing staff had a relatively uneventful night. Patient telemetry discontinued the day prior. Objective Data Objective Data Vital Signs: Vital Signs Temp Pulse Resp BP Pulse Ox O2 Del Method 97.8 F 75 16 115/65 98 Room Air 08/04/22 05:30 08/04/22 05:30 08/04/22 05:30 08/04/22 05:30 08/04/22 05:30 08/04/22 05:50 Oxygen Delivery Method Room Air Weight: 67.6 kg Body Mass Index (BMI) 18.6 Intake & Output: Intake and Output for Last 24 Hours 08/02/22 08/03/22 08/04/22 23:59 23:59 23:59 Intake Total 800 / 800 720 / 720 Balance 800 / 800 720 / 720 Lab / Micro Data Result Diagrams: 08/04/22 05:35 08/04/22 05:35 Labs: Laboratory Results - last 24 hr 08/04/22 05:35: WBC 10.6, RBC 3.64 L, Hgb 12.0 L, Hct 36.3 L, MCV 99.7 H, MCH 33.0 H, MCHC 33.1, RDW Std Deviation 53.0 H, RDW Coeff of Paul 14.5, Plt Count 218, MPV 9.1, Immature Gran % (Auto) 0.600, Neut % (Auto) 72.6 H, Lymph % (Auto) 16.9 L, [place] % (Auto) 6.6, Eos % (Auto) 2.6, Baso % (Auto) 0.7, Absolute Neuts (auto) 7.7, Absolute Lymphs (auto) 1.79, Nucleated RBC % 0 08/04/22 05:35: Sodium 137, Potassium 4.4, Chloride 103, Carbon Dioxide 27.0, Anion Gap 7, BUN 24 H, Creatinine 0.97, Estim Creat Clear Calc 61.95, Est GFR (MDRD) Af Amer 97, Est GFR (MDRD) Non-Af 80, BUN/Creatinine Ratio 24.8 H, Glucose 98, Calcium 9.0 Physical Exam Narrative GENERAL: cooperative HEENT: Atraumatic; normocephalic EYES; Anicteric, Normal Conjunctiva NECK; supple, normal thyroid, RESPIRATORY: Diminished to auscultation CARDIOVASCULAR: Regular S1 S2, GI: soft, normoactive bowel sounds, : No Renal angle tenderness; EXTREMITIES: No edema, no clubbing, MUSCULOSKELETAL: no muscle wasting NEURO: Awake; no lateralizing signs. SKIN: No Rash PSYCH; Flat affect Assessment & Plan Assessment/Plan (1) Dementia: (2) Subsequent non-ST elevation (NSTEMI) myocardial infarction: (3) Abdominal pain: PLAN: Plan Patient is a 76-year-old gentleman who presented with abdominal pain. An assessment of adult failure to thrive made admitted to monitored bed for subsequent management. Patient was also found to have elevated troponin on admission 1. Physical deconditioning ? Secondary to medication noncompliance as a result of underlying paranoid schizophrenia - Requested for PT OT eval and web content & social media manager to assist with discharge planning ?08/04/2022. Guardianship pending. 2. Acute on chronic HFrEF ? Echo obtained on 06/02/2022 demonstrated EF of 25%. Admitted to monitored bed for treatment of an CHF with diuretics, strict input and output, daily weights and fluid restriction patient on recommended medications including SGLT 2 inhibitors, JOSE ELIAS inhibitors ? 08/04/2022 patient remains relatively stable 3. Acute non-STEMI ? Suspected type II non-STEMI from demand ischemia as a result of CHF 4. Paroxysmal A. fib Rate controlled on systemic anticoagulation with apixaban 5. Dyslipidemia -Patient is on statin therapy, continued at home dose 6. Hypertension - Blood pressure controlled, home medications continued with dose adjustment as needed 7. DVT prophylaxis ? On Eliquis Charges/Coding Visit Charges Inpatient E&M: 13650 Subs Hosp L2
[2022-08-04 07:45] VITALS: BP 100/75; PULSE 69; RESP 15; TEMP 36.6; O2SAT 98
[2022-08-04 07:46] VITALS: PULSE 69; O2SAT 98
[2022-08-04] MEDS: Aspirin 81 MG TAB.CHEW PO (08:12)
--- NOTE | 2022-08-04 08:55 | CASEMGMT ---
JAYLEN called Jesus at [facility]. Jesus submitted Expert Evaluation to the Prosecutor and is awaiting her response. JAYLEN did talk with Risk Management and it would be okay to share the records from [facility] as it is in the best interest of the patient and for continuity of care. JAYLEN let Jesus know this information and she felt it would be very beneficial to have those records to give to the Prosecutor. JAYLEN sent the records via protected e-mail. JAYLEN updated Jesus that our Computer Engineering Technologist did reach out to an divorce attorney regarding possibly taking on a new guardianship case. Hermila Campos PHYSICAL ANTHROPOLOGIST HOSPITAL MANAGER
[2022-08-04 09:47] VITALS: BP 111/65; PULSE 71; RESP 16; TEMP 36.5; O2SAT 99
[2022-08-04] MEDS: Ensure Plus High Protein 120 ML LIQUID PO ×4 (09:49→22:01)
[2022-08-04] MEDS: Lisinopril 5 MG Tablet PO (09:49)
[2022-08-04] MEDS: Furosemide 40 MG Tablet PO (09:49)
[2022-08-04] MEDS: Empagliflozin 10 MG Tablet PO (09:49)
[2022-08-04] MEDS: RisperiDONE 1 MG Tablet 2 MG PO ×2 (09:49→21:51)
[2022-08-04] MEDS: Carvedilol 6.25 MG Tablet PO ×2 (09:49→21:52)
[2022-08-04] MEDS: APIXABAN 5 MG TABLET PO ×2 (09:49→21:52)
[2022-08-04 15:52] VITALS: BP 111/67; PULSE 69; RESP 16; TEMP 36.7; O2SAT 100
[2022-08-04 21:46] VITALS: BP 108/61; PULSE 92; RESP 18; TEMP 37.2; O2SAT 96
[2022-08-04] MEDS: 0.9% Saline Lock 10 ML Syringe IV (21:50)
[2022-08-04] MEDS: Atorvastatin Calcium 40 MG Tablet PO (21:52)
[2022-08-05 03:56] VITALS: BP 114/64; PULSE 88; RESP 18; TEMP 36.6; O2SAT 98
[2022-08-05 06:13] LABS: Absolute Neutrophil Count 9.6 X10^3/uL (2.0-7.7); Basophil# 0.05 X10^3/uL; Basophil% 0.4 % (0-1); Eosinophil# 0.14 X10^3/uL; Eosinophils% 1.2 % (0-5); Hematocrit 32.6 % (40-54); Hemoglobin 10.9 g/dL (13.0-16.5); Lymphocyte % 10.7 % (19-41); Mean Corp Hgb Conc 33.4 g/dL (32-36); Mean Corpuscular Hgb 33.4 pg (27.0-32.0); Monocyte# 0.91 X10^3/uL; Monocyte% 7.5 % (0-10); NRBC Flagged by Analyzer 0 % (0-5); Neutrophil # 9.64 X10^3/uL (2.7-7.7); Neutrophil % 79.7 % (47-70); Platelet Count 228 K/mm3 (150-450); RBC Distribution Width CV 14.5 % (11.6-14.6); RBC Distribution Width SD 53.6 fl (35.1-43.9); Red Blood Count 3.26 M/mm3 (4.6-6.2); White Blood Count 12.1 K/mm3 (4.4-11.0)
[2022-08-05 06:33] LABS: Anion Gap 7 (5-15); BUN 24 mg/dL (7-18); BUN/Creat Ratio 27.1 RATIO (10-20); Calcium,Total 8.7 mg/dL (8.5-10.1); Chloride 101 mmol/L (98-107); Creatinine, Serum 0.88 mg/dL (0.70-1.30); EST Glomerular Filtration Rate 89 mL/min (>60); Est Glom Filt Rate - Afr Amer 108 mL/min (>60); Estimated Creatinine Clearance 68.28 ml/min; Glucose 97 mg/dL (74-106); Sodium Level 135 mmol/L (136-145)
--- NOTE | 2022-08-05 07:56 | PN.HOSP_ITS ---
Subjective Subjective Patient seen no significant change in clinical condition. Awaiting guardianship. Slightly elevated WBC count and low sodium level Objective Data Objective Data Vital Signs: Vital Signs Temp Pulse Resp BP Pulse Ox O2 Del Method 97.8 F 88 18 114/64 98 Room Air 08/05/22 03:56 08/05/22 03:56 08/05/22 03:56 08/05/22 03:56 08/05/22 03:56 08/05/22 03:56 Oxygen Delivery Method Room Air Weight: 67.6 kg Body Mass Index (BMI) 18.6 Intake & Output: Intake and Output for Last 24 Hours 08/03/22 08/04/22 08/05/22 23:59 23:59 23:59 Intake Total 720 / 720 1140 / 1140 200 / 200 Balance 720 / 720 1140 / 1140 200 / 200 Lab / Micro Data Result Diagrams: 08/05/22 05:37 08/05/22 05:37 Labs: Laboratory Results - last 24 hr 08/05/22 05:37: WBC 12.1 H, RBC 3.26 L, Hgb 10.9 L, Hct 32.6 L, MCV 100.0 H, MCH 33.4 H, MCHC 33.4, RDW Std Deviation 53.6 H, RDW Coeff of Paul 14.5, Plt Count 228, MPV 9.0, Immature Gran % (Auto) 0.500, Neut % (Auto) 79.7 H, Lymph % (Auto) 10.7 L, [place] % (Auto) 7.5, Eos % (Auto) 1.2, Baso % (Auto) 0.4, Absolute Neuts (auto) 9.6 H, Absolute Lymphs (auto) 1.30, Nucleated RBC % 0 08/05/22 05:37: Sodium 135 L, Potassium 4.0, Chloride 101, Carbon Dioxide 27.0, Anion Gap 7, BUN 24 H, Creatinine 0.88, Estim Creat Clear Calc 68.28, Est GFR (MDRD) Af Amer 108, Est GFR (MDRD) Non-Af 89, BUN/Creatinine Ratio 27.1 H, Glucose 97, Calcium 8.7 Physical Exam Narrative GENERAL: cooperative HEENT: Atraumatic; normocephalic EYES; Anicteric, Normal Conjunctiva NECK; supple, normal thyroid, RESPIRATORY: Diminished to auscultation CARDIOVASCULAR: Regular S1 S2, GI: soft, normoactive bowel sounds, : No Renal angle tenderness; EXTREMITIES: No edema, no clubbing, MUSCULOSKELETAL: no muscle wasting NEURO: Awake; no lateralizing signs. SKIN: No Rash PSYCH; Flat affect Assessment & Plan Assessment/Plan (1) Dementia: (2) Subsequent non-ST elevation (NSTEMI) myocardial infarction: (3) Abdominal pain: PLAN: Plan Patient is a 76-year-old gentleman who presented with abdominal pain. An assessment of adult failure to thrive made admitted to monitored bed for subsequent management. Patient was also found to have elevated troponin on admission 1. Physical deconditioning ? Secondary to medication noncompliance as a result of underlying paranoid schizophrenia - Requested for PT OT eval and social and political studies professor to assist with discharge planning ?08/04/2022. Guardianship pending. 2. Acute on chronic HFrEF ? Echo obtained on 06/02/2022 demonstrated EF of 25%. Admitted to monitored bed for treatment of an CHF with diuretics, strict input and output, daily weights and fluid restriction patient on recommended medications including SGLT 2 inhibitors, JOSE ELIAS inhibitors ? 08/04/2022 patient remains relatively stable 3. Acute non-STEMI ? Suspected type II non-STEMI from demand ischemia as a result of CHF 4. Paroxysmal A. fib Rate controlled on systemic anticoagulation with apixaban 5. Dyslipidemia -Patient is on statin therapy, continued at home dose 6. Hypertension - Blood pressure controlled, home medications continued with dose adjustment as needed 7. DVT prophylaxis ? On Eliquis 8. Mild hyponatremia -will continue with monitoring 9. Leukocytosis ? No evidence of infection we will continue with monitoring Charges/Coding Visit Charges Inpatient E&M: 70421 Subs Hosp L2
--- NOTE | 2022-08-05 08:50 | CASEMGMT ---
JAYLEN called [facility] and left a voice mail for Jesus. Hermila Campos GAMING CAGE WORKER FARHEEN
--- NOTE | 2022-08-05 09:55 | CASEMGMT ---
JAYLEN received a return call from Naehd at [facility]. Jesus was coming in a little later today. Nahed said the prosecutor told Jesus to investigate patient's case a little more. JAYLEN asked if Jesus would be coming in to the hospital to see patient. Nahed said she could. Hermila ZHONG
[2022-08-05 09:56] VITALS: BP 107/74; PULSE 74; RESP 16; TEMP 37.1; O2SAT 96
[2022-08-05] MEDS: Lisinopril 5 MG Tablet PO (10:00)
[2022-08-05] MEDS: Furosemide 40 MG Tablet PO (10:00)
[2022-08-05] MEDS: RisperiDONE 1 MG Tablet 2 MG PO ×2 (10:01→22:07)
[2022-08-05] MEDS: APIXABAN 5 MG TABLET PO ×2 (10:01→22:07)
[2022-08-05] MEDS: Empagliflozin 10 MG Tablet PO (10:01)
[2022-08-05] MEDS: Aspirin 81 MG TAB.CHEW PO (10:01)
[2022-08-05] MEDS: Carvedilol 6.25 MG Tablet PO ×2 (10:01→22:06)
[2022-08-05] MEDS: Ensure Plus High Protein 120 ML LIQUID PO ×4 (10:03→22:07)
--- NOTE | 2022-08-05 10:58 | CASEMGMT ---
JAYLEN called Nahed at [facility] and asked that Jesus come and see patient while he is in the hospital. Nahed said she did not know Jesus's schedule today, but when she comes in she will let her know. Hermila Campos PAPERHANGERAlicia ZHONG
--- NOTE | 2022-08-05 13:00 | CASEMGMT ---
SW received a call from Jesus with [facility]. Jesus said she cannot come in today, but arrangements were made for Jesus to come Tuesday 10-7 at 9a to meet with patient and Social Work. Hermila ZHONG
[2022-08-05 16:26] VITALS: BP 99/63; PULSE 72; RESP 16; TEMP 36.9; O2SAT 98
[2022-08-05 22:01] VITALS: BP 98/59; PULSE 80; RESP 18; TEMP 36.6; O2SAT 97
[2022-08-05] MEDS: Atorvastatin Calcium 40 MG Tablet PO (22:06)
[2022-08-06 03:33] VITALS: BP 116/65; PULSE 68; RESP 18; TEMP 36.7; O2SAT 96
--- NOTE | 2022-08-06 08:24 | PCM.PN.HOSP ---
Subjective Subjective Patient seen had a relatively uneventful night. Patient will be assessed for possible discharge home. Objective Data Objective Data Vital Signs: Vital Signs Temp Pulse Resp BP Pulse Ox O2 Del Method 98.1 F 68 18 116/65 96 Room Air 08/06/22 03:33 08/06/22 03:33 08/06/22 03:33 08/06/22 03:33 08/06/22 03:33 08/06/22 03:35 Oxygen Delivery Method Room Air Weight: 67.6 kg Body Mass Index (BMI) 18.6 Intake & Output: Intake and Output for Last 24 Hours 08/04/22 08/05/22 08/06/22 23:59 23:59 23:59 Intake Total 1140 / 1140 1040 / 1160 120 / 120 Balance 1140 / 1140 1040 / 1160 120 / 120 Lab / Micro Data Result Diagrams: 08/05/22 05:37 08/05/22 05:37 Physical Exam Narrative GENERAL: cooperative HEENT: Atraumatic; normocephalic EYES; Anicteric, Normal Conjunctiva NECK; supple, normal thyroid, RESPIRATORY: Diminished to auscultation CARDIOVASCULAR: Regular S1 S2, GI: soft, normoactive bowel sounds, : No Renal angle tenderness; EXTREMITIES: No edema, no clubbing, MUSCULOSKELETAL: no muscle wasting NEURO: Awake; no lateralizing signs. SKIN: No Rash PSYCH; Flat affect Assessment & Plan Assessment/Plan (1) Dementia: (2) Subsequent non-ST elevation (NSTEMI) myocardial infarction: (3) Abdominal pain: PLAN: Plan Patient is a 76-year-old gentleman who presented with abdominal pain. An assessment of adult failure to thrive made admitted to monitored bed for subsequent management. Patient was also found to have elevated troponin on admission 1. Physical deconditioning ? Secondary to medication noncompliance as a result of underlying paranoid schizophrenia - Requested for PT OT eval and social welfare research worker to assist with discharge planning ?08/04/2022. Guardianship pending. ? 08/06/2022 plan is for patient to be discharged home. Case discussed with case management 2. Acute on chronic HFrEF ? Echo obtained on 06/02/2022 demonstrated EF of 25%. Admitted to monitored bed for treatment of an CHF with diuretics, strict input and output, daily weights and fluid restriction patient on recommended medications including SGLT 2 inhibitors, JOSE ELIAS inhibitors ? 08/04/2022 patient remains relatively stable 3. Acute non-STEMI ? Suspected type II non-STEMI from demand ischemia as a result of CHF 4. Paroxysmal A. fib Rate controlled on systemic anticoagulation with apixaban 5. Dyslipidemia -Patient is on statin therapy, continued at home dose 6. Hypertension - Blood pressure controlled, home medications continued with dose adjustment as needed 7. DVT prophylaxis ? On Eliquis 8. Mild hyponatremia -will continue with monitoring 9. Leukocytosis ? No evidence of infection we will continue with monitoring Charges/Coding Visit Charges Inpatient E&M: 93901 Subs Hosp L2
--- NOTE | 2022-08-06 09:28 | CASEMGMT ---
Jesus from [facility] came to [facility] to see patient. JAYLEN accompanied Jesus to patient's room. Patient was lying in bed sleeping. JAYLEN was able to wake patient, but he never fully woke up to talk with Jesus. Jesus tried to ask patient questions, but he would only mumble possible answers while he had his eyes closed. Jesus did not feel like it was appropriate to continue with patient as he was clearly not awake. Patient is not normally like this as he is usually coming out to the nurses' station asking to go for a walk. Jesus said she could come back Tuesday as she has court later today and they are closed on Tuesday. JAYLEN told Jesus that patient will likely be discharged home with [facility] ([facility]) and their involvement. Jesus said he has not been paying his bills. This has always been an issue with him. He often goes to [facility] and asks for help with paying bills. JAYLEN let Jesus know that patient only has Medicaid QMB so if he would end up going to SNF he would need to complete another Medicaid application. JAYLEN told Jesus SW tried to do a new Medicaid application with patient, but he did not know how much his checks were every month. Jesus felt if patient could get set up with more services and possibly a payee he may be okay without a guardian. JAYLEN told Jesus JAYLEN will let her know on Tuesday if patient is still at [facility]. JAYLEN spoke with Social Media Strategist Ene. JAYLEN and Ene both feel it would not be beneficial to keep patient in [facility] until Tuesday as it does not sound like APS is going to apply for guardianship. Also, patient has been medically ready for discharge, [facility] will be involved as well as [facility]. JAYLEN will notify physician. JAYLEN will also make contact with Parmjit with [facility] to update her as well. Hermila ZHONG
--- NOTE | 2022-08-06 10:27 | CASEMGMT ---
JAYLEN spoke with Parmjit from [facility]. JAYLEN informed her on the latest with patient and what SW has and has not done. JAYLEN let her know [facility] will stay involved as well. Parmjit said she will be out to see patient today vs tomorrow. Parmjit asked JAYLEN to notify patient that she will be coming and to give him her phone number. JAYLEN called [facility] as this was listed as patient's pharmacy. Patient does have prescription coverage. The BIN # is [id number]. PCN: [id number]. ID: [id number]. Group #: [id number]. JAYLEN will have patient's prescriptions filled at [facility] so patient can take them home with him as he has no way to get to [facility]. JAYLEN also called [facility] van and arranged for patient to get picked up at 230. JAYLEN will notify RN and patient care secretary. Plan: Home with some services through [facility] and [facility] involvement. [facility] van will transport patient home. Hermila ZHONG
[2022-08-06 10:32] VITALS: BP 121/64; PULSE 70; RESP 14; TEMP 37.1; O2SAT 97
[2022-08-06] MEDS: 0.9% Saline Lock 10 ML Syringe IV (10:37)
[2022-08-06] MEDS: Aspirin 81 MG TAB.CHEW PO (10:37)
[2022-08-06] MEDS: Ensure Plus High Protein 120 ML LIQUID PO (10:38)
[2022-08-06] MEDS: Carvedilol 6.25 MG Tablet PO (10:38)
[2022-08-06] MEDS: Furosemide 40 MG Tablet PO (10:38)
[2022-08-06] MEDS: Empagliflozin 10 MG Tablet PO (10:38)
[2022-08-06] MEDS: RisperiDONE 1 MG Tablet 2 MG PO (10:38)
[2022-08-06] MEDS: Lisinopril 5 MG Tablet PO (10:38)
[2022-08-06] MEDS: APIXABAN 5 MG TABLET PO (10:38)
--- NOTE | 2022-08-06 10:40 | PCM.DC.SUM ---
Providers Date of Admission: 07/28/22 Date of Discharge: 08/06/22 Primary Care Physician: No Primary Care Phys Reason For Visit: NSTEMI Diagnosis Discharge Diagnosis (1) Dementia: Status: Acute Code(s): F03.90 - Unspecified dementia, unspecified severity, without behavioral disturbance, psychotic disturbance, mood disturbance, and anxiety (2) Subsequent non-ST elevation (NSTEMI) myocardial infarction: Status: Acute Code(s): I22.2 - Subsequent non-ST elevation (NSTEMI) myocardial infarction (3) Abdominal pain: Status: Acute Code(s): R10.9 - Unspecified abdominal pain Plan Patient is a 76-year-old gentleman who presented with abdominal pain. An assessment of adult failure to thrive made admitted to monitored bed for subsequent management. Patient was also found to have elevated troponin on admission 1. Physical deconditioning ? Secondary to medication noncompliance as a result of underlying paranoid schizophrenia - Requested for PT OT eval and social sciences department chair to assist with discharge planning ?08/04/2022. Guardianship pending. ? 08/06/2022 plan is for patient to be discharged home. Case discussed with case management 2. Acute on chronic HFrEF ? Echo obtained on 06/02/2022 demonstrated EF of 25%. Admitted to monitored bed for treatment of an CHF with diuretics, strict input and output, daily weights and fluid restriction patient on recommended medications including SGLT 2 inhibitors, JOSE ELIAS inhibitors ? 08/04/2022 patient remains relatively stable 3. Acute non-STEMI ? Suspected type II non-STEMI from demand ischemia as a result of CHF 4. Paroxysmal A. fib Rate controlled on systemic anticoagulation with apixaban 5. Dyslipidemia -Patient is on statin therapy, continued at home dose 6. Hypertension - Blood pressure controlled, home medications continued with dose adjustment as needed 7. DVT prophylaxis ? On Eliquis 8. Mild hyponatremia -will continue with monitoring 9. Leukocytosis ? No evidence of infection we will continue with monitoring Medications at Discharge Home Medications apixaban 5 mg tablet (Eliquis) 5 mg PO BID blood thinner #60 tabs 08/06/22 aspirin 81 mg chewable tablet 81 mg PO BREAKFAST heart health #30 tabs 08/06/22 atorvastatin 40 mg tablet 40 mg PO QHS cholesterol #30 tabs 08/06/22 carvedilol 6.25 mg tablet 6.25 mg PO BID bp #60 tabs 08/06/22 empagliflozin 10 mg tablet (Jardiance) 10 mg PO DAILY dm #30 tabs 08/06/22 furosemide 40 mg tablet 40 mg PO DAILY chf #30 tabs 08/06/22 lisinopril 5 mg tablet 5 mg PO DAILY bp #30 tabs 08/06/22 risperidone 1 mg tablet 2 mg PO BID #60 tabs 08/06/22 Hospital Course Summary of Care Provided Minutes Spent on Discharge: 40 Physical Exam Narrative GENERAL: cooperative HEENT: Atraumatic; normocephalic EYES; Anicteric, Normal Conjunctiva NECK; supple, normal thyroid, RESPIRATORY: Diminished to auscultation CARDIOVASCULAR: Regular S1 S2, GI: soft, normoactive bowel sounds, : No Renal angle tenderness; EXTREMITIES: No edema, no clubbing, MUSCULOSKELETAL: no muscle wasting NEURO: Awake; no lateralizing signs. SKIN: No Rash PSYCH; Flat affect Weight / BMI Weight Weight: 67.6 kg Body Mass Index (BMI) 18.6 ABG / Lab / Microbiology Data Result Diagrams: 08/05/22 05:37 08/05/22 05:37 D/C Instructions Discharge Diet: 8 Cup Fluid Restriction Discharge Activity: Return to Normal Activity Call your doctor if you observe: Fever of 101 or Higher, Shortness of breath, Fainting spells and Chest pain Meaningful Use Info Meaningful Use Diagnoses (Choose all that apply): CHF CHF JOSE ELIAS/ARB ordered at discharge?: Yes Documented LVEF (%): 25 Discharge Plan Admission Admit Date/Time: 07/28/22 22:21 Attending Provider: Noel Barber Primary Care Provider: Care Physician,No Primary Consulting Providers: Bienvenido Rojo ; Kimo Oneal Discharge Orders/Prescriptions Prescriptions: New risperidone 1 mg Tablet 2 mg PO BID Qty: 60 0RF Continued furosemide 40 mg tablet 40 mg PO DAILY Qty: 30 0RF atorvastatin 40 mg tablet 40 mg PO QHS Qty: 30 0RF carvedilol 6.25 mg tablet 6.25 mg PO BID Qty: 60 0RF aspirin 81 mg tablet,chewable 81 mg PO BREAKFAST Qty: 30 0RF lisinopril 5 mg tablet 5 mg PO DAILY Qty: 30 0RF Eliquis 5 mg tablet 5 mg PO BID Qty: 60 0RF Jardiance 10 mg tablet 10 mg PO DAILY Qty: 30 0RF Discontinued prednisone 20 mg tablet 40 mg PO BREAKFAST Referrals / Follow Up: Care Physician,No Primary [Primary Care Provider] - Francisco Clark MD [Med Staff - Active Staff] - Within 1 Month Disposition Disposition (needs filled in before D/C Order can be placed): Home Health Service Charges/Coding Visit Charges Inpatient E&M: 91693 Disch Hosp
--- NOTE | 2022-08-06 11:32 | PHA.DC.MR ---
Pharmacy Service has performed discharge medication reconciliation for this patient. The patient's discharge medication list was reviewed for discrepancies and discrepancies were resolved. Risperidone sent to retail for 15 [address] supply[address] to [address] Barber, he gave me a verbal to call and change to day supply to #120, 30 day supply. This [facility] spoke to Amanda in retail for change in day supply. Home Medications apixaban 5 mg tablet (Eliquis) 5 mg PO BID blood thinner #60 tabs 08/06/22 aspirin 81 mg chewable tablet 81 mg PO BREAKFAST heart health #30 tabs 08/06/22 atorvastatin 40 mg tablet 40 mg PO QHS cholesterol #30 tabs 08/06/22 carvedilol 6.25 mg tablet 6.25 mg PO BID bp #60 tabs 08/06/22 empagliflozin 10 mg tablet (Jardiance) 10 mg PO DAILY dm #30 tabs 08/06/22 furosemide 40 mg tablet 40 mg PO DAILY chf #30 tabs 08/06/22 lisinopril 5 mg tablet 5 mg PO DAILY bp #30 tabs 08/06/22 risperidone 1 mg tablet 2 mg PO BID #60 tabs 08/06/22
--- NOTE | 2022-08-06 11:40 | CASEMGMT ---
SW spoke with patient and let him know that he is going home today. Patient was pleased to hear this. SW let patient know the hospital van will take him home at 230. SW asked patient if he feels okay going home. Patient said he feels fine going home. SW asked patient if he has food at home and he said he does not know. Patient said he has money in the bank to go get food. SW told patient about Parmjit with [facility] and that she will be out to see him today or tomorrow. SW told patient Parmjit is going to help him with medications. Patient was in agreement. Patient said he does not know if his phone is working. SW also told patient about Jesus from [facility] coming to see him. Patient was okay with this as well. Hermila ZHONG
--- NOTE | 2022-08-06 12:56 | CASEMGMT ---
JAYLEN called Jesus at [facility] and left her a voice mail letting her know patient will be discharged home today. Hermila Campos MEDIA INTERNAlicia ZHONG
--- NOTE | 2022-08-06 15:17 | NURSING ---
Charting reviewed with Tammie Zuniga RN.
--- NOTE | 2022-08-06 15:19 | NURSING ---
Charting reviewed with Tammie Zuniga RN
--- NOTE | 2022-08-11 10:03 | CCN.REFER ---
Visit to home on 08/07 @ 9a and 12p. No answer at either door. Attempt #3 to patient's home on 08/08 around noon w/ no answer at either door. Goal of CCN visit was to place a med box in home and fill for one week to see if we can get patient compliant with medications while [facility] works his case. T/C to Michel @ [facility] and left detailed message stating above.
== END 2022-08-06 14:21 | disposition home health service (06) | DRG 280 ==
LOC: ED 22:18 → PCU 22:30
PROVIDERS: Family Medicine; Admitting Provider Hospitalist; Emergency Provider Emergency Medicine; Visit Provider Internal Medicine
DX: I21.A1 Myocardial infarction type 2 (principal); I50.23 Acute on chronic systolic (congestive) heart failure; E87.1 Hypo-osmolality and hyponatremia; F03.92 Unspecified dementia, unspecified severity, with psychotic disturbance; F20.0 Paranoid schizophrenia; Z68.1 Body mass index [BMI] 19.9 or less, adult; I11.0 Hypertensive heart disease with heart failure; I48.0 Paroxysmal atrial fibrillation; J44.9 Chronic obstructive pulmonary disease, unspecified; I25.5 Ischemic cardiomyopathy; E78.5 Hyperlipidemia, unspecified; D72.829 Elevated white blood cell count, unspecified; I25.2 Old myocardial infarction; F17.200 Nicotine dependence, unspecified, uncomplicated; R62.7 Adult failure to thrive; R10.13 Epigastric pain; Z60.2 Problems related to living alone; Z91.14 Patient's other noncompliance with medication regimen; Z79.01 Long term (current) use of anticoagulants; Z79.82 Long term (current) use of aspirin; Z79.84 Long term (current) use of oral hypoglycemic drugs; Z79.899 Other long term (current) drug therapy; Z23 Encounter for immunization
CPT/HCPCS: 36415; 71045; 80048; 80053; 81001; 83735; 84484; 85025; 93005; 94640; 97110; 97162; 97166; 97530; 97802; 99284; 99406; J7030; 90686; A4216

== ENCOUNTER 2022-08-07 18:45 | Emergency (ER) | payer OTHER, SELFPAY ==
[2022-08-07 18:46] VITALS: BP 130/80; PULSE 92; RESP 18; TEMP 36.6; O2SAT 99; BMI 20.6
--- NOTE | 2022-08-07 19:00 | EKG12_ITS ---
Test Reason : DYSRHYTHMIA Blood Pressure : / mmHG Vent. Rate : 081 BPM Atrial Rate : 081 BPM P-R Int : 144 ms QRS Dur : 124 ms QT Int : 426 ms P-R-T Axes : 079 -05 089 degrees QTc Int : 494 ms Normal sinus rhythm Nonspecific ST and T wave abnormality Abnormal ECG Confirmed by ANTONIETTA SHEN, BRENT ([id number]), newspaper copy editor EDOUARD GOLDSMITH ([id number]) on 08/09/2022 9:32:35 AM Referred By: TIFFANY Confirmed By:BRENT MANE MD
--- NOTE | 2022-08-07 19:33 | EDS_ITS ---
HPI History of Present Illness Chief Complaint: Back Detail of Chief Complaint: Left lower, atraumatic back pain. Informant: patient Onset/Context/Timing Onset: Days Context: Gradual Onset Timing: Intermittent Quality: Dull and Aching Location: Lumbar Current Severity: Mild Maximum Severity: Mild Worsened by: improves with Movement Relieved by: Remaining Still Associated Symptoms Associated Symptoms: Negative for Numbness, Tingling, Radiation to Right Leg, Radiation to Left Leg, Fever, Abdominal Pain, Dysuria, Unable to Ambulate, Unable to Transfer, Urinary Retention, Urinary Incontinence, Constipation or Fecal Incontinence Narrative Narrative: 76 you male with left, lower para lumber back pain. Denies falls and trauma. No fever. No weakness. No odysuria. Patient has a history of schizophrenia is a poor informant. He denies any acute injury to his back or other symptoms. Prior similar symptoms: Yes Recent Illness/Hospitalization: No PFSH PFSH Medical History COPD (chronic obstructive pulmonary disease) Dementia with behavioral disturbance Ischemic cardiomyopathy NSTEMI, initial episode of care Past heart attack Smoker Home Medications apixaban 5 mg tablet (Eliquis) 5 mg PO BID blood thinner #60 tabs 08/06/22 [Rx Last Taken Unknown] aspirin 81 mg chewable tablet 81 mg PO BREAKFAST heart health #30 tabs 08/06/22 [Rx Last Taken Unknown] atorvastatin 40 mg tablet 40 mg PO QHS cholesterol #30 tabs 08/06/22 [Rx Last Taken Unknown] carvedilol 6.25 mg tablet 6.25 mg PO BID bp #60 tabs 08/06/22 [Rx Last Taken Unknown] empagliflozin 10 mg tablet (Jardiance) 10 mg PO DAILY dm #30 tabs 08/06/22 [Rx Last Taken Unknown] furosemide 40 mg tablet 40 mg PO DAILY chf #30 tabs 08/06/22 [Rx Last Taken Unknown] lisinopril 5 mg tablet 5 mg PO DAILY bp #30 tabs 08/06/22 [Rx Last Taken Unknown] risperidone 1 mg tablet 2 mg PO BID #60 tabs 08/06/22 [Rx Last Taken Unknown] Allergy/AdvReac Type Severity Reaction Status Date / Time No Known Allergies Allergy Verified 08/07/22 18:50 Family History Father Heart disease Mother Cancer Surgical History H/O heart surgery Social History household members: none current occupational status: retired Smoking Status: Light Smoker (<10/day) alcohol intake: current alcohol intake frequency: a few times a week Alcohol type: beer, wine and hard liquor substance use type: does not use ROS ROS ED ROS Narrative Back pain. Left flank. Review of Systems ROS Unobtainable: Denies due to encephalopathy Constitutional Constitutional ED: Denies chills or fever(s) Eyes Eyes: Denies blurry vision or change in vision ENT ENT ED: Denies ear pain or rhinorrhea Cardiovascular Cardiovascular: Denies chest pain or palpitations Respiratory/Chest Respiratory/Chest: Denies dyspnea Gastrointestinal Gastrointestinal: Denies abdominal pain, constipation, diarrhea, melena, nausea or vomiting Genitourinary Genitourinary ED: Denies dysuria or hematuria Musculoskeletal Musculoskeletal: Denies arthralgias Integumentary Denies abscess Neurologic Neurologic: Denies headache(s) Psychiatric Psychiatric: Denies anxiety Endocrine Endocrinology: Denies cold intolerance Hematologic/Lymphatic Hematologic/Lymphatic: Denies easy bleeding or easy bruising Allergic/Immunologic Allergic/Immunologic ED: Denies mouth swelling or tongue swelling EXAM Physical Exam Narrative Exam Narrative: 76 yo male NAD. VS stable and afebrile. Exam benign. Lungs CTA bilaterally. H is RRR. Abd soft and NT. Non-distended. No pS. Back mild left lower back tenderness. Both lower ext NVI. Benign exam. Const Vital Signs: 08/07/22 18:46 08/07/22 21:00 Temperature 97.8 F Temperature Source Temporal Pulse Rate 92 83 Respiratory Rate 18 21 H Blood Pressure 130/80 H 131/78 H Blood Pressure Mean 96 95 Pulse Ox 99 96 Oxygen Delivery Method Room Air Room Air Positive well nourished and well developed; Negative for obese, cachectic, contractures or unkempt General Appearance ED: well developed and NAD; Negative for unkempt, cachectic, contractures or pallor Nutritional Appearance: Negative for cachectic or obese HEENT Reports moist mucous membranes Negative for trauma or tenderness Eyes PERRL and EOMs intact bilaterally General Eye ED: Negative for pale conjunctiva or scleral icterus Neck no lymphadenopathy, supple and no JVD General: Negative for tenderness Thyroid: Negative for other Resp normal respiratory effort and clear to auscultation bilaterally Effort and Inspection: Negative for pain with movement Auscultation: Negative for rales, rhonchi or wheezes Cardio regular rate, regular rhythm, S1 normal heart sound and S2 normal heart sound; Negative for no murmurs Palpation: Negative for palpable S3 Rate: Negative for bradycardia or tachycardic Rhythm: Negative for abnormal rhythm GI normal to inspection, nondistended, normoactive bowel sounds, soft to palpation, non-tender, non-distended and no masses Inspection: Negative for abdominal distention Auscultation: Negative for hyperactive bowel sounds Palpation: Negative for tender, guarding, mass or pulsatile mass Back/Spine normal to inspection and no thoracic nor lumbar tenderness Back/Spine Narrative: tenderness. left lower back. No trauma. General Back: Negative for CVA tenderness Cervical Spine: Negative for cervical spine tenderness and Negative for paracervical muscle tenderness Thoracic Spine / Upper Back: Negative for paraspinal muscle tenderness Neuro No oriented x3 Sensorium / Orientation: alert and confused; Negative for lethargic or stuporous Motor Exam: strength 5/5 throughout Psych mental status grossly normal Appearance: Negative for unkempt Attitude: No agitated Mood & Affect: Negative for depressed, sad or tearful Skin no rashes or lesions noted and no wounds General Skin Exam: Negative for jaundice or pallor Lesions: No lesion noted Rashes: No rashes noted MDM MDM MDM Narrative Medical decision making narrative: 76 yo male suspect musculoskeletal back pain. Exam benign. Poor informant. Repeat exam patient doing well at 10:13 PM exam unchanged. Abdomen benign. Patient I went over his test results. He will be discharged home. Previous nurses are getting him something to eat and/or drink prior to discharge. Lab Data Attestation: I reviewed the patient's lab results. Lab results narrative: CBC shows white count 12. H&H 12.1 and 35. Platelets 326. Electrolytes unremarkable gap at 9. BUN 22 creatinine 1.1. Glucose 117. Urinalysis negative. No nitrates. No white or red cells. Only 1+ bacteria. Labs: Laboratory Results - last 24 hr 08/07/22 08/07/22 08/07/22 19:34 19:34 19:34 WBC 12.0 H RBC 3.51 L Hgb 12.1 L Hct 35.9 L MCV 102.3 H MCH 34.5 H MCHC 33.7 RDW Std Deviation 54.2 H RDW Coeff of Paul 14.5 Plt Count 326 MPV 9.0 Immature Gran % (Auto) 0.500 Neut % (Auto) 83.4 H Lymph % (Auto) 9.9 L [place] % (Auto) 5.3 Eos % (Auto) 0.5 Baso % (Auto) 0.4 Absolute Neuts (auto) 10.0 H Absolute Lymphs (auto) 1.19 Nucleated RBC % 0 Sodium 137 Potassium 4.2 Chloride 100 Carbon Dioxide 28.0 Anion Gap 9 BUN 22 H Creatinine 1.15 Estim Creat Clear Calc 57.85 Est GFR (MDRD) Af Amer 79 Est GFR (MDRD) Non-Af 66 BUN/Creatinine Ratio 19.1 Glucose 117 H Calcium 9.1 Urine Color Yellow Urine Clarity Clear Urine pH 6.0 Ur Specific Boring 1.015 Urine Protein 30 H Urine Glucose (UA) 1000 H Urine Ketones 5 H Urine Occult Blood 10 H Urine Nitrite Negative Urine Bilirubin Negative Urine Urobilinogen 4 H Ur Leukocyte Esterase 25 H Urine RBC 0-5 SEEN Urine WBC 0-5 SEEN Ur Squamous Epith Cells 0-5 SEEN Urine Bacteria 1+ Urine Mucus 0 SEEN Rhythm Strip Rhythm Strip: Sinus Rhythm Rate: 81 Ectopy: None EKG Initial EKG: Attestation: I personally reviewed and interpreted this EKG as follows: Interpretation: Sinus Rhythm and No Acute Injury Pattern Comments: Nurses did an EKG. He had no chest pain or shortness of breath. His EKG shows normal sinus rhythm rate of 81 no acute signs of IL or ischemia. Discharge Plan Triage Chief Complaint: Back ED Provider: Lan Machado Dx/Rx/DC Orders Clinical Impression: Back pain, History of dementia, Chronic anticoagulation, Schizophrenia Instructions: ED Back and Neck Pain, General Prescriptions: No Action risperidone 1 mg Tablet 2 mg PO BID Qty: 60 0RF furosemide 40 mg tablet 40 mg PO DAILY Qty: 30 0RF atorvastatin 40 mg tablet 40 mg PO QHS Qty: 30 0RF carvedilol 6.25 mg tablet 6.25 mg PO BID Qty: 60 0RF aspirin 81 mg tablet,chewable 81 mg PO BREAKFAST Qty: 30 0RF lisinopril 5 mg tablet 5 mg PO DAILY Qty: 30 0RF Eliquis 5 mg tablet 5 mg PO BID Qty: 60 0RF Jardiance 10 mg tablet 10 mg PO DAILY Qty: 30 0RF Primary Care Provider: Care Physician,No Primary Referrals: Isai Cornelius MD [Non-Staff] - As Needed Care Physician,No Primary [Primary Care Provider] - Activity Restrictions/Additional Instructions: Your labs are unremarkable. This appears to be musculoskeletal back pain. Motrin and Tylenol for pain. Disposition Disposition: Home, Self Care
--- NOTE | 2022-08-07 19:37 | CM.ED ---
JAYLEN updated Dr. Machado that patient has history of diagnosis of schizophrenia and has recently had psych hospitalizations at [facility]. Dr. Machado did not feel that patient needs inpatient psych at this time. JAYLEN called and left message for Logan at [facility] advising her that patient was in the ED for back pain and had gone to the police station to get assistance. Logan will be off on Tuesday in observance of holiday. Amira BARAHONA
[2022-08-07 19:46] LABS: Mucous, Urine 0 SEEN /hpf (<or=2+)
[2022-08-07 19:48] LABS: Absolute Lymphocyte Count 1.19 X10^3/uL (0.83-4.51); Basophil# 0.05 X10^3/uL; Basophil% 0.4 % (0-1); Eosinophil# 0.06 X10^3/uL; Eosinophils% 0.5 % (0-5); Hematocrit 35.9 % (40-54); Hemoglobin 12.1 g/dL (13.0-16.5); Lymphocyte # 1.19 X10^3/ul (0.83-4.51); Lymphocyte % 9.9 % (19-41); Mean Corp Hgb Conc 33.7 g/dL (32-36); Mean Corpuscular Hgb 34.5 pg (27.0-32.0); Mean Corpuscular Volume 102.3 fL (80-94); Monocyte# 0.64 X10^3/uL; Monocyte% 5.3 % (0-10); NRBC Flagged by Analyzer 0 % (0-5); Neutrophil % 83.4 % (47-70); Platelet Count 326 K/mm3 (150-450); RBC Distribution Width CV 14.5 % (11.6-14.6); RBC Distribution Width SD 54.2 fl (35.1-43.9); Red Blood Count 3.51 M/mm3 (4.6-6.2)
[2022-08-07 19:49] LABS: Color, Urine Yellow (Yellow); Glucose, Dipstick 1000 mg/dl (Normal); Ketone-Dipstick 5 mg/dl (Negative); Leukocyte Esterase-Dipstick 25 /ul (Negative); Nitrite-Dipstick Negative (Negative); Occult Blood-Urine 10 /ul (Negative); Protein-Dipstick 30 mg/dl (Negative); Specific Gravity, Urine 1.015 (1.002-1.030); Urine Bilirubin Dipstick Negative (Negative); Urine Clarity Clear (Clear); Urine Urobilinogen 4 mg/dl (Normal)
[2022-08-07 19:59] LABS: Anion Gap 9 (5-15); BUN 22 mg/dL (7-18); BUN/Creat Ratio 19.1 RATIO (10-20); Calcium,Total 9.1 mg/dL (8.5-10.1); Chloride 100 mmol/L (98-107); Creatinine, Serum 1.15 mg/dL (0.70-1.30); EST Glomerular Filtration Rate 66 mL/min (>60); Est Glom Filt Rate - Afr Amer 79 mL/min (>60); Estimated Creatinine Clearance 57.85 ml/min; Glucose 117 mg/dL (74-106); Potassium 4.2 mmol/L (3.5-5.1); Sodium Level 137 mmol/L (136-145)
[2022-08-07 20:10] LABS: Bacteria 1+ /hpf (None Seen); Red Blood Cells-Urine 0-5 SEEN /hpf (0-5); Squamous Epithelial Cells - UA 0-5 SEEN /hpf (0-5); White Blood Cells 0-5 SEEN /hpf (0-5)
[2022-08-07 21:00] VITALS: BP 131/78; PULSE 83; RESP 21; O2SAT 96
[2022-08-07 23:05] VITALS: BP 131/78; PULSE 72; RESP 16
[2022-08-07 23:06] VITALS: RESP 16
== END 2022-08-07 23:14 | disposition home or self-care (01) ==
PROVIDERS: Emergency Provider Emergency Medicine; Visit Provider Emergency Medicine
DX: M54.50 Low back pain, unspecified (principal); F20.9 Schizophrenia, unspecified; J44.9 Chronic obstructive pulmonary disease, unspecified; I25.5 Ischemic cardiomyopathy; F03.918 Unspecified dementia, unspecified severity, with other behavioral disturbance; I25.2 Old myocardial infarction; F17.200 Nicotine dependence, unspecified, uncomplicated; Z79.82 Long term (current) use of aspirin; Z79.01 Long term (current) use of anticoagulants; Z79.899 Other long term (current) drug therapy
CPT/HCPCS: 80048; 81001; 85025; 93005; 99283; A4216

== ENCOUNTER 2022-08-10 15:38 | Emergency (ER) | payer OTHER, SELFPAY ==
[2022-08-10 15:38] VITALS: BP 120/64; PULSE 101; RESP 16; TEMP 36.9; O2SAT 97; BMI 20.6
--- NOTE | 2022-08-10 16:00 | CM.ED ---
Per [employer] patient was found laying down along side of the road and police brought him to the ED. Amira BARAHONA
--- NOTE | 2022-08-10 16:47 | CM.ED ---
Addendum entered by Amira Junior 08/10/22 17:10: Patient denies SI. He voices that people are watching him and making him do things against my better judgement. Patient is displaying paranoia. Amira Junior MSW LISWS Original Note: SW Note Informant: Patient and [employer] Per [employer] patient was found laying in the street. Patient states food at home is spoiled. States to feed preparation operator that he is weak and needs help. On Tuesday patient went to the police department and reported he was in pain and they brought him to the ED. Patient said that he is at the ED as I don't feel so good.Patient said that it is quite difficult at home and stated it's nutritional. Patient reports no medication compliance. Patient was at the ED on 3 days ago as he was not feeling well so he went to the police department. Referral Reason: Mental Health Patient is single. It is unknown if he is or ever been Identified Gender: Male Sexual Orientation: Heterosexual Living Situation: Patient resides in [facility] by himself. Sister resides in [place] but is not a support. Support Resource: Patient was linked with [facility] via [facility]. However, she has been unable to find patient at home. 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 Education and Employment: Patient is retired. He previously stated he has worked in [email or web address].He has voiced he graduated high school and attended College at [facility] and [employer] Mental Health Treatment: Patient has been to [facility] on two occasions. Patient voiced he has not taken his psych medication and stated I don't think they gave me any. Patient has a history of medication noncompliance. No counseling, psychiatrist or treatment per patient. Patient has a diagnosis of schizophrenia. Triggers and Stressors: Patient voiced I am having quite a difficult time at home. Coping Skills: Patient voiced that he writes plays. Abuse: Unknown Substance Abuse: Patient said that he drinks wine and a little bit of cognac but reports no daily wine use. Risk To Others Patient does not voice SI and repeatedly has not voiced SI. Patient does not voice HI and repeatedly has not voiced HI. Violence: Patient has denied violence to self and others. Memory: Poor Orientation: Unclear Appearance: Disheveled. Unkempt Mood and Affect: Flat affect and depressed mood Thought Process: Tangential and fragmented General Intellectual Functioning: Average Judgement: Impaired Insight: Impaired Patient has a diagnosis of schizophrenia. He reports he is not taking his medication. He is not making safe decisions regarding his welfare as on this day he laid down on the road and then voiced to staff that he has not eaten in the home as the food is spoiled. Patient voiced to MD and myself that he has gone with wearing his current clothes for 3 days. Patient is unable to safety care for himself and his mental health is impairing his ability to make safe decisions. He needs inpatient psych for stabilization and medication management. SW reviewed with MD White and he agrees with plan for inpatient psych. Plan: Inpatient psych Amira BARAHONA
--- NOTE | 2022-08-10 16:51 | EKG12_ITS ---
Test Reason : WEAKNESS Blood Pressure : / mmHG Vent. Rate : 082 BPM Atrial Rate : 082 BPM P-R Int : 140 ms QRS Dur : 126 ms QT Int : 420 ms P-R-T Axes : 066 -27 123 degrees QTc Int : 490 ms Normal sinus rhythm Possible Left atrial enlargement Left ventricular hypertrophy with QRS widening and repolarization abnormality ( Doe product ) Inferior infarct , age undetermined Abnormal ECG Confirmed by FLAVIA SHEN, TRICIA ([id number]), acquisition editor EDOUARD GOLDSMITH ([id number]) on 08/12/2022 1:48:17 P M Referred By: Confirmed By:IESHA ALEJANDRO MD
--- NOTE | 2022-08-10 16:54 | EDS_ITS ---
HPI History of Present Illness Chief Complaint: Weakness Detail of Chief Complaint: Unable to care for self Informant: patient, EMS, police/senior project manager and other Onset/Context/Timing Onset: - (Presumed past several days) Context: - (Presumed gradual) Timing: Continuous Quality: Patient was found playing in the street by police. Location: Near patient's residence Current Severity: History of dementia. Maximum Severity: Unknown Worsened by: House is too big for him to take care of Relieved by: Nothing patient repeats what he told me earlier Associated Symptoms Associated Symptoms: Unable to determine Narrative Narrative: Patient is an elderly male who is been living by himself for a couple of years. He was recently admitted to the hospital. Amira the nikolay secondary social studies teacher informed me that she has placed [facility] at [facility]. Patient repeated himself that he lives by himself and that they house is too big for him. He could not tell me what makes things better or worse. He does endorse that he is been wearing the same pants for the past several days. He informed me that he is having trouble feeding himself. He repeated that he lives by himself several times. Review of prior records indicates he has history of dementia. He apparently is on anticoagulant. I was told by case management that he was in the street today and reason he was brought to the ER. Recent Illness/Hospitalization: Yes PFSH PFSH Medical History COPD (chronic obstructive pulmonary disease) Dementia with behavioral disturbance Ischemic cardiomyopathy NSTEMI, initial episode of care Past heart attack Smoker Home Medications apixaban 5 mg tablet (Eliquis) 5 mg PO BID blood thinner #60 tabs 08/06/22 [Rx Last Taken Unknown] aspirin 81 mg chewable tablet 81 mg PO BREAKFAST heart health #30 tabs 08/06/22 [Rx Last Taken Unknown] atorvastatin 40 mg tablet 40 mg PO QHS cholesterol #30 tabs 08/06/22 [Rx Last Taken Unknown] carvedilol 6.25 mg tablet 6.25 mg PO BID bp #60 tabs 08/06/22 [Rx Last Taken Unknown] empagliflozin 10 mg tablet (Jardiance) 10 mg PO DAILY dm #30 tabs 08/06/22 [Rx Last Taken Unknown] furosemide 40 mg tablet 40 mg PO DAILY chf #30 tabs 08/06/22 [Rx Last Taken Unknown] lisinopril 5 mg tablet 5 mg PO DAILY bp #30 tabs 08/06/22 [Rx Last Taken Unknown] risperidone 1 mg tablet 2 mg PO BID #60 tabs 08/06/22 [Rx Last Taken Unknown] nitrofurantoin monohydrate/macrocrystals 100 mg capsule 100 mg PO Q12 #14 CAPSULES 08/10/22 [Rx Last Taken Unknown] Allergy/AdvReac Type Severity Reaction Status Date / Time No Known Allergies Allergy Verified 08/10/22 15:38 Family History Father Heart disease Mother Cancer Surgical History H/O heart surgery Social History household members: none current occupational status: retired Smoking Status: Light Smoker (<10/day) alcohol intake: current alcohol intake frequency: a few times a week Alcohol type: beer, wine and hard liquor substance use type: does not use ROS ROS ED Review of Systems ROS Unobtainable: due to mental condition and due to mental status EXAM Physical Exam Const Vital Signs: 08/10/22 15:38 08/10/22 17:12 08/10/22 17:13 Temperature 98.4 F Temperature Source Temporal Pulse Rate 101 H 81 Respiratory Rate 16 24 H Respiratory Effort Short of Breath Blood Pressure 120/64 146/86 H Blood Pressure Mean 82 106 Pulse Ox 97 93 Oxygen Delivery Method Room Air Room Air 08/10/22 19:01 08/10/22 21:24 08/10/22 23:13 Temperature Temperature Source Pulse Rate 94 79 84 Respiratory Rate 18 20 H 16 Respiratory Effort Blood Pressure 156/88 H 107/64 132/75 H Blood Pressure Mean 110 78 94 Pulse Ox 95 95 95 Oxygen Delivery Method Room Air Room Air Room Air Positive well developed and unkempt General Appearance ED: unkempt, well developed and NAD; Negative for cyanotic, diaphoretic or pallor HEENT Reports dry mucous membranes HEENT Narrative: Head is atraumatic normocephalic. There is no clinical signs of basilar skull fracture. Ears appear normal. Nares patent. Mucosa is dry. Uvula is midline. There is no deviation tongue with protrusion. Mouth ED: Yes dry mucous membranes Mouth: dry mucous membranes Eyes PERRL and EOMs intact bilaterally General Eye ED: Negative for pale conjunctiva or scleral icterus Neck no lymphadenopathy, supple and no JVD Neck Narrative: Trachea is midline. There is no inspiratory extra stridor. He has full active range of motion of his neck. Resp normal respiratory effort and clear to auscultation bilaterally Cardio regular rate, regular rhythm, S1 normal heart sound, S2 normal heart sound and no murmurs GI normal to inspection, nondistended, normoactive bowel sounds, non-tender, non- distended and no masses; Negative for hepatosplenomegaly Back/Spine no CVA tenderness Cervical Spine: Negative for cervical spine tenderness Thoracic Spine / Upper Back: Negative for thoracic spinal tenderness Psych Appearance: unkempt Skin no rashes or lesions noted, no wounds and No skin turgor normal General Skin Exam: Negative for jaundice or pallor MDM MDM MDM Narrative Medical decision making narrative: Patient history of dementia and schizophrenia. This may be exacerbation of the 2. We will obtain appropriate blood work to assess for metabolic infectious causes of his symptoms. Case management was consulted. Uncertain whether he has been compliant with his medication or not. Case management was working on placement. Placement at the end of her shift had not been finalized. Awaiting final disposition. Patient will require hospitalization for psychiatric reasons. In my professional medical opinion patient has no metabolic or infectious etiology as the cause of his unusual behavior. Suspect this is due to his schizophrenia. The evening physician was made aware of patient. There should be no involvement by the evening physician unless the patient acts out. Plan is transfer to psychiatric facility. Lab Data Attestation: I reviewed the patient's lab results. Lab results narrative: White count is slightly elevated with no shift. This is nonspecific. Competence of metabolic panel. Urine reveals bacteria. Leukoesterase is positive however nitrites and blood is negative. Patient does have glucose and ketones noted. Suspect the ketones are due to starvation. Bilirubin was positive urine however his total bili Stevan in the blood is normal. It is my professional opinion that patient abnormal urine is not the cause of his failure to thrive and suspect this is also related to his dementia and schizophrenia. Labs: Laboratory Results - last 24 hr 08/10/22 08/10/22 08/10/22 17:05 17:05 18:45 WBC 11.7 H RBC 3.25 L Hgb 10.7 L Hct 32.0 L MCV 98.5 H MCH 32.9 H MCHC 33.4 RDW Std Deviation 52.3 H RDW Coeff of Paul 14.5 Plt Count 305 MPV 8.3 Immature Gran % (Auto) 0.700 Neut % (Auto) 78.8 H Lymph % (Auto) 13.9 L [place] % (Auto) 5.6 Eos % (Auto) 0.5 Baso % (Auto) 0.5 Absolute Neuts (auto) 9.2 H Absolute Lymphs (auto) 1.63 Nucleated RBC % 0 Sodium 138 Potassium 4.0 Chloride 105 Carbon Dioxide 25.0 Anion Gap 8 BUN 11 Creatinine 0.99 Estim Creat Clear Calc 67.20 Est GFR (MDRD) Af Amer 94 Est GFR (MDRD) Non-Af 78 BUN/Creatinine Ratio 11.1 Glucose 97 Calcium 8.6 Total Bilirubin 1.00 AST 27 ALT 20 Alkaline Phosphatase 67 Total Protein 6.6 Albumin 2.7 L Globulin 3.9 Albumin/Globulin Ratio 0.7 L Urine Color Yellow Urine Clarity Clear Urine pH 7.0 Ur Specific Amo 1.010 Urine Protein 15 H Urine Glucose (UA) 100 H Urine Ketones 15 H Urine Occult Blood Negative Urine Nitrite Negative Urine Bilirubin 1 H Urine Urobilinogen 8 H Ur Leukocyte Esterase 25 H Urine RBC 0 SEEN Urine WBC 0-5 SEEN Ur Squamous Epith Cells 0-5 SEEN Urine Bacteria 1+ Urine Mucus 0 SEEN Discharge Plan Triage Chief Complaint: Weakness ED Provider: Rodrigue White Dx/Rx/DC Orders Clinical Impression: Acute exacerbation of chronic schizophrenia, History of dementia, Depression, Adult failure to thrive, Bacteria in urine Prescriptions: New nitrofurantoin monohyd/m-cryst [nitrofurantoin monohyd/m-cryst] 100 mg capsule 100 mg PO Q12 Qty: 14 0RF No Action risperidone 1 mg Tablet 2 mg PO BID Qty: 60 0RF furosemide 40 mg tablet 40 mg PO DAILY Qty: 30 0RF atorvastatin 40 mg tablet 40 mg PO QHS Qty: 30 0RF carvedilol 6.25 mg tablet 6.25 mg PO BID Qty: 60 0RF aspirin 81 mg tablet,chewable 81 mg PO BREAKFAST Qty: 30 0RF lisinopril 5 mg tablet 5 mg PO DAILY Qty: 30 0RF Eliquis 5 mg tablet 5 mg PO BID Qty: 60 0RF Jardiance 10 mg tablet 10 mg PO DAILY Qty: 30 0RF Primary Care Provider: Care Physician,No Primary Referrals: Care Physician,No Primary [Primary Care Provider] - Disposition Disposition: Psychiatric Hospital or Unit
[2022-08-10] MEDS: 0.9% Normal Saline 1,000 ML 250 ML IV ×2 (17:11→23:14)
[2022-08-10 17:12] VITALS: BP 146/86; PULSE 81; RESP 24; O2SAT 93
[2022-08-10 17:21] LABS: Absolute Lymphocyte Count 1.63 X10^3/uL (0.83-4.51); Absolute Neutrophil Count 9.2 X10^3/uL (2.0-7.7); Basophil# 0.06 X10^3/uL; Basophil% 0.5 % (0-1); Eosinophil# 0.06 X10^3/uL; Eosinophils% 0.5 % (0-5); Hemoglobin 10.7 g/dL (13.0-16.5); Lymphocyte # 1.63 X10^3/ul (0.83-4.51); Lymphocyte % 13.9 % (19-41); Mean Corp Hgb Conc 33.4 g/dL (32-36); Mean Corpuscular Hgb 32.9 pg (27.0-32.0); Mean Corpuscular Volume 98.5 fL (80-94); Mean Platelet Vol. 8.3 fl (6.2-12.0); Monocyte# 0.65 X10^3/uL; Monocyte% 5.6 % (0-10); NRBC Flagged by Analyzer 0 % (0-5); Neutrophil # 9.22 X10^3/uL (2.7-7.7); Neutrophil % 78.8 % (47-70); Platelet Count 305 K/mm3 (150-450); RBC Distribution Width CV 14.5 % (11.6-14.6); RBC Distribution Width SD 52.3 fl (35.1-43.9); Red Blood Count 3.25 M/mm3 (4.6-6.2); White Blood Count 11.7 K/mm3 (4.4-11.0)
[2022-08-10 17:38] LABS: ALB/GLOB Ratio 0.7 RATIO (0.9-2.4); AST(SGOT) 27 U/L (15-37); Alanine Aminotransfer ALT/SGPT 20 U/L (16-61); Albumin, Serum 2.7 g/dL (3.2-5.0); Alkaline Phosphatase 67 U/L (45-117); Anion Gap 8 (5-15); BUN 11 mg/dL (7-18); BUN/Creat Ratio 11.1 RATIO (10-20); Calcium,Total 8.6 mg/dL (8.5-10.1); Chloride 105 mmol/L (98-107); Creatinine, Serum 0.99 mg/dL (0.70-1.30); EST Glomerular Filtration Rate 78 mL/min (>60); Est Glom Filt Rate - Afr Amer 94 mL/min (>60); Globulin 3.9 g/dL (2.2-4.2); Glucose 97 mg/dL (74-106); Protein, Total 6.6 g/dL (6.4-8.2); Sodium Level 138 mmol/L (136-145)
[2022-08-10 18:55] LABS: Mucous, Urine 0 SEEN /hpf (<or=2+); Red Blood Cells-Urine 0 SEEN /hpf (0-5)
[2022-08-10 19:01] VITALS: BP 156/88; PULSE 94; RESP 18; O2SAT 95
[2022-08-10 19:11] LABS: Color, Urine Yellow (Yellow); Glucose, Dipstick 100 mg/dl (Normal); Ketone-Dipstick 15 mg/dl (Negative); Leukocyte Esterase-Dipstick 25 /ul (Negative); Nitrite-Dipstick Negative (Negative); Occult Blood-Urine Negative /ul (Negative); Protein-Dipstick 15 mg/dl (Negative); Urine Clarity Clear (Clear); Urine Urobilinogen 8 mg/dl (Normal)
[2022-08-10 19:17] LABS: Urine Bilirubin Dipstick 1 mg/dL (Negative)
[2022-08-10 19:19] LABS: Bacteria 1+ /hpf (None Seen); Squamous Epithelial Cells - UA 0-5 SEEN /hpf (0-5); White Blood Cells 0-5 SEEN /hpf (0-5)
--- NOTE | 2022-08-10 20:18 | CM.ED ---
JAYLEN called Logan at [facility] and left voice mail that patient was in the ED. JAYLEN spoke to Yoly at [facility] and she will work on placement for patient. Patient has been at [facility] in the past. JAYLEN had Leeann fax referral to [facility]. Handoff given to Yoly. Plan: Inpatient psych Amira BARAHONA
[2022-08-10] MEDS: Ceftriaxone 1 GM/50 ML BAG IV (20:33)
[2022-08-10 21:24] VITALS: BP 107/64; PULSE 79; RESP 20; O2SAT 95
[2022-08-10 23:13] VITALS: BP 132/75; PULSE 84; RESP 16; O2SAT 95
[2022-08-11] VITALS (9 sets, daily range): BP systolic 122–147; BP diastolic 71–89; PULSE 71–91; RESP 14–24; TEMP 36.4; O2SAT 94–97
[2022-08-11] MEDS: Empagliflozin 10 MG Tablet PO (09:01)
[2022-08-11] MEDS: Aspirin 81 MG TAB.CHEW PO (09:01)
[2022-08-11] MEDS: Carvedilol 6.25 MG Tablet PO ×2 (09:01→22:44)
[2022-08-11] MEDS: APIXABAN 5 MG TABLET PO ×2 (09:01→22:43)
[2022-08-11] MEDS: Lisinopril 5 MG Tablet PO (09:01)
[2022-08-11] MEDS: Furosemide 40 MG Tablet PO (09:01)
[2022-08-11] MEDS: 0.9% Normal Saline 1,000 ML 250 ML IV (09:32)
--- NOTE | 2022-08-11 10:52 | CM.ED ---
Social Work Telephone call to crisis to obtain handoffShamika. Patient pending acceptance at [facility] and [facility]. Will continue to follow. Chuy Robison MSW, MURALIS
--- NOTE | 2022-08-11 13:46 | CM.ED ---
Social Work Telephone call from Shamika vergara. Shamika to call and following up on referral at [facility] and [facility]. Will continue to follow. Chuy Robison MSW, MURALIS
--- NOTE | 2022-08-11 15:35 | CM.ED ---
Social Work Telephone call from Shamika vergara. Shamika reports that patient has been declined by [facility] due to insurance. This social media intern noting that patient has VA and Medicare part A &B. This social media intern inquired if referral has been made to the [facility]. Shamika reports not that I am aware of. Shamika reports to have followed up with [facility] and patient continues to be pending. This social media intern to reach out to the [facility]. Tele[facility] call to [facility], admission. Waited on hold for 15min. Unable to continue to wait on hold. This social media intern faxed clinical information. Will continue to follow. Chuy Robison MSW, KINSEY
--- NOTE | 2022-08-11 16:35 | CM.ED ---
Social Work Telephone call from [facility]. [facility] does not have any open beds for several days. Will continue to follow. Chuy Robison MSW, KINSEY
--- NOTE | 2022-08-11 18:16 | CM.ED ---
Social Work Tele[facility] call to [facility], [facility]. This social services aide able to get through to a voicemail. Voicemail left. Will continue to follow. Chuy VERDUZCO, FARHEEN-S
--- NOTE | 2022-08-11 22:51 | ED.RN ---
FLUIDS DC'D PER MD, PT AMBULATING INDEPENDENTLY IN ROOM, UNSAFE WITH IV TUBING. PT DRINKING ADEQUATE AMOUNTS OF FLUIDS.
[2022-08-12] VITALS (7 sets, daily range): BP systolic 120–131; BP diastolic 74–90; PULSE 74–79; RESP 16–18; O2SAT 95–98
--- NOTE | 2022-08-12 02:25 | ED.RN ---
JABIER VALENTINO REVIEWING PATIENTS CHART AT THIS TIME. DUE TO PATIENTS PRIMARY INSURANCE [facility] THEY ARE NEEDED CONFIRMATION THAT [facility] HAS DECLINED PATIENT AND THEY ARE WILLING TO PAY FOR PATIENT. AT THIS TIME WE HAVE NOT RECEIVED OR HEARD ANYTHING BACK FROM [facility]. ANDRE MADE AWARE. THEY WILL REVIEW CASE IF THEY THEY CAN RECEIVE THIS INFORMATION. SOCIAL WORK TO BE MADE AWARE
--- NOTE | 2022-08-12 06:32 | ED.RN ---
[facility] CALLED AND WANTED MORE INFORMATION AT THIS TIME. THEY WILL CALL FOREST ECOLOGY PROFESSOR BACK
--- NOTE | 2022-08-12 08:07 | ED.RN ---
PT FOUND WANDERING ON 3 OCCASIONS THIS AM. PT ENTERING OTHER PTS ROOMS. PT BECOMING LOUD AND ARGUMENTATIVE
--- NOTE | 2022-08-12 10:01 | ED.RN ---
PT FOUND IN ANOTHER PTS ROOM. PT TAKEN BACK TO HIS ROOM AND REDIRECTED THAT HE MUST STAY IN HIS ROOM
[2022-08-12] MEDS: Furosemide 40 MG Tablet PO (10:32)
[2022-08-12] MEDS: Empagliflozin 10 MG Tablet PO (10:32)
[2022-08-12] MEDS: Lisinopril 5 MG Tablet PO (10:32)
[2022-08-12] MEDS: APIXABAN 5 MG TABLET PO (10:32)
[2022-08-12] MEDS: Aspirin 81 MG TAB.CHEW PO (10:32)
[2022-08-12] MEDS: Carvedilol 6.25 MG Tablet PO (10:32)
--- NOTE | 2022-08-12 12:50 | CM.ED ---
Social Work Emergency Department Handoff received from Chuy EUCDEA. Collaboration with Shamika, Director of Crisis services at [facility]. Per Shamika, patient has been declined by: [facility] (where patient has been at twice in the past few months: 8.6 and 9.07.22). Per Sahmika, patient is pending at: [facility] Per Chart patient also declined at: [facility] This signwriter called [facility] transfer line at [phone], extension [phone] and spoke with Nahed to inquire on status of referral sent on 08.11.2022. Noted documentation by ED social work at 1535 on 08.11.22 that a packet was sent. Updated to initial assessment social science instructor completed on day of arrival to the ED. Let Nahed know from initial assessment, it appears patient is having paranoia, delusions and hallucinations based on documentation noted (08.10.2022 at 1647) about patient believing people are watching the patient and making the patient do things against patient's better judgement. Nahed agrees to follow up with referral and get this referral addressed, then to call this signwriter back. This signwriter's direct number given. [facility] at [phone] and spoke with Tessy in admissions. Tessy confirms pending referral. [facility] waiting to hear from [facility] as to whether will cover patient's stay. Updated Tessy that patient has Medicare A & B, and inquired whether [facility] is aware of this. Transferred to service unit operator oil well Donna, who reports [facility] unaware of Medicare eligibility. Donna reports if insurance card or some type of information with Medicare number can be faxed to [phone] will run numbers and take referral to psychiatrist for approval. Due to Demographic sheet, which is usually used for insurance information/referrals not containing the Medicare information, this signwriter faxed Medicare eligibility form printed found in the Registration management section of the EMR. Plan: P[facility] psychiatric placement at [facility] or [facility]. Social work continues to follow. -KINSEY Stahl, CHANGE HOUSE ATTENDANT
--- NOTE | 2022-08-12 15:01 | CASEMGMT ---
Addendum entered and electronically signed by Michelle Hollins 08/12/22 15:05: Clarification: Per Ulisses, patient was accepted for admission to [facility]. -ka Original Note: Social Work - Emergency Department Received call from Ulisses in admissions at [facility]. Ulisses clarified whether patient has any psychiatric illness or evidence of psychosis. Updated that per assessment, patient is displaying paranoia, reviewing verbally the assessment. Updated that patient also carries a diagnosis of schizophrenia. Phone number to call RN to RN report and schedule transport is [phone]. Handoff to Mainor Lea RN in the ED. Plan: [facility] inpatient psychiatric unit. ED staff will arranged Physicians for transport.
== END 2022-08-12 16:26 ==
PROVIDERS: Emergency Provider Emergency Medicine; Visit Provider Emergency Medicine
DX: F20.9 Schizophrenia, unspecified (principal); F03.90 Unspecified dementia, unspecified severity, without behavioral disturbance, psychotic disturbance, mood disturbance, and anxiety; J44.9 Chronic obstructive pulmonary disease, unspecified; Z74.2 Need for assistance at home and no other household member able to render care; R53.1 Weakness; F17.200 Nicotine dependence, unspecified, uncomplicated; Z79.01 Long term (current) use of anticoagulants; Z79.82 Long term (current) use of aspirin; F32.A Depression, unspecified; R62.7 Adult failure to thrive
CPT/HCPCS: 80053; 81001; 85025; 87086; 87088; 87811; 93005; 96365; 96366; 99285; J7030; A4216